=== PATIENT | female | born 1950 | race Caucasian/White ===

== ENCOUNTER 2016-10-29 15:37 | Emergency (ER) | payer BC ==
[~2016-10-29] VITALS: Ht 162.6 cm; Wt 94.0 kg
[~2016-10-29 15:37] MED LIST: ALBUAER2 INH; CHOL1000 PO; CINN500T PO; DICL50TA3 PO; DIPH25CA37 PO; ESOM20CA PO; FEXO1TAB46 PO; GLUCCAP PO; MELA1LIQ PO; MENA1CAP PO; METH1POW PO; MISCCAP80 PO; MULT-580 PO; TRAM-10 PO; VITA400C15 PO
[2016-10-29 15:38] VITALS: Ht 162.6 cm; Wt 94.0 kg
[2016-10-29 15:58] VITALS: O2SAT 94
--- NOTE | 2016-10-29 16:00 | EMERGENCY ROOM VISIT NOTE ---
History Report prepared by Dalton: Andrew Linn Under the Supervision of: Dr. Krystle Hamilton D.O. First contact with patient: 15:49 Chief Complaint: ALLERGIC REACTION Stated Complaint: PNX OR ANAPHYLACTIC SHOCK History of Present Illness The patient is a 66 year old female who presents to the Emergency Room with complaints of persistent shortness of breath. The patient started having trouble breathing suddenly when she was walking downtown prior to arrival. The patient has a history of anaphylaxis. She is not currently experiencing facial swelling, throat tightening or trouble swallowing like she did in the past. The patient has not noticed and rashes or sores. She does have right-sided chest tightness. The patient has had cough and congestion for the past three weeks. She had fever and chills the first week which have not returned since. The cough is productive but has she has not noticed the color of her sputum. She denies nausea, vomiting or changes in bowel or urinary movements. The patient denies recent travel. She has history of asthma and pneumonia as well as anaphylaxis. She denies history of heart disease. She was never a smoker. Source of History: patient Onset: today Position: other (respiratory) Quality: other (shortness of breath) Timing: other (persistent) Associated Symptoms: + cough, + chest pain, No fevers, No chills, No nausea , No vomiting, No melena, No hematochezia, No diarrhea, No urinary symptoms, No rash Review of Systems See HPI for pertinent positives & negatives. A total of 10 systems reviewed and were otherwise negative. Past Medical & Surgical Medical Problems: (1) (Slap) Superior Glenoid Labrum Lesions (2) Allergy To Latex (3) Asthma, Unspecified (4) Diab Marquita Wo Compl, Type Ii Or Unspec Type, Not Uncntrld (5) Esophageal Reflux (6) Hemorrhoids Nos (7) Lumbar Disc Displacement (8) Morbid (Severe) Obesity Due To Excess Calories (9) Sciatica (10) Uterine Endometriosis (11) Uterine Prolapse Surgical Problems: (1) Hip Joint Replacement Status Family History No pertinent family history Social History Smoking Status: Never Smoker Alcohol Use: occasionally Marital Status: Housing Status: lives with family Occupation Status: employed Current/Historical Medications Scheduled Ascorbic Acid (Vitamin C), 1 TAB PO DAILY Cholecalciferol (Vitamin D3), 1,000 UNITS PO QAM Diphenhydramine Hcl (Allergy), 50 MG PO PRN Epinephrine (Epipen), 0.3 MG IM UD Krill Oil (Krill Oil [place]-3), 1,200 MG PO DAILY Multiple Vitamins W/ Minerals (Multi For Her), 1 TAB PO DAILY Prednisone (Prednisone Tab), 20 MG PO UD Scheduled PRN Albuterol Hfa (Ventolin Hfa), 2 PUFFS INH Q4 PRN for COUGH, WHEEZE,SOB Cyclobenzaprine Hcl (Flexeril), 0.5-1 TAB PO TID PRN for BACK SPASMS Esomeprazole Magnesium (Nexium), 40 MG PO DAILY PRN for Fexofenadine Hcl (Ana Allergy), 1 TAB PO DAILY PRN for ALLERGIC REACTION Fluticasone Propionate (Nasal) (Flonase Allergy Relief), 2 SPRAYS JEREMI DAILY PRN for Nasal Congestion Zolpidem Tartrate (Ambien), 5 MG PO HS PRN for Sleep Allergies Coded Allergies: Phenylephrine (Verified Allergy, Severe, RED, WATERY EYES, 10/29/16) WITH EYE DROPS Dust Mite Extract (Verified Allergy, Intermediate, HIVES,SOB THROAT SWELLS , 12/02/15) Baclofen (Verified Allergy, Mild, Hives, 07/08/15) Cephalosporins (Verified Allergy, Mild, UNKNOWN, 12/02/15) Clindamycin (Verified Allergy, Mild, UNKNOWN, 12/02/15) Celecoxib (Verified Allergy, Unknown, SUICIDAL, 12/02/15) Codeine (Verified Allergy, Unknown, NAUSEA AND VOMITING, 12/02/15) Erythromycin (Verified Allergy, Unknown, HIVES, 12/02/15) Latex1 -Allergic Contact Dermititis (Verified Allergy, Unknown, RASH, REDNESS, HIVES, 12/02/15) Methocarbamol (Verified Allergy, Unknown, blurry vision, headache, memory loss , 12/02/15) Penicillins (Verified Allergy, Unknown, HIVES, 12/02/15) Sulfamethoxazole w/Trimethoprim (Verified Allergy, Unknown, depression, nausea, diarrhea, 12/02/15) Tropicamide (Verified Allergy, Unknown, RED, WATERY EYES, 10/29/16) Uncoded Allergies: UNCLAS THER/AG (Allergy, Severe, CAT GUT SUTURES = SEVERE RASH, 07/04/09) ENVIROMENTAL (Allergy, Unknown, ANAPHYLAXIS, 10/29/16) TO COAL, SMOKE, ROAD PAVING, PERFUMES TEMI (Allergy, Unknown, rash, 06/03/15) Physical Exam Vital Signs Date Time Temp Pulse Resp B/P (MAP) Pulse Ox O2 Delivery O2 Flow Rate FiO2 10/29/16 18:02 36.4 97 16 126/61 95 10/29/16 17:41 97 16 126/61 95 10/29/16 17:34 107 18 126/61 95 Room Air 10/29/16 16:35 103 20 149/69 95 Room Air 10/29/16 16:15 98 22 99 Nebulizer 10/29/16 15:58 94 Room Air 10/29/16 15:56 101 10/29/16 15:50 97 Room Air 10/29/16 15:38 36.4 108 26 178/94 97 Room Air Physical Exam GENERAL: alert, well appearing, well nourished, no distress, non-toxic EYE EXAM: normal conjunctiva. OROPHARYNX: Mildly hoarse voice, mild uvular edema, uvula is midline, no lip or tongue swelling, no lesions of the mucous membranes, no tonsillar hypertrophy. NECK: supple, no nuchal rigidity, no adenopathy, non-tender, no stridor. LUNGS: Clear to auscultation. Normal chest wall mechanics, no w/r/r HEART: Regular rhythm, mildly tachycardic, no murmurs, S1 normal and S2 normal ABDOMEN: abdomen soft, non-tender, normo-active bowel sounds, no masses, no rebound or guarding. BACK: Back is symmetrical on inspection and there is no deformity, no midline tenderness, no CVA tenderness. SKIN: no rashes and no bruising. No urticaria, hives, or vesicles. UPPER EXTREMITIES: upper extremities are grossly normal. Neurovascularly intact. LOWER EXTREMITIES: No pitting edema. Neurovascularly intact. NEURO EXAM: Normal sensorium, cranial nerves II-XII grossly intact, normal speech, no gross weakness of arms, no gross weakness of legs. Gross sensation intact. Medical Decision & Procedures ER Provider Diagnostic Interpretation: Radiology results have been interpreted by the radiologist and reviewed by me. SINGLE VIEW CHEST CLINICAL HISTORY: Dyspnea. FINDINGS: An AP, portable, upright chest radiograph is compared to study dated 08/30/2014 and correlated with chest CT dated 09/08/2007. The examination is degraded by portable technique and patient rotation. The heart is top normal for projection. The mediastinal contour is within normal limits. Chronic interstitial thickening is unchanged, as is a nodule in the right middle lobe. This was better characterized by chest CT in 2007. No airspace consolidation, large pleural effusion, or pneumothorax is seen. The skeletal structures are osteopenic. The bony thorax is grossly intact. IMPRESSION: 1. No acute cardiopulmonary abnormality. 2. A right middle lobe nodule is unchanged dating back to 2007. Electronically signed by: Jewel Denney M.D. 10/29/2016 4:15 PM Dictated Date/Time: 10/29/2016 4:13 PM Laboratory Results 10/29/16 15:55 Red Blood Count 4.99, Mean Corpuscular Volume 90.6, Mean Corpuscular Hemoglobin 29.1, Mean Corpuscular Hemoglobin Concent 32.1, Mean Platelet Volume 10.9, Neutrophils (%) (Auto) 62.6, Lymphocytes (%) (Auto) 27.2, Monocytes (%) (Auto) 7.0, Eosinophils (%) (Auto) 2.6, Basophils (%) (Auto) 0.4, Neutrophils # (Auto) 6.02, Lymphocytes # (Auto) 2.62, Monocytes # (Auto) 0.67, Eosinophils # (Auto) 0.25, Basophils # (Auto) 0.04 10/29/16 15:55 Test 10/29/16 15:55 White Blood Count 9.62 K/uL (4.8-10.8) Red Blood Count 4.99 M/uL (4.2-5.4) Hemoglobin 14.5 g/dL (12.0-16.0) Hematocrit 45.2 % (37-47) Mean Corpuscular Volume 90.6 fL (80-100) Mean Corpuscular Hemoglobin 29.1 pg (25-34) Mean Corpuscular Hemoglobin Concent 32.1 g/dl (32-36) Platelet Count 275 K/uL (130-400) Mean Platelet Volume 10.9 fL (7.4-10.4) Neutrophils (%) (Auto) 62.6 % Lymphocytes (%) (Auto) 27.2 % Monocytes (%) (Auto) 7.0 % Eosinophils (%) (Auto) 2.6 % Basophils (%) (Auto) 0.4 % Neutrophils # (Auto) 6.02 K/uL (1.4-6.5) Lymphocytes # (Auto) 2.62 K/uL (1.2-3.4) Monocytes # (Auto) 0.67 K/uL (0.11-0.59) Eosinophils # (Auto) 0.25 K/uL (0-0.5) Basophils # (Auto) 0.04 K/uL (0-0.2) RDW Standard Deviation 43.7 fL (36.4-46.3) RDW Coefficient of Variation 13.3 % (11.5-14.5) Immature Granulocyte % (Auto) 0.2 % Immature Granulocyte # (Auto) 0.02 K/uL (0.00-0.02) D-Dimer 460 ug/L FEU (0-500) Anion Gap 8.0 mmol/L (3-11) Est Creatinine Clear Calc Drug Dose 62.2 ml/min Estimated GFR () 68.8 Estimated GFR (Non- 59.4 BUN/Creatinine Ratio 14.0 (10-20) Calcium Level 8.9 mg/dl (8.5-10.1) Total Bilirubin 0.3 mg/dl (0.2-1) Aspartate Amino Transf (AST/SGOT) 17 U/L (15-37) Alanine Aminotransferase (ALT/SGPT) 24 U/L (12-78) Alkaline Phosphatase 94 U/L (45-117) Troponin I < 0.015 ng/ml (0-0.045) Pro-B-Type Natriuretic Peptide 24 pg/ml (0-900) Total Protein 8.2 gm/dl (6.4-8.2) Albumin 3.9 gm/dl (3.4-5.0) Globulin 4.3 gm/dl (2.5-4.0) Albumin/Globulin Ratio 0.9 (0.9-2) Laboratory results per my review. Medications Administered Medications (Trade) Dose Ordered Sig/Miguel Route Start Time Stop Time Status Last Admin Dose Admin Albuterol/ Ipratropium (Duoneb) 3 ml NOW STAT INH 10/29/16 16:04 10/29/16 16:05 DC 10/29/16 16:15 3 ML Diphenhydramine HCl (Benadryl Inj) 25 mg NOW STAT IV 10/29/16 16:15 10/29/16 16:17 DC 10/29/16 16:22 25 MG Dexamethasone Sodium Phosphate (Decadron Inj) 10 mg NOW ONCE IV 10/29/16 16:45 10/29/16 16:46 DC 10/29/16 16:52 10 MG Albuterol/ Ipratropium (Duoneb) 3 ml NOW STAT INH 10/29/16 17:04 10/29/16 17:05 DC 10/29/16 17:08 3 ML Albuterol (Ventolin Hfa Inhaler) 2 puffs NOW ONCE INH 10/29/16 17:45 10/29/16 17:46 DC 10/29/16 17:50 2 PUFFS ECG Indication: SOB/dyspnea Rate (beats per minute): 98 Rhythm: normal sinus Findings: no acute ischemic change, no ectopy, other (normal axis, normal QRS, low voltage, T waves appear flattened which possibly contributes to EKG calculation of a prolonged QTC. QTC does not appear prolonged to visual inspection.) ED Course 1549: The patient was evaluated in room A1. A complete history and physical exam was performed. 1604: DuoNeb 3 ml INH. 1615: Benadryl 25 mg IV. 1638: Checked on the patient. She looks much better and her voice is no longer hoarse. 1645: Decadron 10 mg IV. 1704: DuoNeb 3 ml INH. 1725: The patient is feeling great. She would like to go home. 1745: Albuterol 2 puffs INH. Medical Decision Differential diagnosis: Etiologies such as infections, reactive airway disease, pneumonia, pneumothorax , COPD, CHF, cardiac ischemia, pulmonary embolism, musculoskeletal, gastrointestinal, as well as others were entertained. Medication Reconciliation: I attest that I have personally reviewed the patient' s current medication list. Blood pressure screening: Patient was found to have an elevated blood pressure and was referred to their primary doctor for recheck and further treatment. I do not suspect anaphylaxis at this time. Hx more suggestive of bronchospasm/ URI. Possible seasonal allergy component. No evidence of pneumonia/effusion/ CHF. Doubt deep space infection, Improvement in sx with tx here and no recurrence. No hypoxia noted. Pt ambulatory without any recurrent sx. Discussed with pt sx to watch/return for, f/u with PCP, she verbalized understanding and was agreeable with plan. Doubt cardiac etiology, vascular etiology. Impression Primary Impression: Dyspnea Additional Impressions: Asthma exacerbation URI (upper respiratory infection) Scribe Attestation The scribe's documentation has been prepared under my direction and personally reviewed by me in its entirety. I confirm that the note above accurately reflects all work, treatment, procedures, and medical decision making performed by me. Departure Information Dispostion Home / Self-Care Referrals Sharee Leblanc D.O. (PCP) Patient Instructions My [facility] Additional Instructions Please use your inhaler with spacer as provided. You may use her inhaler up to every 4 hours as needed for shortness of breath, persistent cough, or wheezing. Please follow up with her family doctor next week given your recent upper respiratory infection and exacerbation of her asthma. Please agrees keep your allergic reaction medications with you as your previously directed by her doctor including her EpiPen. If you develop any worsening trouble breathing, persistent cough or coughing up blood, develop recurrent fevers, vomiting, chest pain or pressure, or any other new concerns, please return the emergency room. Problem Qualifiers Primary Impression: Dyspnea Dyspnea type: shortness of breath Qualified Codes: R06.02 - Shortness of breath Additional Impressions: URI (upper respiratory infection) URI type: unspecified URI Qualified Codes: J06.9 - Acute upper respiratory infection, unspecified
[2016-10-29] MEDS ORDERED: ALBUT/IPRATROP 3MG/0.5MG NEB 3 ML VIAL INH STA ×2 (16:04→17:04)
[2016-10-29] MEDS ORDERED: DiphenhydrAMINE HCL 50 MG/ML VIAL IV STA (16:15)
[2016-10-29 16:16] LABS: BASO % 0.4 %; BASO ABS # 0.04 K/uL (0-0.2); COMPLETE YES; EOS % 2.6 %; HEMATOCRIT 45.2 % (37-47); IG% 0.2 %; LYMPH % 27.2 %; LYMPH ABS # 2.62 K/uL (1.2-3.4); MEAN CELL VOLUME 90.6 fL (80-100); MEAN CORPUSCULAR HEMOGLOBIN 29.1 pg (25-34); MEAN CORPUSCULAR HGB CONC 32.1 g/dl (32-36); MEAN PLATELET VOLUME 10.9 fL (7.4-10.4); NEUT % 62.6 %; PLATELET COUNT 275 K/uL (130-400); RED BLOOD COUNT 4.99 M/uL (4.2-5.4); WHITE BLOOD COUNT 9.62 K/uL (4.8-10.8)
--- NOTE | 2016-10-29 16:16 | DIAGNOSTIC IMAGING REPORT ---
SINGLE VIEW CHEST CLINICAL HISTORY: Dyspnea. FINDINGS: An AP, portable, upright chest radiograph is compared to study dated 08/30/2014 and correlated with chest CT dated 09/08/2007. The examination is degraded by portable technique and patient rotation. The heart is top normal for projection. The mediastinal contour is within normal limits. Chronic interstitial thickening is unchanged, as is a nodule in the right middle lobe. This was better characterized by chest CT in 2007. No airspace consolidation, large pleural effusion, or pneumothorax is seen. The skeletal structures are osteopenic. The bony thorax is grossly intact. IMPRESSION: 1. No acute cardiopulmonary abnormality. 2. A right middle lobe nodule is unchanged dating back to 2007. Electronically signed by: Jewel Denney M.D. 10/29/2016 4:15 PM Dictated Date/Time: 10/29/2016 4:13 PM
[2016-10-29] MEDS ORDERED: ZOLP5TAB PO (16:22)
[2016-10-29] MEDS ORDERED: EPP3/2 IM (16:22)
[2016-10-29] MEDS ORDERED: PRED20TA2 PO (16:22)
[2016-10-29 16:26] LABS: ALT/SGPT 24 U/L (12-78); AST/SGOT 17 U/L (15-37); BLOOD UREA NITROGEN 14 mg/dl (7-18); CALCIUM 8.9 mg/dl (8.5-10.1); CARBON DIOXIDE 27 mmol/L (21-32); CHLORIDE 106 mmol/L (98-107); CREATININE 0.99 mg/dl (0.60-1.20); GLUCOSE 197 mg/dl (70-99); POTASSIUM 3.6 mmol/L (3.5-5.1); SODIUM 141 mmol/L (136-145)
[2016-10-29 16:31] LABS: ALB/GLOB RATIO 0.9 (0.9-2); ALKALINE PHOSPHATASE 94 U/L (45-117)
[2016-10-29] MEDS ORDERED: KRIL1CAP7 PO (16:44)
[2016-10-29] MEDS ORDERED: MULT-222 PO (16:44)
[2016-10-29] MEDS ORDERED: DEXAMETHASONE SOD INJ 10 MG/ML VIAL IV ONE (16:45)
[2016-10-29] MEDS ORDERED: CYCL10TA6 PO (17:03)
[2016-10-29] MEDS ORDERED: FEXO1TAB49 PO (17:15)
[2016-10-29] MEDS ORDERED: FLUT0.15 NAE (17:15)
[2016-10-29] MEDS ORDERED: VNTHFA/IN INH (17:15)
[2016-10-29] MEDS ORDERED: DIPH-384 PO (17:15)
[2016-10-29] MEDS ORDERED: NXM/40 PO (17:15)
[2016-10-29] MEDS ORDERED: ASCA500 PO (17:15)
[2016-10-29] MEDS ORDERED: ALBUTEROL HFA 8 GM INHALER INH ONE (17:45)
[2016-10-29 18:02] VITALS: BP 126/61; PULSE 97; TEMP 36.4; O2SAT 95
== END 2016-10-29 18:00 | disposition home or self-care (01) ==
LOC: C.EDB 15:38 → C.ED 18:00
DX: R06.00 Dyspnea, unspecified (principal); J45.901 Unspecified asthma with (acute) exacerbation; J06.9 Acute upper respiratory infection, unspecified; E11.9 Type 2 diabetes mellitus without complications; K21.9 Gastro-esophageal reflux disease without esophagitis; K64.9 Unspecified hemorrhoids; M51.26 Other intervertebral disc displacement, lumbar region; E66.01 Morbid (severe) obesity due to excess calories; N80.0 Endometriosis of uterus; N81.4 Uterovaginal prolapse, unspecified; Z96.649 Presence of unspecified artificial hip joint

== ENCOUNTER → 2017-01-11 | Outpatient (CLI) | payer BC ==
[~2017-01-11] MED LIST changes: -ALBUAER2 INH; +ASCA500 PO; -CINN500T PO; +CYCL10TA6 PO; -DICL50TA3 PO; +DIPH-384 PO; -DIPH25CA37 PO; +EPP3/2 IM; -ESOM20CA PO; -FEXO1TAB46 PO; +FEXO1TAB49 PO; +FLUT0.15 NAE; -GLUCCAP PO; +KRIL1CAP7 PO; -MELA1LIQ PO; -MENA1CAP PO; -METH1POW PO; -MISCCAP80 PO; +MULT-222 PO; -MULT-580 PO; +NXM/40 PO; +PRED20TA2 PO; -TRAM-10 PO; -VITA400C15 PO; +VNTHFA/IN INH; +ZOLP5TAB PO
== END | disposition home or self-care (01) ==
LOC: C.LABSPEC 13:08
PROVIDERS: ATTEND Obstetrics & Gynecology
DX: Z12.4 Encounter for screening for malignant neoplasm of cervix (principal); N76.2 Acute vulvitis

== ENCOUNTER → 2017-01-11 | Outpatient (CLI) | payer BC | END | disposition home or self-care (01) | LOC: C.PAPS 14:11 | PROVIDERS: ATTEND Obstetrics & Gynecology | DX: Z12.4 Encounter for screening for malignant neoplasm of cervix (principal) ==

== ENCOUNTER → 2017-06-15 | Day surgery (SDC) | payer BC ==
[2017-06-09 08:41] VITALS: BMI 34.0
[~2017-06-15] VITALS: Ht 162.6 cm; Wt 90.9 kg
[~2017-06-15] MED LIST changes: +CALC750T PO; +CINN1CAP2 PO; +CYAN10004 PO; +GLUCCAP31 PO; +IODINE PO; +JOINT FORMULA PO; +MAGN250T3 PO; +MULT60CA PO; +PROPOFOL IV EMULSION 10 MG/ML 20 ML VIAL IV ONE; +TURM500C2 PO; +[UNRECOGNIZED DRUG - OTHER] PO
[2017-06-15 10:39] VITALS: Ht 162.6 cm; Wt 90.9 kg
--- NOTE | 2017-06-15 11:21 | Endo History and Physical ---
History & Physical Date of Service: Jun 15, 2017. Chief Complaint: SCREENING Referring Physician: DR ATIYA MCDONNELL History of Present Illness screening Past Medical History Diabetes, Arthritis, Fractures, Asthma, Reflux, Depression Past Surgical History Hx Cardiac Surgery: No Hx Internal Defibrillator: No Hx Pacemaker: No Hx Abdominal Surgery: Yes (PARTIAL HYSTER WITH RECON OF LINING OF WALL, HEMORRHOIDECTOMY) Hx of Implantable Prosthesis: No Hx Post-Op Nausea and Vomiting: No Hx Cancer Surgery: No Hx Thoracic Surgery: No Hx Orthopedic: Yes (LT/RT JORDAN, LT/RT HIP REVISIONS, RT SHOULDER, RT FOOT X2) Hx Urinary Tract Surgery: No Family History None Social History Smoking Status: Never Smoker Hx Substance Use: No Hx Alcohol Use: No Allergies Coded Allergies: Phenylephrine (Verified Allergy, Severe, RED, WATERY EYES, 06/15/17) WITH EYE DROPS Dust Mite Extract (Verified Allergy, Intermediate, HIVES,SOB THROAT SWELLS , 06/15/17) Baclofen (Verified Allergy, Mild, Hives, 06/15/17) Cephalosporins (Verified Allergy, Mild, UNKNOWN, 06/15/17) Clindamycin (Verified Allergy, Mild, UNKNOWN, 06/15/17) Celecoxib (Verified Allergy, Unknown, SUICIDAL, 06/15/17) Codeine (Verified Allergy, Unknown, NAUSEA AND VOMITING, 06/15/17) Erythromycin (Verified Allergy, Unknown, HIVES, 06/15/17) Latex1 -Allergic Contact Dermititis (Verified Allergy, Unknown, RASH, REDNESS, HIVES, 06/15/17) Methocarbamol (Verified Allergy, Unknown, blurry vision, headache, memory loss , 06/15/17) Penicillins (Verified Allergy, Unknown, HIVES, 06/15/17) Sulfamethoxazole w/Trimethoprim (Verified Allergy, Unknown, depression, nausea, diarrhea, 06/15/17) Tropicamide (Verified Allergy, Unknown, RED, WATERY EYES, 06/15/17) Uncoded Allergies: UNCLAS THER/AG (Allergy, Severe, CAT GUT SUTURES = SEVERE RASH, 07/04/09) ENVIROMENTAL (Allergy, Unknown, ANAPHYLAXIS, 10/29/16) TO COAL, SMOKE, ROAD PAVING, PERFUMES TEMI (Allergy, Unknown, rash, 06/03/15) WHITE GOLD (Adverse Reaction, Unknown, OCCASIONAL HIVES/IRRITATION, 06/09/17 ) Current Medications Reported Home Medications Medications Dose Route/Sig Max Daily Dose Days Date Category Dose Instructions Msm/Glucosamine (Glucosamine Sulfate-Methylsulf) 1 Cap Cap 1 Cap PO DAILY 06/09/17 Reported Calcium + D + K (Calcium W/ Vitamins D & K) 1 Tab Tab 1 Tab PO DAILY 06/09/17 Reported Preservision Areds 2 (Multiple Vitamins W/ Minerals) 1 Cap Cap 1 Cap PO DAILY 06/09/17 Reported Vitamin B-12 1000 Mcg (Cyanocobalamin) 1,000 Mcg Tab 1,000 Mcg PO DAILY 06/09/17 Reported [Iodine] 1 Tab PO DAILY 06/09/17 Reported [Lignens W Licopene] 1 Tab PO DAILY 06/09/17 Reported [Joint Formula] 1 Tab PO DAILY 06/09/17 Reported Magnesium 250 mg (Magnesium) 1 Tab Tab 1 Tab PO DAILY 06/09/17 Reported Curcumin 95 (Turmeric (Curcuma Longa)) 500 Mg Cap 1 Cap PO DAILY 06/09/17 Reported Vitamin C (Ascorbic Acid) 500 Mg Tab 1 Tab PO DAILY 06/09/17 Reported Cinnamon 500 Mg Cap 2 Cap PO DAILY 06/09/17 Reported Vitamin C (Ascorbic Acid) 500 Mg Tab 1 Tab PO DAILY 10/29/16 Reported Ana Allergy (Fexofenadine Hcl) 180 Mg Tab 1 Tab PO DAILY PRN 10/29/16 Reported Nexium (Esomeprazole Magnesium) 40 Mg Capcr 40 Mg PO DAILY PRN 10/29/16 Reported Flonase Allergy Relief (Fluticasone Propionate (Nasal)) 50 Mcg/Act Spr 2 Sprays JEREMI DAILY PRN 10/29/16 Reported Allergy (Diphenhydramine Hcl) 25 Mg Cap 50 Mg PO PRN 10/29/16 Reported Ventolin Hfa (Albuterol) 200 Puffs/93784 Mcg Aers 2 Puffs INH Q4 PRN 10/29/16 Reported Flexeril (Cyclobenzaprine Hcl) 10 Mg Tab 0.5-1 Tab PO TID PRN 12/02/15 Reported Krill Oil [place]-3 (Krill Oil) 1 Cap Cap 1,200 Mg PO DAILY 12/02/15 Reported Multi For Her (Multiple Vitamins W/ Minerals) 1 Tab Tab 1 Tab PO DAILY 12/02/15 Reported Vitamin D3 (Cholecalciferol) 1,000 Unit Tab 1,000 Units PO DAILY 11/12/14 Reported Ambien (Zolpidem Tartrate) 5 Mg Tab 5 Mg PO HS PRN 05/07/13 Reported Prednisone Tab (Prednisone) 20 Mg Tab 20 Mg PO UD 05/07/13 Reported 2 TABLETS AT ONSET OF THROAT SWELLING Epipen (Epinephrine) 0.3 Mg/0.3 Ml Inj 0.3 Mg IM UD 05/07/13 Reported Vital Signs Weight (Kilograms): 90.91 Height (Feet): 5 Height (Inches): 4 Date Time Temp Pulse Resp B/P (MAP) Pulse Ox O2 Delivery O2 Flow Rate FiO2 06/15/17 10:45 36.7 76 20 150/78 (102) 95 Room Air Physical Exam General Appearance: no apparent distress Respiratory/Chest: Auscultation: breath sounds normal Cardiovascular: Heart Auscultation: RRR Abdomen: Inspection & Palpation: soft Assessment and Plan crc screening
--- NOTE | 2017-06-15 12:08 | GI REPORT ---
Procedure Date: 06/15/2017 11:21 AM Procedure: Colonoscopy Indications: Screening for colorectal malignant neoplasm Medicines: See the Anesthesia note for documentation of the administered medications Complications: No immediate complications. Estimated Blood Loss: Estimated blood loss: none. Procedure: Pre-Anesthesia Assessment: - ASA Grade Assessment: III - A patient with severe systemic disease. After I obtained informed consent, the scope was passed under direct vision. Throughout the procedure, the patient's blood pressure, pulse, and oxygen saturations were monitored continuously. The scope was introduced through the anus and advanced to the cecum, identified by appendiceal orifice and ileocecal valve. The colonoscopy was performed without difficulty. The patient tolerated the procedure well. The quality of the bowel preparation was good. Findings: The perianal and digital rectal examinations were normal. Multiple small-mouthed diverticula were found in the sigmoid colon. There was a healed scar in the rectum. There was scarring at the anal verge, likely related to prior hemorrhoidectomy. The exam was otherwise without abnormality. Impression: - Diverticulosis in the sigmoid colon. - The examination was otherwise unremarkable. - No specimens collected. Recommendation: - Repeat exam in 10 years. - Discharge patient to home. Marciano Valdovinos M.D. Marciano Valdovinos MD 06/15/2017 12:08:02 PM This report has been signed electronically. Note Initiated On: 06/15/2017 11:21 AM I attest to the content of the Intraoperative Record and orders documented therein, exceptions below
--- NOTE | 2017-06-15 12:10 | Discharge Instructions ---
Endoscopy Patient Instructions Date / Procedure(s) Performed Jun 15, 2017. Colonoscopy Allergy Information Coded Allergies: Phenylephrine (Verified Allergy, Severe, RED, WATERY EYES, 06/15/17) WITH EYE DROPS Dust Mite Extract (Verified Allergy, Intermediate, HIVES,SOB THROAT SWELLS , 06/15/17) Baclofen (Verified Allergy, Mild, Hives, 06/15/17) Cephalosporins (Verified Allergy, Mild, UNKNOWN, 06/15/17) Clindamycin (Verified Allergy, Mild, UNKNOWN, 06/15/17) Celecoxib (Verified Allergy, Unknown, SUICIDAL, 06/15/17) Codeine (Verified Allergy, Unknown, NAUSEA AND VOMITING, 06/15/17) Erythromycin (Verified Allergy, Unknown, HIVES, 06/15/17) Latex1 -Allergic Contact Dermititis (Verified Allergy, Unknown, RASH, REDNESS, HIVES, 06/15/17) Methocarbamol (Verified Allergy, Unknown, blurry vision, headache, memory loss , 06/15/17) Penicillins (Verified Allergy, Unknown, HIVES, 06/15/17) Sulfamethoxazole w/Trimethoprim (Verified Allergy, Unknown, depression, nausea, diarrhea, 06/15/17) Tropicamide (Verified Allergy, Unknown, RED, WATERY EYES, 06/15/17) Uncoded Allergies: UNCLAS THER/AG (Allergy, Severe, CAT GUT SUTURES = SEVERE RASH, 07/04/09) ENVIROMENTAL (Allergy, Unknown, ANAPHYLAXIS, 10/29/16) TO COAL, SMOKE, ROAD PAVING, PERFUMES TEMI (Allergy, Unknown, rash, 06/03/15) WHITE GOLD (Adverse Reaction, Unknown, OCCASIONAL HIVES/IRRITATION, 06/09/17 ) Discharge Date / Findings Jun 15, 2017. Diverticulosis Medication Instructions Stopped Medication(s): VITAMINS AND MINERALS Provider Instructions Activity Restrictions - No exercising or heavy lifting for 24 hours. - Do not drink alcohol the day of the procedure. - Do not drive a car or operate machinery until the day after the procedure. - Do not make any important decisions or sign important papers in 24 hours after the procedure. Following Day: - Return to full activity which may include returning to work/school. Diet Start your diet with liquids and light foods (jello, soup, juice, toast). Then eat your usual diet if not nauseated. Treatment For Common After Affects For mild abdominal pain, bloating, or excessive gas: - Rest - Eat lightly - Lie on right side Follow-Up Information Follow-up with DR ATIYA MCDONNELL as scheduled Anesthesia Information What You Should Know You have had a procedure that required some medicine to reduce anxiety and discomfort. This treatment is called moderate sedation. After receiving the treatment, you may be sleepy, but you will be able to breathe on your own. The effects of the treatment may last for several hours. Follow these instructions along with Activity/Diet recommendations noted above: * Do NOT do anything where dizziness or clumsiness would be dangerous. * Rest quietly at home today, then you can be up and about tomorrow. * Have a responsible person stay with you the rest of today. * You may have had an I.V. today. If so, you may take the dressing off later today. Recommendations Call your doctor if: * Trouble breathing * Continuous vomiting for more than 24 hours * Temperature above 101 degrees * Severe abdominal pain or bloating * Pain not relieved by pain medicine ordered * There is increased drainage or redness from any incision * A large amount of rectal bleeding greater than 2-3 tablespoons. (If you had a polyp/s removed or have hemorrhoids, a small amount of blood - from the rectum is to be expected.) * You have any unanswered questions or concerns. IN THE EVENT OF A SERIOUS EMERGENCY, GO TO THE NEAREST EMERGENCY ROOM Your discharge instructions were prepared by provider Marciano Kan. Patient Instructions Signature Page Yaneth Rios Patient (or Guardian) Signature/Date: I have read and understand the instructions given to me by my caregivers. Caregiver/RN/Doctor Signature/Date: The above-named patient and/or guardian has received patient instructions on this date. + Original Patient Signature Page (only) stays with chart. Please make copy for patient.
[2017-06-15 12:21] VITALS: BP 123/93; PULSE 59; O2SAT 99
--- NOTE | 2017-06-15 12:24 | Anesthesiology Progress Note ---
Anesthesia Post Op Note Date & Time Jun 15, 2017 at 12:24 Vital Signs Pain Intensity: 0 Vital Signs Past 12 Hours Date Time Temp Pulse Resp B/P (MAP) Pulse Ox O2 Delivery O2 Flow Rate FiO2 06/15/17 12:21 59 20 123/93 (103) 99 Room Air 06/15/17 12:06 62 18 146/73 (97) 97 Room Air 06/15/17 11:51 75 18 125/68 (87) 96 Room Air 06/15/17 10:45 36.7 76 20 150/78 (102) 95 Room Air Notes Mental Status: alert / awake / arousable, participated in evaluation Pt Amnestic to Procedure: Yes Nausea / Vomiting: adequately controlled Pain: adequately controlled Airway Patency, RR, SpO2: stable & adequate BP & HR: stable & adequate Hydration State: stable & adequate Anesthetic Complications: no major complications apparent
== END | disposition home or self-care (01) ==
LOC: C.GI 09:49
PROVIDERS: ATTEND Internal Medicine Gastroenterology
DX: Z12.11 Encounter for screening for malignant neoplasm of colon (principal); K57.30 Diverticulosis of large intestine without perforation or abscess without bleeding; J45.909 Unspecified asthma, uncomplicated; K21.9 Gastro-esophageal reflux disease without esophagitis; E11.9 Type 2 diabetes mellitus without complications; Z90.710 Acquired absence of both cervix and uterus; Z96.641 Presence of right artificial hip joint; Z96.642 Presence of left artificial hip joint

== ENCOUNTER 2020-09-19 20:22 | Observation (INO) ==
[2020-09-20 00:43] LABS: Basophils # (auto) 0.04 K/uL (0-0.2); Basophils % (auto) 0.6 %; Eosinophils # (auto) 0.19 K/uL (0-0.5); Eosinophils % (auto) 2.7 %; Hematocrit (blood only) 40.2 % (37-47); Hemoglobin 13.2 g/dL (12.0-16.0); Immature Granulocytes # (auto) 0.01 K/uL (0.00-0.02); Immature Granulocytes % (auto) 0.1 %; Lymphocytes # (auto) 2.84 K/uL (1.2-3.4); Lymphocytes % (auto) 40.6 %; Mean Corpuscular Hemoglobin 29.8 pg (25-34); Mean Corpuscular Hgb Conc 32.8 g/dL (32-36); Mean Corpuscular Volume 90.7 fL (80-100); Mean Platelet Volume 11.4 fL (7.4-10.4); Monocytes % (auto) 8.6 %; Neutrophils # (auto) 3.31 K/uL (1.4-6.5); Neutrophils % (auto) 47.4 %; Platelet Count 165 K/uL (130-400); RDW Coefficient of Variation 13.2 % (11.5-14.5); RDW Standard Deviation 43.8 fL (36.4-46.3); Red Blood Count 4.43 M/uL (4.2-5.4); White Blood Count 6.99 K/uL (4.8-10.8)
[2020-09-20 01:02] LABS: Albumin Level 3.7 gm/dl (3.4-5.0); BUN Creatinine Ratio 23.7 (10-20); Calcium 9.3 mg/dl (8.5-10.1); Creatinine Clr Calc Pharmacy 69.2 ml/min; Est GFR (African American) 81.6; Est GFR (Non-African American) 70.4; Potassium 4.2 mmol/L (3.5-5.1)
[2020-09-20 01:05] LABS: Bilirubin,Total 0.3 mg/dl (0.2-1); Globulin 3.7 gm/dl (2.5-4.0); Total Protein 7.4 gm/dl (6.4-8.2)
--- NOTE | 2020-09-20 01:33 | Emergency Department Note ---
History of Present Illness General Chief complaint: Fall Stated complaint: FELL, WHOLE RIGHT SIDE HURTS Time Seen by Provider: 09/19/20 22:01 Source: patient and family (Son who is at the bedside) Mode of arrival: ambulatory Limitations: no limitations History of Present Illness Maximum Pain Intensity: 6 This patient comes in after falling. She said that she was on some steps and the last step down she had just stood up and lost her balance and fell to the right side. She did not feel ill beforehand has had no recent illness or fever or chills. She said she had no symptoms that would make her fall such as w eakness or chest pain. And she is certain that she did not have syncope. She says she was just simply off balance. She has pain in her right hip. She is at both hips replaced. She also has pain in her right shoulder elbow and wrist. She did not hit her head and has no headache. She has no neck pain. No facial injuries. No change in vision difficulty speaking or swallowing. Denies any focal numbness or weakness. No chest pain or shortness of breath or abdominal pain. No trauma to the chest or abdomen. Denies back pain. She says she when she walks she is also feels like she is dragging her right foot which is new. She tells me during her hip replacement the past there was some damage and she does have sometimes hard time flexing her hip but this is different. Home Medications Medication Instructions Recorded Confirmed Type albuterol sulfate 2 puff INHALATION QID PRN 04/25/18 09/19/20 History ascorbic acid (vitamin C) 1,000 mg PO BID 04/25/18 09/19/20 History diphenhydramine HCl [Benadryl] 50 mg PO HS PRN 04/25/18 09/19/20 History epinephrine [EpiPen] 0.3 mg IM Q3H PRN 04/25/18 09/19/20 History fexofenadine [Ana Allergy] 180 mg PO DAILY PRN 04/25/18 09/19/20 History multivitamin with minerals 1 tab PO QAM 04/25/18 09/19/20 History prednisone 20 mg PO DIRECTED PRN 04/25/18 09/19/20 History astaxanthin 4 mg PO QDL 11/22/18 09/19/20 History fish oil-dha-epa 1 cap PO QAM 11/22/18 09/19/20 History magnesium U-bobnag-twomiwubotb 1 tab PO QAM 11/22/18 09/19/20 History lorazepam [Ativan] 0.5 mg PO Q8H PRN #10 tab 06/22/20 09/19/20 Rx meloxicam 7.5 mg PO QAM 06/22/20 09/19/20 History metformin 500 mg PO QAM 09/19/20 09/19/20 History nystatin-triamcinolone 1 appln TOP TID PRN 09/19/20 09/19/20 History omeprazole 40 mg PO DAILYBB 09/19/20 09/19/20 History Allergies Allergy/AdvReac Type Severity Reaction Status Date / Time celecoxib Allergy Severe SUICIDAL Verified 09/19/20 22:19 phenylephrine Allergy Severe RED, Verified 09/19/20 22:19 WATERY EYES baclofen Allergy Mild Hives Verified 09/19/20 22:19 Cephalosporins Allergy Mild UNKNOWN Verified 09/19/20 22:19 clindamycin Allergy Mild UNKNOWN Verified 09/19/20 22:19 codeine Allergy Mild NAUSEA AND Verified 09/19/20 22:19 VOMITING erythromycin base Allergy Mild HIVES Verified 09/19/20 22:19 latex Allergy Mild RASH,REDNESS, Verified 09/19/20 22:19 HIVES methocarbamol Allergy Mild blurry Verified 09/19/20 22:19 vision, headache, memory loss Penicillins Allergy Mild HIVES Verified 09/19/20 22:19 sulfamethoxazole Allergy Mild depression, Verified 09/19/20 22:19 nausea, diarrhea trimethoprim Allergy Mild depression, Verified 09/19/20 22:19 nausea, diarrhea tropicamide Allergy Mild RED, Verified 09/19/20 22:19 WATERY EYES ENVIROMENTAL Allergy Severe ANAPHYLAXIS Uncoded 09/19/20 22:19 UNCLAS THER/AG Allergy Severe CAT GUT Uncoded 09/19/20 22:19 SUTURES = SEVERE RASH Dust Mite Extract Allergy Intermediate HIVES,SOB Uncoded 09/19/20 22:19 THROAT SWELLS TEMI Allergy Intermediate rash Uncoded 09/19/20 22:19 Ethicon Sutures Allergy Unknown Unknown Uncoded 09/19/20 22:19 WHITE GOLD AdvReac Mild OCCASIONAL Uncoded 09/19/20 22:19 HIVES/IRRITATION Past Med/Surg History Medical History (Updated 09/20/20 @ 02:34 by Beto Phelps MD) Asthma LAST INHALER USED MANY MONTHS AGO Cancer PRE CANCEROUS SKIN REMOVED Chronic back pain Degenerative disc disease Diabetes mellitus, type 2 CONTROLLED BY DIET Environmental and seasonal allergies GERD (gastroesophageal reflux disease) Glaucoma Hearing deficit 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 Hypertension Idiopathic angioedema Macular degeneration Migraine Osteoarthritis Scoliosis Temporomandibular joint disorder Surgical History Family history of reaction to anesthesia SLOW TO WAKE UP>SISTER/2 BROTHERS H/O foot surgery RT FOOT BIG TOE JOINT REPAIRED H/O: hysterectomy History of anesthesia reaction SLOW TO WAKE UP FROM ANESTHESIA AND SENSITIVE History of arthroscopy RT SHOULDER History of bronchoscopy BIOPSY BENIGN TUMOR IN LUNG History of cataract surgery RT/LEFT History of colonoscopy History of esophagogastroduodenoscopy (EGD) History of total hip arthroplasty RT/LEFT WITH REVISIONS ON BOTH HIPS Hx of detached retina repair REPAIRED ? EYE Family History Brother Family history of diabetes mellitus Mother Family history of diabetes mellitus Social History Smoking Status: Never smoker Second Hand Exposure: Yes ( A CHILD); Hx Alcohol Use: Yes Alcohol type: beer and wine Hx Substance Use: No Preferred Language: Spanish Communication Ability: Effective Physician Relations Representative Required: No Beliefs That Will Affect Care: None Current Living Situation: Family Current Living Situation Comment: LIVES WITH FATHER "DISABLED" Feels Safe at Home: Yes Assistive Devices: Cane, Glasses and Walker Review of Systems A total of 10 systems reviewed and were otherwise negative Physical Exam Vital Signs Vital Signs - 24 hr 09/19/20 20:29 09/20/20 00:30 09/20/20 00:33 Temperature 37.0 C Temperature Source Temporal Artery Scan Pulse Rate 79 69 69 Pulse Rate [Right Finger] 69 Pulse Rate from SpO2 Sensor 69 69 Pulse Rhythm [Right Finger] Regular Pulse Strength [Right Finger] Normal Respiratory Rate 16 24 20 Respiratory Effort / Characteristics Non-Labored Spontaneous Non-Labored Respiratory Depth Normal Normal Respiratory Pattern Regular Regular Blood Pressure 162/80 H 145/91 H Blood Pressure [Right Arm] 145/91 H Blood Pressure Mean 107 109 Blood Pressure Mean [Right Arm] 109 Blood Pressure Position Sitting Blood Pressure Position [Right Arm] Lying Pulse Oximetry 96 96 96 Oxygen Delivery Method Room Air Room Air Sepsis Recent Fever Within 48 Hours No Sepsis New/Unexplained Change in Mental Status No Sepsis Action Taken by Nursing No Action Required 09/20/20 00:34 09/20/20 00:40 09/20/20 01:15 Temperature Temperature Source Pulse Rate 70 70 71 Pulse Rate [Right Finger] Pulse Rate from SpO2 Sensor 69 69 Pulse Rhythm [Right Finger] Pulse Strength [Right Finger] Respiratory Rate 20 22 20 Respiratory Effort / Characteristics Respiratory Depth Respiratory Pattern Blood Pressure Blood Pressure [Right Arm] Blood Pressure Mean Blood Pressure Mean [Right Arm] Blood Pressure Position Blood Pressure Position [Right Arm] Pulse Oximetry 95 96 Oxygen Delivery Method Sepsis Recent Fever Within 48 Hours Sepsis New/Unexplained Change in Mental Status Sepsis Action Taken by Nursing 09/20/20 01:20 09/20/20 01:30 09/20/20 01:31 Temperature Temperature Source Pulse Rate 65 66 64 Pulse Rate [Right Finger] Pulse Rate from SpO2 Sensor 64 66 65 Pulse Rhythm [Right Finger] Pulse Strength [Right Finger] Respiratory Rate 21 17 21 Respiratory Effort / Characteristics Respiratory Depth Respiratory Pattern Blood Pressure 154/71 H Blood Pressure [Right Arm] Blood Pressure Mean 98 Blood Pressure Mean [Right Arm] Blood Pressure Position Blood Pressure Position [Right Arm] Pulse Oximetry 96 95 96 Oxygen Delivery Method Sepsis Recent Fever Within 48 Hours Sepsis New/Unexplained Change in Mental Status Sepsis Action Taken by Nursing 09/20/20 01:40 09/20/20 01:50 09/20/20 02:00 Temperature Temperature Source Pulse Rate 66 66 66 Pulse Rate [Right Finger] Pulse Rate from SpO2 Sensor 66 66 70 Pulse Rhythm [Right Finger] Pulse Strength [Right Finger] Respiratory Rate 21 22 18 Respiratory Effort / Characteristics Respiratory Depth Respiratory Pattern Blood Pressure Blood Pressure [Right Arm] Blood Pressure Mean Blood Pressure Mean [Right Arm] Blood Pressure Position Blood Pressure Position [Right Arm] Pulse Oximetry 96 94 96 Oxygen Delivery Method Sepsis Recent Fever Within 48 Hours Sepsis New/Unexplained Change in Mental Status Sepsis Action Taken by Nursing 09/20/20 02:01 09/20/20 02:10 Temperature Temperature Source Pulse Rate 66 67 Pulse Rate [Right Finger] Pulse Rate from SpO2 Sensor 66 67 Pulse Rhythm [Right Finger] Pulse Strength [Right Finger] Respiratory Rate 20 20 Respiratory Effort / Characteristics Respiratory Depth Respiratory Pattern Blood Pressure 151/66 H Blood Pressure [Right Arm] Blood Pressure Mean 94 Blood Pressure Mean [Right Arm] Blood Pressure Position Blood Pressure Position [Right Arm] Pulse Oximetry 94 96 Oxygen Delivery Method Sepsis Recent Fever Within 48 Hours Sepsis New/Unexplained Change in Mental Status Sepsis Action Taken by Nursing General: Well developed well nourished older female who is alert and orient x3 and appears in no acute distress, breathing comfortably on room air. Normal speech nonslurred. No external signs of trauma. HEENT: Normal cephalic atraumatic. Pupils are equal round and reactive to light. Extraocular movements are intact. Oropharynx is pink with moist mucous membranes. No swelling of the mouth lips or tongue. Neck: Supple with a midline trachea. No meningeal signs or stiffness, no JVD or bruits. No Stridor. Chest: Clear to auscultation bilaterally. No wheezes or rhonchi. No increased work of breathing. Heart: Regular rate and rhythm without murmurs or gallops. Abdomen: Soft nontender, nondistended without rebound guarding or rigidity. Extremities: No cyanosis clubbing or edema. No calf tenderness or assymetry. She has some mild swelling to the right lateral hip no redness or warmth. The hip is freely mobile and does not appear to be dislocated. She does however have a hard time and seems weak with flexing the hip as well as extending the right knee and to lesser degree flexing the right knee. Distally in the foot and ankle she is intact neurologically. She has good pulse exam. The elbow shoulder and wrist are all neurologically neurovascular intact without excess significant trauma seen. Spine/Back. Non tender to palpation. No CVA tenderness Skin: Good turgor without rashes. Neurologic exam: Cranial nerves two through 12 are intact. Motor and sensation are intact and symmetrical throughout with the exception of the hip flexor and knee extensor/flexor on the right. When she walks she does tend to drag that foot which she says is different. Medical Decision Making Differential Diagnosis Orthopedic injuries, fall, head injury, neurologic disease, CVA, hip dislocation, hip fracture, pelvic fracture, upper extremity injuries., Electrolyte or metabolic abnormality Medical Records Attestation: I reviewed the patient's medical records. Home Medications Current Medication List: was personally reviewed by me Laboratory Data Attestation: I reviewed the patient's lab results. Result diagrams: 09/20/20 00:20 09/20/20 00:20 Lab Results 09/20/20 09/20/20 09/20/20 Range/Units 00:16 00:16 00:20 WBC 6.99 (4.8-10.8) K/uL RBC 4.43 (4.2-5.4) M/uL Hgb 13.2 (12.0-16.0) g/dL Hct 40.2 (37-47) % MCV 90.7 (80-100) fL MCH 29.8 (25-34) pg MCHC 32.8 (32-36) g/dL RDW Std Deviation 43.8 (36.4-46.3) fL RDW Coeff of Clare 13.2 (11.5-14.5) % Plt Count 165 (130-400) K/uL MPV 11.4 H (7.4-10.4) fL Immature Gran % (Auto) 0.1 % Neut % (Auto) 47.4 % Lymph % (Auto) 40.6 % Rhea % (Auto) 8.6 % Eos % (Auto) 2.7 % Baso % (Auto) 0.6 % Neut # (Auto) 3.31 (1.4-6.5) K/uL Lymph # (Auto) 2.84 (1.2-3.4) K/uL Rhea # (Auto) 0.60 H (0.11-0.59) K/uL Eos # (Auto) 0.19 (0-0.5) K/uL Baso # (Auto) 0.04 (0-0.2) K/uL Immature Gran # (Auto) 0.01 (0.00-0.02) K/uL Sodium (136-145) mmol/L Potassium (3.5-5.1) mmol/L Chloride (98-107) mmol/L Carbon Dioxide (21-32) mmol/L Anion Gap (3-11) BUN (7-18) mg/dl Creatinine (0.6-1.2) mg/dl Est Cr Clr Drug Dosing ml/min Est GFR ( Amer) Est GFR (Non-Af Amer) BUN/Creatinine Ratio (10-20) Glucose (70-99) mg/dl Calcium (8.5-10.1) mg/dl Total Bilirubin (0.2-1) mg/dl AST (15-37) U/L ALT (12-78) U/L Alkaline Phosphatase (45-117) U/L Total Protein (6.4-8.2) gm/dl Albumin (3.4-5.0) gm/dl Globulin (2.5-4.0) gm/dl Albumin/Globulin Ratio (0.9-2) Lipase (73-393) U/L COVID-19 Eval Order CovFluRsv at [facility] SARS-CoV-2 (PCR) NEGATIVE (Negative) Influenza Type A (PCR) Negative (Neg) Influenza Type B (PCR) Negative (Neg) RSV (RT-PCR) Negative (Neg) 09/20/20 Range/Units 00:20 WBC (4.8-10.8) K/uL RBC (4.2-5.4) M/uL Hgb (12.0-16.0) g/dL Hct (37-47) % MCV (80-100) fL MCH (25-34) pg MCHC (32-36) g/dL RDW Std Deviation (36.4-46.3) fL RDW Coeff of Clare (11.5-14.5) % Plt Count (130-400) K/uL MPV (7.4-10.4) fL Immature Gran % (Auto) % Neut % (Auto) % Lymph % (Auto) % Rhea % (Auto) % Eos % (Auto) % Baso % (Auto) % Neut # (Auto) (1.4-6.5) K/uL Lymph # (Auto) (1.2-3.4) K/uL Rhea # (Auto) (0.11-0.59) K/uL Eos # (Auto) (0-0.5) K/uL Baso # (Auto) (0-0.2) K/uL Immature Gran # (Auto) (0.00-0.02) K/uL Sodium 138 (136-145) mmol/L Potassium 4.2 (3.5-5.1) mmol/L Chloride 107 (98-107) mmol/L Carbon Dioxide 27 (21-32) mmol/L Anion Gap 4.0 (3-11) BUN 20 H (7-18) mg/dl Creatinine 0.84 (0.6-1.2) mg/dl Est Cr Clr Drug Dosing 69.2 ml/min Est GFR ( Amer) 81.6 Est GFR (Non-Af Amer) 70.4 BUN/Creatinine Ratio 23.7 H (10-20) Glucose 184 H (70-99) mg/dl Calcium 9.3 (8.5-10.1) mg/dl Total Bilirubin 0.3 (0.2-1) mg/dl AST 15 (15-37) U/L ALT 27 (12-78) U/L Alkaline Phosphatase 84 (45-117) U/L Total Protein 7.4 (6.4-8.2) gm/dl Albumin 3.7 (3.4-5.0) gm/dl Globulin 3.7 (2.5-4.0) gm/dl Albumin/Globulin Ratio 1.0 (0.9-2) Lipase 83 (73-393) U/L COVID-19 Eval Order SARS-CoV-2 (PCR) (Negative) Influenza Type A (PCR) (Neg) Influenza Type B (PCR) (Neg) RSV (RT-PCR) (Neg) Imaging Data Attestation: I personally reviewed and interpreted this imaging study as follows: My Impression: Right hip x-ray with bilateral pelvis. Intact hardware no fracture or dislocation Right wrist x-rayno fracture or dislocation Right elbowno fracture or dislocation Right shoulder, no fracture or dislocation. Radiologist's Impression: Stat rad-head CT, no acute findingsplease refer to report Lumbar spine, no acute findings., Pelvic CT no fracture dislocation or acute findings. ECG Data Attestation: I personally reviewed and interpreted this ECG as follows: Indication: + weakness and + other (Poor baseline with a lot of motion artifact) Rate (beats per minute): 68 Rhythm: + normal sinus ECG Intervals/blocks: + Normal QRS, + Normal QT and + Normal HI ECG [place]: + Normal ECG ST segments: + Normal ST segments ECG Findings: no PACs and no PVCs Comparison ECG Date: from (06/22/20) Change: no significant change MDM Narrative This patient comes in as described above. She was placed in room a 9. She suffered what sounds like a mechanical fall her complaints were pain in the right hip and in the right arm she had no trauma to the torso or head. Initially it seemed like her complaints are more pain and I did get x-rays of the shoulder elbow hip and wrist which were unremarkable. I had the patient then walking she does seem like she is dragging the right leg and is weak in the hip and the knee which is new she says. She has good distal pulses. In light of this I did do a CAT scan of the pelvis, lumbar spine and also the head. I do not think this is likely a neurologic process is it seem like it was all pain r elated initially and her only complaint is related to the leg. EKG and blood work was obtained IV access was established she was Covid tested and it was negative. CAT scans of the pelvis lumbar spine and head were unremarkable. EKG does not show any definite ischemic changes. Blood work is unremarkable. I am concerned that she seems weak in the leg and may be that she has some muscular skeletal injury or muscle tear but I am concerned about her being able to walk at home I do think she needs to be admitted for further treatment and evaluation. I have consulted Dr. Horner to see her in the ER for these measures.. Impression & Plan Right leg weakness, Fall, Pain in right hip, Contusion of elbow, right, Contusion of shoulder, right, Lab test negative for COVID-19 virus Discharge Plan Visit Data Chief Complaint: Fall Stated Complaint: FELL, WHOLE RIGHT SIDE HURTS ED Provider: Beto Phelps Discharge Problem: Right leg weakness, Fall, Pain in right hip, Contusion of elbow, right, Contusion of shoulder, right, Lab test negative for COVID-19 virus Forms Stand Alone Forms: My [facility] Prescriptions Prescriptions: No Action prednisone 20 mg Tablet 20 mg PO DIRECTED PRN (Reason: RESCUE KIT) RF: 0 fexofenadine [Ana Allergy] 180 mg Tablet 180 mg PO DAILY PRN (Reason: Allergic Reaction) RF: 0 diphenhydramine HCl [Benadryl] 25 mg Capsule 50 mg PO HS PRN (Reason: Allergic Reaction) RF: 0 epinephrine [EpiPen] 0.3 mg/0.3 mL Auto-Injector 0.3 mg IM Q3H PRN (Reason: Allergic Reaction) RF: 0 multivitamin with minerals Tablet 1 tab PO QAM RF: 0 albuterol sulfate 90 mcg/actuation Hfa Aerosol Inhaler 2 puff INHALATION QID PRN (Reason: Allergic Reaction) RF: 0 ascorbic acid (vitamin C) 500 mg Capsule 1,000 mg PO BID RF: 0 fish oil-dha-epa 1,200-144-216 mg Capsule 1 cap PO QAM RF: 0 astaxanthin 4 mg Capsule 4 mg PO QDL RF: 0 magnesium [id number]-[id number] 42 mg (500 mg)- 250 mg Tablet Extended Release 1 tab PO QAM RF: 0 meloxicam 7.5 mg tablet 7.5 mg PO QAM RF: 0 lorazepam [Ativan] 0.5 mg tablet 0.5 mg PO Q8H PRN (Reason: muscle spasm) Qty: 10 RF: 0 metformin 500 mg tablet 500 mg PO QAM RF: 0 omeprazole 40 mg capsule,delayed release(DR/EC) 40 mg PO DAILYBB RF: 0 nystatin-triamcinolone 100,000-0.1 unit/gram-% ointment 1 appln TOP TID PRN (Reason: Skin Irritation) RF: 0 Discharge Problem: Fall Qualifiers: Encounter type: initial encounter Qualified Code(s): W19.XXXA - Unspecified fall, initial encounter Contusion of elbow, right Qualifiers: Encounter type: initial encounter Qualified Code(s): S50.01XA - Contusion of right elbow, initial encounter Contusion of shoulder, right Qualifiers: Encounter type: initial encounter Qualified Code(s): S40.011A - Contusion of right shoulder, initial encounter
[2020-09-20 01:35] LABS: Influenza A virus by PCR Negative (Neg); Influenza B virus by PCR Negative (Neg); RSV by PCR Negative (Neg); SARS CoV2 RNA(COVID-19) InHosp NEGATIVE (Negative)
[2020-09-20] MEDS ORDERED: ASPIRIN 81 MG ECTAB PO STA (04:12)
--- NOTE | 2020-09-20 04:12 | History & Physical Report ---
Date of Service September 20, 2020 Assessment & Plan (1) Right leg weakness: hx fall TIA versus posttraumatic No obvious fractures on initial imaging results. DM2 on oral medications, suboptimal control as of recent outpatient hemoglobin A1c of 8.01 June 2020 situational hypertension as per records GERD on PPI OBS Medical telemetry Neurochecks Aspirin for stroke prevention until stroke ruled out MRI/MRA brain RE RLE weakness Check lipid profile Additional stroke work-up, Neurology consultation pending MRI results Analgesia Permissive hypertension until stroke ruled out Follow official orthopedic x-ray results. Orthopedics consult Re: Right upper leg pain post trauma ([facility] as per patient request.) Basal insulin, ISS BG goal 1 10-1 40, carb count coverage, update hemoglobin A1c DVT prophylaxis per Lovenox subcu Full code Text document was generated using [employer] voice recognition software. It may contain grammatical or spelling errors. Kindly contact undersigned for clarification of any documentation item in question. History of Present Illness Chief Complaint: Fall, right leg pain Primary Care Provider: Sharee Leblanc, History obtained from patient and records. Medical history significant for DM2 on oral medications, situational hypertension as per records, gastroparesis, GERD. Patient was going down the steps at her daughter's home around 6 PM last night when she lost her balance resulting in patient's fall to the right side. Patient not sure if she missed a step or her right leg felt weak. No headache, no LOC, no head trauma, no chest pain, no shortness of breath. Achy right hip pain, right shoulder and forearm pain after falling. Patient unable to get up. At the ER, right leg felt weak. Patient felt like she was dragging her right leg without unusual pain. No prior episodes. Right leg weakness a little better as compared to arrival as per patient. 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 Allergies Allergy/AdvReac Type Severity Reaction Status Date / Time celecoxib Allergy Severe SUICIDAL Verified 09/19/20 22:19 phenylephrine Allergy Severe RED, Verified 09/19/20 22:19 WATERY EYES baclofen Allergy Mild Hives Verified 09/19/20 22:19 Cephalosporins Allergy Mild UNKNOWN Verified 09/19/20 22:19 clindamycin Allergy Mild UNKNOWN Verified 09/19/20 22:19 codeine Allergy Mild NAUSEA AND Verified 09/19/20 22:19 VOMITING erythromycin base Allergy Mild HIVES Verified 09/19/20 22:19 latex Allergy Mild RASH,REDNESS, Verified 09/19/20 22:19 HIVES methocarbamol Allergy Mild blurry Verified 09/19/20 22:19 vision, headache, memory loss Penicillins Allergy Mild HIVES Verified 09/19/20 22:19 sulfamethoxazole Allergy Mild depression, Verified 09/19/20 22:19 nausea, diarrhea trimethoprim Allergy Mild depression, Verified 09/19/20 22:19 nausea, diarrhea tropicamide Allergy Mild RED, Verified 09/19/20 22:19 WATERY EYES ENVIROMENTAL Allergy Severe ANAPHYLAXIS Uncoded 09/19/20 22:19 UNCLAS THER/AG Allergy Severe CAT GUT Uncoded 09/19/20 22:19 SUTURES = SEVERE RASH Dust Mite Extract Allergy Intermediate HIVES,SOB Uncoded 09/19/20 22:19 THROAT SWELLS TEMI Allergy Intermediate rash Uncoded 09/19/20 22:19 Ethicon Sutures Allergy Unknown Unknown Uncoded 09/19/20 22:19 WHITE GOLD AdvReac Mild OCCASIONAL Uncoded 09/19/20 22:19 HIVES/IRRITATION Home Medications Medication Instructions Recorded Confirmed Type albuterol sulfate 2 puff INHALATION QID PRN 04/25/18 09/19/20 History ascorbic acid (vitamin C) 1,000 mg PO BID 04/25/18 09/19/20 History diphenhydramine HCl [Benadryl] 50 mg PO HS PRN 04/25/18 09/19/20 History epinephrine [EpiPen] 0.3 mg IM Q3H PRN 04/25/18 09/19/20 History fexofenadine [Ana Allergy] 180 mg PO DAILY PRN 04/25/18 09/19/20 History multivitamin with minerals 1 tab PO QAM 04/25/18 09/19/20 History prednisone 20 mg PO DIRECTED PRN 04/25/18 09/19/20 History astaxanthin 4 mg PO QDL 11/22/18 09/19/20 History fish oil-dha-epa 1 cap PO QAM 11/22/18 09/19/20 History magnesium [id number]-[id number]-[id number] 1 tab PO QAM 11/22/18 09/19/20 History lorazepam [Ativan] 0.5 mg PO Q8H PRN #10 tab 06/22/20 09/19/20 Rx meloxicam 7.5 mg PO QAM 06/22/20 09/19/20 History metformin 500 mg PO QAM 09/19/20 09/19/20 History nystatin-triamcinolone 1 appln TOP TID PRN 09/19/20 09/19/20 History omeprazole 40 mg PO DAILYBB 09/19/20 09/19/20 History Past Med/Surg History Medical History Asthma LAST INHALER USED MANY MONTHS AGO Cancer PRE CANCEROUS SKIN REMOVED Chronic back pain Degenerative disc disease Diabetes mellitus, type 2 CONTROLLED BY DIET Environmental and seasonal allergies GERD (gastroesophageal reflux disease) Glaucoma Hearing deficit 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 Hypertension Idiopathic angioedema Macular degeneration Migraine Osteoarthritis Scoliosis Temporomandibular joint disorder Surgical History Family history of reaction to anesthesia SLOW TO WAKE UP>SISTER/2 BROTHERS H/O foot surgery RT FOOT BIG TOE JOINT REPAIRED H/O: hysterectomy History of anesthesia reaction SLOW TO WAKE UP FROM ANESTHESIA AND SENSITIVE History of arthroscopy RT SHOULDER History of bronchoscopy BIOPSY BENIGN TUMOR IN LUNG History of cataract surgery RT/LEFT History of colonoscopy History of esophagogastroduodenoscopy (EGD) History of total hip arthroplasty RT/LEFT WITH REVISIONS ON BOTH HIPS Hx of detached retina repair REPAIRED ? EYE Family History Brother Family history of diabetes mellitus Mother Family history of diabetes mellitus Social History Smoking Status: Never smoker Second Hand Exposure: Yes ( A CHILD); Hx Alcohol Use: No Hx Substance Use: No Preferred Language: Bolivian Communication Ability: Effective Grade Setter Required: No Beliefs That Will Affect Care: None Current Living Situation: Alone Current Living Situation Comment: LIVES WITH FATHER "DISABLED" Other Information That Helps Us Care for You: No Feels Safe at Home: Yes Safety Concerns: Feels Safe At This Time Assistive Devices: None Review of Systems Review of Systems: As per HPI, all 10 systems reviewed, all other ROS negative Physical Exam Physical Exam: GENERAL: Slightly uncomfortable, obese, no respiratory distress SKIN: Normal color, warm HEENT: [place] palpebral conjunctivae, no ptosis, moist buccal mucosa NECK : Supple, short neck, no tenderness CHEST : CTA, no tenderness HEART : RRR, no obvious murmurs ABDOMEN: Some distention, nontender EXTREMITIES : Right shoulder tenderness, minimal right forearm swelling and tenderness, minimal LE swelling, right lateral thigh tenderness, no other conspicuous deformities noted NEUROLOGIC : Coherent, no facial asymmetry, MMTS BUE 4/5, RLE 3/5, LLE 4/5 Results & Data Results & Data ([facility]) Vital Signs (Past 12 Hours) Vital Signs Temp Pulse Pulse Resp BP BP Pulse Ox 09/20/20 03:20 66 19 93 09/20/20 03:10 67 20 94 09/20/20 03:01 66 21 171/82 H 94 09/20/20 03:00 65 17 93 09/20/20 02:50 74 15 97 09/20/20 02:40 67 23 96 09/20/20 02:30 65 15 139/120 H 96 09/20/20 02:20 68 23 94 09/20/20 02:10 67 20 96 09/20/20 02:01 66 20 151/66 H 94 09/20/20 02:00 66 18 96 09/20/20 01:50 66 22 94 09/20/20 01:40 66 21 96 09/20/20 01:31 64 21 154/71 H 96 09/20/20 01:30 66 17 95 09/20/20 01:20 65 21 96 09/20/20 01:15 71 20 09/20/20 00:40 70 22 96 09/20/20 00:34 70 20 95 09/20/20 00:33 69 69 20 145/91 H 145/91 H 96 09/20/20 00:30 69 24 96 09/19/20 20:29 37.0 C 79 16 162/80 H 96 Laboratory Results Laboratory Results WBC 6.99 K/uL (4.8-10.8) 09/20/20 00:20 RBC 4.43 M/uL (4.2-5.4) 09/20/20 00:20 Hgb 13.2 g/dL (12.0-16.0) 09/20/20 00:20 Hct 40.2 % (37-47) 09/20/20 00:20 MCV 90.7 fL (80-100) 09/20/20 00:20 MCH 29.8 pg (25-34) 09/20/20 00:20 MCHC 32.8 g/dL (32-36) 09/20/20 00:20 RDW Std Deviation 43.8 fL (36.4-46.3) 09/20/20 00:20 RDW Coeff of [place] 13.2 % (11.5-14.5) 09/20/20 00:20 Plt Count 165 K/uL (130-400) 09/20/20 00:20 MPV 11.4 fL (7.4-10.4) H 09/20/20 00:20 Immature Gran % (Auto) 0.1 % 09/20/20 00:20 Neut % (Auto) 47.4 % 09/20/20 00:20 Lymph % (Auto) 40.6 % 09/20/20 00:20 Andrew % (Auto) 8.6 % 09/20/20 00:20 Eos % (Auto) 2.7 % 09/20/20 00:20 Baso % (Auto) 0.6 % 09/20/20 00:20 Neut # (Auto) 3.31 K/uL (1.4-6.5) 09/20/20 00:20 Lymph # (Auto) 2.84 K/uL (1.2-3.4) 09/20/20 00:20 Andrew # (Auto) 0.60 K/uL (0.11-0.59) H 09/20/20 00:20 Eos # (Auto) 0.19 K/uL (0-0.5) 09/20/20 00:20 Baso # (Auto) 0.04 K/uL (0-0.2) 09/20/20 00:20 Immature Gran # (Auto) 0.01 K/uL (0.00-0.02) 09/20/20 00:20 Sodium 138 mmol/L (136-145) 09/20/20 00:20 Potassium 4.2 mmol/L (3.5-5.1) 09/20/20 00:20 Chloride 107 mmol/L (98-107) 09/20/20 00:20 Carbon Dioxide 27 mmol/L (21-32) 09/20/20 00:20 Anion Gap 4.0 (3-11) 09/20/20 00:20 BUN 20 mg/dl (7-18) H 09/20/20 00:20 Creatinine 0.84 mg/dl (0.6-1.2) 09/20/20 00:20 Est Cr Clr Drug Dosing 69.2 ml/min 09/20/20 00:20 Est GFR ( Amer) 81.6 09/20/20 00:20 Est GFR (Non-Af Amer) 70.4 09/20/20 00:20 BUN/Creatinine Ratio 23.7 (10-20) H 09/20/20 00:20 Glucose 184 mg/dl (70-99) H 09/20/20 00:20 Calcium 9.3 mg/dl (8.5-10.1) 09/20/20 00:20 Total Bilirubin 0.3 mg/dl (0.2-1) 09/20/20 00:20 AST 15 U/L (15-37) 09/20/20 00:20 ALT 27 U/L (12-78) 09/20/20 00:20 Alkaline Phosphatase 84 U/L (45-117) 09/20/20 00:20 Total Creatine Kinase 53 U/L (26-192) 09/20/20 00:20 Total Protein 7.4 gm/dl (6.4-8.2) 09/20/20 00:20 Albumin 3.7 gm/dl (3.4-5.0) 09/20/20 00:20 Globulin 3.7 gm/dl (2.5-4.0) 09/20/20 00:20 Albumin/Globulin Ratio 1.0 (0.9-2) 09/20/20 00:20 Lipase 83 U/L (73-393) 09/20/20 00:20 COVID-19 Eval Order [facility]FluRsv at [facility] 09/20/20 00:16 SARS-CoV-2 (PCR) NEGATIVE (Negative) 09/20/20 00:16 Influenza Type A (PCR) Negative (Neg) 09/20/20 00:16 Influenza Type B (PCR) Negative (Neg) 09/20/20 00:16 RSV (RT-PCR) Negative (Neg) 09/20/20 00:[address] head initial read: Involutional changes. No ICH, mass-effect, or edema. No skull fracture. CT L-spine initial read: No acute fracture or subluxation. Degenerative changes. CT pelvis initial read: Sacroiliac joints, hip joints and pubic symphysis are normally aligned. No acute fracture or dislocation. Bilateral total hip arthroplasties. Right shoulder, right elbow, right wrist x-ray official reports pending EKG as per my interpretation: Rate 70, NSR, normal axis, no ischemia
[2020-09-20] MEDS ORDERED: ASPIRIN 81 MG ECTAB PO ONE (04:18)
[2020-09-20] MEDS ORDERED: INSULIN GLARGINE SOLOSTAR 100 UNITS/ML 3 ML PEN SC STA (04:52)
[2020-09-20] MEDS ORDERED: ALBUTEROL HFA 8 GM INHALER INH PRN (05:18)
[2020-09-20] MEDS ORDERED: FEXOFENADINE HCL 180 MG TAB PO PRN (05:18)
[2020-09-20] MEDS ORDERED: traMADol HCL 50 MG TABLET PO PRN (05:18)
[2020-09-20] MEDS ORDERED: CARBOHYDRATES FOR HYPOGLYCEMIA PO PRN (05:18)
[2020-09-20] MEDS ORDERED: PROMETHAZINE HCL 12.5 MG in SODIUM CHLORIDE 0.9% 50 ML IV PRN (05:18)
[2020-09-20] MEDS ORDERED: GLUCOSE 40% GEL 15 GM TUBE PO PRN (05:18)
[2020-09-20] MEDS ORDERED: SODIUM CHLORIDE 0.9% 1000ML 1,000 ML IV SCH (05:18)
[2020-09-20] MEDS ORDERED: LORazepam 0.25 MG/0.5 ML VIAL IV PRN (05:18)
[2020-09-20] MEDS ORDERED: DEXTROSE 50% 50 ML SYRINGE IV PRN (05:18)
[2020-09-20] MEDS ORDERED: GLUCAGON FOR INJ 1 MG VIAL SQ PRN (05:18)
[2020-09-20] MEDS ORDERED: LORazepam 0.5 MG TAB PO PRN (05:18)
[2020-09-20] MEDS ORDERED: SODIUM CHLORIDE 0.9% 1000ML 1,000 ML IV ONE (05:18)
[2020-09-20] MEDS ORDERED: GLUCOSE 10 TABS/TUBE PO PRN (05:18)
[2020-09-20] MEDS ORDERED: ACETAMINOPHEN 325 MG TAB PO PRN (05:18)
[2020-09-20] MEDS ORDERED: MoRPHine SULFATE 4 MG/ML 1 ML CARP\\VIAL IV PRN (05:18)
[2020-09-20] MEDS ORDERED: PNEUMOCOCCAL ADMINISTRATION CHARGE ONE (05:39)
[2020-09-20] MEDS: INSULIN ASPART 100 UNITS/ML 3 ML PEN SC SCH ×4 (06:01→20:50)
--- NOTE | 2020-09-20 07:45 | XRay Report ---
RIGHT ELBOW 3 VIEWS CLINICAL HISTORY: Fall. FINDINGS: 3 views of the right elbow are compared to study dated 07/02/2008. The skeletal structures ar e osteopenic. No fracture is identified. The joint spaces are maintained. No joint effusion is identi fied. There is a tiny enthesophyte at the triceps insertion. Enthesophytes are also seen along the hu meral epicondyles. Dorsal soft tissue edema is noted. IMPRESSION: Dorsal soft tissue swelling with no fracture identified. Electronically signed by: Jewel Denney M.D. 09/20/2020 7:44 AM
--- NOTE | 2020-09-20 08:36 | CT Scan Report ---
CT OF THE HEAD WITHOUT CONTRAST CLINICAL HISTORY: right leg weakness COMPARISON STUDY: No previous studies for comparison. CT DOSE: 537.48 mGy.cm TECHNIQUE: Helical axial images of the head were obtained without IV contrast. Automated exposure con trol was utilized for the study. A dose lowering technique was utilized adhering to the principles o f ALARA. FINDINGS: No acute intracranial hemorrhage, midline shift or mass effect is present. The ventricular system is unremarkable. The basal cisterns are patent. No extra-axial collections are present. There are no findings to suggest acute dural sinus thrombosis or acute territorial infarct. No significant calvarial abnormalities are present. Visualized portions of the sinuses and mastoid air cells are sariah ar. IMPRESSION: No acute intracranial findings. ACT 112: Negative or not required by law. Electronically signed by: Timoteo Mcclure M.D. 09/20/2020 8:34 AM
--- NOTE | 2020-09-20 08:38 | CT Scan Report ---
CT OF THE LUMBAR SPINE CLINICAL HISTORY: fall COMPARISON STUDY: Lumbar spine MRI March 20, 2018. TECHNIQUE: Helical axial images of the lumbar spine were obtained. Sagittal and coronal reconstruct ions were viewed. Automated exposure control was utilized for the study. A dose lowering technique was utilized adhering to the principles of ALARA. FINDINGS: There is mild S-shaped scoliosis of the lumbar spine. No acute fracture is noted. There is no suspicious osseous lesion. Facet joints are intact. Central canal and neural foramen are suboptima lly assessed by CT. There is moderate to severe multilevel disc space narrowing with osteophytosis an d vacuum disc phenomenon. There is moderate multilevel facet arthrosis. Paravertebral soft tissues ar e unremarkable by CT. IMPRESSION: 1. No acute lumbar spine fracture or subluxation. 2. Moderate multilevel degenerative changes within the lumbar spine. ACT 112: Negative or not required by law. Electronically signed by: Timoteo Mcclure M.D. 09/20/2020 8:37 AM
--- NOTE | 2020-09-20 08:43 | CT Scan Report ---
CT pelvis wo con CLINICAL HISTORY: right hip pain, s/p fall COMPARISON STUDY: Pelvis and right hip radiographs September 19, 2020. TECHNIQUE: Axial images of the pelvis and hips were obtained without IV contrast. Sagittal and keene l reconstructions were viewed. Automated exposure control was utilized for the study. A dose lowerin g technique was utilized adhering to the principles of ALARA. FINDINGS: No acute fracture is identified within the pelvis or hips. Alignment of the total bilateral hip arthroplasties is anatomic anatomic. The distal aspect of the femoral components were not imaged on this exam. Exam is mildly compromised by streak artifact from the surgical hardware. No pelvic he matoma is noted. There is no pelvic lymphadenopathy. Sigmoid diverticulosis is noted without evidence for acute diverticulitis. Sacroiliac joints are intact. IMPRESSION: 1. No acute fracture within the pelvis or hips. 2. Anatomic alignment of the total bilateral hip arthroplasties. ACT 112: Negative or not required by law. Electronically signed by: Timoteo Mcclure M.D. 09/20/2020 8:41 AM
[2020-09-20] MEDS: CEROVITE ADV FORMULA TAB PO SCH (08:46)
[2020-09-20] MEDS: ENOXAPARIN INJ 40 MG/0.4 ML SYR SQ SCH (08:46)
[2020-09-20] MEDS: PANTOprazole 40 MG TAB PO SCH (08:47)
--- NOTE | 2020-09-20 09:09 | XRay Report ---
RIGHT WRIST 4 VIEWS CLINICAL HISTORY: Fall with right wrist injury. FINDINGS: 4 views of the right wrist are obtained. No prior studies are available for comparison at t he time of dictation. The skeletal structures are osteopenic. No fracture is seen. Minimal degenerati ve changes noted in the wrist. Mild overlying soft tissue edema is noted. IMPRESSION: Soft tissue swelling with no radiographic evidence of acute fracture. Electronically signed by: Jewel Denney M.D. 09/20/2020 9:08 AM
--- NOTE | 2020-09-20 09:12 | XRay Report ---
RIGHT SHOULDER 3 VIEWS CLINICAL HISTORY: Fall with right shoulder pain. FINDINGS: 3 views of the right shoulder are compared to study dated 11/12/2008 a chest x-ray dated 05/31. The skeletal structures are osteopenic. There is no radiographic evidence of fracture or disl ocation. The glenohumeral articulation is maintained. There is chronic widening at the right AC joint with mild productive degenerative change. The overlying soft tissues are normal as imaged. The right lung parenchyma is clear as visualized. IMPRESSION: No acute bony abnormality is identified. Electronically signed by: Jewel Denney M.D. 09/20/2020 9:10 AM
--- NOTE | 2020-09-20 09:13 | XRay Report ---
SINGLE VIEW PELVIS; 2 VIEWS RIGHT HIP CLINICAL HISTORY: Fall. FINDINGS: An AP view of the pelvis with AP and frog-leg views of the right hip are compared to study dated 03/11/2014. The skeletal structures are osteopenic. There is no radiographic evidence of acute fracture involving the hips or bony pelvis. Bilateral hip arthroplasties are in near-anatomic alignme nt. Sclerotic change is noted in the sacroiliac joints and pubic symphysis. Lumbosacral spondylosis i s partially imaged. The overlying soft tissues are normal as visualized. Moderate fecal retention is seen in the visualized colon. IMPRESSION: No acute bony abnormality is identified. Electronically signed by: Jewel Denney M.D. 09/20/2020 9:12 AM
[2020-09-20] MEDS ORDERED: PNEUMOCOCCAL POLYSACCHARIDES 25 MCG/0.5 ML VIAL/SYR IM ONE (10:00)
--- NOTE | 2020-09-20 15:25 | Hospitalist Progress Note ---
Date of Service September 20, 2020 Assessment & Plan (1) Status post fall: (2) Right leg weakness: Likely related to contusion from traumatic fall onto this hip. Notably s/p revised JORDAN in the past. Dr. Kapil Emery from [facility] saw her in the hospital. Recommends continued RICE therapy with outpatient follow-up. Also of consideration was concern for possible TIA. Neuro consulted and appreciate recommendations regarding MRI/MRA to rule out stroke as patient currently feels this is unnecessary. Cont Mobic and PRN morphine for pain control. (3) Wrist pain, right: Cockup splint per Orthopedics with continued RICE therapy and outpatient followup. (4) Contusion of shoulder, right: Continue RICE therapy with outpatient followup. (5) Contusion of elbow, right: Continue RICE therapy with outpatient followup. (6) Diabetes mellitus type II, uncontrolled: Aic 8.3. Followup with PCP to redesign strategy to bring A1C to goal <7. Cont basal/bolus insulin while inpatient. (7) Gastro-esophageal reflux disease with esophagitis: cont PPI per home regimen. (8) Morbid (severe) obesity due to excess calories: (9) DVT prophylaxis: Lovenox/ambulation Full Code Dispo-to home when neuro workup completed. [facility] Admission and Anticipated Discharge Date Admission Date: September 20, 2020 Subjective 70 yo F admitted for acute R leg weakness after a traumatic fall at her home. Feels her ability to walk improving Denies any numbness in her leg Reports her glute pain is present but manageable. Denies other stroke like symptoms. Review of Systems Review of Systems: All systems reviewed & are unremarkable except as noted in Subjective Physical Exam Physical Exam: CONSTITUTIONAL: WNWD, vitals as above, generally well- appearing EYES: EOMI bilaterally, PERRL, normal conjunctivae, no scleral icterus ENT: external ear and nose normal NECK: trachea midline RESPIRATORY: clear to auscultation bilaterally, no crackles, rales or wheezes, normal respiratory effort CARDIOVASCULAR: regular rate and rhythm, S1 and 2 heard without murmurs, gallops or rubs, no JVD, no peripheral edema GASTROINTESTINAL: soft, nontender, nondistended MUSCULOSKELETAL: strength 5/5 throughout, head is normocephalic and atraumatic, ambulates slowly but without assistive device. No issues with balance or coordination. SKIN: warm and dry NEUROLOGIC: patellar DTRs 2+ bilat. PERRL, EOMI, no facial palsy, no dysarthria. Touch, pain and proprioception normal. CN 2-12 intact, no sensory deficit, normal cognition, normal speech, no tremor. Coordination and balance intact. PSYCHIATRIC: alert cooperative and oriented to person, place and time. Euthymic mood, makes good eye contact, language grossly intact, recent and remote memory grossly intact. Results & Data Results & Data ([facility]) Vital Signs (Past 12 Hours) Vital Signs Temp Pulse Pulse Resp BP BP Pulse Ox 09/20/20 14:53 36.5 C 66 20 152/83 H 96 09/20/20 14:20 70 09/20/20 14:05 69 09/20/20 13:36 69 18 149/89 H 98 09/20/20 09:33 74 19 155/82 H 95 09/20/20 07:00 60 16 136/61 96 09/20/20 06:00 66 19 139/80 94 09/20/20 05:28 36.6 C 71 16 155/67 H 96 09/20/20 05:21 71 21 155/67 H 96 09/20/20 05:20 72 13 95 09/20/20 05:19 96 09/20/20 04:50 70 18 95 09/20/20 04:40 71 19 94 09/20/20 04:31 66 22 159/87 H 97 09/20/20 04:30 72 27 H 93 09/20/20 04:20 68 18 95 09/20/20 04:10 82 17 97 09/20/20 04:00 64 24 180/79 H 98 09/20/20 03:50 68 20 94 09/20/20 03:40 65 18 91 09/20/20 03:31 64 20 151/71 H 93 09/20/20 03:30 64 20 92 Laboratory Results Short CBC 09/20/20 Range/Units 00:20 WBC 6.99 (4.8-10.8) K/uL Hgb 13.2 (12.0-16.0) g/dL Hct 40.2 (37-47) % Plt Count 165 (130-400) K/uL BMP 09/20/20 00:20 Sodium 138 Potassium 4.2 Chloride 107 Carbon Dioxide 27 BUN 20 H Creatinine 0.84 Glucose 184 H Calcium 9.3 Cardiac Enzymes 09/20/20 Range/Units 00:20 Total Creatine Kinase 53 (26-192) U/L Liver Function 09/20/20 Range/Units 00:20 Total Bilirubin 0.3 (0.2-1) mg/dl AST 15 (15-37) U/L ALT 27 (12-78) U/L Alkaline Phosphatase 84 (45-117) U/L Albumin 3.7 (3.4-5.0) gm/dl Medications Administered Current Inpatient Medications Acetaminophen (Acetaminophen 325 Mg Tab) 650 mg PO Q4H PRN PRN Reason: Pain or Fever Stop: 10/20/20 05:17 Albuterol (Albuterol Hfa 8 Gm Inhaler) 2 puffs INH QID PRN PRN Reason: Allergic Reaction Stop: 10/20/20 05:17 Aspirin (Aspirin 81 Mg Ectab) 81 mg PO QAM [facility] Stop: 10/21/20 08:59 Dextrose (Dextrose 50% 50 Ml Syringe) 25 - 50 ml IV UD PRN; Protocol PRN Reason: Hypoglycemia Protocol Stop: 10/20/20 05:17 Enoxaparin Sodium (Enoxaparin Inj 40 Mg/0.4 Ml Syr) 40 mg SQ QAM [facility] Stop: 10/20/20 08:59 Last Admin: 09/20/20 08:46 Dose: Not Given Documented by: Fexofenadine HCl (Fexofenadine Hcl 180 Mg Tab) 180 mg PO DAILY PRN PRN Reason: Allergic Reaction Stop: 10/20/20 05:17 Glucagon (Glucagon For Inj 1 Mg Vial) 1 mg SQ UD PRN; Protocol PRN Reason: Hypoglycemia Protocol Stop: 10/20/20 05:17 Glucose (Glucose 10 Tabs/Tube) 4 - 8 tabs PO UD PRN; Protocol PRN Reason: Hypoglycemia Protocol Stop: 10/20/20 05:17 Glucose (Glucose 40% Gel 15 Gm Tube) 15 - 30 gm PO UD PRN; Protocol PRN Reason: Hypoglycemia Protocol Stop: 10/20/20 05:17 Promethazine HCl 12.5 mg/ (Sodium Chloride) 50.5 mls @ 202 mls/hr IV Q6H PRN PRN Reason: Nausea And Vomiting Stop: 10/20/20 05:17 Lorazepam (Ativan) 0.25 mg in 0.5 mls @ 0.5 mls/min IV Q4H PRN PRN Reason: Anxiety Stop: 10/20/20 05:17 Sodium Chloride (Nss 1000ml) 1,000 mls @ 50 mls/hr IV .Q20H ONE Stop: 09/21/20 01:17 Last Admin: 09/20/20 06:33 Dose: Not Given Documented by: Insulin Aspart (Insulin Aspart 100 Units/Ml 3 Ml Pen) 0 units SC ACHS [facility] Stop: 10/20/20 04:51 Last Admin: 09/20/20 12:11 Dose: 5 units Documented by: Insulin Glargine (Insulin Glargine Solostar 100 Units/Ml 3 Ml Pen) 5 units SC BID [facility] Stop: 10/20/20 20:59 Lorazepam (Lorazepam 0.5 Mg Tab) 0.5 mg PO Q8H PRN PRN Reason: muscle spasm Stop: 10/20/20 05:17 Miscellaneous (Carbohydrates For Hypoglycemia ) 15 - 30 gm PO UD PRN PRN Reason: Hypoglycemia Protocol Stop: 10/20/20 05:17 Morphine Sulfate (Morphine Sulfate 4 Mg/Ml 1 Ml Carp\Vial) 4 mg IV Q4H PRN PRN Reason: Pain Stop: 10/04/20 05:17 Multivitamins/Minerals (Cerovite Adv Formula Tab) 1 tab PO QAM [facility] Stop: 10/20/20 08:59 Last Admin: 09/20/20 08:46 Dose: 1 tab Documented by: Pantoprazole Sodium (Pantoprazole 40 Mg Tab) 40 mg PO DAILYBB [facility] Stop: 10/20/20 06:29 Last Admin: 09/20/20 08:47 Dose: Not Given Documented by: Tramadol HCl (Tramadol Hcl 50 Mg Tablet) 25 - 50 mg PO Q4H PRN PRN Reason: Pain Stop: 10/20/20 05:17 (1) Contusion of shoulder, right Encounter type: initial encounter Qualified Code(s): S40.011A - Contusion of right shoulder, initial encounter (2) Contusion of elbow, right Encounter type: initial encounter Qualified Code(s): S50.01XA - Contusion of right elbow, initial encounter
--- NOTE | 2020-09-20 17:43 | Orthopedic Consultation ---
Date of Consultation September 20, 2020 Assessment & Plan (1) Pain in right hip: Likely secondarily to contusion. Symptomatic treatment with RICE, Mobic. WBAT. Resolved by the time she was seen in the ED. Present on Admission?: Yes (2) Right leg weakness: Unknown etiology. Resolved by the time she was seen in the ED. Present on Admission?: Yes (3) Contusion of elbow, right: Symptomatic treatment with RICE, Mobic. Resolved by the time she was seen in the ED. Present on Admission?: Yes (4) Contusion of shoulder, right: Symptomatic treatment with RICE, Mobic. Resolved by the time she was seen in the ED. Present on Admission?: Yes (5) Hip joint replacement status: Stable. WBAT Follow-up with Dr. Kaiser or Dr. Spencer in 2 weeks. Present on Admission?: Yes (6) Wrist pain, right: Symptomatic treatment with RICE, Mobic. Use Cock-up wrist splint. Follow-up in 2 weeks. Present on Admission?: Yes History of Present Illness Reason for Consultation: Right sided pain s/p fall Requesting Physician: Essie Emery MD Attending Physician: Valerie Pierce DO History of Present Illness 70 year female who had a miss step after attempting to pick an object off the landing above, lost her balance landing on her right side. She was brought to the ED where initially she was unable to use her RLE, had right hip, wrist, elbow, and shoulder pain which has since improved. She has been able to get up and walk to the bathroom. She only continues to have right wrist pain. She has a history of bilateral JORDAN, and the right has been revised by Dr. Kaiser in [place]. She denies and CP, SOB, dizziness. Allergies Allergy/AdvReac Type Severity Reaction Status Date / Time celecoxib Allergy Severe SUICIDAL Verified 09/19/20 22:19 phenylephrine Allergy Severe RED, Verified 09/19/20 22:19 WATERY EYES baclofen Allergy Mild Hives Verified 09/19/20 22:19 Cephalosporins Allergy Mild UNKNOWN Verified 09/19/20 22:19 clindamycin Allergy Mild UNKNOWN Verified 09/19/20 22:19 codeine Allergy Mild NAUSEA AND Verified 09/19/20 22:19 VOMITING erythromycin base Allergy Mild HIVES Verified 09/19/20 22:19 latex Allergy Mild RASH,REDNESS, Verified 09/19/20 22:19 HIVES methocarbamol Allergy Mild blurry Verified 09/19/20 22:19 vision, headache, memory loss Penicillins Allergy Mild HIVES Verified 09/19/20 22:19 sulfamethoxazole Allergy Mild depression, Verified 09/19/20 22:19 nausea, diarrhea trimethoprim Allergy Mild depression, Verified 09/19/20 22:19 nausea, diarrhea tropicamide Allergy Mild RED, Verified 09/19/20 22:19 WATERY EYES ENVIROMENTAL Allergy Severe ANAPHYLAXIS Uncoded 09/19/20 22:19 UNCLAS THER/AG Allergy Severe CAT GUT Uncoded 09/19/20 22:19 SUTURES = SEVERE RASH Dust Mite Extract Allergy Intermediate HIVES,SOB Uncoded 09/19/20 22:19 THROAT SWELLS TEMI Allergy Intermediate rash Uncoded 09/19/20 22:19 Ethicon Sutures Allergy Unknown Unknown Uncoded 09/19/20 22:19 WHITE GOLD AdvReac Mild OCCASIONAL Uncoded 09/19/20 22:19 HIVES/IRRITATION Home Medications Medication Instructions Recorded Confirmed Type albuterol sulfate 2 puff INHALATION QID PRN 04/25/18 09/19/20 History ascorbic acid (vitamin C) 1,000 mg PO BID 04/25/18 09/19/20 History diphenhydramine HCl [Benadryl] 50 mg PO HS PRN 04/25/18 09/19/20 History epinephrine [EpiPen] 0.3 mg IM Q3H PRN 04/25/18 09/19/20 History fexofenadine [Ana Allergy] 180 mg PO DAILY PRN 04/25/18 09/19/20 History multivitamin with minerals 1 tab PO QAM 04/25/18 09/19/20 History prednisone 20 mg PO DIRECTED PRN 04/25/18 09/19/20 History astaxanthin 4 mg PO QDL 11/22/18 09/19/20 History fish oil-dha-epa 1 cap PO QAM 11/22/18 09/19/20 History magnesium S-gvsqnr-dfrbdmsygff 1 tab PO QAM 11/22/18 09/19/20 History lorazepam [Ativan] 0.5 mg PO Q8H PRN #10 tab 06/22/20 09/19/20 Rx meloxicam 7.5 mg PO QAM 06/22/20 09/19/20 History metformin 500 mg PO QAM 09/19/20 09/19/20 History nystatin-triamcinolone 1 appln TOP TID PRN 09/19/20 09/19/20 History omeprazole 40 mg PO DAILYBB 09/19/20 09/19/20 History Patient History Medical History (Updated 09/20/20 @ 17:36 by Kapil Emery MD) Asthma LAST INHALER USED MANY MONTHS AGO Cancer PRE CANCEROUS SKIN REMOVED Chronic back pain Degenerative disc disease Diabetes mellitus, type 2 CONTROLLED BY DIET Environmental and seasonal allergies GERD (gastroesophageal reflux disease) Glaucoma Hearing deficit 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 Hypertension Idiopathic angioedema Macular degeneration Migraine Osteoarthritis Scoliosis Temporomandibular joint disorder Surgical History Family history of reaction to anesthesia SLOW TO WAKE UP>SISTER/2 BROTHERS H/O foot surgery RT FOOT BIG TOE JOINT REPAIRED H/O: hysterectomy History of anesthesia reaction SLOW TO WAKE UP FROM ANESTHESIA AND SENSITIVE History of arthroscopy RT SHOULDER History of bronchoscopy BIOPSY BENIGN TUMOR IN LUNG History of cataract surgery RT/LEFT History of colonoscopy History of esophagogastroduodenoscopy (EGD) History of total hip arthroplasty RT/LEFT WITH REVISIONS ON BOTH HIPS Hx of detached retina repair REPAIRED ? EYE Family History Brother Family history of diabetes mellitus Mother Family history of diabetes mellitus Social History Smoking Status: Never smoker Second Hand Exposure: Yes ( A CHILD); Hx Alcohol Use: No Hx Substance Use: No Preferred Language: Kyrgyz Communication Ability: Effective Recruitment Coordinator Required: No Beliefs That Will Affect Care: None Current Living Situation: Alone Current Living Situation Comment: LIVES WITH FATHER "DISABLED" Other Information That Helps Us Care for You: No Feels Safe at Home: Yes Safety Concerns: Feels Safe At This Time Assistive Devices: None Review of Systems Review of Systems: All systems reviewed & are unremarkable except as noted in HPI & below Physical Exam Physical Exam: RUE: FROM shoulder, elbow, forearm. Wrist has FROM, pain at the extreme. 2+ radial pulse. Sensation to Light touch intact. Motor: median, radial, ulnar, AIN, PIN are intact. Good strength Supraspinatus and External Rotators. Only tender to palpation over dorsum of wrist and ulnarly. - TTP anatomic snuff box and volarly about the scaphoid. RLE: Sensation to light touch is intact distally. 2+ DP Pulse. Motor unchanged per patient as she has not been able to preform a straight leg raise since her first JORDAN. Hip flexion is intact. No pain with gentle ROM hip. Wiggling toes and ankle. Calf soft and non-tender. Results & Data ([facility]) Vital Signs (Past 12 Hours) Vital Signs Temp Pulse Pulse Resp BP BP Pulse Ox 09/20/20 14:53 36.5 C 66 20 152/83 H 96 09/20/20 14:20 70 09/20/20 14:05 69 09/20/20 13:36 69 18 149/89 H 98 09/20/20 09:33 74 19 155/82 H 95 09/20/20 07:00 60 16 136/61 96 09/20/20 06:00 66 19 139/80 94 09/20/20 05:28 36.6 C 71 16 155/67 H 96 Diagnostic Findings I Reviewed the Radiographs of the right Shoulder which showed no acute fracture or dislocation. I Reviewed the Radiographs of the right Elbow which showed no acute fracture or dislocation. I Reviewed the Radiographs of the right Wrist which showed no acute fracture or dislocation. I Reviewed the Radiographs of the right hip and pelvis which showed no acute fracture or dislocation. Her JORDAN components are in good position, again no evidence of dislocation. The right hip JORDAN appears to have a constrained liner. (1) Contusion of elbow, right Encounter type: initial encounter Qualified Code(s): S50.01XA - Contusion of right elbow, initial encounter (2) Contusion of shoulder, right Encounter type: initial encounter Qualified Code(s): S40.011A - Contusion of right shoulder, initial encounter
[2020-09-20] MEDS: INSULIN GLARGINE SOLOSTAR 100 UNITS/ML 3 ML PEN SC SCH (20:50)
[2020-09-20] MEDS: MELOXICAM 7.5 MG TAB PO SCH (21:05)
[2020-09-21] MEDS: PANTOprazole 40 MG TAB PO SCH (05:53)
--- NOTE | 2020-09-21 07:25 | Electrocardiogram Report ---
Test Reason : Blood Pressure : / mmHG Vent. Rate : 068 BPM Atrial Rate : 068 BPM P-R Int : 184 ms QRS Dur : 072 ms QT Int : 426 ms P-R-T Axes : 000 029 040 degrees QTc Int : 452 ms Normal sinus rhythm Low voltage QRS Cannot rule out Anterior infarct (cited on or before 20-SEP-2020) Abnormal ECG When compared with ECG of 22-JUN-2020 10:38, No significant change Confirmed by Ren Alonso ([id number]) on 09/21/2020 7:24:42 AM Referred By: REFERRED SELF Confirmed By:Ren Alonso
[2020-09-21 07:36] LABS: Basophils # (auto) 0.02 K/uL (0-0.2); Basophils % (auto) 0.4 %; Eosinophils # (auto) 0.17 K/uL (0-0.5); Eosinophils % (auto) 3.8 %; Hematocrit (blood only) 40.1 % (37-47); Hemoglobin 13.6 g/dL (12.0-16.0); Immature Granulocytes # (auto) 0.01 K/uL (0.00-0.02); Immature Granulocytes % (auto) 0.2 %; Lymphocytes # (auto) 2.13 K/uL (1.2-3.4); Lymphocytes % (auto) 47.2 %; Mean Corpuscular Hemoglobin 30.7 pg (25-34); Mean Corpuscular Hgb Conc 33.9 g/dL (32-36); Mean Corpuscular Volume 90.5 fL (80-100); Mean Platelet Volume 11.8 fL (7.4-10.4); Monocytes # (auto) 0.38 K/uL (0.11-0.59); Monocytes % (auto) 8.4 %; Platelet Count 168 K/uL (130-400); RDW Coefficient of Variation 13.4 % (11.5-14.5); RDW Standard Deviation 44.4 fL (36.4-46.3); Red Blood Count 4.43 M/uL (4.2-5.4); White Blood Count 4.51 K/uL (4.8-10.8)
[2020-09-21 08:05] LABS: BUN Creatinine Ratio 19.1 (10-20); Calcium 9.4 mg/dl (8.5-10.1); Est GFR (African American) 86.6; Est GFR (Non-African American) 74.7; Potassium 4.2 mmol/L (3.5-5.1)
[2020-09-21] MEDS: MELOXICAM 7.5 MG TAB PO SCH (08:33)
[2020-09-21] MEDS: CEROVITE ADV FORMULA TAB PO SCH (08:35)
[2020-09-21] MEDS: INSULIN ASPART 100 UNITS/ML 3 ML PEN SC SCH ×2 (08:38→12:40)
[2020-09-21] MEDS: INSULIN GLARGINE SOLOSTAR 100 UNITS/ML 3 ML PEN SC SCH (08:40)
[2020-09-21] MEDS ORDERED: ASPIRIN 81 MG ECTAB PO SCH (09:00)
[2020-09-21] MEDS: ENOXAPARIN INJ 40 MG/0.4 ML SYR SQ SCH (09:29)
--- NOTE | 2020-09-21 10:27 | Orthopedic Progress Note ---
Date of Service September 21, 2020 Assessment & Plan (1) Pain in right hip: H/O revision JORDAN R hip pain Likely secondarily to contusion. Symptomatic treatment with RICE, Mobic. WBAT. Symptoms essentially Resolved. Follow-up with Dr. José Miguel Kaiser in [place] in 2 weeks. (2) Right leg weakness: Unknown etiology, likely secondarily to contusion vs nerve irritation secondarily to fall. Resolved by the time she was seen in the ED. (3) Contusion of elbow, right: Symptomatic treatment with RICE, Mobic. Essential resolved. (4) Contusion of shoulder, right: Symptomatic treatment with RICE, Mobic. Consider PT Essential resolved. (5) Hip joint replacement status: Stable. WBAT Follow-up with Dr. Kaiser at [facility] in 2 weeks. (6) Wrist pain, right: Symptomatic treatment with RICE, Mobic. Use Cock-up wrist splint with lifting. Follow-up in 2 weeks Please recall if any orthopedic issues. Ok for discharge from ortho standpoint. Admission and Anticipated Discharge Date Admission Date: September 20, 2020 Subjective Feeling better, not 100%. Able to walk even better today. Review of Systems Review of Systems: All systems reviewed & are unremarkable except as noted in HPI & below Physical Exam Physical Exam: RUE: FROM elbow, forearm. Wrist has FROM, pain at the extreme. Shoulder active ROM slightly decreased today with FF & Abd 140 degrees, AAROM is full. 2+ radial pulse. Sensation to Light touch intact. Motor: median, radial, u lnar, AIN, PIN are intact. Good strength Supraspinatus and External Rotators. Only tender to palpation over dorsum of wrist and ulnarly. + Swelling ulnar wrist. - TTP anatomic snuff box and volarly about the scaphoid. RLE: Sensation to light touch is intact distally. 2+ DP Pulse. Motor unchanged per patient as she has not been able to preform a straight leg raise since her first JORDAN. Hip flexion is intact. No pain with gentle ROM hip. Wiggling toes and ankle. Calf soft and non-tender. Mild TTP lateral hip/thigh. Results & Data ([facility]) Vital Signs (Past 12 Hours) Vital Signs Temp Pulse Pulse Resp BP Pulse Ox 09/21/20 08:01 36.5 C 85 20 135/83 93 09/21/20 07:41 61 09/21/20 04:00 36.5 C 68 18 120/79 93 09/20/20 23:38 36.7 C 62 18 124/77 96 (1) Contusion of elbow, right Encounter type: initial encounter Qualified Code(s): S50.01XA - Contusion of right elbow, initial encounter (2) Contusion of shoulder, right Encounter type: initial encounter Qualified Code(s): S40.011A - Contusion of right shoulder, initial encounter
--- NOTE | 2020-09-21 11:54 | Communication Note ---
Date of Service: September 21, 2020 Yaneth 70 years old is right-handed, and was admitted yesterday to the hospital after a fall occurred after she crawled up some stairs to the landing then slowly crawled back down, stood up, thought she was on the floor but was actually on the first step above the floor then slipped, fell backwards struck her shoulder hip and perhaps her head although the head injury would have been minor and had a lot of pain in the entirety of her right side of the body complicated by the presence of the dragging of the right leg when she arrived in the emergency room. There is no numbness there was a fair amount of pain she thought the leg was weak and thinks it was some accentuated pain in the hip but because of the dragging sensation which persisted for 5 to 6 hours and now is completely cleared I question was raised about a stroke and she was scheduled to have an MRI MRA etc. in the emergency room but refused after a CT scan showed nothing acute She has been admitted to the hospital and is now awaiting neurology opinion regarding whether she should have the studies and whether she should be on some long-term antiplatelet agents. She has a history of diabetes gastroesophageal reflux and hemorrhoids has a hip joint replacement lichen sclerosis lumbar disc disease without myelopathy or significant radiculopathy, moderate over nourishment, solitary pulmonary nodule, uterine endometriosis, uterine prolapse, vaginitis abdominal pain and has had a closed fracture of the left distal fibula Home medications include albuterol ascorbic acid Astaxanthin, diphenhydramine epinephrine as needed fexofenadine, fish oil, lorazepam, meloxicam Metformin multivitamins nystatin omeprazole and prednisone as needed She has extensive drug allergies to Lucero 2 inhibitors, phenylephrine, baclofen cephalosporins clindamycin codeine erythromycin latex methocarbamol penicillins sulfamethoxazole, trimethoprim tropicamide and various environmental agents and most of her allergies are manifested by depression varying degrees of confusion nausea diarrhea etc. Social history reveals to be a non-smoker nonconsumer of ethanol Family history is noncontributory Review of systems reveals her to be in reasonable health allowing for chronic medical problems and they have had no recent hospitalizations fever sweats chills new issues referable to HEENT, cardiovascular pulmonary gastrointestinal genitourinary musculoskeletal dermatologic or hematologic systems Exam at present reveals blood pressure 160/97 pulse 81 respirations 20 she is afebrile O2 saturation 96% She is awake alert oriented in 3 spheres with no immediate or remote memory deficits and with quite intact cranial nerves including eye movements facial motility and strength facial sensation speech neck flexor strength and with normal gait station coordination reveals specifically no hemiparesis ataxia spasticity tremor or tics choreiform movements drift or pronation sign facility rapid repetitive motions is excellent. Reflexes little depressed in the lower extremities but all present toes are downgoing no Yessi signs are seen strength testing is normal and there may be a little vibratory sense reduction distally I tend to agree that the odds of this being a CVA are minimal but she does describe a period of time up to 5 or 6 hours during which she was dragging the right leg and had difficulty moving it in a coordinated fashion that transcended the level of pain she was suffering. I would recommend that she consider the MRI and MRA and if negative as is expected will be done I see no reason for her to take a daily aspirin other than to manage some of her other vascular risk factors but this will be decision her primary care physician will have to make She can be discharged if the studies are negative we will try to check back by computer later today Obviously if negative she does not need neurologic follow-up and I will have her seen by orthopedic surgery if they feel she needs to be seen as well Armani Hart MD
--- NOTE | 2020-09-21 15:37 | Magnetic Resonance Report ---
MRI OF THE BRAIN WITHOUT CONTRAST CLINICAL HISTORY: RLE weakness, rule out stroke COMPARISON STUDY: Head CT September 20, 2020. TECHNIQUE: Utilizing a 1.5 Rosa magnet and dedicated coil, multiplanar, multiecho imaging of the bra in was performed without IV contrast. FINDINGS: There are no foci of restricted diffusion to suggest acute infarct. No acute intracranial h emorrhage, midline shift or mass effect is present. Ventricular system is normal. Basal cisterns are patent. There are no extra axial collections. This also small white matter T2 hyperintense foci sugge st mild small vessel disease. Calvarial signal is normal. Orbits are unremarkable on this unenhanced examination. There is no mastoid fluid. There is no evidence for sinusitis. IMPRESSION: No acute intracranial findings. ACT 112: Negative or not required by law. Electronically signed by: Timoteo Mcculre M.D. 09/21/2020 3:36 PM
--- NOTE | 2020-09-21 15:50 | Magnetic Resonance Report ---
MR angio neck wo/w con CLINICAL HISTORY: Recent fall. Right-sided weakness. Evaluate for cerebrovascular accident. COMPARISON STUDY: No previous studies for comparison. TECHNIQUE: Utilizing a 1.5 Rosa magnet and dedicated coil, unenhanced and contrast-enhanced MRA of t he neck was performed. Intravenous injection of 9 cc of Gadavist was uneventful. FINDINGS: The bilateral common carotid and cervical internal carotid arteries are patent. No stenosis or dissection within these vessels is noted. The left vertebral artery is dominant and patent. The r ight vertebral artery is hypoplastic. The right vertebral artery ends in PICA. Please note that the M RA of the head will be reported separately. IMPRESSION: 1. Unremarkable MRA of the neck. No stenosis or dissection. 2. Dominant, patent left vertebral artery. Hypoplastic right vertebral artery. ACT 112: Negative or not required by law. Electronically signed by: Timoteo Mcclure M.D. 09/21/2020 3:49 PM
--- NOTE | 2020-09-21 15:51 | Magnetic Resonance Report ---
MRA OF THE INTRACRANIAL CIRCULATION WITHOUT CONTRAST CLINICAL HISTORY: RLE weakness after a fall COMPARISON STUDY: None. TECHNIQUE: Utilizing a 1.5 Rosa magnet and 3-D [id number] technique, unenhanced MRA of the intra cranial circulation was obtained. FINDINGS: The bilateral M1, M2, A1 and A2 segments are patent. There is no intracranial aneurysm. No central vessel occlusion is identified. The left vertebral artery is dominant. The right vertebral ar harley likely ends in PICA. Bilateral posterior cerebral arteries are patent. Exam is mildly compromise d by artifact. IMPRESSION: No central vessel occlusion. No intracranial aneurysm. ACT 112: Negative or not required by law. Electronically signed by: Timoteo Mcclure M.D. 09/21/2020 3:49 PM
--- NOTE | 2020-09-21 16:59 | Discharge Summary ---
Date of Service September 21, 2020 Admission HPI Per Admitting Provider History obtained from patient and records. Medical history significant for DM2 on oral medications, situational hypertension as per records, gastroparesis, GERD. Patient was going down the steps at her daughter's home around 6 PM last night when she lost her balance resulting in patient's fall to the right side. Patient not sure if she missed a step or her right leg felt weak. No headache, no LOC, no head trauma, no chest pain, no shortness of breath. Achy right hip pain, right shoulder and forearm pain after falling. Patient unable to get up. At the ER, right leg felt weak. Patient felt like she was dragging her right leg without unusual pain. No prior episodes. Right leg weakness a little better as compared to arrival as per patient. 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 Admission Exam Per Admitting Provider GENERAL: Slightly uncomfortable, obese, no respiratory distress SKIN: Normal color, warm HEENT: Kress palpebral conjunctivae, no ptosis, moist buccal mucosa NECK : Supple, short neck, no tenderness CHEST : CTA, no tenderness HEART : RRR, no obvious murmurs ABDOMEN: Some distention, nontender EXTREMITIES : Right shoulder tenderness, minimal right forearm swelling and tenderness, minimal LE swelling, right lateral thigh tenderness, no other conspicuous deformities noted NEUROLOGIC : Coherent, no facial asymmetry, MMTS BUE 4/5, RLE 3/5, LLE 4/5 Principal Diagnosis RLE weakness R wrist pain s/p fall R hip pain s/p fall Discharge Exam CONSTITUTIONAL: WNWD, vitals as above, generally well-appearing EYES: EOMI bilaterally, PERRL, normal conjunctivae, no scleral icterus ENT: external ear and nose normal NECK: trachea midline RESPIRATORY: clear to auscultation bilaterally, no crackles, rales or wheezes, normal respiratory effort CARDIOVASCULAR: regular rate and rhythm, S1 and 2 heard without murmurs, gallops or rubs, no JVD, no peripheral edema GASTROINTESTINAL: soft, nontender, nondistended MUSCULOSKELETAL: strength 5/5 throughout-improvement in R leg mobility from day prior, head is normocephalic and atraumatic. Moves around the bed without issue and easily without needing assistance. No issues with balance or coordination. SKIN: warm and dry NEUROLOGIC: CN 2-12 grossly intact, no sensory deficit, normal cognition, normal speech, no tremor. No gross focal deficits. PSYCHIATRIC: alert cooperative and oriented to person, place and time. Discharge Data Allergies Allergy/AdvReac Type Severity Reaction Status Date / Time celecoxib Allergy Severe SUICIDAL Verified 09/19/20 22:19 phenylephrine Allergy Severe RED, Verified 09/19/20 22:19 WATERY EYES baclofen Allergy Mild Hives Verified 09/19/20 22:19 Cephalosporins Allergy Mild UNKNOWN Verified 09/19/20 22:19 clindamycin Allergy Mild UNKNOWN Verified 09/19/20 22:19 codeine Allergy Mild NAUSEA AND Verified 09/19/20 22:19 VOMITING erythromycin base Allergy Mild HIVES Verified 09/19/20 22:19 latex Allergy Mild RASH,REDNESS, Verified 09/19/20 22:19 HIVES methocarbamol Allergy Mild blurry Verified 09/19/20 22:19 vision, headache, memory loss Penicillins Allergy Mild HIVES Verified 09/19/20 22:19 sulfamethoxazole Allergy Mild depression, Verified 09/19/20 22:19 nausea, diarrhea trimethoprim Allergy Mild depression, Verified 09/19/20 22:19 nausea, diarrhea tropicamide Allergy Mild RED, Verified 09/19/20 22:19 WATERY EYES ENVIROMENTAL Allergy Severe ANAPHYLAXIS Uncoded 09/19/20 22:19 UNCLAS THER/AG Allergy Severe CAT GUT Uncoded 09/19/20 22:19 SUTURES = SEVERE RASH Dust Mite Extract Allergy Intermediate HIVES,SOB Uncoded 09/19/20 22:19 THROAT SWELLS TEMI Allergy Intermediate rash Uncoded 09/19/20 22:19 Ethicon Sutures Allergy Unknown Unknown Uncoded 09/19/20 22:19 WHITE GOLD AdvReac Mild OCCASIONAL Uncoded 09/19/20 22:19 HIVES/IRRITATION Consultations 09/20/20 02:30 ED Decision to Admit Stat 09/20/20 05:18 Consult Orthopedic Surgery Routine 09/20/20 09:23 Consult Neurology Routine Ordered Studies Laboratory Results WBC 4.51 K/uL (4.8-10.8) L 09/21/20 06:57 RBC 4.43 M/uL (4.2-5.4) 09/21/20 06:57 Hgb 13.6 g/dL (12.0-16.0) 09/21/20 06:57 Hct 40.1 % (37-47) 09/21/20 06:57 MCV 90.5 fL (80-100) 09/21/20 06:57 MCH 30.7 pg (25-34) 09/21/20 06:57 MCHC 33.9 g/dL (32-36) 09/21/20 06:57 RDW Std Deviation 44.4 fL (36.4-46.3) 09/21/20 06:57 RDW Coeff of Clare 13.4 % (11.5-14.5) 09/21/20 06:57 Plt Count 168 K/uL (130-400) 09/21/20 06:57 MPV 11.8 fL (7.4-10.4) H 09/21/20 06:57 Immature Gran % (Auto) 0.2 % 09/21/20 06:57 Neut % (Auto) 40.0 % 09/21/20 06:57 Lymph % (Auto) 47.2 % 09/21/20 06:57 Hood % (Auto) 8.4 % 09/21/20 06:57 Eos % (Auto) 3.8 % 09/21/20 06:57 Baso % (Auto) 0.4 % 09/21/20 06:57 Neut # (Auto) 1.80 K/uL (1.4-6.5) 09/21/20 06:57 Lymph # (Auto) 2.13 K/uL (1.2-3.4) 09/21/20 06:57 Hood # (Auto) 0.38 K/uL (0.11-0.59) 09/21/20 06:57 Eos # (Auto) 0.17 K/uL (0-0.5) 09/21/20 06:57 Baso # (Auto) 0.02 K/uL (0-0.2) 09/21/20 06:57 Immature Gran # (Auto) 0.01 K/uL (0.00-0.02) 09/21/20 06:57 Sodium 140 mmol/L (136-145) 09/21/20 06:57 Potassium 4.2 mmol/L (3.5-5.1) 09/21/20 06:57 Chloride 108 mmol/L (98-107) H 09/21/20 06:57 Carbon Dioxide 27 mmol/L (21-32) 09/21/20 06:57 Anion Gap 5.0 (3-11) 09/21/20 06:57 BUN 15 mg/dl (7-18) 09/21/20 06:57 Creatinine 0.80 mg/dl (0.6-1.2) 09/21/20 06:57 Est Cr Clr Drug Dosing 72.0 ml/min 09/21/20 06:57 Est GFR ( Amer) 86.6 09/21/20 06:57 Est GFR (Non-Af Amer) 74.7 09/21/20 06:57 BUN/Creatinine Ratio 19.1 (10-20) 09/21/20 06:57 Glucose 178 mg/dl (70-99) H 09/21/20 06:57 POC Glucose 135 mg/dl (70-99) H 09/21/20 16:22 Estimat Average Glucose 212 mg/dl 09/21/20 06:57 Hemoglobin A1c 9.0 % (4.5-5.6) H 09/21/20 06:57 Calcium 9.4 mg/dl (8.5-10.1) 09/21/20 06:57 Total Bilirubin 0.3 mg/dl (0.2-1) 09/20/20 00:20 AST 15 U/L (15-37) 09/20/20 00:20 ALT 27 U/L (12-78) 09/20/20 00:20 Alkaline Phosphatase 84 U/L (45-117) 09/20/20 00:20 Total Creatine Kinase 53 U/L (26-192) 09/20/20 00:20 Total Protein 7.4 gm/dl (6.4-8.2) 09/20/20 00:20 Albumin 3.7 gm/dl (3.4-5.0) 09/20/20 00:20 Globulin 3.7 gm/dl (2.5-4.0) 09/20/20 00:20 Albumin/Globulin Ratio 1.0 (0.9-2) 09/20/20 00:20 Triglycerides 248 mg/dl (0-150) H 09/21/20 06:57 Cholesterol 207 mg/dl (0-200) H 09/21/20 06:57 LDL Cholesterol, Calc 103 mg/dl 09/21/20 06:57 VLDL Cholesterol, Calc 50 mg/dl 09/21/20 06:57 HDL Cholesterol 54 mg/dl 09/21/20 06:57 Cholesterol/HDL Ratio 4 09/21/20 06:57 Lipase 83 U/L (73-393) 09/20/20 00:20 COVID-19 Eval Order [facility]Rsv at [facility] 09/20/20 00:16 SARS-CoV-2 (PCR) NEGATIVE (Negative) 09/20/20 00:16 Influenza Type A (PCR) Negative (Neg) 09/20/20 00:16 Influenza Type B (PCR) Negative (Neg) 09/20/20 00:16 RSV (RT-PCR) Negative (Neg) 09/20/20 00:16 Impressions Elbow X-Ray 09/19/20 22:34 RIGHT ELBOW 3 VIEWS CLINICAL HISTORY: Fall. FINDINGS: 3 views of the right elbow are compared to study dated 07/02/2008. The skeletal structures are osteopenic. No fracture is identified. The joint spaces are maintained. No joint effusion is identified. There is a tiny enthesophyte at the triceps insertion. Enthesophytes are also seen along the humeral epicondyles. Dorsal soft tissue edema is noted. IMPRESSION: Dorsal soft tissue swelling with no fracture identified. Electronically signed by: Jewel Denney M.D. 09/20/2020 7:44 AM Hip/Pelvis X-Ray 09/19/20 22:34 SINGLE VIEW PELVIS; 2 VIEWS RIGHT HIP CLINICAL HISTORY: Fall. FINDINGS: An AP view of the pelvis with AP and frog-leg views of the right hip are compared to study dated 03/11/2014. The skeletal structures are osteopenic. There is no radiographic evidence of acute fracture involving the hips or bony pelvis. Bilateral hip arthroplasties are in near-anatomic alignment. Sclerotic change is noted in the sacroiliac joints and pubic symphysis. Lumbosacral spondylosis is partially imaged. The overlying soft tissues are normal as visualized. Moderate fecal retention is seen in the visualized colon. IMPRESSION: No acute bony abnormality is identified. Electronically signed by: Jewel Denney M.D. 09/20/2020 9:12 AM Shoulder X-Ray 09/19/20 22:34 RIGHT SHOULDER 3 VIEWS CLINICAL HISTORY: Fall with right shoulder pain. FINDINGS: 3 views of the right shoulder are compared to study dated 11/12/2008 a chest x-ray dated 06/22/2020. The skeletal structures are osteopenic. There is no radiographic evidence of fracture or dislocation. The glenohumeral articulation is maintained. There is chronic widening at the right AC joint with mild productive degenerative change. The overlying soft tissues are normal as imaged. The right lung parenchyma is clear as visualized. IMPRESSION: No acute bony abnormality is identified. Electronically signed by: Jewel Denney M.D. 09/20/2020 9:10 AM Wrist X-Ray 09/19/20 22:34 RIGHT WRIST 4 VIEWS CLINICAL HISTORY: Fall with right wrist injury. FINDINGS: 4 views of the right wrist are obtained. No prior studies are available for comparison at the time of dictation. The skeletal structures are osteopenic. No fracture is seen. Minimal degenerative changes noted in the wrist. Mild overlying soft tissue edema is noted. IMPRESSION: Soft tissue swelling with no radiographic evidence of acute fracture. Electronically signed by: Jewel Denney M.D. 09/20/2020 9:[address] 09/20/20 00:06 CT OF THE LUMBAR SPINE CLINICAL HISTORY: fall COMPARISON STUDY: Lumbar spine MRI March 20, 2018. TECHNIQUE: Helical axial images of the lumbar spine were obtained. Sagittal and coronal reconstructions were viewed. Automated exposure control was utilized for the study. A dose lowering technique was utilized adhering to the principles of ALARA. FINDINGS: There is mild S-shaped scoliosis of the lumbar spine. No acute fracture is noted. There is no suspicious osseous lesion. Facet joints are intact. Central canal and neural foramen are suboptimally assessed by CT. There is moderate to severe multilevel disc space narrowing with osteophytosis and vacuum disc phenomenon. There is moderate multilevel facet arthrosis. Paravertebral soft tissues are unremarkable by CT. IMPRESSION: 1. No acute lumbar spine fracture or subluxation. 2. Moderate multilevel degenerative changes within the lumbar spine. ACT 112: Negative or not required by law. Electronically signed by: Timoteo Mcclure M.D. 09/20/2020 8:[address] 09/20/20 00:06 CT pelvis wo con CLINICAL HISTORY: right hip pain, s/p fall COMPARISON STUDY: Pelvis and right hip radiographs September 19, 2020. TECHNIQUE: Axial images of the pelvis and hips were obtained without IV contrast. Sagittal and coronal reconstructions were viewed. Automated exposure control was utilized for the study. A dose lowering technique was utilized adhering to the principles of ALARA. FINDINGS: No acute fracture is identified within the pelvis or hips. Alignment of the total bilateral hip arthroplasties is anatomic anatomic. The distal aspect of the femoral components were not imaged on this exam. Exam is mildly compromised by streak artifact from the surgical hardware. No pelvic hematoma is noted. There is no pelvic lymphadenopathy. Sigmoid diverticulosis is noted without evidence for acute diverticulitis. Sacroiliac joints are intact. IMPRESSION: 1. No acute fracture within the pelvis or hips. 2. Anatomic alignment of the total bilateral hip arthroplasties. ACT 112: Negative or not required by law. Electronically signed by: Timoteo Mcclure M.D. 09/20/2020 8:[address] 09/20/20 00:09 CT OF THE HEAD WITHOUT CONTRAST CLINICAL HISTORY: right leg weakness COMPARISON STUDY: No previous studies for comparison. CT DOSE: 537.48 mGy.cm TECHNIQUE: Helical axial images of the head were obtained without IV contrast. Automated exposure control was utilized for the study. A dose lowering technique was utilized adhering to the principles of ALARA. FINDINGS: No acute intracranial hemorrhage, midline shift or mass effect is present. The ventricular system is unremarkable. The basal cisterns are patent. No extra-axial collections are present. There are no findings to suggest acute dural sinus thrombosis or acute territorial infarct. No significant calvarial abnormalities are present. Visualized portions of the sinuses and mastoid air cells are clear. IMPRESSION: No acute intracranial findings. ACT 112: Negative or not required by law. Electronically signed by: Timoteo Mcclure M.D. 09/20/2020 8:34 AM Brain MRI 09/21/20 11:57 MRI OF THE BRAIN WITHOUT CONTRAST CLINICAL HISTORY: RLE weakness, rule out stroke COMPARISON STUDY: Head CT September 20, 2020. TECHNIQUE: Utilizing a 1.5 Rosa magnet and dedicated coil, multiplanar, multiecho imaging of the brain was performed without IV contrast. FINDINGS: There are no foci of restricted diffusion to suggest acute infarct. No acute intracranial hemorrhage, midline shift or mass effect is present. Ventricular system is normal. Basal cisterns are patent. There are no extra axial collections. This also small white matter T2 hyperintense foci suggest mild small vessel disease. Calvarial signal is normal. Orbits are unremarkable on this unenhanced examination. There is no mastoid fluid. There is no evidence for sinusitis. IMPRESSION: No acute intracranial findings. ACT 112: Negative or not required by law. Electronically signed by: Timoteo Mcclure M.D. 09/21/2020 3:36 PM Head MRA 09/21/20 11:57 MRA OF THE INTRACRANIAL CIRCULATION WITHOUT CONTRAST CLINICAL HISTORY: RLE weakness after a fall COMPARISON STUDY: None. TECHNIQUE: Utilizing a 1.5 Rosa magnet and 3-D [id number]-hnulpo technique, unenhanced MRA of the intracranial circulation was obtained. FINDINGS: The bilateral M1, M2, A1 and A2 segments are patent. There is no intracranial aneurysm. No central vessel occlusion is identified. The left vertebral artery is dominant. The right vertebral artery likely ends in PICA. Bilateral posterior cerebral arteries are patent. Exam is mildly compromised by artifact. IMPRESSION: No central vessel occlusion. No intracranial aneurysm. ACT 112: Negative or not required by law. Electronically signed by: Timoteo Mcclure M.D. 09/21/2020 3:49 PM Neck MRA 09/21/20 11:57 MR angio neck wo/w con CLINICAL HISTORY: Recent fall. Right-sided weakness. Evaluate for cerebrovascular accident. COMPARISON STUDY: No previous studies for comparison. TECHNIQUE: Utilizing a 1.5 Rosa magnet and dedicated coil, unenhanced and contrast-enhanced MRA of the neck was performed. Intravenous injection of 9 cc of Gadavist was uneventful. FINDINGS: The bilateral common carotid and cervical internal carotid arteries are patent. No stenosis or dissection within these vessels is noted. The left vertebral artery is dominant and patent. The right vertebral artery is hypoplastic. The right vertebral artery ends in PICA. Please note that the MRA of the head will be reported separately. IMPRESSION: 1. Unremarkable MRA of the neck. No stenosis or dissection. 2. Dominant, patent left vertebral artery. Hypoplastic right vertebral artery. ACT 112: Negative or not required by law. Electronically signed by: Timoteo Mcclure M.D. 09/21/2020 3:49 PM Hospital Course (1) Status post fall: (2) Right leg weakness: Likely related to contusion from traumatic fall onto this hip-contusion vs nerve irritation. Notably s/p revised JORDAN in the past. Dr. Kapil Emery from [facility] saw her in the hospital. Recommends continued RICE therapy with outpatient follow-up. Also of consideration was concern for possible TIA. Neuro consulted and recommended imaging to rule out stroke which was negative (MRI brain, MRA head/neck). Patient declined echocardiogram. She had no arrhythmias on telemetry throughout her entire hospital stay and remained hemodynamcally stable and afebrile and oxygenating well on room air. She was eating and swallowing without issue. (3) Wrist pain, right: Cockup splint per Orthopedics with continued RICE therapy and outpatient followup. Cont Mobic for discomfort. (4) Contusion of shoulder, right: Continue RICE therapy with outpatient followup. Cont Mobic for discomfort. (5) Contusion of elbow, right: Continue RICE therapy with outpatient followup. Cont Mobic for discomfort. (6) Diabetes mellitus type II, uncontrolled: Aic 8.3. Followup with PCP to redesign strategy to bring A1C to goal <7. Cont basal/bolus insulin while inpatient. Total Time Total Time Spent Total Time Spent (In Minutes): 60 Total Time Includes: Examination of the Patient, Discharge Planning, Medication Reconciliation and Communication With Other Providers Discharge Plan Discharge Items Patient Disposition: Home - Self-Care Reason For Visit: RLE WEAKNESS Discharge Diagnosis: RLE weakness R wrist pain s/p fall R hip pain s/p fall Condition on Discharge: Good Activity: Resume your previous activity Non-emergency contact: Primary Care Provider Call non-emergency contact if: you have any medication questions, your symptoms worsen, your pain is not controlled and your pain is worsening Follow-up/Referrals: Sharee Leblanc DO [Primary Care Provider] - Diet: Regular Addtl Attending Provider Instructions: Please continue wtih RICE therapy as instructed (rest, ice, compression, elevation). Continue using your Mobic for pain daily until followup with your Orthopedic surgeon. It is recommended that you follow-up with your primary care provider within one week of this hospital discharge to ensure you are still doing well after going home and all symptoms have completely resolved. You underwent a brain MRI and imaging of your cerebral vessels which revealed no intracranial abnormalities to suggest a stroke or other concerning finding. It was a pleasure taking care of you! Please call if you have any questions or problems. You can reach a [facility] hospitalist on duty at [facility] 24 hours a day by calling [phone]. Take care of yourself. Valerie Pierce DO [facility] Hospitalist Pending Studies at Discharge: No Stand-Alone Forms: [facility] Medications and DC Order Prescriptions: Continued prednisone 20 mg Tablet 20 mg PO DIRECTED PRN (Reason: RESCUE KIT) RF: 0 fexofenadine [Ana Allergy] 180 mg Tablet 180 mg PO DAILY PRN (Reason: Allergic Reaction) RF: 0 diphenhydramine HCl [Benadryl] 25 mg Capsule 50 mg PO HS PRN (Reason: Allergic Reaction) RF: 0 epinephrine [EpiPen] 0.3 mg/0.3 mL Auto-Injector 0.3 mg IM Q3H PRN (Reason: Allergic Reaction) RF: 0 multivitamin with minerals Tablet 1 tab PO QAM RF: 0 albuterol sulfate 90 mcg/actuation Hfa Aerosol Inhaler 2 puff INHALATION QID PRN (Reason: Allergic Reaction) RF: 0 ascorbic acid (vitamin C) 500 mg Capsule 1,000 mg PO BID RF: 0 fish oil-dha-epa 1,200-144-216 mg Capsule 1 cap PO QAM RF: 0 astaxanthin 4 mg Capsule 4 mg PO QDL RF: 0 magnesium D-lkrkth-keqhfsdhdit 42 mg (500 mg)- 250 mg Tablet Extended Release 1 tab PO QAM RF: 0 meloxicam 7.5 mg tablet 7.5 mg PO QAM RF: 0 lorazepam [Ativan] 0.5 mg tablet 0.5 mg PO Q8H PRN (Reason: muscle spasm) Qty: 10 RF: 0 metformin 500 mg tablet 500 mg PO QAM RF: 0 omeprazole 40 mg capsule,delayed release(DR/EC) 40 mg PO DAILYBB RF: 0 nystatin-triamcinolone 100,000-0.1 unit/gram-% ointment 1 appln TOP TID PRN (Reason: Skin Irritation) RF: 0 Discharge Orders: Discharge Order (Routine); Ordered 09/21/20 Ordered By: Valerie Pierce Admission Data Admit Date/Time: 09/20/20 04:15 Attending Provider: Valerie Pierce Admit Provider: Julian Alvarado Primary Care Provider: Sharee Leblanc Other Providers: Kapil Emery ; Armani Hart Other Interventions: Discharge Summary Assessment (RN) Last Done: 09/21/20 17:23
[2020-09-22 06:19] LABS: Estimated Average Glucose 212 mg/dl
== END 2020-09-21 17:56 | disposition home or self-care (01) ==
LOC: ED 20:22 → EDINP 20:22 → 2W 09-20 13:36

== ENCOUNTER 2023-07-08 16:28 | Inpatient (IN) ==
--- NOTE | 2023-07-08 16:48 | ED Triage Note ---
Date of Service July 08, 2023 Provider in Triage Author: Niko Soliz. History of Present Illness This patient was briefly evaluated while in triage. An abbreviated physical exam was performed. This patient is a 73-year-old Female who presents to the ED for evaluation of difficulty getting her air out. History of idiopathic angioedema. Has been treated with steroids and other medications over the past few days. This comes and goes. Physical Exam CONSTITUTIONAL: in no acute pain or distress, resting comfortably. Whispering SKIN: pink, warm, dry RESPIRATORY: in no respiratory distress Initial orders for labs and / or imaging were placed and patient was placed in the waiting area until a bed is available. Please see further documentation for the full ED course.
--- NOTE | 2023-07-08 17:38 | XRay Report ---
SINGLE VIEW CHEST CLINICAL HISTORY: Idiopathic angioedema. Dyspnea FINDINGS: A PA chest radiograph is compared to chest x-ray and chest CT dated 06/22/2020. The cardiome diastinal silhouette is top normal for projection. Chronic interstitial thickening is similar to prev ious. There is mild bibasilar scarring/atelectasis. A right middle lobe pulmonary nodule is again not ed. This was better characterized on the prior CT scan. No airspace consolidation or pleural effusion is identified. No pneumothorax is seen. The skeletal structures are osteopenic. The bony thorax is g rossly intact. Calcified gallstones are seen in the right upper quadrant. IMPRESSION: No active disease in the chest. ACT 112: Negative or not required by law. Electronically signed by: Jewel Denney M.D. 07/08/2023 5:36 PM
[2023-07-08 18:34] LABS: Basophils # (auto) 0.01 K/uL (0.00-0.20); Basophils % (auto) 0.1 %; Hematocrit (blood only) 43.4 % (37.0-47.0); Hemoglobin 14.6 g/dl (12.0-16.0); Immature Granulocytes # (auto) 0.03 K/uL (0.01-0.20); Immature Granulocytes % (auto) 0.4 %; Lymphocytes # (auto) 1.49 K/uL (1.20-3.40); Lymphocytes % (auto) 17.7 %; Mean Corpuscular Hemoglobin 29.6 pg (25.0-34.0); Mean Corpuscular Hgb Conc 33.6 g/dL (32.0-36.0); Mean Corpuscular Volume 87.9 fL (80.0-100.0); Mean Platelet Volume 10.8 fL (9.4-12.4); Monocytes # (auto) 0.51 K/uL (0.11-0.59); Neutrophils % (auto) 75.8 %; Platelet Count 217 K/uL (130-400); RDW Coefficient of Variation 13.2 % (11.5-14.5); RDW Standard Deviation 42.5 fL (36.4-46.3); Red Blood Count 4.94 M/uL (4.20-5.40); White Blood Count 8.44 K/ul (4.8-10.8)
[2023-07-08 18:55] LABS: Alanine Aminotransferase 16 U/L (7-52); Albumin Globulin Ratio 1.3 (0.9-2); Albumin Level 4.4 gm/dl (3.4-5.0); Alkaline Phosphatase 86 U/L (34-104); Anion Gap 10 (3-11); Aspartate Aminotransferase 16 U/L (13-39); BUN Creatinine Ratio 23.8 (10-20); Bilirubin,Total 0.3 mg/dl (0.2-1.0); Blood Urea Nitrogen 20 mg/dl (6-23); Calcium 9.8 mg/dl (8.6-10.3); Carbon Dioxide 23 mmol/L (21-32); Chloride 97 mmol/L (98-107); Est GFR (African American) 79.9 ml/min; Globulin 3.3 gm/dl (2.5-4.0); Glucose 407 mg/dl (70-99(Fasting)); Potassium 4.5 mmol/L (3.5-5.1); Sodium 130 mmol/L (136-145); Total Protein 7.7 gm/dl (6.0-8.3)
--- NOTE | 2023-07-08 20:56 | Emergency Department Note ---
Impression & Plan Chest tightness ED Provider Note throat swelling senesation NAME: YOLETTE LYNN AGE: 73 SEX: F : 1950 ARRIVES VIA: Ambulance INFORMANT: Patient, ED PROVIDER(S): Ivana Jay MD CHIEF COMPLAINT: Throat swelling HPI: This is a 70-year-old female with history of idiopathic angioedema presenting for throat swelling/change in voice. Patient states that she is a 20+ years of history of this idiopathic angioedema. She has different symptoms usually with occasional rashes and swelling of her throat. She was recently seen at an outside hospital where she had similar symptoms with throat swelling sensation, difficulty breathing. She is treated with breathing treatment and steroids. She notes of improvement since then but otherwise has had recurrence of her symptoms with now change in her voice as well as a sensation of throat swelling. She states this is generally usual for her rash she never has rebound reactions or waxing waning symptoms. She has had no fever, chills, nausea or vomiting. No surgeries recently. ROS: See above HPI for pertinent positives & negatives. A total of 10 systems reviewed and were otherwise negative. PAST MEDICAL HISTORY: See Below PAST SURGICAL HISTORY: See Below FAMILY HISTORY: See Below SOCIAL HISTORY: See Below HOME MEDICATIONS: See Below ALLERGIES: See Below VITALS: See Below PHYSICAL EXAMINATION: General: resting comfortably in no acute distress Head: Normocephalic and atraumatic Eyes: Normal inspection, extraocular muscles intact Ear, nose, throat: Normal external exam Neck: Normal range of motion, hoarse voice Respiratory: lungs clear to auscultation bilaterally Cardiovascular: Regular rate/rhythm, no murmur GI: soft, nontender, no guarding or rebound Extremities: nontender, moves all extremities Neuro: The patient awake and alert, appropriately conversive, no focal deficits, symmetric faces Skin: Warm, dry, and intact MEDICAL DECISION MAKING: This is a 73-year-old female presenting for throat swelling/change in voice. Patient does have a somewhat hoarse voice at this time. She has had mild difficulty talking. Will do CT scan of the neck to rule out any underlying abscess as it would be strange for her to have recurrence of her angioedema so close to her previous episode. Will treat as episode as this is most likely cause however. No current shortness of breath, chest pain, urticaria or wheezing. -Due to patient's change in voice, will order epinephrine in case this is throat swelling -Patient CT scan does not reveal any acute process to explain patient's current symptoms -Patient observed improvement in her symptoms after albuterol treatment however she noted recurrence of her symptoms shortly afterwards she is still having difficulty with speaking and some slight chest pressure -Will admit the patient at this time for likely etiology of her throat swelling sensation as well as change in voice, she appears clinically well without signs of hypoxia, respiratory distress or any angioedema of her lips, tongue or mouth -Lab work is reviewed without any significant abnormalities -Troponin nonelevated Differential diagnosis: Angioedema, laryngitis, retropharyngeal abscess, epiglottitis, swallowed foreign body ER treatment provided: See below Diagnostics interpreted by me: ECG: ECG independently interpreted by me with normal sinus rhythm, rate of 85, normal axis, normal NC, normal QRS, normal QTc, no ST segment elevations consistent with STEMI criteria Cardiac Monitoring: An order was placed for continuous cardiac monitoring. The monitor shows a rate of 82 with sinus rhythm. Laboratory studies: As stated above and show below. Imaging studies: See below. Past Med/Surg History Medical History Asthma Cancer Chronic back pain Contusion of elbow, right Contusion of shoulder, right Degenerative disc disease Diabetes mellitus, type 2 Environmental and seasonal allergies Fall GERD (gastroesophageal reflux disease) Glaucoma Hearing deficit Hypertension Idiopathic angioedema Lab test negative for COVID-19 virus Macular degeneration Migraine Osteoarthritis Pain in right hip Right leg weakness Scoliosis Temporomandibular joint disorder Surgical History Family history of reaction to anesthesia H/O foot surgery H/O: hysterectomy Hip joint replacement status History of anesthesia reaction History of arthroscopy History of bronchoscopy History of cataract surgery History of colonoscopy History of esophagogastroduodenoscopy (EGD) History of total hip arthroplasty Hx of detached retina repair Family History Brother Family history of diabetes mellitus Mother Family history of diabetes mellitus Sister Breast cancer Denies family history of Ovarian cancer Prostate cancer Myocardial infarction Colorectal cancer Social History Smoking Status: Never smoker Second Hand Exposure: Yes ( A CHILD); Do You Dip or Chew Tobacco: No; Hx Alcohol Use: No Hx Substance Use: No Preferred Language: Portuguese Communication Ability: Effective 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 Beliefs That Will Affect Care: None Current Living Situation: Alone Current Living Situation Comment: LIVES WITH FATHER "DISABLED" Feels Safe at Home: Yes Assistive Devices: None Allergies Allergies Allergy/AdvReac Type Severity Reaction Status Date / Time phenylephrine Allergy Severe RED, Verified 07/09/23 00:11 WATERY EYES empagliflozin Allergy Intermediate Rash Verified 07/09/23 02:08 [From Jardiance] house dust mite Allergy Intermediate HIVES,SOB Verified 07/09/23 00:11 THROAT SWELLS baclofen Allergy Mild Hives Verified 07/09/23 00:11 Cephalosporins Allergy Mild UNKNOWN Verified 07/09/23 00:11 clindamycin Allergy Mild UNKNOWN Verified 07/09/23 00:11 contact metal agent Allergy Mild (white Verified 07/09/23 00:11 gold) OCCASIONAL HIVES/IRRITATION erythromycin base Allergy Mild HIVES Verified 07/09/23 00:11 latex Allergy Mild RASH,REDNESS, Verified 07/09/23 00:11 HIVES methocarbamol Allergy Mild blurry Verified 07/09/23 00:11 vision, headache, memory loss Penicillins Allergy Mild HIVES Verified 07/09/23 00:11 sulfamethoxazole Allergy Mild depression, Verified 07/09/23 00:11 nausea, diarrhea trimethoprim Allergy Mild depression, Verified 07/09/23 00:11 nausea, diarrhea tropicamide Allergy Mild RED, Verified 07/09/23 00:11 WATERY EYES suture Allergy (cat gut) Verified 07/09/23 00:11 severe rash Sutures Allergy (ethicon) Verified 07/09/23 00:11 celecoxib AdvReac Severe SUICIDAL Verified 07/09/23 00:11 codeine AdvReac Mild NAUSEA AND Verified 07/09/23 00:11 VOMITING Home Meds Home Medications Medication Instructions Recorded Confirmed albuterol sulfate 90 mcg/actuation 2 puff inhalation QID PRN Allergic 04/25/18 07/08/23 aerosol inhaler Reaction ascorbic acid (vitamin C) 500 mg 1,000 mg PO DAILY 04/25/18 07/08/23 capsule diphenhydramine HCl 25 mg capsule 50 mg PO HS PRN Allergic Reaction 04/25/18 07/08/23 (Benadryl) epinephrine 0.3 mg/0.3 mL 0.3 mg IM Q3H PRN Allergic Reaction 04/25/18 07/08/23 injection, auto-injector (EpiPen) fexofenadine 180 mg tablet 180 mg PO DAILY PRN Allergic 04/25/18 07/08/23 (Ana Allergy) Reaction multivitamin with minerals 1 tab PO QAM 04/25/18 07/08/23 prednisone 20 mg tablet 20 mg PO DIRECTED PRN RESCUE KIT 04/25/18 07/08/23 astaxanthin 4 mg capsule 4 mg PO QDL 11/22/18 07/08/23 fish oil-dha-epa 1,200 mg-144 1 cap PO QAM 11/22/18 07/08/23 mg-216 mg capsule metformin 500 mg tablet 500 mg PO BID 09/19/20 07/08/23 omeprazole 40 mg capsule,delayed 40 mg PO DAILYBB PRN Acid Reflux 09/19/20 07/08/23 release Curcumin Tab 500 mg PO DAILY 07/08/23 07/08/23 H2(Molecular Hydrogen) 1 tab PO DAILY 07/08/23 07/09/23 Krill Oil Cap 1,200 mg PO DAILY 07/08/23 07/09/23 empagliflozin 25 mg tablet 25 mg PO QAM 07/08/23 07/08/23 (Jardiance) lactobacillus combination no.4 3 0 mmu cells PO DAILY 07/08/23 07/08/23 billion cell capsule (Probiotic) magnesium 250 mg tablet 0 mg PO DAILY 07/08/23 07/09/23 melatonin 1.5 mg tablet 1.5 mg PO DIRECTED PRN Sleep 07/08/23 07/09/23 mometasone 50 mcg/actuation nasal 2 spray intranasal BID 07/08/23 07/09/23 spray prednisone 10 mg tablet 10 mg PO .TAPER DIRECTED 07/08/23 07/09/23 quercetin 500 mg capsule 250 mg PO DAILY 07/08/23 07/09/23 vit C 250 mg-vit E 90 mg-zinc 40 1 tab PO BID 07/08/23 07/09/23 mg-copper 1 [id number] capsule (PreserVision AREDS-2) vitamin B complex 1 tab PO DAILY 07/08/23 07/09/23 vitamin D3 1,250 mcg (50,000 1 cap PO DAILY 07/08/23 07/08/23 unit)-vitamin K2 200 mcg capsule famotidine 40 mg tablet 40 mg PO .DAILY FOR 7 DAYS 07/09/23 07/09/23 glipizide 5 mg tablet, extended 5 mg PO QAM 07/09/23 07/09/23 release 24 hr Previous Rx's Medication Instructions Recorded clobetasol 0.05 % topical ointment 1 applic topical DAILY 2 weeks #60 05/27/22 grams Results & Data (ED) Vital Signs Vital Signs - 24 hr 07/08/23 16:40 07/08/23 19:16 07/08/23 19:47 Temperature 37 C Temperature Source Temporal Artery Scan Pulse Rate 95 H 77 Pulse Rate from SpO2 Sensor Respiratory Rate 18 Respiratory Effort / Characteristics Non-Labored Respiratory Depth Normal Blood Pressure 187/110 H Blood Pressure Mean 135 Pulse Oximetry 97 98 Oxygen Delivery Method Room Air Room Air Sepsis Recent Fever Within 48 Hours No Sepsis New/Unexplained Change in Mental Status No Sepsis Action Taken by Nursing No Action Required 07/08/23 19:47 07/08/23 19:50 07/08/23 20:00 Temperature Temperature Source Pulse Rate 77 74 72 Pulse Rate from SpO2 Sensor 77 75 72 Respiratory Rate 18 17 19 Respiratory Effort / Characteristics Respiratory Depth Blood Pressure Blood Pressure Mean Pulse Oximetry 95 95 94 Oxygen Delivery Method Sepsis Recent Fever Within 48 Hours Sepsis New/Unexplained Change in Mental Status Sepsis Action Taken by Nursing 07/08/23 20:01 07/08/23 20:01 07/08/23 20:10 Temperature Temperature Source Pulse Rate 71 75 Pulse Rate from SpO2 Sensor 71 75 Respiratory Rate 18 22 Respiratory Effort / Characteristics Respiratory Depth Blood Pressure 166/74 H Blood Pressure Mean 112 Pulse Oximetry 94 94 Oxygen Delivery Method Sepsis Recent Fever Within 48 Hours Sepsis New/Unexplained Change in Mental Status Sepsis Action Taken by Nursing 07/08/23 20:20 07/08/23 20:30 07/08/23 20:30 Temperature Temperature Source Pulse Rate 70 69 Pulse Rate from SpO2 Sensor 70 69 Respiratory Rate 14 14 Respiratory Effort / Characteristics Respiratory Depth Blood Pressure 165/81 H Blood Pressure Mean 118 Pulse Oximetry 94 96 Oxygen Delivery Method Sepsis Recent Fever Within 48 Hours Sepsis New/Unexplained Change in Mental Status Sepsis Action Taken by Nursing 07/08/23 20:40 07/08/23 20:50 07/08/23 21:17 Temperature Temperature Source Pulse Rate 67 80 80 Pulse Rate from SpO2 Sensor 68 79 Respiratory Rate 22 13 15 Respiratory Effort / Characteristics Respiratory Depth Blood Pressure Blood Pressure Mean Pulse Oximetry 95 98 Oxygen Delivery Method Sepsis Recent Fever Within 48 Hours Sepsis New/Unexplained Change in Mental Status Sepsis Action Taken by Nursing 07/08/23 21:20 07/08/23 21:30 07/08/23 21:30 Temperature Temperature Source Pulse Rate 65 66 Pulse Rate from SpO2 Sensor Respiratory Rate 21 18 Respiratory Effort / Characteristics Respiratory Depth Blood Pressure 187/76 H Blood Pressure Mean 131 Pulse Oximetry Oxygen Delivery Method Sepsis Recent Fever Within 48 Hours Sepsis New/Unexplained Change in Mental Status Sepsis Action Taken by Nursing 07/08/23 21:40 07/08/23 21:50 07/08/23 22:00 Temperature Temperature Source Pulse Rate 71 68 69 Pulse Rate from SpO2 Sensor 71 69 Respiratory Rate 17 21 9 L Respiratory Effort / Characteristics Respiratory Depth Blood Pressure Blood Pressure Mean Pulse Oximetry 97 98 Oxygen Delivery Method Sepsis Recent Fever Within 48 Hours Sepsis New/Unexplained Change in Mental Status Sepsis Action Taken by Nursing 07/08/23 22:01 07/08/23 22:01 07/08/23 22:10 Temperature Temperature Source Pulse Rate 80 87 Pulse Rate from SpO2 Sensor 79 92 H Respiratory Rate 13 19 Respiratory Effort / Characteristics Respiratory Depth Blood Pressure 192/102 H Blood Pressure Mean 118 Pulse Oximetry 100 97 Oxygen Delivery Method Sepsis Recent Fever Within 48 Hours Sepsis New/Unexplained Change in Mental Status Sepsis Action Taken by Nursing 07/08/23 22:20 07/08/23 22:30 07/08/23 22:31 Temperature Temperature Source Pulse Rate 95 H 91 H 93 H Pulse Rate from SpO2 Sensor 94 H 88 92 H Respiratory Rate 18 17 17 Respiratory Effort / Characteristics Respiratory Depth Blood Pressure Blood Pressure Mean Pulse Oximetry 94 94 97 Oxygen Delivery Method Sepsis Recent Fever Within 48 Hours Sepsis New/Unexplained Change in Mental Status Sepsis Action Taken by Nursing 07/08/23 22:31 07/08/23 22:40 07/08/23 22:50 Temperature Temperature Source Pulse Rate 93 H 91 H Pulse Rate from SpO2 Sensor 92 H 93 H Respiratory Rate 15 19 Respiratory Effort / Characteristics Respiratory Depth Blood Pressure 206/99 H Blood Pressure Mean 123 Pulse Oximetry 97 98 Oxygen Delivery Method Sepsis Recent Fever Within 48 Hours Sepsis New/Unexplained Change in Mental Status Sepsis Action Taken by Nursing 07/08/23 23:00 07/08/23 23:01 07/08/23 23:01 Temperature Temperature Source Pulse Rate 101 H 80 Pulse Rate from SpO2 Sensor 80 79 Respiratory Rate 16 19 Respiratory Effort / Characteristics Respiratory Depth Blood Pressure 185/121 H Blood Pressure Mean 123 Pulse Oximetry 90 98 Oxygen Delivery Method Sepsis Recent Fever Within 48 Hours Sepsis New/Unexplained Change in Mental Status Sepsis Action Taken by Nursing 07/08/23 23:10 07/08/23 23:20 07/08/23 23:30 Temperature Temperature Source Pulse Rate 89 90 79 Pulse Rate from SpO2 Sensor 89 90 80 Respiratory Rate 17 20 20 Respiratory Effort / Characteristics Respiratory Depth Blood Pressure Blood Pressure Mean Pulse Oximetry 95 97 99 Oxygen Delivery Method Sepsis Recent Fever Within 48 Hours Sepsis New/Unexplained Change in Mental Status Sepsis Action Taken by Nursing 07/08/23 23:30 07/08/23 23:40 07/08/23 23:50 Temperature Temperature Source Pulse Rate 94 H 83 Pulse Rate from SpO2 Sensor 95 H 84 Respiratory Rate 17 16 Respiratory Effort / Characteristics Respiratory Depth Blood Pressure 182/87 H Blood Pressure Mean 133 Pulse Oximetry 98 97 Oxygen Delivery Method Sepsis Recent Fever Within 48 Hours Sepsis New/Unexplained Change in Mental Status Sepsis Action Taken by Nursing 07/09/23 00:00 07/09/23 00:00 07/09/23 00:16 Temperature Temperature Source Pulse Rate 90 Pulse Rate from SpO2 Sensor 89 Respiratory Rate 21 Respiratory Effort / Characteristics Non-Labored Respiratory Depth Normal Blood Pressure 159/79 H Blood Pressure Mean 113 Pulse Oximetry 97 Oxygen Delivery Method Sepsis Recent Fever Within 48 Hours Sepsis New/Unexplained Change in Mental Status Sepsis Action Taken by Nursing 07/09/23 00:29 07/09/23 00:30 07/09/23 00:30 Temperature Temperature Source Pulse Rate 81 70 Pulse Rate from SpO2 Sensor 80 70 Respiratory Rate 16 14 Respiratory Effort / Characteristics Respiratory Depth Blood Pressure 188/86 H Blood Pressure Mean 137 Pulse Oximetry 98 97 Oxygen Delivery Method Sepsis Recent Fever Within 48 Hours Sepsis New/Unexplained Change in Mental Status Sepsis Action Taken by Nursing 07/09/23 00:40 07/09/23 00:50 07/09/23 01:00 Temperature Temperature Source Pulse Rate 81 75 Pulse Rate from SpO2 Sensor 81 75 Respiratory Rate 14 16 Respiratory Effort / Characteristics Respiratory Depth Blood Pressure 192/89 H Blood Pressure Mean 114 Pulse Oximetry 97 94 Oxygen Delivery Method Sepsis Recent Fever Within 48 Hours Sepsis New/Unexplained Change in Mental Status Sepsis Action Taken by Nursing 07/09/23 01:00 07/09/23 01:10 07/09/23 01:20 Temperature Temperature Source Pulse Rate 69 75 70 Pulse Rate from SpO2 Sensor 70 75 70 Respiratory Rate 12 22 17 Respiratory Effort / Characteristics Respiratory Depth Blood Pressure Blood Pressure Mean Pulse Oximetry 97 95 93 Oxygen Delivery Method Sepsis Recent Fever Within 48 Hours Sepsis New/Unexplained Change in Mental Status Sepsis Action Taken by Nursing 07/09/23 01:30 07/09/23 01:31 07/09/23 01:33 Temperature Temperature Source Pulse Rate 68 87 Pulse Rate from SpO2 Sensor 69 84 Respiratory Rate 20 16 Respiratory Effort / Characteristics Respiratory Depth Blood Pressure 143/73 H Blood Pressure Mean 106 Pulse Oximetry 91 95 Oxygen Delivery Method Sepsis Recent Fever Within 48 Hours Sepsis New/Unexplained Change in Mental Status Sepsis Action Taken by Nursing 07/09/23 01:33 07/09/23 01:40 07/09/23 01:44 Temperature Temperature Source Pulse Rate 68 70 76 Pulse Rate from SpO2 Sensor 68 70 Respiratory Rate 17 21 Respiratory Effort / Characteristics Respiratory Depth Blood Pressure Blood Pressure Mean Pulse Oximetry 96 98 Oxygen Delivery Method Sepsis Recent Fever Within 48 Hours Sepsis New/Unexplained Change in Mental Status Sepsis Action Taken by Nursing 07/09/23 02:00 Temperature Temperature Source Pulse Rate Pulse Rate from SpO2 Sensor Respiratory Rate Respiratory Effort / Characteristics Non-Labored Respiratory Depth Normal Blood Pressure Blood Pressure Mean Pulse Oximetry Oxygen Delivery Method Sepsis Recent Fever Within 48 Hours Sepsis New/Unexplained Change in Mental Status Sepsis Action Taken by Nursing Laboratory Data 07/09/23 03:51 07/09/23 03:51 Lab Results 07/08/23 07/09/23 07/09/23 Range/Units 18:12 00:28 00:40 WBC 8.44 (4.8-10.8) K/ul RBC 4.94 (4.20-5.40) M/uL Hgb 14.6 (12.0-16.0) g/dl Hct 43.4 (37.0-47.0) % MCV 87.9 (80.0-100.0) fL MCH 29.6 (25.0-34.0) pg MCHC 33.6 (32.0-36.0) g/dL RDW Std Deviation 42.5 (36.4-46.3) fL RDW Coeff of [place] 13.2 (11.5-14.5) % Plt Count 217 (130-400) K/uL MPV 10.8 (9.4-12.4) fL Immature Gran % (Auto) 0.4 % Neut % (Auto) 75.8 % Lymph % (Auto) 17.7 % [place] % (Auto) 6.0 % Eos % (Auto) 0.0 % Baso % (Auto) 0.1 % Neut # (Auto) 6.40 (1.40-6.50) K/uL Lymph # (Auto) 1.49 (1.20-3.40) K/uL [place] # (Auto) 0.51 (0.11-0.59) K/uL Eos # (Auto) 0.00 (0.00-0.50) K/uL Baso # (Auto) 0.01 (0.00-0.20) K/uL Immature Gran # (Auto) 0.03 (0.01-0.20) K/uL APTT 26 (21-31) Seconds PTT Ratio 0.9 Sodium 130 L (136-145) mmol/L Potassium 4.5 (3.5-5.1) mmol/L Chloride 97 L (98-107) mmol/L Carbon Dioxide 23 (21-32) mmol/L Anion Gap 10 (3-11) BUN 20 (6-23) mg/dl Creatinine 0.84 (0.6-1.2) mg/dl Est Cr Clr Drug Dosing Not Reportable Est GFR ( Amer) 79.9 ml/min Est GFR (Non-Af Amer) 69.0 ml/min BUN/Creatinine Ratio 23.8 H (10-20) Glucose 407 H* (70-99(Fasting)) mg/dl POC Glucose 258 H (70-99) mg/dl Estimat Average Glucose 214 mg/dl Hemoglobin A1c 9.1 H (4.5-5.6) % Calcium 9.8 (8.6-10.3) mg/dl Total Bilirubin 0.3 (0.2-1.0) mg/dl AST 16 (13-39) U/L ALT 16 (7-52) U/L Alkaline Phosphatase 86 (34-104) U/L Troponin I High Sens 4.8 (0-14) pg/ml Total Protein 7.7 (6.0-8.3) gm/dl Albumin 4.4 (3.4-5.0) gm/dl Globulin 3.3 (2.5-4.0) gm/dl Albumin/Globulin Ratio 1.3 (0.9-2) Lipase 11 (11-82) U/L Administered Medications Enoxaparin Sodium (Enoxaparin Inj 40 Mg/0.4 Ml Syr) 40 mg SQ QAM MAIDA Stop: 08/08/23 08:59 Last Admin: 07/09/23 08:07 Dose: 40 mg Documented By: VY Fluticasone Propionate (Fluticasone Propionate Na Spr 16 Gm Btl) 2 sprays NA BID MAIDA Stop: 08/08/23 08:59 Last Admin: 07/09/23 08:09 Dose: 2 sprays Documented By: VY Sodium Chloride (Nss) 1,000 mls @ 50 mls/hr IV .Q20H STA Stop: 07/09/23 19:25 Last Admin: 07/09/23 01:05 Dose: 50 mls/hr Documented By: LATOYA Insulin Aspart (Insulin Aspart Per Unit Charge) 0 units SC ACHS MAIDA Stop: 08/08/23 07:29 Last Admin: 07/09/23 12:11 Dose: 8 units Documented By: EMMA Co-signed By: NENA Admin: 07/09/23 09:34 Dose: 5 units Documented By: VY Co-signed By: DAMIAN Lactobacillus Acidophilus (Advanced Probiotic 1250 Mg Capsule) 2 cap PO DAILY MAIDA Stop: 08/08/23 08:59 Last Admin: 07/09/23 08:05 Dose: 2 cap Documented By: VY Multivitamins/Minerals (Cerovite Adv Formula Tab) 1 tab PO QAM MAIDA Stop: 08/08/23 08:59 Last Admin: 07/09/23 08:04 Dose: 1 tab Documented By: VY Prednisone (Prednisone 10 Mg Tablet) 30 mg PO DAILY MAIDA; Taper Stop: 07/12/23 08:59 Last Admin: 07/09/23 08:05 Dose: 30 mg Documented By: VY Vitamin B Complex (Vitamin B Complex Tab) 1 tab PO DAILY MAIDA Stop: 08/08/23 08:59 Last Admin: 07/09/23 08:04 Dose: 1 tab Documented By: VY Discontinued Medications Acetaminophen (Acetaminophen 325 Mg Tab) 650 mg PO NOW STA Stop: 07/09/23 00:32 Last Admin: 07/09/23 01:04 Dose: 650 mg Documented By: LATOYA Albuterol (Albut/Ipratrop 3mg/0.5mg Neb 3 Ml Vial) 3 ml NEB NOW STA; Protocol Stop: 07/08/23 21:41 Last Admin: 07/08/23 21:50 Dose: 3 ml Documented By: LATOYA Albuterol (Albuterol 0.5% Neb Soln 2.5 Mg/0.5 Ml Vial) 2.5 mg NEB NOW STA; Protocol Stop: 07/08/23 21:42 Last Admin: 07/08/23 21:50 Dose: 2.5 mg Documented By: LATOYA Epinephrine HCl (Epinephrine Inj 1 Mg/Ml Amp) 0.3 mg IM NOW STA Stop: 07/08/23 21:34 Last Admin: 07/08/23 21:45 Dose: 0.3 mg Documented By: LATOYA Magnesium Sulfate/Dextrose (Magnesium Sulfate / D5w) 1 gm in 100 mls @ 50 mls/hr IV ONE ONE Stop: 07/09/23 07:29 Last Infusion: 07/09/23 08:01 Dose: Infused Documented By: Admin: 07/09/23 05:43 Dose: 50 mls/hr Documented By: DINAH Insulin Aspart (Insulin Aspart Per Unit Charge) 0 units SC ONE STA Stop: 07/09/23 00:34 Last Admin: 07/09/23 02:07 Dose: 5 units Documented By: LATOYA Co-signed By: TERRI Insulin Glargine (Lantus Per Unit Charge) 25 units SQ NOW STA Stop: 07/09/23 00:34 Last Admin: 07/09/23 00:44 Dose: Not Given Documented By: LATOYA Insulin Glargine (Lantus Per Unit Charge) 20 units SQ NOW STA Stop: 07/09/23 00:44 Last Admin: 07/09/23 01:02 Dose: 20 units Documented By: LATOYA Co-signed By: TERRI Ioversol (Optiray 320 500ml) 88 ml IV ONCE ONE Stop: 07/08/23 21:11 Last Admin: 07/08/23 21:10 Dose: 88 ml Documented By: EAB Losartan Potassium (Losartan Potassium 25 Mg Tab) 25 mg PO NOW STA Stop: 07/09/23 00:35 Last Admin: 07/09/23 02:06 Dose: Not Given Documented By: LATOYA Miscellaneous (Patient's Height &/Or Weight Needed) 1 each N/A ONE STA Stop: 07/09/23 00:33 Last Admin: 07/09/23 01:05 Dose: 1 each Documented By: LATOYA Potassium Chloride (Potassium Chloride Crtab 20 Meq Tabcr) 40 meq PO NOW STA Stop: 07/09/23 05:30 Last Admin: 07/09/23 05:44 Dose: 40 meq Documented By: DINAH Potassium Chloride (Potassium Chloride Crtab 20 Meq Tabcr) 40 meq PO ONE ONE Stop: 07/09/23 07:31 Last Admin: 07/09/23 08:06 Dose: 40 meq Documented By: VY Imaging Data Radiologist's Impression: Abdomen/Pelvis CT 07/08/23 23:38 Exam(s): CT ABDOMEN + PELVIS Without Contrast EXAM: CT Abdomen and Pelvis Without Intravenous Contrast CLINICAL HISTORY: Reason for exam: abd pain. TECHNIQUE: Axial computed tomography images of the abdomen and pelvis without intravenous contrast. Automated exposure control was utilized for the study. A dose lowering technique was utilized adhering to the principles of ALARA. COMPARISON: CT pelvis on 09/20/2020 FINDINGS: Lung bases: Unremarkable. No mass. No consolidation. ABDOMEN: Liver: Unremarkable. Gallbladder and bile ducts: Cholelithiasis. No ductal dilation. Pancreas: Atrophy of the pancreas. No ductal dilation. Spleen: Small calcified granulomas in the spleen. Small splenule. Adrenals: Unremarkable. No mass. Kidneys and ureters: Excreting contrast in the renal collecting systems. No hydronephrosis. Stomach and bowel: Evaluation of the stomach is limited by underdistention. Diverticulosis without definite evidence of diverticulitis. No small bowel obstruction. Duodenal diverticulum. PELVIS: Appendix: Normal appendix. Bladder: Excreted contrast within the underdistended bladder. Evaluation is limited by underdistention and hip arthroplasty artifact. Reproductive: Unremarkable as visualized. ABDOMEN and PELVIS: Intraperitoneal space: Unremarkable. No free air. No significant fluid collection. Bones/joints: Bilateral hip arthroplasties cause streak artifact that limits evaluation of portions of the pelvis. Mild right convex curvature of the spine. Degenerative changes of the spine. No acute fracture. No dislocation. Soft tissues: Small fat-containing bilateral inguinal hernias. Small fat-containing umbilical hernia. Vasculature: Phleboliths in the pelvis. No abdominal aortic aneurysm. Lymph nodes: Unremarkable. No enlarged lymph nodes. IMPRESSION: Cholelithiasis. Excreted contrast within the underdistended bladder. Evaluation is limited by underdistention and hip arthroplasty artifact. No acute abnormality in the abdomen or pelvis. Electronically signed by: Shin Matute M.D. 07/09/23 01:[address] 07/08/23 23:38 Exam(s): CT HEAD Without Contrast EXAM: CT Head Without Intravenous Contrast CLINICAL HISTORY: Reason for exam: johnson. TECHNIQUE: Axial computed tomography images of the head/brain without intravenous contrast. Automated exposure control was utilized for the study. A dose lowering technique was utilized adhering to the principles of ALARA. COMPARISON: Comparison made to prior head CT from September 20, 2020. FINDINGS: Brain: Unremarkable. No hemorrhage. No significant white matter disease. No edema. Ventricles: Unremarkable. No ventriculomegaly. Bones/joints: Hyperostosis frontalis interna. No acute fracture. Soft tissues: Bilateral lens replacements. Sinuses: Unremarkable as visualized. No acute sinusitis. Mastoid air cells: Unremarkable as visualized. No mastoid effusion. IMPRESSION: No evidence for acute intracranial pathology. Electronically signed by: Ainsley Davis MD 07/09/23 01:37 AM Discharge Plan Visit Data Chief Complaint: Shortness of Breath/Dyspnea ED Provider: Ivana Jay Discharge Problem: Chest tightness Patient Disposition: Admitted As Inpatient Discharge Instructions Interventions: ED Discharge Assessment Last Done: 07/09/23 04:11
[2023-07-08] MEDS: OPTIRAY 320 500ml IV ONE (21:10)
[2023-07-08] MEDS: EPINEPHrine INJ 1 MG/ML AMP IM STA (21:45)
[2023-07-08] MEDS: ALBUT/IPRATROP 3MG/0.5MG NEB 3 ML VIAL NEB STA (21:50)
[2023-07-08] MEDS: ALBUTEROL 0.5% NEB SOLN 2.5 MG/0.5 ML VIAL NEB STA (21:50)
--- NOTE | 2023-07-08 21:57 | CT Scan Report ---
CT SCAN OF THE NECK WITH IV CONTRAST CLINICAL HISTORY: Change in voice. Dyspnea. COMPARISON STUDY: Cervical spine radiographs dated 09/06/2022. TECHNIQUE: Following the IV administration of 88 cc of Optiray 320, CT scan of the soft tissues of e neck was performed from the skull base to the upper chest. Images are reviewed in the axial, sagitt al, and coronal planes. IV contrast was administered without complication. A dose lowering techniqu e was utilized adhering to the principles of ALARA. FINDINGS: Pharynx: The pharyngeal soft tissues are normal as imaged. No fluid collection is seen. The pharyngea l airway is widely patent. There is no evidence of mass lesion. The vocal cords are symmetric. The pa rapharyngeal fat is well maintained. The prevertebral/retropharyngeal soft tissues are within normal limits. The epiglottis is normal. Lymphadenopathy: No cervical lymphadenopathy is seen Thyroid: Normal in size and attenuation. Salivary glands: The parotid and submandibular glands are within normal limits. Brain parenchyma: The visualized brain parenchyma at the skull base is normal in appearance. Vascular structures: The carotid arteries and jugular veins are patent bilaterally. Skeletal structures: The skeletal structures are osteopenic. Imaged portions of the calvarium at the skull base are within normal limits. The cervical spine appears maintained noting multilevel spondylo sis. Orbits: The bony orbits are intact. Orbital contents are normal in appearance noting bilateral ocular lens implants. Sinuses and mastoids: The paranasal sinuses are clear. The mastoid air cells are well pneumatized. Lung apices: Visualized apical lung parenchyma is clear. IMPRESSION: No acute abnormality is identified. ACT 112: Negative or not required by law. Electronically signed by: Jewel Denney M.D. 07/08/2023 9:54 PM
--- OUTSIDE RECORDS SUMMARY | 2023-07-08 23:34 | External Medical Summary | Summary of Care ---
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 Name Role Phone Sharee Leblanc DO Primary Care Provider Encounter Details Date Type Department Care Team (Late st Contact Info) Description 06/23/2023 1:00 PM EST Imaging Radiology [address] [facility] [place] [address] Breast pain, right Allergies Active Allergy Reactions Criticality Noted Date Comments Baclofen Other (Please comment) Medium 08/19/2014 Memory loss, dizziness,hearing loss, and headache Bactrim Psych complications 10/16/2011 Pt reports that it makes her severely depressed Celecoxib Medium 07/29/2011 Severe depression per pt Cephalosporins 07/23/2003 hives Clindamycin Unknown 07/23/2003 Codeine 07/23/2003 Erythromycin Hives Medium 02/15/2013 Food (See Comments) 11/24/2018 arthroben Latex 11/04/2016 rash Methocarbamol Hives High 08/19/2014 [facility] Fever 11/28/2018 Arthroben Tropicamide Conjunctivitis 03/09/2016 Redness and watery eyes several hours later Other - Environmental 05/12/2005 anaphylactic reaction to coal/coal smoke, road paving, perfumes. See pt note of 05-12-05. Other Allergy (See Comments) 11/04/2016 Cat gut suture-severe rash Penicillins 03/05/1998 hives Phenylephrine Hcl (Pressors) 03/09/2016 Reaction to eye drops, red watery eyes several hours later documented as of this encounter (statuses as of 06/30/2023) Medications Medication Sig Dispensed Refills Start Date End Date Status MULTIPLE VITAMIN PO CAPS None Entered 0 Active diphenhydrAMINE (BENADRYL) 25 MG Capsule Take 2 Capsules by mouth. 0 05/07/2013 Active Blood Glucose Monitoring Suppl (ONETOUCH ULTRA SYSTEM) w/Device KITIndications:Type 2 diabetes mellitus with hemoglobin A1c goal of less than 7.0% (HCC) Use as directed 4 times a day as needed for Hyperglycemia (high sugar). Use up to four times a day as directed Dx E11.9 1 Kit 0 10/18/2017 Active Cactus-3 Fatty Acids (FISH OIL) 1000 MG Capsule Take 1 Capsule by mouth in the morning. 0 Active Bioflavonoid Products (VITAMIN C PLUS) 1000 MG TABS Take by mouth. 0 Ac tive Multiple Vitamins-Minerals (PRESERVISION AREDS 2) CHEW Take by mouth. 0 Active NATURAL SUPPLEMENTIndicatio ns:metabolic synergy, F-txpxyh-V-Cysteine , lignans, evail, joint formula, GI detox, L-Glutamine, Digestzymes, HTN comples, HTP 5 Take by mouth daily. Indications: metabolic synergy, I-olfwin-A-Cysteine , lignans, evail, joint formula, GI detox, L-Glutamine, Digestzymes, HTN comples, HTP 5 0 Active LORAzepam (ATIVAN) 0.5 MG TabletIndications:S tress due to illness of family member Take 1 Tab by mouth 2 times a day as needed for Anxiety. 10 Tab 0 01/02/2019 Active Astaxanthin 4 MG Oral Capsule Take by mouth 4 mg daily . 0 Active OneTouch Ultra In Vitro Strip (Glucose Blood)Indications:T ype 2 diabetes mellitus with hemoglobin A1c goal of less than 7.0% (HCC) USE DIRECTED 4 TIMES A DAY NEEDED FOR HYPERGLYCEMIA (HIGH SUGAR). DX E11.9 400 Strip 3 07/31/2021 Active EpiPen 2-[facility] 0.3 MG/0.3ML Injection Solution Auto-injector For a severe reaction: Inject in outer thigh following instructions on package and go to the Emergency room. 1 Each 3 07/31/2021 Active Albuterol Sulfate HFA 108 (90 Base) MCG/ACT Inhalation Aerosol SolutionIndications :ROCHE (dyspnea on exertion) Inhale by mouth 2 Puffs in the morning AND 2 Puffs at noon AND 2 Puffs in the evening AND 2 Puffs before bedtime. 18 g 2 09/25/2021 Active Famotidine 20 MG Oral Tablet (Pepcid)Indications :Gastroesophageal reflux disease, unspecified whether esophagitis present Take by mouth 1 Tablet before bedtime. 30 Tablet 11 09/25/2021 Active Cyclobenzaprine HCl 5 MG Oral Tablet (Flexeril)Indicatio ns:Acute midline low back pain without sciatica Take 1 Tablet by mouth 3 times a day as needed for Muscle spasms. 30 Tablet 0 07/08/2022 Active Omeprazole 40 MG Oral Capsule Delayed Release (PriLOSEC)Indicatio ns:Gastroesophageal reflux disease without esophagitis take 1 capsule by mouth every morning 1 HOUR BEFORE THE FIRST MEAL OF THE DAY FOR 1 MONTH 90 Capsule 1 12/09/2022 Active OneTouch Delica Lancets 33GIndications:Type 2 diabetes mellitus with hemoglobin A1c goal of less than 7.0% (HCC) USE UP TO 4 TIMES A DAY DIRECTED 400 Each 3 03/15/2023 Active Gabapentin 300 MG Oral Capsule (Neurontin)Indicati ons:Lumbar radiculopathy Take 1 Capsule by mouth in the morning and 1 Capsule at noon and 1 Capsule before bedtime. 90 Capsule 5 04/19/2023 Active Meloxicam 7.5 MG Oral Tablet (Mobic)Indications: Neck pain TAKE 1-2 TABS BY MOUTH DAILY NEEDED FOR PAIN 60 Tablet 5 04/25/2023 Active Jardiance 25 MG Oral Tablet (Empagliflozin)Tg cations:Type 2 diabetes mellitus with hemoglobin A1c goal of less than 7.0% (HCC) take 1 tablet by mouth every morning 30 Tablet 3 04/26/2023 Active metFORMIN HCl 500 MG Oral Tablet (Glucophage)Indicat ions:Type 2 diabetes mellitus with hemoglobin A1c goal of less than 7.0% (HCC) Take 1 Tablet by mouth 2 times a day with morning and evening meals. 180 Tablet 3 04/27/2023 Active Hospital, Clinic, or Other Facility Administered Medication Ordered Dose Route Frequency Start Date End Date Status albuterol sulfate (PROVENTIL) (2.5 MG/3ML) 0.083% inhalation solution 2.5 mgIndications:ROCHE (dyspnea on exertion) 2.5 mg NEBULIZER Q4H PRN 01/02/2019 Act pranay documented as of this encounter (statuses as of 06/30/2023) Active Problems Problem Noted Date Diagnosed Date Hx of nonmelanoma skin cancer 07/28/2022 Overview: BCC nose 11/2021 Hx of actinic keratosis 12/10/2021 Mass of wrist, left 02/25/2021 Diabetic gastroparesis assoc iated with type 2 diabetes mellitus 04/13/2019 Idiopathic angioedema 09/05/2015 Intermittent asthma with reliever use up to twic e per week 03/19/2015 Sensory hearing loss, unilateral 05/14/2010 Type 2 diabetes mellitus wit h hemoglobin A1c goal of less than 7.0% 06/06/2009 Overview: ICD-10 update of inactive term LOC PRIM OSTEOART-HIP 06/04/2009 Elevated blood pressure, situational 05/28/2009 Subjective tinnitus 05/28/2009 FAMILY HX-BREAST CANCER- sister 12/02/2008 Esophageal reflux 09/21/2007 Overview: repeat EGD in 2-3 yrs Esophageal stricture 09/21/2007 ADVANCE DIRECTIVE INFORMATION 02/22/2006 Overview: No, Advance Directive brochure offered , patient declined. ALLERGIC RHINITIS - MIXED TYPE 02/14/2003 SENSORNEUR LOSS.R>L 02/14/2003 Overview: right documented as of this encounter (statuses as of 06/30/2023) Resolved Problems Problem Noted Date Diagnosed Date Resolved Date Severe obesity with body mas s index (BMI) of 35.0 to 39.9 with serious comorbidity 11/10/2009 Overview: Per Obesity Protocol, #19 ICD-10 update of inactive diagnosis THROAT SWELLING-PROBABLE ANAPHALAXIS 06/11/2009 04/13/2019 Postnasal drip 06/11/2009 10/06/2018 Dyspnea and respiratory abnormality 05/28/2009 09/15/2017 Overview: ICD-10 update of inactive term Intermittent asthma with rel iever use up to twice per week 04/20/2002 03/19/2015 Idiopathic urticaria 04/20/2002 016 documented as of this encounter (statuses as of 06/30/2023) Immunizations Name Administration Dates Next Due Pneumococcal Polysaccharide PPV23 (Pneumovax) 06/04/2009,12/02/2008(Deferred: Patient Refused) TD, Preservative Free 04/13/2019 TDAP (age 11 and older)(Adacel) 11/13/19 09,09/26/2008(Deferred: Patient Refused) documented as of this encounter Social History Tobacco Use Types Packs/Day Years Used Date Smoking Tobacco: Never Smokeless Tobacco: Never Comments:no passive smoke ex posure Alcohol Use Standard Drinks/Week Comments Yes 0 (1 standard drink = 0.6 oz pur e alcohol) rare PHQ-2 Answer Date Recorded PHQ Adult Total Score 0 04/27/2023 Hunger Vital Sign Answer Date Recorded Within the past 12 months, y ou worried that your food would run out before you got the money to buy more. Never true 07/22/19 21 Within the past 12 months, t he food you bought just didn't last and you didn't have money to get more. Never true 07/22/2020 Sex and Gender Information Value Date Recorded Sex Assigned at Female 04/23/2020 9:33 AM EST Gender Identity Female 04/23/2020 9:33 AM EST Sexual Orientation Choose not to disclose 2019 9:33 AM EST Job Start Date Occupation Industry Not on file Not on file Not on file documented as of this encounter Miscellaneous Notes * Result Encounter Note - Adelita Peace CRNP - 06/30/2023 10:46 AM EST Letter sent documented in this encounter Plan of Treatment Upcoming Encounters Date Type Department Care Team (Late st Contact Info) Description 08/03/2023 12:40 PM EST Office Visit Dermatology [place] [facility] [address] [place] [address] Kym Stone PA-C [address] [place] [phone] 11/08/2023 8:40 AM EDT Office Visit Family Practice [facility] [address] [place] [address] Sharee Leblanc, [address] [place] [address] 01/09/2024 12:30 PM EDT Imaging Radiology [facility] [address] [facility] [address] [place] [address] Scheduled Procedures Name Priority Associated Diagnoses Date/Ti me COLONOSCOPY FLEXIBLE PROXIMA L DIAGNOSTIC Recall Encounter for screening colonoscopy Health Maintenance Due Date Last Done Comments COVID-19 Vaccine (#1) 1950 Hepatitis C Screening 01/28/1968 Cologuard 1995 Fecal Occult Blood Test 1995 Sigmoidoscopy 1995 Zoster Vaccines (1 of 2) 01/28/2000 Hepatitis B (1 of 3 - Risk 3-dose series) 2010 Pneumococcal Vaccine: 65+ Years (2 - PCV) 06/04/2010 06/04/2009 DXA Scan 06/30/2018 06/30/2016 Influenza Vaccine (FLU shot) (#1) 2023 HbA1c 10/26/2023 04/27/2023, 08/0 11/2022, 06/01/2022, Additional history exists Albumin/Creatinine Ratio 01/04/20242 023, 09/25/2021, 06/24/2020, Additional history exists Diabetic Eye Exam 04/06/2024 04/06/2023, , 03/30/2021, Additional history exists Depression Screening 04/27/2024 04/27/2023 Diabetic Foot Exam 04/27/2024 04/27/2023, 0 09/25/2021, 06/24/2020, Additional history exists GFR 04/27/2024 04/27/2023, 010 07/2022, 09/25/2021, Additional history exists Mammogram 06/23/2024 06/23/2023, 11/2022, 04/30/2022, Additional history exists Colonoscopy 06/15/2027 06/15/2017, 03/01, 03/17/2007 Colorectal Cancer Screening 06/15/2027 Lipid Panel 04/27/2028 04/27/2023, 12/2021, 01/16/2021, Additional history exists DTaP,Tdap,and Td Vaccines (3 - Td or Tdap) 04/13/2029 04/13/2019, 11/12/2008 GARDASIL-HPV IMMUNIZATION SERIES Aged Out No longer eligible based on patient's age to complete this topic MENINGOCOCCAL (MENACTRA/MENVEO) Aged Out No longer eligible based on patient's age to complete this topic documented as of this encounter Medical Devices Not on filedocumented as of this encounter Procedures Procedure Name Priority Date/Time Associated Diagnosis Comments MAMMOGRAM DIAGNOSTIC JERRICA RIGHT Routine 06/23/2023 1:17 PM EST Breast pain, right documented in this encounter Results * US BREAST LIMITED RIGHT (06/23/2023 1:52 PM EST) Anatomical Region Laterality Modality Breast Right Ultrasound Narrative 06/23/2023 2:57 PM EST Result MAMMOGRAM DIAGNOSTIC JERRICA RIGHT US BREAST LIMITED RIGHT History Breast pain, right Family medical history includes BRCA1 Negative in sister and breast cancer in sister (age of onset: 53 - diagnosed X 2 (non-invasive CA)). Films Compared 01/03/2023 MAMMOGRAM SCREENING JERRICA BILATERAL, 04/30/2022 MAMMOGRAM DIAGNOSTIC JERRICA RIGHT, 01/01/2022 MAMMOGRAM SCREENING JERRICA BILATERAL, 01/01/2021 MAMMOGRAM SCREENING JERRICA BILATERAL, and 04/20/2019 MAMMOGRAM SCREENING JERRICA BILATERAL Findings Patient presents with a sensation of irritation at the lateral margin of the areola, marked on the skin with a square skin marker. She also occasionally feels a BB sized lump same area. No skin change, nipple retraction, nipple discharge. Right MAMMOGRAM DIAGNOSTIC JERRICA RIGHT The right breast has scattered areas of fibroglandular density. There is no evidence of suspicious masses, calcifications, or other abnormal findings in the right breast. There is a 3 mm round rim calcification at 8/9 o'clock which likely corresponds to the BB sized palpable finding. There a few scattered stable round calcification in the upper outer quadrant. US BREAST LIMITED RIGHT The breast tissue has a heterogeneous background echotexture. On focused ultrasound, no suspicious finding is seen in the patient directed area of interest. Incidentally seen is a shadowing echogenic 3 mm nodule 9 o'clock retroareolar region which corresponds to the rim calcified focus of fat necrosis seen mammographically. There is no evidence of suspicious masses or other abnormal findings in the visualized right breast. Impression MAMMOGRAM DIAGNOSTIC JERRICA RIGHT No mammographic evidence of malignancy. US BREAST LIMITED RIGHT No sonographic evidence of malignancy. BI-RADS Category: 2 - Benign. Recommendation Resume annual screening mammography is recommended for both breasts. Digital breast tomosynthesis was performed. This digital mammogram has been analyzed with the computer aided detection system. This notice contains the results of your recent mammogram, including information about breast density. If your mammogram shows that your breast tissue is dense, you should know that dense breast tissue is a common finding and is not abnormal. Statistics show many women could have dense or highly dense breasts. Dense breast tissue can make it harder to find cancer on a mammogram and may be associated with an increased risk of cancer. This information about the result of your mammogram is given to you to raise your awareness and to inform your conversations with your physician. Together, you can decide which screening options are right for you, based on your mammogram results, individual risk factors or physical examination. A report of your results was sent to your physician. Your mammographic breast density on today's study is described above. There are four categories of breast density on mammography. Fatty breasts and those with scattered fibroglandular tissue are not considered dense. Heterogeneously dense or extremely dense tissue is considered "dense". Please understand that assessment of breast density may vary from year to year. This examination was performed at [facility], [address] [place] [id number]. Adelita GARCIA RAD ULTRASOUND * MAMMOGRAM DIAGNOSTIC JERRICA RIGHT (06/23/2023 1:17 PM EST) Anatomical Region Laterality Modality Breast Right Mammography Narrative 06/23/2023 2:57 PM EST Result MAMMOGRAM DIAGNOSTIC JERRICA RIGHT US BREAST LIMITED RIGHT History Breast pain, right Family medical history includes BRCA1 Negative in sister and breast cancer in sister (age of onset: 53 - diagnosed X 2 (non-invasive CA)). Films Compared 01/03/2023 MAMMOGRAM SCREENING JERRICA BILATERAL, 04/30/2022 MAMMOGRAM DIAGNOSTIC JERRICA RIGHT, 01/01/2022 MAMMOGRAM SCREENING JERRICA BILATERAL, 01/01/2021 MAMMOGRAM SCREENING JERRICA BILATERAL, and 04/20/2019 MAMMOGRAM SCREENING JERRICA BILATERAL Findings Patient presents with a sensation of irritation at the lateral margin of the areola, marked on the skin with a square skin marker. She also occasionally feels a BB sized lump same area. No skin change, nipple retraction, nipple discharge. Right MAMMOGRAM DIAGNOSTIC JERRICA RIGHT The right breast has scattered areas of fibroglandular density. There is no evidence of suspicious masses, calcifications, or other abnormal findings in the right breast. There is a 3 mm round rim calcification at 8/9 o'clock which likely corresponds to the BB sized palpable finding. There a few scattered stable round calcification in the upper outer quadrant. US BREAST LIMITED RIGHT The breast tissue has a heterogeneous background echotexture. On focused ultrasound, no suspicious finding is seen in the patient directed area of interest. Incidentally seen is a shadowing echogenic 3 mm nodule 9 o'clock retroareolar region which corresponds to the rim calcified focus of fat necrosis seen mammographically. There is no evidence of suspicious masses or other abnormal findings in the visualized right breast. Impression MAMMOGRAM DIAGNOSTIC JERRICA RIGHT No mammographic evidence of malignancy. US BREAST LIMITED RIGHT No sonographic evidence of malignancy. BI-RADS Category: 2 - Benign. Recommendation Resume annual screening mammography is recommended for both breasts. Digital breast tomosynthesis was performed. This digital mammogram has been analyzed with the computer aided detection system. This notice contains the results of your recent mammogram, including information about breast density. If your mammogram shows that your breast tissue is dense, you should know that dense breast tissue is a common finding and is not abnormal. Statistics show many women could have dense or highly dense breasts. Dense breast tissue can make it harder to find cancer on a mammogram and may be associated with an increased risk of cancer. This information about the result of your mammogram is given to you to raise your awareness and to inform your conversations with your physician. Together, you can decide which screening options are right for you, based on your mammogram results, individual risk factors or physical examination. A report of your results was sent to your physician. Your mammographic breast density on today's study is described above. There are four categories of breast density on mammography. Fatty breasts and those with scattered fibroglandular tissue are not considered dense. Heterogeneously dense or extremely dense tissue is considered "dense". Please understand that assessment of breast density may vary from year to year. This examination was performed at [facility], [address] [place] [address]. 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 Question Answer Comments Discussion of Advance Directives occurred with: Patient Does the patient have a Living Will? No Does the patient have Health Care Power of Filters Assembler? 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
--- OUTSIDE RECORDS SUMMARY | 2023-07-08 23:34 | External Medical Summary ---
Author Name Unknown Address Unknown Organization [id number]:[facility] [place] - [address] [facility] [address] Laboratory Report Ordering Provider Test Date Status KECIA RAJPUT 04/27/2023 15:01:26 Final Observation Date Value Abnormality Reference (Units ) Status HbA1C 04/27/2023 15:01:26 9.8 Above high normal 4. 0-5.6 (%) Final The use of HbA1c to monitor glycemic status is based on normal hemoglobin and HbA composition. This test should not be used in patients with abnormal hemoglobin that affects the half life of the red blood cell or the in vivo glycation rates. Glucose, estimated average 04/27/2023 15:01:26 235 Above high normal <126 (mg/dL) Naun parker Performing Location [facility] [place] - [address] [facility] [place] [address]
--- OUTSIDE RECORDS SUMMARY | 2023-07-08 23:34 | External Medical Summary ---
Author Name Unknown Address Unknown Organization K0G:[facility] [address] [place] [id number] Laboratory Report Ordering Provider Test Date Status KECIA RAJPUT 04/27/2023 15:01:26 Final Observation Date Value Abnormality Reference (Units ) Status BUN 04/27/2023 15:01:26 18 6-20 (mg/dL) Final Creatinine 04/27/2023 15:01:26 0.7 0.5-1.0 (mg/dL) Final Glomerular filtration rate/1.73 sq M.predicted [Volume Rate/Area] in Serum, Plasma or Blood by Creatinine-based formula (CKD-EPI) 04/27/2023 15:01:26 >90 >=60 (mL/min) Final eGFR is calculated based on the CKD-EPI 2020 equation SODIUM 04/27/2023 15:01:26 139 135-146 (m mol/L) Final Potassium 04/27/2023 15:01:26 4.4 3.5-5.1 (m mol/L) Final Cl 04/27/2023 15:01:26 101 98-107 (mm ol/L) Final CO2 04/27/2023 15:01:26 25 22-32 (mmo l/L) Final Anion gap 04/27/2023 15:01:26 13 7-15 (mmol /L) Final Glucose 04/27/2023 15:01:26 122 Above high normal 70 -120 (mg/dL) Final Calcium 04/27/2023 15:01:26 10.4 Above high normal 8. 4-10.2 (mg/dL) Final Performing Location [facility] [place] [address]
--- OUTSIDE RECORDS SUMMARY | 2023-07-08 23:34 | External Medical Summary | Summary of Care ---
Author Name Unknown Organization [facility] Address [address] [place] [address] Phone [phone] Care Team Providers Care Manager Clinic Name Role Phone Sharee Leblanc DO Primary Care Provider [phone] Reason for Visit * Reason Comments Acute Breast pain Encounter Details Date Type Department Care Team (Late st Contact Info) Description 05/27/2023 11:40 AM EST Office Visit Family Practice [facility] [address] [place] [address] Adelita Peace CRNP [address] [place] [address] Breast pain, right* Allergies Active Allergy Reactions Criticality Noted Date Comments Baclofen Other (Please comment) Medium 08/19/2014 Memory loss, dizziness,hearing loss, and headache Bactrim Psych complications 10/16/2011 Pt reports that it makes her severely depressed Celecoxib Medium 07/29/2011 Severe depression per pt Cephalosporins 07/23/2003 hives Clindamycin Unknown 07/23/2003 Codeine 07/23/2003 Erythromycin Hives Medium 02/15/2013 Food (See Comments) 11/24/2018 arthroben Latex 11/04/2016 rash Methocarbamol Hives High 08/19/2014 Misc Natural Products Fever 11/28/2018 Arthroben Tropicamide Conjunctivitis [...] as of this encounter (statuses as of 05/27/2023) Medications Medication Sig Dispensed Refills Start Date End Date Status MULTIPLE VITAMIN PO CAPS None Entered 0 Active diphenhydrAMINE (BENADRYL) 25 MG Capsule Take 2 Capsules by mouth. 0 05/07/2013 Active Blood Glucose Monitoring Suppl (Solexant ULTRA SYSTEM) w/Device KITIndications:Type 2 diabetes mellitus with hemoglobin A1c goal of less than 7.0% (HCC) Use as directed 4 times a day as needed for Hyperglycemia (high sugar). Use up to four times a day as directed Dx E11.9 1 Kit 0 10/18/2017 Active Artesia-3 Fatty Acids (FISH OIL) 1000 MG Capsule Take 1 Capsule by mouth in the morning. 0 Active Bioflavonoid Products (VITAMIN C PLUS) 1000 MG TABS Take by mouth. 0 Ac tive Multiple Vitamins-Minerals (PRESERVISION AREDS 2) CHEW Take by mouth. 0 Active NATURAL SUPPLEMENTIndicatio ns:metabolic synergy, X-gpofxc-Y-Cysteine , lignans, evail, joint formula, GI detox, L-Glutamine, Digestzymes, HTN comples, HTP 5 Take by mouth daily. Indications: metabolic synergy, D-dkxjec-K-Cysteine , lignans, evail, joint formula, GI detox, [...] as of this encounter (statuses as of 05/27/2023) Active Problems Problem Noted Date Diagnosed Date [...] as of this encounter (statuses as of 05/27/2023) Resolved Problems Problem Noted Date Diagnosed Date [...] as of this encounter (statuses as of 05/27/2023) Immunizations Name Administration Dates Next Due Pneumococcal [...] on file documented as of this encounter Last Filed Vital Signs Vital Sign Reading Time Taken Comments Blood Pressure 138/80 05/27/2023 11:47 AM EST Pulse 76 05/27/2023 11:47 AM EST Temperature 36.1 C (96.9 F) 05/27/2023 11:[address] Respiratory Rate - - Oxygen Saturation 97% 05/27/2023 11:47 AM EST Inhaled Oxygen Concentration - - Weight - - Height - - Body Mass Index - - documented in this encounter Progress Notes * Adelita Peace CRNP - 05/27/2023 12:07 PM EST Images from the original note were not included. History of Present Illness Yaneth Rios is a 73 year old female that presents for Acute (Breast pain) HPI Here for breast pain at right side of R breast nipple base. States she's had a tingling sensation at that area for about 6 months but a few days ago experienced very sharp pain in that area that wokeher up and persisted through the night. She's had no pain since but back to the usual tingling sensation. Notes she had a lipoma removed from the medial side of her R nipple base last year with Dr Ball. The surgery aggravated her back pain and she'd prefer to avoid another procedure if possible. Her younger sister had breast cancer twice in her 50's and 60's. No other family members with breastcancer. She denies any unusual sweats, unintentional weight loss. There are no skin changes of her b reast, no nipple inversion or nipple discharge. She perceives a very small lump at the area of the pain. Outpatient Medications Marked as Taking for the 05/27/23 encounter (Office Visit) with Adelita Peace CRNP Medication Sig metFORMIN HCl 500 MG Oral Tablet (Glucophage) Take 1 Tablet by mouth 2 times a day with morning andevening meals. Jardiance 25 MG Oral Tablet (Empagliflozin) take 1 tablet by mouth every morning Meloxicam 7.5 MG Oral Tablet (Mobic) TAKE 1-2 TABS BY MOUTH DAILY NEEDED FOR PAIN Gabapentin 300 MG Oral Capsule (Neurontin) Take 1 Capsule by mouth in the morning and 1 Capsule at noon and 1 Capsule before bedtime. OneTouch Delica Lancets 33G USE UP TO 4 TIMES A DAY DIRECTED Omeprazole 40 MG Oral Capsule Delayed Release (PriLOSEC) take 1 capsule by mouth every morning 1 HOUR BEFORE THE FIRST MEAL OF THE DAY FOR 1 MONTH Cyclobenzaprine HCl 5 MG Oral Tablet (Flexeril) Take 1 Tablet by mouth 3 times a day as needed for Muscle spasms. Albuterol Sulfate HFA 108 (90 Base) MCG/ACT Inhalation Aerosol Solution Inhale by mouth 2 Puffs in the morning AND 2 Puffs at noon AND 2 Puffs in the evening AND 2 Puffs before bedtime. Famotidine 20 MG Oral Tablet (Pepcid) Take by mouth 1 Tablet before bedtime. EpiPen 2-Emory 0.3 MG/0.3ML Injection Solution Auto-injector For a severe reaction: Inject in outer thigh following instructions on package and go to the Emergency room. OneTouch Ultra In Vitro Strip (Glucose Blood) USE DIRECTED 4 TIMES A DAY NEEDED FOR HYPERGLYCEMIA (HIGH SUGAR). DX E11.9 Astaxanthin 4 MG Oral Capsule Take by mouth 4 mg daily . LORAzepam (ATIVAN) 0.5 MG Tablet Take 1 Tab by mouth 2 times a day as needed for Anxiety. Bioflavonoid Products (VITAMIN C PLUS) 1000 MG TABS Take by mouth. Multiple Vitamins-Minerals (PRESERVISION AREDS 2) CHEW Take by mouth. NATURAL SUPPLEMENT Take by mouth daily. Indications: metabolic synergy, I-whocba-M-Cysteine, lignans, evail, joint formula, GI detox, L-Glutamine, Digestzymes, HTN comples, HTP 5 Artesia-3 Fatty Acids (FISH OIL) 1000 MG Capsule Take 1 Capsule by mouth in the morning. Blood Glucose Monitoring Suppl (ONETOUCH ULTRA SYSTEM) w/Device KIT Use as directed 4 times a day as needed for Hyperglycemia (high sugar). Use up to four times a day as directed Dx E11.9 diphenhydrAMINE (BENADRYL) 25 MG Capsule Take 2 Capsules by mouth. MULTIPLE VITAMIN PO CAPS None Entered Current Facility-Administered Medications for the 05/27/23 encounter (Office Visit) with Adelita Peace CRNP Medication albuterol sulfate (PROVENTIL) (2.5 MG/3ML) 0.083% inhalation solution 2.5 mg Physical Exam Vitals: 05/27/23 1147 Temp: 36.1 C (96.9 F) Pulse: 76 SpO2: 97% BP: 138/80 Physical Exam Vitals reviewed. Exam conducted with a fibreglass gun hand present. Constitutional: General: She is not in acute distress. Chest: Breasts: Right: Tenderness (lateral side of nipple base) present. No swelling, inverted nipple, mass, nippledischarge or skin change. Lymphadenopathy: Upper Body: Right upper body: No supraclavicular, axillary or pectoral adenopathy. Neurological: Mental Status: She is alert. Assessment and Plan Breast pain, right Consider consultation with Dr Ball pending results - US BREAST LIMITED RIGHT; Future - MAMMOGRAM DIAGNOSTIC RIGHT; Future Wrap-Up Follow-up: Return if symptoms worsen or fail to improve. | Check-out note: Schedule mammo/US Time: I spent a total of 20-29 minutes (exact time 20 mins) on the date of service in preparation, delivery, and documentation of the care provided to Yaneth Rios excluding any time spent in the performance of separately billed services. documented in this encounter Nursing Notes * Ivory Cruz LPN - 05/27/2023 11:44 AM EST The patient has been properly identified by confirmation of name and date of . Chief Complaint Patient presents with Acute Breast pain R breast, discomfort around nipple. The pain woke her up at night the other night, usually just occmild discomfort but a constant sensation. Had previous surgery on breast 2 years ago had fibroid removed. Denies nipple discharge. Unsure if she has new lump, there may be a pea sized on in the location ofthe pain. No discoloration. Next mammo 01/09/24. documented in this encounter Plan of Treatment Upcoming Encounters Date Type Department Care Team (Late st Contact Info) Description 06/07/2023 1:00 PM EST Imaging Radiology [facility] 1st Floor, [place] [address] [facility] [place] [id number] 06/07/2023 1:30 PM EST Imaging Radiology [facility] [address] [facility] [place] [address] 08/03/2023 12:40 PM EST Office Visit Dermatology [facility] [address] [place] [address] Kym Stone PA-C [address] [place] [phone] 11/08/2023 8:40 AM EDT Office Visit Family Practice [facility] [address] [facility] [place] [address] Sharee Leblanc, [address] [place] [address] 01/09/2024 12:30 PM EDT Imaging Radiology [facility] [facility] [address] [facility] [place] [address] Scheduled Orders Name Type Priority Associated Diagnoses Orde r Schedule US BREAST LIMITED RIGHT Medical Imaging Routine Breast pain, right Expected: 05/28/2023, Expires: 06/27/2024 MAMMOGRAM DIAGNOSTIC RIGHT Medical Imaging Routine Breast pain, right Expected: 05/27/2023, Expires: 06/27/2024 Scheduled Procedures Name Priority Associated Diagnoses Date/Ti [...] (FLU shot) (#1) 2023 HbA1c 10/26/2023 04/27/2023, 11/2022, 06/01/2022, Additional history exists Albumin/Creatinine Ratio 01/04/2024 023, 09/25/2021, 06/24/2020, Additional history exists Mammogram 01/04/2024 01/03/2023, 06/2021, 01/01/2022, Additional history exists Diabetic Eye Exam 04/06/2024 04/06/2023, , 03/30/2021, Additional history exists Depression Screening 04/27/2024 04/27/2023 Diabetic Foot Exam 04/27/2024 04/27/2023, 0 09/25/2021, 06/24/2020, Additional history exists GFR 04/27/2024 04/27/2023, 07/2022, 09/25/2021, Additional history exists Colonoscopy 06/15/2027 06/15/2017, 03/01, [...] Not on filedocumented as of this encounter Visit Diagnoses Diagnosis Breast pain, right- Primary Mastodynia documented in this encounter Advance Directives Documents on File 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 Question Answer Comments Discussion of Advance Directives occurred with: Patient Does the patient have a Living Will? No Does the patient have Health Care Power of Resident Care Assistant? No Care Teams Manager Clinic Relationship Specialty Start Date End Date Sharee Leblanc DO [address] [place] [id number] PCP - General Family Medicine 06/18/16 documented as of this encounter"
--- OUTSIDE RECORDS SUMMARY | 2023-07-08 23:34 | External Medical Summary | Summary of Care ---
Author Name Unknown Organization [facility] Address [address] [place] [address] Phone [phone] Care Team Providers Care Pecan Sheller Name Role Phone Sharee Leblanc DO Primary Care Provider [phone] Reason for Referral * Evaluate & Treat - Unlimited Visits (Within 30 days (routine)) - Pending Review Specialty Diagnoses / Procedures Referred By Cristiane gatica Referred To Contact Allergy & Immunology Diagnoses Intermittent asthma with reliever use up to twice per week without complication Idiopathic angioedema, subsequent encounter Kaylen Ball MD [address] [place] [address] Referral ID Status Reason Start Date Expiration Date Visits Requested Visits Authorized [id number] Pending Review Specialty Services Required 07/06/[phone] Question Answer Referral Priority Within 30 days (routine) Where should this appointment be scheduled? [facility] For what condition is the patient being referred? 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 Has protocol she follows to help with it. Took prednisone and it helped but then it came back. Was in [facility] ER on Tuesday morning, was treated and felt better. Sx came back last night and she took more prednisone and it went away but it came back again this morning. Has had a whole body rash for the past 3 weeks. Encounter Details Date Type Department Care Team (Latest Contact Info) Description 07/06/2023 9:00 AM EST Office Visit General Internal Medicine [place] [facility] [facility] [address] [place] [address] Kaylen Ball MD [facility] [address] [place] [address] Mild intermittent asthma with exacerbation*; Idiopathic angioedema, subsequent encounter; Diabetic gastroparesis associated with type 2 diabetes mellitus ([facility]); Drug allergy; Elevated blood pressure, situational; Esophageal stricture; Intermittent asthma with reliever use up to twice per week without complication; Type 2 diabetes mellitus with hemoglobin A1c goal of less than 7.0% ([facility]); ROCHE (dyspnea on exertion); Gastroesophageal reflux disease, unspecified whether esophagitis present Allergies Active Allergy Reactions Criticality Noted Date Comments Baclofen Other (Please comment) Medium 08/19/2014 Memory loss, dizziness,hearing loss, and headache Bactrim Psych complications 10/16/2011 Pt reports that it makes her severely depressed Celecoxib Medium 07/29/2011 Severe depression per pt Cephalosporins 07/23/2003 hives Clindamycin Unknown 07/23/2003 Codeine 07/23/2003 Erythromycin Hives Medium 02/15/2013 Food (See Comments) 11/24/2018 arthroben Latex 11/04/2016 rash Methocarbamol Hives High 08/19/2014 [facility] Natural Products Fever 11/28/2018 Arthroben Tropicamide Conjunctivitis [...] as of this encounter (statuses as of 07/06/2023) Medications Medication Sig Dispensed Refills Start Date End Date Status MULTIPLE VITAMIN PO CAPS None Entered 0 Active diphenhydrAMINE (BENADRYL) 25 MG Capsule Take 2 Capsules by mouth. 0 05/07/20 13 Active Blood Glucose Monitoring Suppl (Tattva SYSTEM) w/Device KITIndications:Ty pe 2 diabetes mellitus with hemoglobin A1c goal of less than 7.0% (HCC) Use as directed 4 times a day as needed for Hyperglycemia (high sugar). Use up to four times a day as directed Dx E11.9 1 Kit 0 10/19/19 18 Active [place]-3 Fatty Acids (FISH OIL) 1000 MG Capsule Take 1 Capsule by mouth in the morning. 0 Active Bioflavonoid Products (VITAMIN C PLUS) 1000 MG TABS Take by mouth. 0 Active Multiple Vitamins-Minerals (PRESERVISION AREDS 2) CHEW Take by mouth. 0 Active NATURAL SUPPLEMENTIndicat ions:metabolic synergy, S-ktxlci-D-Cystei ne, lignans, evail, joint formula, GI detox, L-Glutamine, Digestzymes, HTN comples, HTP 5 Take by mouth daily. Indications: metabolic synergy, G-oqdjli-R-Cystei ne, lignans, evail, joint formula, GI detox, L-Glutamine, Digestzymes, HTN comples, HTP 5 0 Active LORAzepam (ATIVAN) 0.5 MG TabletIndications :Stress due to illness of family member Take 1 Tab by mouth 2 times a day as needed for Anxiety. 10 Tab 0 01/03/20 19 Active Astaxanthin 4 MG Oral Capsule Take by mouth 4 mg daily . 0 Active OneTouch Ultra In Vitro Strip (Glucose Blood)Indications :Type 2 diabetes mellitus with hemoglobin A1c goal of less than 7.0% (HCC) USE DIRECTED 4 TIMES A DAY NEEDED FOR HYPERGLYCEMIA (HIGH SUGAR). DX E11.9 400 Strip 3 08/01/19 22 Active Cyclobenzaprine HCl 5 MG Oral Tablet (Flexeril)Indicat ions:Acute midline low back pain without sciatica Take 1 Tablet by mouth 3 times a day as needed for Muscle spasms. 30 Tablet 0 07/08/19 23 Active Omeprazole 40 MG Oral Capsule Delayed Release (PriLOSEC)Indicat ions:Gastroesopha geal reflux disease without esophagitis take 1 capsule by mouth every morning 1 HOUR BEFORE THE FIRST MEAL OF THE DAY FOR 1 MONTH 90 Capsule 1 12/10/19 23 Active OneTouch Delica Lancets 33GIndications:Ty pe 2 diabetes mellitus with hemoglobin A1c goal of less than 7.0% (HCC) USE UP TO 4 TIMES A DAY DIRECTED 400 Each 3 03/15/20 23 Active Meloxicam 7.5 MG Oral Tablet (Mobic)Indication s:Neck pain TAKE 1-2 TABS BY MOUTH DAILY NEEDED FOR PAIN 60 Tablet 5 04/25/20 23 Active Jardiance 25 MG Oral Tablet (Empagliflozin)In dications:Type 2 diabetes mellitus with hemoglobin A1c goal of less than 7.0% (HCC) take 1 tablet by mouth every morning 30 Tablet 3 04/26/20 23 Active metFORMIN HCl 500 MG Oral Tablet (Glucophage)Indic ations:Type 2 diabetes mellitus with hemoglobin A1c goal of less than 7.0% (HCC) Take 1 Tablet by mouth 2 times a day with morning and evening meals. 0 07/06/19 24 Active predniSONE 10 MG Oral Tablet (Deltasone)Indica tions:Idiopathic angioedema, subsequent encounter,Mild intermittent asthma with exacerbation Take 4 tabs for 3 days, 3 tabs for 3 days, 2 tabs for 3 days 1 tab for 2 days 30 Tablet 0 07/06/19 24 Active glipiZIDE ER 5 MG Oral Tablet Extended Release 24 Hour (glipiZIDE XL) Take 1 Tablet by mouth in the morning. 30 minutes before a meal.. 30 Tablet 2 07/06/19 24 Active Albuterol Sulfate HFA 108 (90 Base) MCG/ACT Inhalation Aerosol SolutionIndicatio ns:ROCHE (dyspnea on exertion),Mild intermittent asthma with exacerbation Inhale 2 Puffs by mouth every 4 hours as needed for Wheezing or Other (chest tightness). 18 g 2 07/06/19 24 Active Famotidine 40 MG Oral Tablet (Pepcid)Indicatio ns:Idiopathic angioedema, subsequent encounter Take 1 Tablet by mouth in the morning. 30 Tablet 3 07/06/19 24 Active EpiPen 2-[place] 0.3 MG/0.3ML Injection Solution Auto-injector For a severe reaction: Inject in outer thigh following instructions on package and go to the Emergency room. 1 Each 3 07/06/19 24 Active EpiPen 2-Emory 0.3 MG/0.3ML Injection Solution Auto-injector For a severe reaction: Inject in outer thigh following instructions on package and go to the Emergency room. 1 Each 3 08/01/19 22 024 Discontinued(Re fill) Albuterol Sulfate HFA 108 (90 Base) MCG/ACT Inhalation Aerosol SolutionIndicatio ns:ROCHE (dyspnea on exertion) Inhale by mouth 2 Puffs in the morning AND 2 Puffs at noon AND 2 Puffs in the evening AND 2 Puffs before bedtime. 18 g 2 09/26/19 22 024 Discontinued(Re fill) Famotidine 20 MG Oral Tablet (Pepcid)Indicatio ns:Gastroesophage al reflux disease, unspecified whether esophagitis present Take by mouth 1 Tablet before bedtime. 30 Tablet 11 09/26/19 22 024 Discontinued Gabapentin 300 MG Oral Capsule (Neurontin)Indica tions:Lumbar radiculopathy Take 1 Capsule by mouth in the morning and 1 Capsule at noon and 1 Capsule before bedtime. 90 Capsule 5 04/19/20 23 024 Discontinued metFORMIN HCl 500 MG Oral Tablet (Glucophage)Indic ations:Type 2 diabetes mellitus with hemoglobin A1c goal of less than 7.0% (HCC) Take 1 Tablet by mouth 2 times a day with morning and evening meals. 180 Tablet 3 04/27/20 23 024 Discontinued(Re fill) Hospital, Clinic, or Other Facility Administered Medication Ordered Dose Route Frequency Start Date End Date Status albuterol sulfate (PROVENTIL) (2.5 MG/3ML) 0.083% inhalation solution 2.5 mgIndications:ROCHE (dyspnea on exertion) 2.5 mg NEBULIZER Q4H PRN 01/02/2019 Act pranay documented as of this encounter (statuses as of 07/06/2023) Active Problems Problem Noted Date Diagnosed Date [...] as of this encounter (statuses as of 07/06/2023) Resolved Problems Problem Noted Date Diagnosed Date [...] as of this encounter (statuses as of 07/06/2023) Immunizations Name Administration Dates Next Due Pneumococcal [...] Sign Reading Time Taken Comments Blood Pressure 146/74 07/06/2023 8:55 AM EST Pulse 74 07/06/2023 8:55 AM EST Temperature 36.1 C (96.9 F) 07/06/2023 8:55 AM ES T Respiratory Rate - - Oxygen Saturation 97% 07/06/2023 8:55 AM EST Inhaled Oxygen Concentration - - Weight 83.6 kg (184 lb 6.4 oz) 07/06/2023 8:55 A M EST Height - - Body Mass Index 31.65 04/15/2023 9:02 AM EST documented in this encounter Progress Notes * Kaylen Ball MD - 07/06/2023 8:59 AM EST Images from the original note were not included. History of Present Illness Yaneth Rios is a 73 year old female that presents for Acute (Had acute flare up of idiopathic angioedema, has had it for years. Has protocol she follows to help with it. Took prednisone and it helped but then it came back. Was in [facility] ER on Tuesday morning, was treated and felt better.Sx came back last night and she took more prednisone and it went away but it came back again this morning. Has had a whole body rash for the past 3 weeks.) 73 year old YOfemale with PMH as listed below presents here for evaluation of angioedema . Duration of illness: 3 weeks Symptoms present : Had acute flare up of idiopathic angioedema, has had it for years. Has protocol she follows to help with it. Took prednisone and it helped but then it came back. Was in [facility] ER on Tuesday morning after eating a fruit , [place] which she never had it before, and developed symptoms with shortness of breath throat closing right away so she went to emergency where she wastreated with prednisone, famotidine and EpiPen and felt better. Sx came back last night and she took more prednisone and it went away but it came back again this morning. Has had a whole body rash for the past 3 weeks. Was started on Jardiance for diabetes probably 2-3 weeks prior starting with a rash. Feels like she feels tightness in her throat and trouble breathing whenever attack happens not so much swelling or redness in her face or anywhere outside the skin except itchy rash or hives in the legs and some of the forearm which has been happening intermittent for last few weeks. Patient has history of probably allergic asthma but otherwise asthma is under control. Symptoms not present: Fever chills, runny nose or congestion, chest pain, swelling of lips, eyes orface Have same similar thing in past : Yes intermittent symptoms of throat closing and passing out whichtypically goes away with Benadryl and sometimes 1 dose of prednisone and inhaler Since symptoms started things getting : Fluctuating Used anything for this illness: As above Other concerns or issues present : Patient has a uncontrolled diabetes for which she was taking only metformin 2 tablets a day. Jardiance was added maybe 6 weeks ago which has helped some but she hasnot taken anything for last 1 week due to fear of getting rash ER note reviewed including previous epic notes, allergy notes Physical Exam Vitals: 07/06/23 0855 Temp: 36.1 C (96.9 F) Pulse: 74 SpO2: 97% BP: 146/74 Physical Exam Constitutional: General: She is not in acute distress. Appearance: Normal appearance. HENT: Head: Normocephalic. Right Ear: Ear canal and external ear normal. Left Ear: Ear canal and external ear normal. Nose: Congestion and rhinorrhea present. Mouth/Throat: Mouth: Mucous membranes are moist. Pharynx: Posterior oropharyngeal erythema present. No oropharyngeal exudate. Cardiovascular: Rate and Rhythm: Normal rate and regular rhythm. Heart sounds: No murmur heard. No gallop. Pulmonary: Effort: Pulmonary effort is normal. Breath sounds: No stridor. Wheezing present. No rhonchi. Chest: Chest wall: No tenderness. Abdominal: General: There is no distension. Palpations: Abdomen is soft. There is no mass. Tenderness: There is no abdominal tenderness. Musculoskeletal: General: No swelling or tenderness. Cervical back: No rigidity or tenderness. Lymphadenopathy: Cervical: No cervical adenopathy. Skin: Findings: Lesion (No swelling or redness in the face except some baseline redness of her nose and cheek. Dry skin with rough areas which could be healing hives or rash) present. Neurological: Mental Status: She is alert. I have reviewed the following results: CMP and Hemoglobin A1C Assessment and Plan Mild intermittent asthma with exacerbation Seems like she is having asthma flare up which could be from a URI or as a drug allergy from Jardiance - predniSONE 10 MG Oral Tablet (Deltasone); Take 4 tabs for 3 days, 3 tabs for 3 days, 2 tabs for 3days 1 tab for 2 days - Albuterol Sulfate HFA 108 (90 Base) MCG/ACT Inhalation Aerosol Solution; Inhale 2 Puffs by mouth every 4 hours as needed for Wheezing or Other (chest tightness). Start Zyrtec daily and Benadryl only as needed for shortness of breath or throat closing or bad hives Idiopathic angioedema, subsequent encounter As above - predniSONE 10 MG Oral Tablet (Deltasone); Take 4 tabs for 3 days, 3 tabs for 3 days, 2 tabs for 3days 1 tab for 2 days - Famotidine 40 MG Oral Tablet (Pepcid); Take 1 Tablet by mouth in the morning. - ALLERGY REFERRAL OP EpiPen if symptom does not improve to prednisone, inhaler Benadryl Diabetic gastroparesis associated with type 2 diabetes mellitus (HCC) Drug allergy Elevated blood pressure, situational Esophageal stricture Intermittent asthma with reliever use up to twice per week without complication - ALLERGY REFERRAL OP Type 2 diabetes mellitus with hemoglobin A1c goal of less than 7.0% (HCC) Hold or stop Jardiance Continue metformin-could not be increased due to adverse reaction in past with stomach upset Add glipizide 5 mg daily, start in few days whenever patient comfortable which may need to be increased in future-defer to PCP ROCHE (dyspnea on exertion) - Albuterol Sulfate HFA 108 (90 Base) MCG/ACT Inhalation Aerosol Solution; Inhale 2 Puffs by mouth every 4 hours as needed for Wheezing or Other (chest tightness). Gastroesophageal reflux disease, unspecified whether esophagitis present Wrap-Up Time: I spent a total of 40-54 minutes (exact time 46 mins) on the date of service in preparation, delivery, and documentation of the care provided to Yaneth Rios excluding any time spent in the performance of separately billed services. documented in this encounter Nursing Notes * Natasha Adams LPN - 07/06/2023 8:55 AM EST Chief Complaint Patient presents with Acute Had acute flare up of idiopathic angioedema, has had it for years. Has protocol she follows to helpwith it. Took prednisone and it helped but then it came back. Was in [facility] on Tuesday morning, was treated and felt better. Sx came back last night and she took more prednisone and it went away but it came back again this morning. Has had a whole body rash for the past 3 weeks. documented in this encounter Plan of Treatment Upcoming Encounters Date Type Department Care Team (Late st Contact Info) Description 08/03/2023 12:40 PM EST Office Visit Dermatology [facility] [address] [facility] [place] [address] Kym Stone PA-C [address] [place] [address] [place] [phone] 09/08/2023 10:00 AM EDT Office Visit Family Practice [facility] [address] [place] [address] Adelita Peace CRNP [address] [place] [address] 10/27/2023 1:00 PM EDT Office Visit Allergy/Immunology [facility] [place] 200 [facility] [place] [address] Kwame Iverson MD 200 [facility] [place] [address] 11/08/2023 8:40 AM EDT Office Visit Family Practice [facility] [address] [place] [address] Sharee Leblanc DO [address] [place] [address] 01/09/2024 12:30 PM EDT Imaging Radiology [facility] 1st [facility] [address] [place] [address] Scheduled Procedures Name Priority Associated Diagnoses Date/Ti me COLONOSCOPY FLEXIBLE PROXIMA L DIAGNOSTIC Recall Encounter for screening colonoscopy Scheduled Referrals Name Type Priority Associated Diagnoses Orde r Schedule ALLERGY REFERRAL OP Referral Within 30 da ys (routine) Intermittent asthma with reliever use up to twice per week without complication Idiopathic angioedema, subsequent encounter Ordered: 07/06/2023 Health Maintenance Due Date Last Done Comments [...] 01/04/2024 023, 09/25/2021, 06/24/2020, Additional history exists Diabetic Eye Exam 04/06/2024 04/06/2023, , 03/30/2021, Additional history exists Depression Screening 04/27/2024 04/27/2023 Diabetic Foot Exam 04/27/2024 04/27/2023, 0 09/25/2021, 06/24/2020, Additional history exists GFR 04/27/2024 04/27/2023, 01/0 07/2022, 09/25/2021, Additional history exists Mammogram 06/23/2024 06/23/2023, 0811/2022, 04/30/2022, Additional history exists Colonoscopy 06/15/2027 06/15/2017, [...] as of this encounter Visit Diagnoses Diagnosis Mild intermittent asthma with exacerbation- Primary Unspecified asthma, with exacerbation Idiopathic angioedema, subsequent encounter Diabetic gastroparesis associated with type 2 diabetes mellitus (HCC) Type II or unspecified type diabetes mellitus with neurological manifestations, not stated as uncontrolled Drug allergy Other drug allergy Elevated blood pressure, situational Elevated blood pressure reading without diagnosis of hypertension Esophageal stricture Stricture and stenosis of esophagus Intermittent asthma with reliever use up to twice per week without complication Type 2 diabetes mellitus with hemoglobin A1c goal of less than 7.0% ([facility]) ROCHE (dyspnea on exertion) Other dyspnea and respiratory abnormality Gastroesophageal reflux disease, unspecified whether esophagitis present documented in this encounter Advance Directives Documents on File Type Date 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 Question Answer Comments Discussion of Advance Directives occurred with: Patient Does the patient have a Living Will? No Does the patient have Health Care Power of Career Discovery Teacher? No Care Teams Pecan Sheller Relationship Specialty Start Date End Date Sharee Leblanc DO [address] [place] [id number] PCP - General Family Medicine 06/18/16 documented as of this encounter
--- OUTSIDE RECORDS SUMMARY | 2023-07-08 23:34 | External Medical Summary | Summary of Care ---
Author Name Unknown Organization [facility] Address [address] [place] [facility] [address] Phone [phone] Care Team Providers Care Rf Engineer Name Role Phone Sharee Leblanc DO Primary Care Provider Encounter Details Date Type Department Care Team (Late st Contact Info) Description 06/23/2023 1:00 PM EST Imaging Radiology [address] [facility] [place] [address] Breast pain, right Allergies Active [...] Latex 11/04/2016 rash Methocarbamol Hives High 08/19/2014 [facility] Natural Products Fever 11/28/2018 Arthroben Tropicamide Conjunctivitis [...] Dx E11.9 1 Kit 0 10/18/2017 Active [place]-3 Fatty Acids (FISH OIL) 1000 MG Capsule Take 1 Capsule by mouth in the morning. 0 Active Bioflavonoid Products (VITAMIN C PLUS) 1000 MG TABS Take by mouth. 0 Ac tive Multiple Vitamins-Minerals (PRESERVISION AREDS 2) CHEW Take by mouth. 0 Active NATURAL SUPPLEMENTIndicatio ns:metabolic synergy, Q-irwedt-L-Cysteine , lignans, evail, joint formula, GI detox, L-Glutamine, Digestzymes, HTN comples, HTP 5 Take by mouth daily. Indications: metabolic synergy, W-isnriu-D-Cysteine , lignans, evail, joint formula, GI detox, [...] 108 (90 Base) MCG/ACT Inhalation Aerosol SolutionIndications :RCOHE (dyspnea on exertion) Inhale by mouth 2 [...] PM EST Office Visit Dermatology [place] [facility] [address] [place] [address] Kym Stone PA-C [address] [place] [phone] 11/08/2023 8:40 AM EDT Office Visit Family Practice [facility] [address] [place] [address] Sharee Leblanc, [address] [place] [address] 01/09/2024 12:30 PM EDT Imaging Radiology [facility] 1st [facility] [address] [place] [address] Scheduled Procedures Name Priority Associated Diagnoses Date/Ti [...] to year. This examination was performed at [facility], [address] [place] [id number]. Adelita GARCIA RAD ULTRASOUND * MAMMOGRAM DIAGNOSTIC [...] to year. This examination was performed at [facility], [address] [place] [address]. 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 Question Answer Comments Discussion of Advance Directives occurred with: Patient Does the patient have a Living Will? No Does the patient have Health Care Power of Movie Critic? No Care Teams Rf Engineer Relationship Specialty Start Date End Date Sharee Leblanc DO [facility] [address] [place] [address] PCP - General Family Medicine 06/18/16 documented as of this encounter
--- OUTSIDE RECORDS SUMMARY | 2023-07-08 23:34 | External Medical Summary | Summary of Care ---
Author Name Unknown Organization [facility] Address [address] [place] [address] Phone [phone] Care Team Providers Care Seam Stayer Name Role Phone Sharee Leblanc DO Primary Care Provider [phone] Reason for Visit * Reason Comments Re-Check 6 mo check, diabetes review, discuss meds, pinched nerve in lower back Encounter Details Date Type Department Care Team (Late st Contact Info) Description 04/27/2023 2:20 PM EST Office Visit Family Practice [facility] [address] [place] [id number] Sharee Leblanc, [address] [place] [id number] Type 2 diabetes mellitus with hemoglobin A1c goal of less than 7.0% ([facility])*; Risk and functional assessment Allergies Active Allergy Reactions Criticality Noted Date [...] as of this encounter (statuses as of 05/21/2023) Medications Medication Sig Dispensed Refills Start Date End Date Status MULTIPLE VITAMIN PO CAPS None Entered 0 Active diphenhydrAMINE (BENADRYL) 25 MG Capsule Take 2 Capsules by mouth. 0 05/07/20 13 Active Blood Glucose Monitoring Suppl ([employer] ULTRA SYSTEM) w/Device KITIndications:Ty pe 2 diabetes mellitus with hemoglobin A1c goal of less than 7.0% (HCC) Use as directed 4 times a day as needed for Hyperglycemia (high sugar). Use up to four times a day as directed Dx E11.9 1 Kit 0 10/19/19 18 Active [place]-3 Fatty Acids (FISH OIL) 1000 MG Capsule Take 1 Capsule by mouth in the morning. 0 Active Bioflavonoid Products (VITAMIN C PLUS) 1000 MG TABS Take by mouth. 0 Active Multiple Vitamins-Minerals (PRESERVISION AREDS 2) CHEW Take by mouth. 0 Active NATURAL SUPPLEMENTIndicat ions:metabolic synergy, Q-jelxyb-D-Cystei ne, lignans, evail, joint formula, GI detox, L-Glutamine, Digestzymes, HTN comples, HTP 5 Take by mouth daily. Indications: metabolic synergy, P-yaumkm-F-Cystei ne, lignans, evail, joint formula, GI detox, [...] E11.9 400 Strip 3 08/01/19 22 Active EpiPen 2-Emory 0.3 MG/0.3ML Injection Solution Auto-injector For a severe reaction: Inject in outer thigh following instructions on package and go to the Emergency room. 1 Each 3 08/01/19 22 Active Albuterol Sulfate HFA 108 (90 Base) MCG/ACT Inhalation Aerosol SolutionIndicatio ns:ROCHE (dyspnea on exertion) Inhale by mouth 2 Puffs in the morning AND 2 Puffs at noon AND 2 Puffs in the evening AND 2 Puffs before bedtime. 18 g 2 09/26/19 22 Active Famotidine 20 MG Oral Tablet (Pepcid)Indicatio ns:Gastroesophage al reflux disease, unspecified whether esophagitis present Take by mouth 1 Tablet before bedtime. 30 Tablet 11 09/26/19 22 Active Cyclobenzaprine HCl 5 MG Oral [...] DIRECTED 400 Each 3 03/15/20 23 Active Gabapentin 300 MG Oral Capsule (Neurontin)Indica tions:Lumbar radiculopathy Take 1 Capsule by mouth in the morning and 1 Capsule at noon and 1 Capsule before bedtime. 90 Capsule 5 04/19/20 23 Active Meloxicam 7.5 MG Oral Tablet [...] evening meals. 180 Tablet 3 04/27/20 23 Active Calcium-Magnesium 500-250 MG Oral Tablet Take by mouth. 0 023 Discontinued(Nv dication List Clean Up) metFORMIN HCl ER 500 MG Oral Tablet Extended Release 24 Hour (Glucophage XR)Indications:Ty pe 2 diabetes mellitus with hemoglobin A1c goal of less than 7.0% (HCC) take 4 tablet by mouth every morning 360 Tablet 1 04/26/20 23 023 Discontinued Hospital, Clinic, or Other Facility Administered Medication Ordered Dose Route Frequency Start Date End Date Status albuterol sulfate (PROVENTIL) (2.5 MG/3ML) 0.083% inhalation solution 2.5 mgIndications:ROCHE (dyspnea on exertion) 2.5 mg NEBULIZER Q4H PRN 01/02/2019 Act pranay documented as of this encounter (statuses as of 05/21/2023) Active Problems Problem Noted Date Diagnosed Date [...] as of this encounter (statuses as of 05/21/2023) Resolved Problems Problem Noted Date Diagnosed Date [...] as of this encounter (statuses as of 05/21/2023) Immunizations Name Administration Dates Next Due Pneumococcal [...] Sign Reading Time Taken Comments Blood Pressure 158/72 04/27/2023 2:02 PM EST Pulse 68 04/27/2023 2:02 PM EST Temperature 36.2 C (97.2 F) 04/27/2023 2:02 PM ES T Respiratory Rate 16 04/27/2023 2:02 PM EST Oxygen Saturation - - Inhaled Oxygen Concentration - - Weight 84.8 kg (187 lb) 04/27/2023 2:02 PM EST Height - - Body Mass Index 32.1 04/15/2023 9:02 AM EST documented in this encounter Patient Instructions * Patient Instructions* Chanelle Rollins RN - 04/27/2023 2:02 PM EST Patient Instructions - Fall Prevention (This education is for all patients over 65 regardless of symptoms) Remember to take your current medications as prescribed. In order to prevent falls, you are encouraged to: Exercise Utilize assistive/adaptive devices Avoid multifocal lenses when walking Avoid hazards in home Maintain a regular toileting schedule Any questions please contact our office. Preventing Falls in the Home (This education is for all patients over 65 regardless of symptoms) As you get older, falls are more likely. Thats because your reaction time slows. Your muscles and joints may also get stiffer, making them less flexible. Illness, medications, and vision changes can also affect your balance. A fall could leave you unable to live on your own. To make your home safer, follow these tips: Floors Put nonskid pads under area rugs Remove throw rugs Replace worn floor coverings Tack carpets firmly to each step on carpeted stairs. Put nonskid strips on the edges of uncarpeted stairs Keep floors and stairs free of clutter and cords Arrange furniture so there are clear pathways Clean up any spills right away Bathrooms Install grab bars in the tub or shower Apply nonskid strips or put a nonskid rubber mat in the tub or shower Sit on a bath chair to bathe Use bathmats with nonskid backing Lighting Keep a flashlight in each room Put a nightlight along the pathway between the bedroom and the bathroom [facility] Patient Education Copyright 2008 - 2010 [employer] except where otherwise noted Preventing Falls: Exercises to Improve Balance, Flexibility, Strength, and Staying Power (This education is for all patients over 65 regardless of symptoms) Certain types of exercises may help make you less likely to fall. Try the ones below. Or do other exercises that your healthcare provider suggests. Depending on your health, you may need to start slowly. Dont let that stop you. Even small amounts of exercise can help you. Be sure to talk to yourhealthcare provider before starting any exercise program. Improve Balance Many types of exercise can help improve balance. Silvino chi and yoga are good examples. Heres another one to try. You can do it anytime and almost anywhere. Stand next to a counter or solid support. Push yourself up onto your tiptoes. Hold for 5 seconds. If you start to lose your balance, hold on to the counter. Rest and repeat 5 times. Work up to holding for 20 to 30 seconds, if you can. Increase Flexibility Being more flexible makes it easier for you to move around safely. Try exercises like the seated hamstring stretch. Sit in a chair and put one foot on a stool. Straighten your leg and reach with both hands down either side of your leg. Reach as far down your leg as you can. Hold for about 20 seconds. Go back to the starting position. Then repeat 5 times. Switch legs. Build Strength Resistance exercises help build strength. You can do them without equipment. Or you can use weights, elastic bands, or special machines. One such exercise is called the biceps curl. You can hold a 1 pound weight or even a can of soup. Do this exercise at least 3 times a week. Strive for everyday. Sit up straight in a chair. Keep your elbow close to your body and your wrist straight. Bend your arm, moving your hand up to your shoulder. Then slowly lower your arm. Repeat 5 times. Switch to the other arm. Build Your Staying Power Aerobic exercises make your heart and lungs stronger so you can keep moving longer. Walking and swimming are two of the best types of exercises you can do. Using a stationary bike is great, too. Find an aerobic exercise that you enjoy. Start slowly and build up. Even 5 minutes is helpful. Aimfor a goal of 30 minutes, at least 3 times a week. You dont have to do 30 minutes in one session. Break it up and walk a little throughout the day. More Helpful Tips Start easy. Slowly work up to doing more. Talk with your healthcare provider about the best exercises for you. Call senior centers or health clubs about exercise programs. If needed, have a family member watch you walk every so often to check your stability. Exercise with a friend. Choose an activity you both enjoy. Try exercises that you can do anytime, anywhere. Here are two examples. Have someone with you when you first try these: Practice walking by placing one foot right in front of the other. Stand up and sit down 10 times. Repeat this throughout the day. [employer] Patient Education Copyright 2008 [employer] except where otherwise noted. Preventing Falls: Moving Safely Using a Cane or Walker (This education is for all patients over 65 regardless of symptoms) Keep the cane away from your feet so you dont trip. A walking aid, such as a cane or walker, can help you stay more independent and avoid falls. Remember to keep your walking aid within easy reach when youre in a chair or in bed. And learn how to use it safely so you dont injure yourself. Using a Cane If you have a stronger side, hold the cane on that side. Get your balance. Move the cane and your weaker leg forward. Support your weight on both the cane and your weaker side. Step with your stronger leg. Start again from step 1. If youre using a folding walker, be sure you know how to lock it open. Check that its locked open before each use. Using a Walker Roll the walker (or lift it, if youre using one without wheels) forward about 12 inches. Step forward with your weaker leg first. Use the walker to help keep your balance. Bring your other foot forward to the center of the walker. Start again from step 1. Helpful Tips Check with your healthcare provider about the right walking aid to use. Ask about a walker with a seat attached. Check the tips of your cane or walker to make sure they have nonskid covers. Move slowly from room to room. Dont mahmood. Sit down to get dressed. Use a curtis pack or backpack to keep your hands free. Get help for jobs that mean climbing, even on a stepstool. [employer] Patient Education Copyright 2008 - 2010 [employer] except where otherwise noted. Urinary Incontinence Plan of Care Documentation: (This education is for all patients over 65 regardless of symptoms) Current medications reconciled. Patient encouraged to: Practice kegal exercises Provide education materials Use the restroom every 2 hours throughout the day Limit caffeine, alcohol, spicy foods and acidic foods Keep a bladder diary Limit fluid intake 3-4 hours before bed Lose weight Prevent constipation Take fluid pills at a time when you can get to the bathroom quickly Control sugar better if diabetic Limit fluid intake to 60 oz. per day Wear support stockings (TEDs)if you have edema Chanelle Rollins RN 04/27/2023 Kegel Exercises Kegel exercises dont require special clothing or equipment. Theyre easy to learn and simple to do. And if you do them right, no one can tell youre doing them, so they can be done almost anywhere. Your doctor, nurse, or physical therapist can answer any questions you have and help you get started. A Weak Pelvic Floor The pelvic floor muscles may weaken due to aging, and vaginal childbirth, injury, surgery, chronic cough, or lack of exercise. If the pelvic floor is weak, your bladder and other pelvic organs may sag out of place. The urethra may also open too easily and allow urine to leak out. Kegel exercises can help you strengthen your pelvic floor muscles so they can better support the pelvic organs and control urine flow. How Kegel Exercises Are Done Try each of the Kegel exercises described below. When youre doing them, try not to move your leg, buttock, or stomach muscles. While youre urinating, try to stop the flow of urine. Start and stop it as often as you can. Contract as if you were stopping your urine stream, but do it when youre not urinating. Tighten your rectum as if trying not to pass gas. Contract your anus, but dont move your buttocks. Helpful Hints Do your Kegels as often as you can. The more you do them, the faster youll feel the results. Pick an activity you do often as a reminder. For instance, do your Kegels every time you sit down. Tighten your pelvic floor before you sneeze, get up from a chair, cough, laugh, or lift. This protects your pelvic floor from injury and can help prevent urine leakage. Try to hold each Kegel for a slow count to five. You probably wont be able to hold them for thatlong at first, but keep practicing. It will get easier as your pelvic floor gets stronger. Eventually, special weights that you place in your vagina may be recommended to help make your Kegels even more effective. [employer] Patient Education Copyright 2008 - 2010 [employer] except where otherwise noted. Here are some helpful tips for your urinary incontinence: (This education is for all patients over 65 regardless of symptoms) Practice Kegel exercises Use the restroom every 2 hours throughout the day Limit caffeine, alcohol, spicy foods, and acidic foods Keep a bladder diary Limit fluid intake 3-4 hours before bed Lose weight Prevent constipation Take fluid pills at a time when can get to the bathroom quickly Control sugar better if diabetic Limit fluid intake to 60 oz. per day Any questions, please feel free to contact our office. Diabetes: Keeping Feet Healthy Inspect your feet every day for signs of a problem. Diabetes can damage nerves in your feet and cause neuropathy. This condition makes it hard for you to feel injuries or sore spots. Diabetes can also change blood flow, making it harder for small problems, like a blister, to heal properly. In fact, minor injuries can quickly become serious infections that send you to the hospital. Practice self-care to protect your feet and keep them healthy. Take Special Care Inspect your feet daily for problems such as redness, blisters, cracks, dry skin, or numbness. Use a mirror to see the bottoms of your feet. Or, ask for help. Manage your diabetes. Monitor and control your blood sugar. Take all your medications as prescribed. Avoid walking barefoot, even indoors. Wash your feet with warm water and mild soap. Dry well, especially between toes. Dont treat corns or calluses yourself. Talk to your doctor or waste treatment operator (a doctor who specializes in foot care) if you need assistance trimming your toenails. Use moisturizing cream or lotion if you have dry skin, but dont use it between toes. Dont use heating pads on your feet. If you have neuropathy, you could get a burn and not feel it. Stop smoking. Smoking restricts blood flow and can make it harder for wounds to heal. Have Regular Checkups Foot problems can develop quickly. So be sure to follow your healthcare teams schedule for regular checkups. During office visits, take off your shoes and socks as soon as you get in the exam room. Ask your healthcare provider to examine your feet for problems. This will make it easier to find and treat small skin irritations before they get worse. Regular checkups can also help keep track of the blood flow and feeling in your feet. If you have neuropathy, you may need to have checkups more often. Wear Proper Footwear Wearing proper footwear is very important. If areas of your feet have been damaged by too much pressure, your healthcare provider may recommend changing your footwear. In some cases, avoiding high heels or tight work boots may be all thats needed. Or, your healthcare provider may recommend special shoes or custom inserts. These help protect your feet and keep existing irritations from getting worse. If you need special footwear, ask your healthcare provider if you qualify for [employer] diabetic shoe program. Make Sure Shoes and Socks Fit Any pair of shoes--new or old--should feel comfortable as soon as you put them on. There shouldnt be any rubbing when you walk. Wear the right shoe for any activity. For instance, a running shoe is designed to keep your feet injury-free while jogging. Buy shoes at the end of the day, when your feet are larger. Make sure they provide support without feeling too loose. Make sure your socks fit, t oo. Wear soft, seamless, well-padded socks for activity. Cotton or microfiber socks are best to help to absorb sweat. To protect your feet, avoid shoes that are open-toed or open-heeled. If you have questions about what kinds of shoes and socks are best, talk to your healthcare team. Get Regular Exercise Regular exercise improves blood flow in your feet. It also increases foot strength and flexibility.Gentle exercises, like walking or riding a stationary bicycle, are best. You can also do special foot exercises. Just be sure to talk with your healthcare provider before starting any exercise program. Also mention if any exercise causes pain, redness, or other signs of foot problems. Note: If you have any kind of break in the skin of your foot or ankle, keep the area clean. Then call your doctor--especially if the area doesnt appear to be healing. [id number] [employer], [address] [place] [address], [place] [address]. All rights reserved. This information is not intended as a substitute for professional medical care. Always follow your healthcare professional's instructions. documented in this encounter Progress Notes * JaigisselandrezSharee Harriet, DO - 04/27/2023 2:26 PM EST Subjective: Yaneth Rios is a 73 year old female. Chief Complaint Patient presents with Re-Check 6 mo check, diabetes review, discuss meds, pinched nerve in lower back HPI: Pt presents for follow up today. Taking metformin + jardiance for DM. Seeing a significant improvement with jariiance, no side effects. BG down to 160 average. Concerned about article linking it to dementia - has family hx of AD. Seen previously for "pinched nerve" in her lower back - this radiates down her L leg, ankle and to her foot. Sometime she has R leg weakness. Referred for PT, has first appt tomorrow. Gabapentin helps minimally - she is taking 300mg TID. Pain is better when sitting or lying back. PHM: Patient Active Problem List Diagnosis Code ALLERGIC RHINITIS - MIXED TYPE J30.9 SENSORNEUR LOSS.R>L H90.3 ADVANCE DIRECTIVE INFORMATION Esophageal reflux K21.9 Esophageal stricture K22.2 FAMILY HX-BREAST CANCER- sister Z80.3 Elevated blood pressure, situational R03.0 Subjective tinnitus H93.19 LOC PRIM OSTEOART-HIP M16.10 Type 2 diabetes mellitus with hemoglobin A1c goal of less than 7.0% ([facility]) E11.9 Sensory hearing loss, unilateral H90.5 Intermittent asthma with reliever use up to twice per week J45.20 Idiopathic angioedema T78.3XXA Diabetic gastroparesis associated with type 2 diabetes mellitus E11.43, K31.84 Mass of wrist, left R22.32 Hx of actinic keratosis Z87.2 Hx of nonmelanoma skin cancer Z85.828 Current Outpatient Medications Medication Sig Dispense Refill MULTIPLE VITAMIN PO CAPS None Entered diphenhydrAMINE (BENADRYL) 25 MG Capsule Take 2 Capsules by mouth. Blood Glucose Monitoring Suppl ([employer] SYSTEM) w/Device KIT Use as directed 4 times a day as needed for Hyperglycemia (high sugar). Use up to four times a day as directed Dx E11.9 1 Kit 0 [place]-3 Fatty Acids (FISH OIL) 1000 MG Capsule Take 1 Capsule by mouth in the morning. Bioflavonoid Products (VITAMIN C PLUS) 1000 MG TABS Take by mouth. Multiple Vitamins-Minerals (PRESERVISION AREDS 2) CHEW Take by mouth. NATURAL SUPPLEMENT Take by mouth daily. Indications: metabolic synergy, T-vouleo-N-Cysteine, lignans, evail, joint formula, GI detox, L-Glutamine, Digestzymes, HTN comples, HTP 5 LORAzepam (ATIVAN) 0.5 MG Tablet Take 1 Tab by mouth 2 times a day as needed for Anxiety. 10 Tab 0 Astaxanthin 4 MG Oral Capsule Take by mouth 4 mg daily . OneTouch Ultra In Vitro Strip (Glucose Blood) USE DIRECTED 4 TIMES A DAY NEEDED FOR HYPERGLYCEMIA (HIGH SUGAR). DX E11.9 400 Strip 3 EpiPen 2-Emory 0.3 MG/0.3ML Injection Solution Auto-injector For a severe reaction: Inject in outer thigh following instructions on package and go to the Emergency room. 1 Each 3 Albuterol Sulfate HFA 108 (90 Base) MCG/ACT Inhalation Aerosol Solution Inhale by mouth 2 Puffs in the morning AND 2 Puffs at noon AND 2 Puffs in the evening AND 2 Puffs before bedtime. 18 g 2 Famotidine 20 MG Oral Tablet (Pepcid) Take by mouth 1 Tablet before bedtime. 30 Tablet 11 Cyclobenzaprine HCl 5 MG Oral Tablet (Flexeril) Take 1 Tablet by mouth 3 times a day as needed for Muscle spasms. 30 Tablet 0 Omeprazole 40 MG Oral Capsule Delayed Release (PriLOSEC) take 1 capsule by mouth every morning 1 HOUR BEFORE THE FIRST MEAL OF THE DAY FOR 1 MONTH 90 Capsule 1 OneTouch Delica Lancets 33G USE UP TO 4 TIMES A DAY DIRECTED 400 Each 3 Gabapentin 300 MG Oral Capsule (Neurontin) Take 1 Capsule by mouth in the morning and 1 Capsule at noon and 1 Capsule before bedtime. 90 Capsule 5 Meloxicam 7.5 MG Oral Tablet (Mobic) TAKE 1-2 TABS BY MOUTH DAILY NEEDED FOR PAIN 60 Tablet 5 Jardiance 25 MG Oral Tablet (Empagliflozin) take 1 tablet by mouth every morning 30 Tablet 3 metFORMIN HCl ER 500 MG Oral Tablet Extended Release 24 Hour (Glucophage XR) take 4 tablet by mouthevery morning 360 Tablet 1 Current Facility-Administered Medications Medication Dose Route Frequency Provider Last Rate Last Admin albuterol sulfate (PROVENTIL) (2.5 MG/3ML) 0.083% inhalation solution 2.5 mg 2.5 mg Nebulizer Q4H PRN Lillian Hung PA-C 2.5 mg at 01/02/19 1043 Past Medical History: Diagnosis Date Esophageal reflux 09/21/07 repeat EGD in 2-3 yrs Esophageal stricture 09/21/07 Gastroparesis 10/02/07 T 1/3=[id number] THROAT SWELLING-PROBABLE ANAPHALAXIS 06/11/2009 Type 2 diabetes, HbA1c goal < 7% (HCC) Past Surgical History: Procedure Laterality Date BREAST LESION,OTHER,EXCISION Right 06/30/2022 EXCISION OF CYST OR TUMOR BREAST performed by Nanette Ball MD at OR [facility] COLONOSCOPY, DIAGNOSTIC (RECTUM) 03/29/07 diverticulosis;repeat in 10 years COLONOSCOPY, DIAGNOSTIC (RECTUM) 06/15/2017 diverticulosis, repeat 10 yrs/[facility] EGD, FLEXIBLE, W/BIOPSY 09/21/07 schattzi ring ; GERD; repeat in 2-3 yrs FOOT/TOE SURGERY NEC Right 10/2010 right 1st toe MP joint replacement HEMORRHOIDECTOMY,EXTERNAL, 2 + COLUMNS 04/04/07 EUA/hemorroidectomy w/LigaSure[place] [place] HYSTERECTOMY ovaries removed, ? cervix REMOVE CATARACT, INSERT LENS PROSTH Left 04/2015 left- Dr. Ireland REVISION OF GREAT TOE Right 11/2014 removal hardware right great toe/foot REVISION OF TOTAL HIP JOINT SURGERY Left 01/13/2011 revision prior left total hip replacement REVISION OF TOTAL HIP JOINT SURGERY Right 07/2013 right toal hip revision- [facility] SHOULDER ARTHROSCOPY SURGERY Right 02/05 right - Dr. Gee TOTAL HIP REPLACEMENT & PROSTHESIS Left 03/05/05 Left hip- Dr. To- [facility] [place] HIP REPLACEMENT & PROSTHESIS Right 2005 right Review of patient's allergies indicates: Allergen Reactions Methocarbamol Hives Baclofen Other (Please comment) Memory loss, dizziness,hearing loss, and headache Celebrex [Celecoxib] Severe depression per pt Erythromycin Hives Bactrim Psych complications Pt reports that it makes her severely depressed Cephalosporins hives Clindamycin Unknown Codeine Food (See Comments) arthroben Latex rash Misc Natural Products Fever Arthroben Mydriacyl [Tropicamide] Conjunctivitis Redness and watery eyes several hours later Other - Environmental anaphylactic reaction to coal/coal smoke, road paving, perfumes. See pt note of 05-12-05. Other Allergy (See Comments) Cat gut suture-severe rash Penicillins hives Phenylephrine Hcl (Pressors) Reaction to eye drops, red watery eyes several hours later Objective: BP 158/72 (BP Site: Right Arm, BP Position: Sitting, BP Cuff Size: Regular) | Pulse 68 | Temp 36.2 C (97.2 F) (Tympanic) | Resp 16 | Wt 84.8 kg (187 lb) | BMI 32.10 kg/m | BSA 1.96 m Review of Systems: As per HPI, all other ROS neg. Physical Exam: General: alert, healthy and no distress Heart: regular rate & rhythm, no murmurs and no gallops Lungs: chest symmetric with normal AP diameter, no chest deformities noted, lungs clear to auscultation Extremities: no joint deformities, effusion, or inflammation, no edema Type 2 diabetes mellitus with hemoglobin A1c goal of less than 7.0% ([facility]) (Primary) - DIABETES FOOT EXAM - HEMOGLOBIN A1C; Future; Expected date: 04/27/2023 - metFORMIN HCl 500 MG Oral Tablet (Glucophage); Take 1 Tablet by mouth 2 times a day with morning and evening meals. - VITAMIN B12; Future; Expected date: 04/27/2023 - LIPID PANEL WITH DIRECT LDL IF TG IS HIGH; Future; Expected date: 04/27/2023 - BASIC METABOLIC PANEL; Future; Expected date: 04/27/2023 Risk and functional assessment Follow up: as needed. Sharee Leblanc DO * Chanelle Rollins RN - 04/27/2023 2:10 PM EST DM Foot Exam completed today. Provider aware. Chanelle Rollins RN Socks and Shoes Removed for Annual Diabetic Foot Screening RIGHT FOOT: No Reddened, Cracking, Or Open Areas Noted. RIGHT Dorsalis Pedis Pulse: Palpable RIGHT Posterior Tibial Pulse: Palpable RIGHT Monofilament:Patient reports feeling monofilament pressure on plantar surface of foot LEFT FOOT: No Reddened, Cracking or Open Areas Noted. LEFT Dorsalis Pedis Pulse: Palpable LEFT Posterior Tibial Pulse: Palpable LEFT Monofilament:Patient reports feeling monofilament pressure on plantar surface of foot Do you need diabetic shoes: No documented in this encounter Plan of Treatment Upcoming Encounters Date Type Department Care Team (Late st Contact Info) Description 08/03/2023 12:40 PM EST Office Visit Dermatology [facility] [address] [facility] [place] [address] Kym Stone PA-C [address] [facility] [place] [phone] 11/08/2023 8:40 AM EDT Office Visit Family Practice [facility] [address] [place] [address] Sharee Leblanc DO [address] [place] [address] 01/09/2024 12:30 PM EDT Imaging Radiology [address] [place] [address] Scheduled Procedures Name Priority Associated Diagnoses Date/Ti [...] 06/24/2020, Additional history exists Mammogram 01/04/2024 01/03/2023, 120 06/2021, 01/01/2022, Additional history exists Diabetic Eye Exam 04/06/2024 04/06/2023, , 03/30/2021, Additional history exists Depression Screening 04/27/2024 04/27/2023 Diabetic Foot Exam 04/27/2024 04/27/2023, 0 09/25/2021, 06/24/2020, Additional history exists GFR 04/27/2024 04/27/2023, 0 07/2022, 09/25/2021, Additional history exists Colonoscopy 06/15/2027 06/15/2017, 03/01, 03/17/2007 Colorectal Cancer Screening 06/15/2027 Lipid Panel 04/27/2028 04/27/2023, 110 12/2021, 01/16/2021, Additional history exists DTaP,Tdap,and Td Vaccines (3 - Td or Tdap) 04/13/2029 04/13/2019, 11/12/2008 GARDASIL-HPV IMMUNIZATION SERIES Aged Out No longer eligible based on patient's age to complete this topic MENINGOCOCCAL (MENACTRA/MENVEO) Aged Out No longer eligible based on patient's age to complete this topic documented as of this encounter Medical Devices Not on filedocumented as of this encounter Results * (ABNORMAL) BASIC METABOLIC PANEL (04/27/2023 3:01 PM EST) BUN 18 6 - 20 mg/dL 04/27/2023 4:06 PM EST [facility] 57-10 Creatinine 0.7 0.5 - 1.0 mg/dL 04/27/2023 4:06 PM EST [facility] [place]10 Estimated Glomerular Filtration Rate >90 >=60 mL/min 04/27/2023 4:06 PM EST [facility] 57-10 Comment:eGFR is calculated b ased on the CKD-EPI 2020 equation Sodium 139 135 - 146 mmol/L 04/27/2023 4:06 PM EST [facility] 57-10 Potassium 4.4 3.5 - 5.1 mmol/L 04/27/2023 4:06 PM EST [facility] 57-10 Chloride 101 98 - 107 mmol/L 04/27/2023 4:06 PM EST [facility] 57-10 CO2 25 22 - 32 mmol/L 04/27/2023 4:06 PM EST [facility] 57-10 Anion Gap 13 7 - 15 mmol/L 04/27/2023 4:06 PM EST [facility] [place] 57-10 Glucose 122(H) 70 - 120 mg/dL 04/27/2023 4:06 PM EST [facility] 57-10 Calcium 10.4(H) 8.4 - 10.2 mg/dL 04/27/2023 4:06 PM EST [facility] 57-10 Blood Venous blood specimen / Unknown Venipuncture / Unknown 04/27/2023 3:01 PM EST 04/27/2023 3:01 PM EST Sharee Leblanc DO LAB BLOOD ORDERABLE S [facility] [place] [facility] 57-10 [address] [place] [address] * (ABNORMAL) LIPID PANEL WITH DIRECT LDL IF TG IS HIGH (04/27/2023 3:01 PM EST) Triglycerides 214(H) <=174 mg/dL 04/28/2023 12:28 AM EST [facility] Comment: Triglyceride Reference Ranges (mg/dL): <150 Acceptable 150-174 Borderline high 175-499 High >=500 Very high Cholesterol 234(H) <200 mg/dL 04/28/2023 12:28 AM EST [facility] Comment: Total Cholesterol Reference Ranges (mg/dL): <200 Desirable 200-239 Borderline high >=240 High HDL Cholesterol 73 >49 mg/dL 12:28 AM EST [facility] Comment: HDL Cholesterol Reference Ranges (mg/dL): >=60 High (Desirable) <50 Low (Undesirable) For Females <40 Low (Undesirable) For Males Non-HDL Cholesterol 161(H) <=159 mg/dL 04/28/2023 12:28 AM EST LAB[facility] Comment: Non-HDL Cholesterol Reference Range (mg/dL): <100 Target level for high risk ASCVD patient <130 Optimal for general population 130-159 Near optimal for general population 160-189 Borderline High 190-219 High >=220 Very High LDL Cholesterol 118 <=129 mg/dL 04/28/2023 12:28 AM EST LAB[facility]ORY [facility] Comment: LDL Cholesterol Reference Ranges (mg/dL): <70 Target level for high risk ASCVD patient <100 Optimal for general population 100-129 Near optimal for general population 130-159 Borderline high 160-189 High >=190 Very high Blood Venous blood specimen / Unknown Venipuncture / Unknown 04/27/2023 3:01 PM EST 04/27/2023 3:01 PM EST Sharee Leblanc DO LAB BLOOD ORDERABLE S LABORATORY [facility] [address] [place] [address] * VITAMIN B12 (04/27/2023 3:01 PM EST) Pathologist [facility] Vitamin B12 1,113 232 - 1,245 pg/mL 04/28/2023 1:08 AM EST LAB[facility]ORY [facility] Blood Venous blood specimen / Unknown Venipuncture / Unknown 04/27/2023 3:01 PM EST 04/27/2023 3:01 PM EST Sharee Larios Julioandrez DO LAB BLOOD ORDERABLE S Performing Organization Address [facility] Co de Phone Number LABORATORY [facility] [address] [place] [address] * (ABNORMAL) HEMOGLOBIN A1C (04/27/2023 3:01 PM EST) Hemoglobin A1C 9.8(H) 4.0 - 5.6 % 04/28/2023 12:29 AM EST [facility] Comment:The use of HbA1c to monitor glycemic status is based on normal hemoglobin and HbA composition. This test should not be used in patients with abnormal hemoglobin that affects the half life of the red blood cell or the in vivo glycation rates. Estimated Average Glucose 235(H) <126 mg/dL 04/28/2023 12:29 AM EST LAB[facility] Blood Venous blood specimen / Unknown Venipuncture / Unknown 04/27/2023 3:01 PM EST 04/27/2023 3:01 PM EST Sharee M Benji DO LAB BLOOD ORDERABLE S Performing Organization Address [facility] Co de Phone Number LAB[facility]ATORY [facility] [address] [place] [address] documented in this encounter Visit Diagnoses Diagnosis Type 2 diabetes mellitus with hemoglobin A1c goal of less than 7.0% (HCC)- Primary Risk and functional assessment Screening for unspecified condition documented in this encounter Advance Directives Documents on File Type Date Recorded Patient Licensed Physical Therapist Expl anation Advance Directives and Prabhjot le Will 03/20/2012 ADVANCE DIRECTIVE Power of Consumer Marketing Analyst 03/20/2012 POWER OF A TTORNEY Latest Code Status on File Code Status Date Activated Date Inactivated Comments Full Code 06/30/2022 11:40 AM 06/30/2022 6:29 PM This o rder reflects the patients wishes and were consensually agreed upon. Question Answer Comments Discussion of Advance Directives occurred with: Patient Does the patient have a Living Will? No Does the patient have Health Care Power of Consumer Marketing Analyst? No Care Teams Seam Stayer Relationship Specialty Start Date End Date Sharee Leblanc DO [facility] [place] [address] PCP - General Family Medicine 06/18/16 documented as of this encounter
--- OUTSIDE RECORDS SUMMARY | 2023-07-08 23:34 | External Medical Summary | Summary of Care ---
Author Name Unknown Organization [facility] Address [address] [place] [address] Phone [phone] Care Team Providers Care Internal Medicine Veterinary Technician Name Role Phone Sharee Leblanc DO Primary Care Provider [phone] Reason for Visit * Reason Onset Date Comments Chest Pain 07/06/2023 Encounter Details Date Type Department Care Team (Late st Contact Info) Description 07/06/2023 Telephone RN NURSE TRIAGE [address] [place] [address] Amanda Klein, [place] [address] Chest Pain Allergies Active Allergy Reactions Criticality Noted Date Comments Baclofen Other (Please comment) Medium 08/19/2014 Memory loss, dizziness,hearing loss, and headache Bactrim Psych complications 10/16/2011 Pt reports that it makes her severely depressed Celecoxib Medium 07/29/2011 Severe depression per pt Cephalosporins 07/23/2003 hives Clindamycin Unknown 07/23/2003 Codeine 07/23/2003 Erythromycin Hives Medium 02/15/2013 Food (See Comments) 11/24/2018 arthroben Latex 11/04/2016 rash Methocarbamol Hives High 08/19/2014 [facility] Natural Products Fever 11/28/2018 Arthroben Tropicamide Conjunctivitis [...] 0 05/07/2013 Active Blood Glucose Monitoring Suppl ([employer] LabsTOUCH ULTRA SYSTEM) w/Device KITIndications:Type 2 diabetes mellitus with hemoglobin A1c goal of less than 7.0% (HCC) Use as directed 4 times a day as needed for Hyperglycemia (high sugar). Use up to four times a day as directed Dx E11.9 1 Kit 0 10/18/2017 Active [place]-3 Fatty Acids (FISH OIL) 1000 MG Capsule Take 1 Capsule by mouth in the morning. 0 Active Bioflavonoid Products (VITAMIN C PLUS) 1000 MG TABS Take by mouth. 0 Ac tive Multiple Vitamins-Minerals (PRESERVISION AREDS 2) CHEW Take by mouth. 0 Active NATURAL SUPPLEMENTIndicatio ns:metabolic synergy, V-qcwlfo-C-Cysteine , lignans, evail, joint formula, GI detox, L-Glutamine, Digestzymes, HTN comples, HTP 5 Take by mouth daily. Indications: metabolic synergy, S-lfhagp-P-Cysteine , lignans, evail, joint formula, GI detox, [...] as of this encounter Miscellaneous Notes * Telephone Encounter - Amanda Klein RN - 07/06/2023 7:25 AM EST This is a nurse triage encounter. If additional action is needed, do not route to nurse triage. Please route encounter to the applicable clinic pool. Situation Yaneth Rios, is a 73 year old female c/o chest pain, which started Tuesday. Background (relevant to the situation: PMH, meds, labs, tx tried) Patient Active Problem List Diagnosis Code ALLERGIC RHINITIS - MIXED TYPE J30.9 SENSORNEUR LOSS.R>L H90.3 ADVANCE DIRECTIVE INFORMATION Esophageal reflux K21.9 Esophageal stricture K22.2 FAMILY HX-BREAST CANCER- sister Z80.3 Elevated blood pressure, situational R03.0 Subjective tinnitus H93.19 LOC PRIM OSTEOART-HIP M16.10 Type 2 diabetes mellitus with hemoglobin A1c goal of less than 7.0% (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) E11.43, K31.84 Mass of wrist, left R22.32 Hx of actinic keratosis Z87.2 Hx of nonmelanoma skin cancer Z85.828 Wt Readings from Last 1 Encounters: 04/27/23 84.8 kg (187 lb) Assessment (professional conclusion, VS) throat swollen, chest pain, flushing, went to ER put on Prednisone goes away but then comes back. Has a protocol she follows, but has been happening more frequently, does have her epi pen in case. Says this has been a life long issue. Recommendation/Request See pcp in 24 hours Return Phone # if needed:[phone] documented in this encounter Plan of Treatment Upcoming Encounters Date Type Department Care Team (Late st Contact Info) Description 07/06/2023 9:00 AM EST Office Visit General Internal Medicine [facility] [address] [place] [address] Kaylen Ball MD [address] [place] [address] [address] 08/03/2023 12:40 PM EST Office Visit Dermatology [facility] [address] [place] [place] [address] Kym Stone PA-C [address] [facility] [place] [phone] 11/08/2023 8:40 AM EDT Office Visit Family Practice [facility] [address] [facility] [place] [address] Sharee Leblanc, DO [address] [place] [address] 01/09/2024 12:30 PM EDT Imaging Radiology [address] [place] [address] Scheduled Procedures Name Priority Associated Diagnoses Date/Ti [...] 09/25/2021, Additional history exists Mammogram 06/23/2024 06/23/2023, 08/0 11/2022, 04/30/2022, Additional history exists Colonoscopy 06/15/2027 06/15/2017, 03/01, 03/17/2007 Colorectal Cancer Screening 06/15/2027 Lipid Panel 04/27/2028 04/27/2023, 11/0 12/2021, 01/16/2021, Additional history exists DTaP,Tdap,and Td Vaccines (3 - Td or Tdap) 04/13/2029 04/13/2019, 11/12/2008 GARDASIL-HPV IMMUNIZATION SERIES Aged Out No longer eligible based on patient's age to complete this topic MENINGOCOCCAL (MENACTRA/MENVEO) Aged Out No longer eligible based on patient's age to complete this topic documented as of this encounter Medical Devices Not on filedocumented as of this encounter Advance Directives Documents on File Type Date Recorded 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 Question Answer Comments Discussion of Advance Directives occurred with: Patient Does the patient have a Living Will? No Does the patient have Health Care Power of Equip Maint Eng? No Care Teams Internal Medicine Veterinary Technician Relationship Specialty Start Date End Date Sharee Leblanc DO [address] [place] [address] PCP - General Family Medicine 06/18/16 documented as of this encounter
--- OUTSIDE RECORDS SUMMARY | 2023-07-08 23:34 | External Medical Summary ---
Author Name Unknown Address Unknown Organization K01:[facility] [place] [address] [facility] [address] Laboratory Report Ordering Provider Test Date Status JAMIE RAJPUTR 04/27/2023 15:01:26 Final Observation Date Value Abnormality Reference (Units ) Status Triglyceride 04/27/2023 15:01:26 214 Above high normal <=174 (mg/dL) Final Triglyceride Reference Range s (mg/dL):
<150 Acceptable
150-174 Borderline high
175-499 High
>=500 Very high Cholesterol 04/27/2023 15:01:26 234 Above high normal <200 (mg/dL) Final Total Cholesterol Reference Ranges (mg/dL):
<200 Desirable
200-239 Borderline high
>=240 High HDL 04/27/2023 15:01:26 73 >49 (mg/dL ) Final HDL Cholesterol Reference Ra nges (mg/dL):
>=60 High (Desirable)
<50 Low (Undesirable) For Females
<40 Low (Undesirable) For Males NON-HDL CHOLESTEROL 04/27/2023 15:01:26 161 Above high normal <=159 (mg/dL) Final Non-HDL Cholesterol Referenc e Range (mg/dL):
<100 Target level for high risk ASCVD patient
<130 Optimal for general population
130-159 Near optimal for general population
160-189 Borderline High
190-219 High
>=220 Very High LDL, (calculated) 04/27/2023 15:01:26 118 <= 129 (mg/dL) Final LDL Cholesterol Reference Ra nges (mg/dL):
<70 Target level for high risk ASCVD patient
<100 Optimal for general population
100-129 Near optimal for general population
130-159 Borderline high
160-189 High
>=190 Very high Performing Location [facility] [place] [address] [facility] [address]
--- OUTSIDE RECORDS SUMMARY | 2023-07-08 23:34 | External Medical Summary | Summary of Care ---
Author Name Unknown Organization [facility] Address [address] [place] [address] Phone [phone] Care Team Providers Care Hand Candy Cutter Name Role Phone Sharee Leblanc DO Primary Care Provider [phone] Reason for Visit * Reason Comments Outpatient Testing Encounter Details Date Type Department Care Team (Late st Contact Info) Description 04/27/2023 3:00 PM EST Laboratory Laboratory, [facility] [address] [facility] [place] [phone] [facility] [address] [place] [address] Type 2 diabetes mellitus with hemoglobin A1c goal of less than 7.0% ([facility]) Allergies Active Allergy Reactions Criticality Noted Date [...] as of this encounter (statuses as of 04/27/2023) Medications Medication Sig Dispensed Refills Start Date End Date Status MULTIPLE VITAMIN PO CAPS None Entered 0 Active diphenhydrAMINE (BENADRYL) 25 MG Capsule Take 2 Capsules by mouth. 0 05/07/2013 Active Blood Glucose Monitoring Suppl (Tip or Skip ULTRA SYSTEM) w/Device KITIndications:Type 2 diabetes mellitus with hemoglobin A1c goal of less than 7.0% (HCC) Use as directed 4 times a day as needed for Hyperglycemia (high sugar). Use up to four times a day as directed Dx E11.9 1 Kit 0 10/18/2017 Active [place]-3 Fatty Acids (FISH OIL) 1000 MG Capsule Take 1 Capsule by mouth in the morning. 0 Active Bioflavonoid Products (VITAMIN C PLUS) 1000 MG TABS Take by mouth. 0 Ac tive Multiple Vitamins-Minerals (PRESERVISION AREDS 2) CHEW Take by mouth. 0 Active NATURAL SUPPLEMENTIndicatio ns:metabolic synergy, C-plwcgu-L-Cysteine , lignans, evail, joint formula, GI detox, L-Glutamine, Digestzymes, HTN comples, HTP 5 Take by mouth daily. Indications: metabolic synergy, E-lmxxod-M-Cysteine , lignans, evail, joint formula, GI detox, [...] as of this encounter (statuses as of 04/27/2023) Active Problems Problem Noted Date Diagnosed Date [...] as of this encounter (statuses as of 04/27/2023) Resolved Problems Problem Noted Date Diagnosed Date [...] as of this encounter (statuses as of 04/27/2023) Immunizations Name Administration Dates Next Due Pneumococcal [...] Date Recorded PHQ Adult Total Score 0 04/06/2022 Hunger Vital Sign Answer Date Recorded Within [...] on file documented as of this encounter Plan of Treatment Upcoming Encounters Date Type Department Care Team (Late st Contact Info) Description 08/03/2023 12:40 PM EST Office Visit Dermatology [facility] [address] [place] [address] Kym Stone PA-C [address] [place] [phone] 11/08/2023 8:40 AM EDT Office Visit Family Practice [facility] [address] [place] [address] Sharee Leblanc, [address] [place] [address] 01/09/2024 12:30 PM EDT Imaging Radiology [facility] [address] [facility] [address] [place] [address] Pending Results Name Type Priority Associated Diagnoses Date /Time HEMOGLOBIN A1C Lab Routine Type 2 diabetes mellitus with hemoglobin A1c goal of less than 7.0% ([facility]) 04/27/2023 3:01 PM EST VITAMIN B12 Lab Routine Type 2 diabetes mellitus with hemoglobin A1c goal of less than 7.0% ([facility]) 04/27/2023 3:01 PM EST LIPID PANEL WITH DIRECT LDL IF TG IS HIGH Lab Routine Type 2 diabetes mellitus with hemoglobin A1c goal of less than 7.0% ([facility]) 04/27/2023 3:01 PM EST BASIC METABOLIC PANEL Lab Routine Type 2 diabetes mellitus with hemoglobin A1c goal of less than 7.0% ([facility]) 04/27/2023 3:01 PM EST Scheduled Procedures Name Priority Associated Diagnoses Date/Ti [...] 06/30/2016 Influenza Vaccine (FLU shot) (#1) 2023 Depression Screening 04/06/2023 04/06/2022 GFR 06/01/2023 06/01/2022, 04/2 01/2022, 03/11/2021, Additional history exists HbA1c 07/06/2023 01/03/2023, 07/2022, 04/06/2022, Additional history exists Albumin/Creatinine Ratio 01/04/2024 023, 09/25/2021, 06/24/2020, Additional history exists Mammogram 01/04/2024 01/03/2023, 1206/2021, 01/01/2022, Additional history exists Diabetic Eye Exam 04/06/2024 04/06/2023, , 03/30/2021, Additional history exists Diabetic Foot Exam 04/27/2024 04/27/2023, 0 09/25/2021, 06/24/2020, Additional history exists Lipid Panel 04/06/2027 04/06/2022, 12/29, 04/13/2019, Additional history exists Colonoscopy 06/15/2027 06/15/2017, 03/01, 03/17/2007 Colorectal Cancer Screening 06/15/2027 DTaP,Tdap,and Td Vaccines (3 - Td or Tdap) 04/13/2029 04/13/2019, 11/12/2008 GARDASIL-HPV IMMUNIZATION SERIES Aged Out No longer eligible based on patient's age to complete this topic MENINGOCOCCAL (MENACTRA/MENVEO) Aged Out No longer eligible based on patient's age to complete this topic documented as of this encounter Medical Devices Not on filedocumented as of this encounter Visit Diagnoses Diagnosis Type 2 diabetes mellitus with hemoglobin A1c goal of less than 7.0% (HCC) documented in this encounter Advance Directives Documents on File Type Date Recorded Patient Coutierier Expl anation Advance Directives and Livin g Will 03/20/2012 ADVANCE DIRECTIVE Power of Fur Dresser 03/20/2012 POWER OF A TTORNEY Latest Code Status on File Code Status Date Activated Date Inactivated Comments Full Code 06/30/2022 11:40 AM 06/30/2022 6:29 PM This o rder reflects the patients wishes and were consensually agreed upon. Question Answer Comments Discussion of Advance Directives occurred with: Patient Does the patient have a Living Will? No Does the patient have Health Care Power of Fur Dresser? No Care Teams Hand Candy Cutter Relationship Specialty Start Date End Date Sharee Leblanc DO [address] [place] [address] PCP - General Family Medicine 06/18/16 documented as of this encounter
--- OUTSIDE RECORDS SUMMARY | 2023-07-08 23:34 | External Medical Summary ---
Author Name Unknown Address Unknown Organization K01:LABORATORY [facility] - [address] [place] [address] Laboratory Report Ordering Provider Test Date Status KECIA RAJPUT 04/27/2023 15:01:26 Final Observation Date Value Abnormality Reference (Units ) Status Vitamin B12 04/27/2023 15:01:26 [phone] (pg/mL) Final Performing Location LABORATORY [facility] - [address] [place] [address]
--- OUTSIDE RECORDS SUMMARY | 2023-07-08 23:34 | External Medical Summary | Continuity of Care Document ---
Author Name Unknown Organization [facility] [address] [place] [id number] Address [address] [id number] Care Team Providers Care Auto Radio Mechanic Name Role Phone Sharee Leblanc Primary Care Physician [phone] Encounter [facility] [id number] Date(s): 03/14/23 - 05/29/23 [facility] [address] [place] [id number] [address] [id number] Discharge Disposition: Home or Self Care Attending Physician: CHACHA Henry, Carlos Hilario Referring Physician: ANGELA Barrera Karyn Allergies, Adverse Reactions, Alerts Substance Reaction Severity Status codeine Vomiting Active clindamycin unknown Active erythromycin Diarrhea Severe Stomach Cramps Hives Active Allergy Not found in Search 1 Rash Rash Active baclofen Active cephalosporins unknown Active penicillins Hives Active Robaxin Active Bactrim Diarrhea Nausea Active Celebrex Suicidal Active petrolatum topical 100% ointment anaphalaxsis Active Dust mite Hives Active Latex Rash Active 1[employer] [place] and Cat Gut Sutures Medications 5 HTP Start: 04/10/19 15:03:00 EST, 5 HTP, 100 = mg, PO, Daily Start Date: 04/10/19 Status: Ordered Alpha-Linolenic Start: 04/10/19 15:06:00 EST, Alpha-Linolenic, 300 = mg, PO, Daily Start Date: 04/10/19 Status: Ordered Astaxanthin Start: 04/10/19 15:06:00 EST, Astaxanthin, 4 = mg, PO, Daily Start Date: 04/10/19 Status: Ordered Ativan 0.5 mg oral tablet Start: 01/07/23 16:47:00 EDT, See Instructions, Disp# 2 tab, 1 tab PO 1/2 hour prior to MRI. May redose 5 minutes prior to MRI if needed to relieve anxiety., PRN: as needed for anxiety, Pharmacy: [facility] #[id number] Start Date: 01/07/23 Status: Ordered Benadryl Start: 01/05/11 10:52:00, 50 mg =, PRN: allergic reactions Start Date: 01/05/11 Status: Ordered Calcium and Magnesium Start: 04/10/19 15:02:00 EST, Calcium and Magnesium, 400mg/ 200mg, PO, Daily Start Date: 04/10/19 Status: Ordered Cinnamon Start: 01/14/11 5:41:00, 1,000 mg =, PO, bid, cap Start Date: 01/14/11 Status: Ordered Digestzymes Start: 04/10/19 15:01:00 EST, Digestzymes, 1 tab, PO, Daily Start Date: 04/10/19 Status: Ordered EpiPen Auto-Injector 0.3 mg injectable kit IM, ONCE, Refills: 0, Start: 06/10/09 11:53:20 Start Date: 06/10/09 Status: Ordered Fish Oil oral capsule See Instructions, Refills: 0, Start: 06/10/09 11:51:23 Start Date: 06/10/09 Status: Ordered Joint formula Start: 07/26/13 14:20:00, Joint formula, Daily Start Date: 07/26/13 Status: Ordered L-Glutamine Start: 04/10/19 15:01:00 EST, L-Glutamine, 1 tab, PO, Daily Start Date: 04/10/19 Status: Ordered L-Threonine Start: 04/10/19 15:04:00 EST, L-Threonine, 500 = mg, PO, Daily Start Date: 04/10/19 Status: Ordered Lignans with Lycopene Start: 04/10/19 14:59:00 EST, Lignans with Lycopene, 1 tab, PO, Daily Start Date: 04/10/19 Status: Ordered meloxicam 7.5 mg oral tablet Start: 11/06/20 9:09:00 EDT, See Instructions, Disp# 30 tab, Refills: 2, TAKE 1 TABLET BY MOUTH EVERY DAY, Pharmacy: [facility]/pharmacy #[id number] Start Date: 11/06/20 Status: Ordered metFORMIN 500 mg oral tablet 1 tab, PO, bid Start Date: 09/25/20 Status: Ordered methylsufonylmethane Start: 04/10/19 15:04:00 EST, methylsufonylmethane, 1 tab, PO, Daily Start Date: 04/10/19 Status: Ordered Multiple Vitamins oral tablet 1 tab, PO, Daily, Refills: 0, Start: 06/10/09 11:50:58 Start Date: 06/10/09 Status: Ordered O-Ybznez-E-Cyteine Start: 04/10/19 14:59:00 EST, B-Gvvamp-F-Cyteine, 1 tab, PO, Daily Start Date: 04/10/19 Status: Ordered PreserVision AREDS 2 oral capsule Start: 04/10/19 14:58:00 EST, 1 cap, PO, Daily Start Date: 04/10/19 Status: Ordered Q Evail Start: 04/10/19 15:00:00 EST, Q Evail, 100 = mg, PO, Daily Start Date: 04/10/19 Status: Ordered unknown medication Start: 10/12/18 11:30:00 EDT, CBD Oil, Note to Pharmacy: CBD oil Start Date: 10/12/18 Status: Ordered Vitamin B Complex Start: 04/10/19 15:06:00 EST, 1 tab, PO, Daily Start Date: 04/10/19 Status: Ordered Vitamin C 500 mg oral tablet Start: 01/05/11 10:52:00, 1 tab, PO, Daily Start Date: 01/05/11 Status: Ordered Vitamin D3 1000 intl units oral capsule Start: 06/10/09 11:52:03, 1 cap, PO, Daily, Refills: 0, current medication from another provider Start Date: 06/10/09 Status: Ordered vitamin K2 Start: 04/10/19 15:03:00 EST, vitamin K2, 180 = mcg, PO, Daily Start Date: 04/10/19 Status: Ordered Voltaren 1% topical gel Start: 01/13/18 9:58:00 EDT, 4 g =, topical, qid, Disp# 100 g, Refills: 3, PRN: Pain, Pharmacy: [facility]/pharmacy #[id number] Start Date: 01/13/18 Stop Date: 05/13/18 Status: Ordered Zinc with Selenium Start: 04/10/19 15:05:00 EST, Zinc with Selenium, 1 tab, PO, Daily Start Date: 04/10/19 Status: Ordered Problem List Condition Confirmation Course Effective Dates Status Health St atus Informant Arthritis Confirmed Active Back pain Confirmed Active Back pain Confirmed Active Bilateral hip pain Confirmed Active Chronic low back pain Confirmed Active Depression Confirmed Active Foot pain Confirmed Active Fracture Of Spinous Process Of Lumbar Vertebra Confirmed Active GERD Confirmed Active Tendinopathy of left gluteal region Confirmed Active right hip replacement 1 Confirmed Active History of total left hip replacement Confirmed Active Hysterectomy Confirmed Active Shoulder impingement Confirmed Active Rotator cuff injury Confirmed Active Lumbar facet joint pain Confirmed Active Cervical pain (neck) Confirmed Active Sacroiliitis Confirmed Active Lumbar scoliosis Confirmed Active Shingles 2 Confirmed Active Shoulder pain 3 Confirmed Active Thoracic back pain Confirmed Active Tumor 4 Confirmed Active Vertigo 5 Confirmed Active 63669. 19482. 3right. 4right lower lung 2006. 50688. Procedures Procedure Date Related Diagnosis Body Site Status Nose 12/18/21 Completed Cataract 1 07/08/15 Completed Cataract 2 06/03/15 Completed Toe 3 11/2014 Completed Revision of hip replacement, Left 01/13/11 Completed Surgical procedure, Right Gr eat Toe Joint Replacement 11/11/10 Completed Surgical procedure, Right Sh oulder Repair 01/24/09 Completed Hemorrhoidectomy 02/2007 Complete d Hip arthroplasty, Right Total 03/29/06 Completed Hip arthroplasty, Left Total 03/05/05 Completed Partial hysterectomy 11/1997 Comp leted Breast 4 Completed 1right eye 2left eye 3right 4lymph node Social History Social History Type Response Smoking Status Never smoked cigaret jacquelyn Sex Female Patient Care team information Care Team Personnel Name: ANGELA Barrera Tammy M 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 Media Manager - Orthopaedic Surg Member Role: Lifetime Relationship Address: Address: [address] [place] [address] [place] [id number] Name: DO Leblanc Laura M Position: Referring DIRECT Member Role: Primary Care Provider Address: Address: [facility] [address] [address] [place] Care Team Related Persons Name: JOSE MARIA SOUSA Address: home [address], [place] [id number] Name: SHARONDA LYNN Address: home [address] [facility] [place] [id number]
--- OUTSIDE RECORDS SUMMARY | 2023-07-08 23:35 | External Medical Summary | Summary of Care ---
Author Name Unknown Organization [facility] Address [address] [place] [address] Phone [phone] Care Team Providers Care Soft Sugar Supervisor Name Role Phone Sharee Leblanc DO Primary Care Provider [phone] Encounter Details Date Type Department Care Team (Late st Contact Info) Description 04/08/2023 Orders Only Family Practice [facility] [address] [place] [address] Sharee Leblanc DO [address] [place] [address] Allergies Active Allergy Reactions Criticality Noted Date Comments Baclofen Other (Please comment) Medium 08/19/2014 Memory loss, dizziness,hearing loss, and headache Bactrim Psych complications 10/16/2011 Pt reports that it makes her severely depressed Celecoxib Medium 07/29/2011 Severe depression per pt Cephalosporins 07/23/2003 hives Clindamycin Unknown 07/23/2003 Codeine 07/23/2003 Erythromycin Hives Medium 02/15/2013 Food (See Comments) 11/24/2018 arthroben Latex 11/04/2016 rash Methocarbamol Hives High 08[facility]2014 [facility] Fever 11/28/2018 Arthroben Tropicamide Conjunctivitis [...] as of this encounter (statuses as of 04/08/2023) Medications Medication Sig Dispensed Refills Start Date End Date Status MULTIPLE VITAMIN PO CAPS None Entered 0 Active diphenhydrAMINE (BENADRYL) 25 MG Capsule Take 2 Capsules by mouth. 0 05/07/2013 Active Blood Glucose Monitoring Suppl (JobHorecaTOUCH ULTRA SYSTEM) w/Device KITIndications:Typ e 2 diabetes mellitus with hemoglobin A1c goal of less than 7.0% (HCC) Use as directed 4 times a day as needed for Hyperglycemia (high sugar). Use up to four times a day as directed Dx E11.9 1 Kit 0 10/18/2017 Active [place]-3 Fatty Acids (FISH OIL) 1000 MG Capsule Take 1 Capsule by mouth in the morning. 0 Active Bioflavonoid Products (VITAMIN C PLUS) 1000 MG TABS Take by mouth. 0 Active Multiple Vitamins-Minerals (PRESERVISION AREDS 2) CHEW Take by mouth. 0 Active NATURAL SUPPLEMENTIndicati ons:metabolic synergy, Z-uvnmmf-B-Cystein e, lignans, evail, joint formula, GI detox, L-Glutamine, Digestzymes, HTN comples, HTP 5 Take by mouth daily. Indications: metabolic synergy, A-aswiue-F-Cysteine , lignans, evail, joint formula, GI detox, L-Glutamine, Digestzymes, HTN comples, HTP 5 0 Active Calcium-Magnesium 500-250 MG Oral Tablet Take by mouth. 0 Active LORAzepam (ATIVAN) 0.5 MG TabletIndications: Stress due to illness of family member Take 1 Tab by mouth 2 times a day as needed for Anxiety. 10 Tab 0 01/02/2019 Active Astaxanthin 4 MG Oral Capsule Take by mouth 4 mg daily . 0 Active OneTouch Ultra In Vitro Strip (Glucose Blood)Indications: Type 2 diabetes mellitus with hemoglobin A1c [...] HFA 108 (90 Base) MCG/ACT Inhalation Aerosol SolutionIndication s:ROCHE (dyspnea on exertion) Inhale by mouth 2 Puffs in the morning AND 2 Puffs at noon AND 2 Puffs in the evening AND 2 Puffs before bedtime. 18 g 2 09/25/2021 Active Famotidine 20 MG Oral Tablet (Pepcid)Indication s:Gastroesophageal reflux disease, unspecified whether esophagitis present Take by mouth 1 Tablet before bedtime. 30 Tablet 11 09/25/2021 Active Cyclobenzaprine HCl 5 MG Oral Tablet (Flexeril)Indicati ons:Acute midline low back pain without sciatica Take 1 Tablet by mouth 3 times a day as needed for Muscle spasms. 30 Tablet 0 07/08/2022 Active Meloxicam 7.5 MG Oral Tablet (Mobic)Indications :Neck pain TAKE 1-2 TABS BY MOUTH DAILY NEEDED FOR PAIN 60 Tablet 5 09/27/2022 Active metFORMIN HCl ER 500 MG Oral Tablet Extended Release 24 Hour (Glucophage XR)Indications:Typ e 2 diabetes mellitus with hemoglobin A1c goal of less than 7.0% (HCC) take 4 tablet by mouth every morning 360 Tablet 1 10/30/2022 Active Omeprazole 40 MG Oral Capsule Delayed Release (PriLOSEC)Indicati ons:Gastroesophage al reflux disease without esophagitis take 1 capsule by mouth every morning 1 HOUR BEFORE THE FIRST MEAL OF THE DAY FOR 1 MONTH 90 Capsule 1 12/09/2022 Active Empagliflozin 25 MG Oral Tablet (Jardiance)Indicat ions:Type 2 diabetes mellitus with hemoglobin A1c goal of less than 7.0% (HCC) Take 1 Tablet by mouth in the morning. 30 Tablet 3 12/30/2022 Active OneTouch Delica Lancets 33GIndications:Typ e 2 diabetes mellitus with hemoglobin A1c goal of less than 7.0% (HCC) USE UP TO 4 TIMES A DAY DIRECTED 400 Each 3 03/15/2023 Active Hospital, Clinic, or Other Facility Administered Medication Ordered Dose Route Frequency Start Date End Date Status albuterol sulfate (PROVENTIL) (2.5 MG/3ML) 0.083% inhalation solution 2.5 mgIndications:ROCHE (dyspnea on exertion) 2.5 mg NEBULIZER Q4H PRN 01/02/2019 Act pranay documented as of this encounter (statuses as of 04/08/2023) Active Problems Problem Noted Date Diagnosed Date [...] as of this encounter (statuses as of 04/08/2023) Resolved Problems Problem Noted Date Diagnosed Date [...] as of this encounter (statuses as of 04/08/2023) Immunizations Name Administration Dates Next Due Pneumococcal [...] 2:20 PM EST Office Visit Family Practice [facility] [address] [place] [address] Sharee Leblanc, [address] [place] [address] 08/03/2023 12:40 PM EST Office Visit Dermatology [facility] [address] [place] [address] Kym Stone PA-C [address] [facility] [place] [phone] 01/09/2024 12:30 PM EDT Imaging Radiology [facility] [place] [address] [place] [address] Scheduled Procedures Name Priority Associated Diagnoses Date/Ti [...] PCV) 06/04/2010 06/04/2009 DXA Scan 06/30/2018 06/30/2016 Diabetic Foot Exam 09/25/2022 09/25/2021, 0 06/24/2020, 10/06/2018, Additional history exists Influenza Vaccine (FLU shot) (#1) 2023 Depression Screening 04/06/2023 04/06/2022 GFR 06/01/2023 06/01/2022, 08/29, 03/11/2021, Additional history exists HbA1c 07/06/2023 01/03/2023, 07/2022, 04/06/2022, Additional history exists Albumin/Creatinine Ratio 01/04/2024 023, 09/25/2021, 06/24/2020, Additional history exists Mammogram 01/04/2024 01/03/2023, 1206/2021, 01/01/2022, Additional history exists Diabetic Eye Exam 04/08/2024 04/06/2023, , 03/30/2021, Additional history exists Lipid Panel 04/06/2027 04/06/2022, [...] Procedure Name Priority Date/Time Associated Diagnosis Comments DIABETIC EYE EXAM Routine 04/06/2023 documented in this encounter Results * DIABETIC EYE EXAM (04/06/2023) 04/06/2023 Niko Ireland MD OTHER OUTSIDE LAB (SEE SCANNED REPORT) documented in this encounter Advance Directives Documents on File Type Date Recorded 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 Question Answer Comments Discussion of Advance Directives occurred with: Patient Does the patient have a Living Will? No Does the patient have Health Care Power of Mobile Phlebotomist? No Care Teams Soft Sugar Supervisor Relationship Specialty Start Date End Date Sharee Leblanc DO [address] [place] [phone] PCP - General Family Medicine 06/18/16 documented as of this encounter
--- OUTSIDE RECORDS SUMMARY | 2023-07-08 23:35 | External Medical Summary | Summary of Care ---
Author Name Unknown Organization [facility] Address [address] [place] [address] Phone [phone] Care Team Providers Care Associate Financial Representative Name Role Phone Sharee Leblanc DO Primary Care Provider [phone] Reason for Visit * Reason Onset Date Comments Fax 04/18/2023 Encounter Details Date Type Department Care Team (Late st Contact Info) Description 04/18/2023 Telephone Family Practice [facility] [address] [place] [address] Sharee Leblanc DO [address] [place] [address] Fax Allergies Active Allergy Reactions Criticality Noted Date Comments Baclofen Other (Please comment) Medium 08/19/2014 Memory loss, dizziness,hearing loss, and headache Bactrim Psych complications 10/16/2011 Pt reports that it makes her severely depressed Celecoxib Medium 07/29/2011 Severe depression per pt Cephalosporins 07/23/2003 hives Clindamycin Unknown 07/23/2003 Codeine 07/23/2003 Erythromycin Hives Medium 02/15/2013 Food (See Comments) 11/24/2018 arthroben Latex 11/04/2016 rash Methocarbamol Hives High [facility] Fever 11/28/2018 Arthroben Tropicamide [...] as of this encounter (statuses as of 04/18/2023) Medications Medication Sig Dispensed Refills Start Date End Date Status MULTIPLE VITAMIN PO CAPS None Entered 0 Active diphenhydrAMINE (BENADRYL) 25 MG Capsule Take 2 Capsules by mouth. 0 05/07/2013 Active Blood Glucose Monitoring Suppl ([employer] ULTRA SYSTEM) w/Device KITIndications:Typ e 2 diabetes mellitus with hemoglobin A1c goal of less than 7.0% (HCC) Use as directed 4 times a day as needed for Hyperglycemia (high sugar). Use up to four times a day as directed Dx E11.9 1 Kit 0 10/18/2017 Active [place]-3 Fatty Acids (FISH OIL) 1000 MG Capsule Take 1 Capsule by mouth in the morning. 0 Active Bioflavonoid Products (VITAMIN C PLUS) 1000 MG TABS Take by mouth. 0 Active Multiple Vitamins-Minerals (PRESERVISION AREDS 2) CHEW Take by mouth. 0 Active NATURAL SUPPLEMENTIndicati ons:metabolic synergy, M-ocndmb-B-Cystein e, lignans, evail, joint formula, GI detox, L-Glutamine, Digestzymes, HTN comples, HTP 5 Take by mouth daily. Indications: metabolic synergy, U-mxnbxe-P-Cysteine , lignans, evail, joint formula, GI detox, [...] the morning. 30 Tablet 3 12/30/2022 Active Wilda Lomax 33GIndications:Typ e 2 diabetes mellitus with hemoglobin [...] as of this encounter (statuses as of 04/18/2023) Active Problems Problem Noted Date Diagnosed Date [...] as of this encounter (statuses as of 04/18/2023) Resolved Problems Problem Noted Date Diagnosed Date [...] as of this encounter (statuses as of 04/18/2023) Immunizations Name Administration Dates Next Due Pneumococcal [...] encounter Miscellaneous Notes * Telephone Encounter - Frannie Richardson - 04/18/2023 9:05 AM EST Faxed * Telephone Encounter - Chary Pedroza OSA - 04/18/2023 8:31 AM EST Caller requesting the following information to be faxed: Name/Company of caller: Pt Information requested to be faxed: Physical Therapy Referral Fax number: [phone] Attention to Name/Company: [facility] Any additional information?: documented in this encounter Plan of Treatment Upcoming Encounters Date Type Department Care Team (Late st Contact Info) Description 04/27/2023 2:20 PM EST Office Visit [facility] [place] [address] Sharee Leblanc DO [address] [place] [address] 08/03/2023 12:40 PM EST Office Visit Dermatology [facility] [address] [place] [address] Kym Stone PA-C [address] [place] [id number] 01/09/2024 12:30 PM EDT Imaging Radiology [address] [facility] [place] [address] Scheduled Procedures Name Priority Associated Diagnoses Date/Ti [...] Depression Screening 04/06/2023 04/06/2022 GFR 06/01/2023 06/01/2022, 04/01/2022, 03/11/2021, Additional history exists HbA1c 07/06/2023 01/03/2023, 07/2022, 04/06/2022, Additional history exists Albumin/Creatinine Ratio 01/04/2024 023, 09/25/2021, 06/24/2020, Additional history exists Mammogram 01/04/2024 01/03/2023, 1206/2021, 01/01/2022, Additional history exists Diabetic Eye Exam 04/06/2024 04/06/2023, , 03/30/2021, Additional history exists Lipid [...] Documents on File Type Date Recorded 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 Question Answer Comments Discussion of Advance Directives occurred with: Patient Does the patient have a Living Will? No Does the patient have Health Care Power of Hatchery Attendant? No Care Teams Associate Financial Representative Relationship Specialty Start Date End Date Sharee Leblanc DO [address] [place] [address] PCP - General Family Medicine 06/18/16 documented as of this encounter
--- OUTSIDE RECORDS SUMMARY | 2023-07-08 23:35 | External Medical Summary | Summary of Care ---
Author Name Unknown Organization [facility] Address [address] [place] [address] Phone [phone] Care Team Providers Care Box Brander Name Role Phone Atiya Mcdonnell DO Primary Care Provider [phone] Reason for Visit * Reason Comments eRx-Medication Refill Encounter Details Date Type Department Care Team (Late st Contact Info) Description 04/24/2023 Refill Family Practice [facility] [address] [place] [address] Atiya Mcdonnell DO [address] [place] [address] Neck pain Allergies Active Allergy Reactions Criticality Noted Date Comments Baclofen Other (Please comment) Medium 08/19/2014 Memory loss, dizziness,hearing loss, and headache Bactrim Psych complications 10/16/2011 Pt reports that it makes her severely depressed Celecoxib Medium 07/29/2011 Severe depression per pt Cephalosporins 07/23/2003 hives Clindamycin Unknown 07/23/2003 Codeine 07/23/2003 Erythromycin Hives Medium 02/15/2013 Food (See Comments) 11/24/2018 arthroben Latex 11/04/2016 rash Methocarbamol Hives High 08/19/2014 [facility] [place] Natural Products Fever 11/28/2018 Arthroben Tropicamide Conjunctivitis [...] as of this encounter (statuses as of 04/25/2023) Medications Medication Sig Dispensed Refills Start Date End Date Status MULTIPLE VITAMIN PO CAPS None Entered 0 Active diphenhydrAMINE (BENADRYL) 25 MG Capsule Take 2 Capsules by mouth. 0 3 Active Blood Glucose Monitoring Suppl (NetMovies ULTRA SYSTEM) w/Device KITIndications:Ty pe 2 diabetes mellitus with hemoglobin A1c goal of less than 7.0% (HCC) Use as directed 4 times a day as needed for Hyperglycemia (high sugar). Use up to four times a day as directed Dx E11.9 1 Kit 0 8 Active [place]-3 Fatty Acids (FISH OIL) 1000 MG Capsule Take 1 Capsule by mouth in the morning. 0 Active Bioflavonoid Products (VITAMIN C PLUS) 1000 MG TABS Take by mouth. 0 Active Multiple Vitamins-Minerals (PRESERVISION AREDS 2) CHEW Take by mouth. 0 Active NATURAL SUPPLEMENTIndicat ions:metabolic synergy, M-gpgbbb-R-Cystei ne, lignans, evail, joint formula, GI detox, L-Glutamine, Digestzymes, HTN comples, HTP 5 Take by mouth daily. Indications: metabolic synergy, A-pjdgak-J-Cystei ne, lignans, evail, joint formula, GI detox, L-Glutamine, Digestzymes, HTN comples, HTP 5 0 Active Calcium-Magnesium 500-250 MG Oral Tablet Take by mouth. 0 Active LORAzepam (ATIVAN) 0.5 MG TabletIndications :Stress due to illness of family member Take 1 Tab by mouth 2 times a day as needed for Anxiety. 10 Tab 0 9 Active Astaxanthin 4 MG Oral Capsule Take by mouth 4 mg daily . 0 Active OneTouch Ultra In Vitro Strip (Glucose Blood)Indications :Type 2 diabetes mellitus with hemoglobin A1c goal of less than 7.0% (HCC) USE DIRECTED 4 TIMES A DAY NEEDED FOR HYPERGLYCEMIA (HIGH SUGAR). DX E11.9 400 Strip 3 2 Active EpiPen 2-[place] 0.3 MG/0.3ML Injection Solution Auto-injector For a severe reaction: Inject in outer thigh following instructions on package and go to the Emergency room. 1 Each 3 2 Active Albuterol Sulfate HFA 108 (90 Base) MCG/ACT Inhalation Aerosol SolutionIndicatio ns:ROCHE (dyspnea on exertion) Inhale by mouth 2 Puffs in the morning AND 2 Puffs at noon AND 2 Puffs in the evening AND 2 Puffs before bedtime. 18 g 2 2 Active Famotidine 20 MG Oral Tablet (Pepcid)Indicatio ns:Gastroesophage al reflux disease, unspecified whether esophagitis present Take by mouth 1 Tablet before bedtime. 30 Tablet 11 2 Active Cyclobenzaprine HCl 5 MG Oral Tablet (Flexeril)Indicat ions:Acute midline low back pain without sciatica Take 1 Tablet by mouth 3 times a day as needed for Muscle spasms. 30 Tablet 0 3 Active metFORMIN HCl ER 500 MG Oral Tablet Extended Release 24 Hour (Glucophage XR)Indications:Ty pe 2 diabetes mellitus with hemoglobin A1c goal of less than 7.0% (HCC) take 4 tablet by mouth every morning 360 Tablet 1 3 Active Omeprazole 40 MG Oral Capsule Delayed Release (PriLOSEC)Indicat ions:Gastroesopha geal reflux disease without esophagitis take 1 capsule by mouth every morning 1 HOUR BEFORE THE FIRST MEAL OF THE DAY FOR 1 MONTH 90 Capsule 1 3 Active Empagliflozin 25 MG Oral Tablet (Jardiance)Indica tions:Type 2 diabetes mellitus with hemoglobin A1c goal of less than 7.0% (HCC) Take 1 Tablet by mouth in the morning. 30 Tablet 3 3 Active OneTouch Delica Lancets 33GIndications:Ty pe 2 diabetes mellitus with hemoglobin A1c goal of less than 7.0% (HCC) USE UP TO 4 TIMES A DAY DIRECTED 400 Each 3 3 Active Gabapentin 300 MG Oral Capsule (Neurontin)Indica tions:Lumbar radiculopathy Take 1 Capsule by mouth in the morning and 1 Capsule at noon and 1 Capsule before bedtime. 90 Capsule 5 3 Active Meloxicam 7.5 MG Oral Tablet (Mobic)Indication s:Neck pain TAKE 1-2 TABS BY MOUTH DAILY NEEDED FOR PAIN 60 Tablet 5 3 Active Meloxicam 7.5 MG Oral Tablet (Mobic)Indication s:Neck pain TAKE 1-2 TABS BY MOUTH DAILY NEEDED FOR PAIN 60 Tablet 5 3 04/25/20 23 Discontinued Hospital, Clinic, or Other Facility Administered Medication Ordered Dose Route Frequency Start Date End Date Status albuterol sulfate (PROVENTIL) (2.5 MG/3ML) 0.083% inhalation solution 2.5 mgIndications:ROCHE (dyspnea on exertion) 2.5 mg NEBULIZER Q4H PRN 01/02/2019 Act pranay documented as of this encounter (statuses as of 04/25/2023) Active Problems Problem Noted Date Diagnosed Date [...] as of this encounter (statuses as of 04/25/2023) Resolved Problems Problem Noted Date Diagnosed Date [...] as of this encounter (statuses as of 04/25/2023) Immunizations Name Administration Dates Next Due Pneumococcal [...] encounter Miscellaneous Notes * Telephone Encounter - Jul[facility] - 04/25/2023 11:30 AM ESTSigned Prescriptions: Disp Refills Meloxicam 7.5 MG Oral Tablet (Mobic) 60 Tab*5 Sig: TAKE 1-2 TABSBY MOUTH DAILY NEEDED FOR PAINAuthorizing Provider: ATIYA MCDONNELL User: NANCY JUÁREZ documented in this encounter Plan of Treatment Upcoming Encounters Date Type Department Care Team (Late st Contact Info) Description 04/27/2023 2:20 PM EST Office Visit [facility] Practice [facility] [address] [place] [address] Atiya Mcdonnell DO [address] [facility] [place] [address] 08/03/2023 12:40 PM EST Office Visit [place]ology [facility] [address] [facility] [place] [address] Kym Stone PA-C [address] [facility] [place] [phone] 01/09/2024 12:30 PM EDT Imaging Radiology [address] [facility] [place] [address] Scheduled Procedures Name Priority Associated Diagnoses Date/Ti [...] 03/11/2021, Additional history exists HbA1c 07/06/2023 01/03/2023, 010 07/2022, 04/06/2022, Additional history exists Albumin/Creatinine Ratio 01/04/2024 023, 09/25/2021, 06/24/2020, Additional history exists Mammogram 01/04/2024 01/03/2023, 12/0 06/2021, 01/01/2022, Additional history exists Diabetic Eye [...] as of this encounter Visit Diagnoses Diagnosis Neck pain Cervicalgia documented in this encounter Advance Directives Documents on File Type Date Recorded 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 Question Answer Comments Discussion of Advance Directives occurred with: Patient Does the patient have a Living Will? No Does the patient have Health Care Power of Lead Inspector? No Care Teams Box Brander Relationship Specialty Start Date End Date Atiya Mcdonnell DO [address] [place] [address] PCP - General Family Medicine 06/18/16 documented as of this encounter
--- OUTSIDE RECORDS SUMMARY | 2023-07-08 23:35 | External Medical Summary | Summary of Care ---
Author Name Unknown Organization [facility] Address [address] [place] [address] Phone [phone] Care Team Providers Care Resource Specialist Name Role Phone Sharee Leblanc DO Primary Care Provider [phone] Encounter Details Date Type Department Care Team Description 01/21/2023 Telephone Family Practice [facility] [address] [facility] [place] [address] Sharee Leblanc DO [address] [facility] [place] [address] Allergies Active Allergy Reactions Severity Noted Date Comments Baclofen Other (Please comment) Medium 08/19/2014 Memory loss, dizziness,hearing loss, and headache Bactrim Psych complications 10/16/2011 Pt reports that it makes her severely depressed Celecoxib Medium 07/29/2011 Severe depression per pt Cephalosporins 07/23/2003 hives Clindamycin Unknown 07/23/2003 Codeine 07/23/2003 Erythromycin Hives Medium 02/15/2013 Food (See Comments) 11/24/2018 arthroben Latex 11/04/2016 rash Methocarbamol Hives High 08/19/2014 [facility] Fever 11/28/2018 Arthroben Tropicamide Conjunctivitis [...] as of this encounter (statuses as of 01/21/2023) Medications Medication Sig Dispensed Refills Start Date End Date Status MULTIPLE VITAMIN PO CAPS None Entered 0 Active diphenhydrAMINE (BENADRYL) 25 MG Capsule Take 2 Capsules by mouth. 0 05/07/2013 Active Blood Glucose Monitoring Suppl (Eventcheq ULTRA SYSTEM) w/Device KITIndications:Typ e 2 diabetes mellitus with hemoglobin A1c goal of less than 7.0% (HCC) Use as directed 4 times a day as needed for Hyperglycemia (high sugar). Use up to four times a day as directed Dx E11.9 1 Kit 0 10/18/2017 Active [place]-3 Fatty Acids (FISH OIL) 1000 MG Capsule Take 1 Capsule by mouth in the morning. 0 Active Bioflavonoid Products (VITAMIN C PLUS) 1000 MG TABS Take by mouth. 0 Active Multiple Vitamins-Minerals (PRESERVISION AREDS 2) CHEW Take by mouth. 0 Active NATURAL SUPPLEMENTIndicati ons:metabolic synergy, P-wjmcbi-Y-Cystein e, lignans, evail, joint formula, GI detox, L-Glutamine, Digestzymes, HTN comples, HTP 5 Take by mouth daily. Indications: metabolic synergy, C-cvcuii-A-Cysteine , lignans, evail, joint formula, GI detox, [...] 4 mg daily . 0 Active OneTouch Delica Lancets 33GIndications:Typ e 2 diabetes mellitus with hemoglobin A1c goal of less than 7.0% (HCC) Up to 4 times per day as directed Dx E11.9 100 Each 5 07/31/2021 Active OneTouch Ultra In Vitro Strip (Glucose [...] the morning. 30 Tablet 3 12/30/2022 Active Hospital, Clinic, or Other Facility Administered Medication Ordered Dose Route Frequency Start Date End Date Status albuterol sulfate (PROVENTIL) (2.5 MG/3ML) 0.083% inhalation solution 2.5 mgIndications:ROCHE (dyspnea on exertion) 2.5 mg NEBULIZER Q4H PRN 01/02/2019 Act pranay documented as of this encounter (statuses as of 01/21/2023) Active Problems Problem Noted Date Hx of nonmelanoma skin cancer 07/28/2022 Overview: BCC nose 11/2021 Hx of actinic keratosis 12/10/2021 Mass of wrist, left 02/25/2021 Diabetic gastroparesis associated with t ype 2 diabetes mellitus 04/13/2019 Idiopathic angioedema 09/05/2015 Intermittent asthma with reliever use up to twice per week 03/19/2015 Sensory hearing loss, unilateral 010 Type 2 diabetes mellitus with hemoglobin A1c goal of less than 7.0% 06/06/2009 Overview: ICD-10 update of inactive term LOC PRIM OSTEOART-HIP 06/04/2009 Elevated blood pressure, situational Subjective tinnitus 05/28/2009 FAMILY HX-BREAST CANCER- sister 12/03/19 09 Esophageal reflux 09/21/2007 Overview: repeat EGD in 2-3 yrs Esophageal stricture 09/21/2007 ADVANCE DIRECTIVE INFORMATION 02/22/2006 Overview: No, Advance Directive brochure offered , patient declined. 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 02/14/2003 Overview: right documented as of this encounter (statuses as of 01/21/2023) Resolved Problems Problem Noted Date Resolved Date Severe obesity with body mas s index (BMI) of 35.0 to 39.9 with serious comorbidity 11/10/2009 10/06/2018 Overview: Per Obesity Protocol, #19 ICD-10 update of inactive diagnosis THROAT SWELLING-PROBABLE ANAPHALAXIS 06/11/2009 04/13/2019 Postnasal drip 06/11/2009 10/06/2018 Dyspnea and respiratory abnormality 05/28/2009 09/15/2017 Overview: ICD-10 update of inactive term Intermittent asthma with reliever use up to twic e per week 04/20/2002 03/19/2015 Idiopathic urticaria 04/20/2002 09/05/2015 documented as of this encounter (statuses as of 01/21/2023) Immunizations Name Administration Dates Next Due Pneumococcal [...] = 0.6 oz pur e alcohol) rare Food Insecurity Answer Date Recorded Within the past 12 months, y ou worried that your food would run out before you got money to buy more. Never true 07/22/2020 Within the past 12 months, t he food you bought just didn't last and you didn't have money to get more. Never true 07/22/2020 Sex Assigned at Date Recorded Female 04/23/2020 9:[address] Job Start Date Occupation Industry Not on file Not on file Not on file documented as of this encounter Miscellaneous Notes * Telephone Encounter - CECILIO Marsh - 01/21/2023 3:12 PM EDT Addressed in Picfair message. * Telephone Encounter - Pilar Trivedi LPN - 01/21/2023 10:12 AM EDT Patient saw Eileen Cuellar yesterday due to a fall and she had an xray of her foot completed. The body shop technician called to let us know that it was abnormal. The patient said that if there was anything wrong with her foot she wanted to see Dr. Leblanc instead of Eileen Cuellar. documented in this encounter Plan of Treatment Upcoming Encounters Date Type Specialty Care Team Description 04/27/2023 Office Visit Family Medicine Sharee Leblanc, DO [address] [place] [address] 08/03/2023 Office Visit Dermatology Kym Stone PA-C [address] [place] [phone] 01/09/2024 Imaging Radiology Scheduled Procedures Name Priority Associated Diagnoses Date/Ti me COLONOSCOPY FLEXIBLE PROXIMA L DIAGNOSTIC Recall Encounter for screening colonoscopy Health Maintenance Due Date Last Done Comments COVID-19 Vaccine (#1) 1950 Hepatitis C Screening 01/28/1968 Cologuard 1995 Fecal Occult Blood Test 1995 Sigmoidoscopy 1995 Zoster Vaccines (1 of 2) 01/28/2000 Pneumococcal Vaccine: 65+ Years (2 - PCV) 06/04/2010 06/04/2009 DXA Scan 06/30/2018 06/30/2016 DIABETES-FOOT EXAM 09/25/2022 09/25/2021, 0 06/24/2020, 10/06/2018, Additional history exists Influenza Vaccine (FLU shot) (#1) 2023 DIABETES-EYE EXAM 04/05/2023 04/05/2022, , 03/28/2020, Additional history exists Depression Screening, Annual for Pts 12 and Over 04/06/2023 04/06/2022 GFR 06/01/2023 06/01/2022, 08/29, 03/11/2021, Additional history exists HbA1c 07/06/2023 01/03/2023, 07/2022, 04/06/2022, Additional history exists Albumin/Creatinine Ratio 01/04/2024 023, 09/25/2021, 06/24/2020, Additional history exists Mammogram 01/04/2024 01/03/2023, 1206/2021, 01/01/2022, Additional history exists Lipid Panel 04/06/2027 04/06/2022, 12/29, 04/13/2019, Additional history exists Colonoscopy 06/15/2027 06/15/2017, 03/01, 03/17/2007 Colorectal Cancer Screening 06/15/2027 DTaP,Tdap,and Td Vaccines (3 - Td or Tdap) 04/13/2029 04/13/2019, 11/12/2008 GARDASIL-HPV IMMUNIZATION SERIES Aged Out No longer eligible based on patient's age to complete this topic Hepatitis B Aged Out No longer eligi ble based on patient's age to complete this topic MENINGOCOCCAL (MENACTRA/MENVEO) Aged Out No longer eligible based on patient's age to complete this topic documented as of this encounter Medical Devices Not on filedocumented as of this encounter Advance Directives Documents on File Type Date Recorded 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 Question Answer Comments Discussion of Advance Directives occurred with: Patient Does the patient have a Living Will? No Does the patient have Health Care Power of Machine Leather Trimmer? No Care Teams Resource Specialist Relationship Specialty Start Date End Date Sharee Leblanc, [address] [place] [address] PCP - General Family Medicine 06/18/16 documented as of this encounter
--- OUTSIDE RECORDS SUMMARY | 2023-07-08 23:35 | External Medical Summary | Summary of Care ---
Author Name Unknown Organization [facility] Address [address] [place] [address] Phone [phone] Care Team Providers Care Utility Operator Name Role Phone Sharee Leblanc DO Primary Care Provider [phone] Encounter Details Date Type Department Care Team Description 01/21/2023 Imaging Radiology [facility] [address] [facility] [place] [address] Injury of right foot, initial encounter Allergies Active Allergy Reactions Severity Noted Date Comments Baclofen Other (Please comment) Medium 08/19/2014 Memory loss, dizziness,hearing loss, and headache Bactrim Psych complications 10/16/2011 Pt reports that it makes her severely depressed Celecoxib Medium 07/29/2011 Severe depression per pt Cephalosporins 07/23/2003 hives Clindamycin Unknown 07/23/2003 Codeine 07/23/2003 Erythromycin Hives Medium 02/15/2013 Food (See Comments) 11/24/2018 arthroben Latex 11/04/2016 rash [facility]ocar[facility]ol [facility] Fever 11/28/2018 Arthroben Tropicamide [...] as of this encounter (statuses as of 01/24/2023) Medications Medication Sig Dispensed Refills Start Date End Date Status MULTIPLE VITAMIN PO CAPS None Entered 0 Active diphenhydrAMINE (BENADRYL) 25 MG Capsule Take 2 Capsules by mouth. 0 05/07/2013 Active Blood Glucose Monitoring Suppl (ONETOUCH ULTRA SYSTEM) w/Device KITIndications:Typ e 2 diabetes mellitus with hemoglobin A1c goal of less than 7.0% (HCC) Use as directed 4 times a day as needed for Hyperglycemia (high sugar). Use up to four times a day as directed Dx E11.9 1 Kit 0 10/18/2017 Active [place]-3 Fatty Acids (FISH OIL) 1000 MG Capsule Take 1 Capsule by mouth in the morning. 0 Active Bioflavonoid Products (VITAMIN C PLUS) 1000 MG TABS Take by mouth. 0 Active Multiple Vitamins-Minerals (PRESERVISION AREDS 2) CHEW Take by mouth. 0 Active NATURAL SUPPLEMENTIndicati ons:metabolic synergy, T-wtmugh-X-Cystein e, lignans, evail, joint formula, GI detox, L-Glutamine, Digestzymes, HTN comples, HTP 5 Take by mouth daily. Indications: metabolic synergy, T-rnmmsr-X-Cysteine , lignans, evail, joint formula, GI detox, [...] as of this encounter (statuses as of 01/24/2023) Active Problems Problem Noted Date Hx of [...] as of this encounter (statuses as of 01/24/2023) Resolved Problems Problem Noted Date Resolved Date [...] as of this encounter (statuses as of 01/24/2023) Immunizations Name Administration Dates Next Due Pneumococcal [...] Miscellaneous Notes * Result Encounter Note - Eileen Cuellar PA-C - 01/21/2023 12:25 PM EDT Please send a lab letter stating xray results normal. documented in this encounter Plan of Treatment Upcoming Encounters Date Type Specialty Care Team Description 04/27/2023 Office Visit Family Medicine Sharee Leblanc, [address] [place] [address] 08/03/2023 Office Visit Dermatology Kym Stone PA-C [address] [place] [phone] 01/09/2024 Imaging Radiology Scheduled Procedures Name Priority [...] 01/03/2023, 120 06/2021, 01/01/2022, Additional history exists Lipid Panel 04/06/2027 [...] Procedure Name Priority Date/Time Associated Diagnosis Comments XR FOOT 3 OR MORE VIEWS Routine 01/21/2023 10:10 AM EDT Injury of right foot, initial encounter documented in this encounter Results * XR FOOT 3 OR MORE VIEWS (01/21/2023 10:10 AM EDT) Anatomical Region Laterality Modality Foot, Lower Extremity Computed R adiography 01/21/2023 10:3 0 AM EDT Impressions 01/21/2023 10:27 AM EDT IMPRESSION No fracture. Narrative 01/21/2023 10:27 AM EDT EXAM XR FOOT 3 OR MORE VIEWS-01/21/2023 10:10 am HISTORY pain along medial side of foot after fall. COMPARISON Radiograph 03/30/2017 TECHNIQUE Three radiographs right foot. FINDINGS No fracture or dislocation. Mature arthrodesis 1st MTP joint with plate and screws. Healed 2nd metatarsal osteotomy. Mild osteoarthrosis of the midfoot. Small Achilles and plantar calcaneal enthesophytes. Procedure Note Tanner Mcallister MD - 01/21/2023 EXAM XR FOOT 3 OR MORE VIEWS-01/21/2023 10:10 am HISTORY pain along medial side of foot after fall. COMPARISON Radiograph 03/30/2017 TECHNIQUE Three radiographs right foot. FINDINGS No fracture or dislocation. Mature arthrodesis 1st MTP joint with plateand screws. Healed 2nd metatarsal osteotomy. Mild osteoarthrosis of themidfoot. Small Achilles and plantar calcaneal enthesophytes. IMPRESSION IMPRESSION No fracture. 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 Question Answer Comments Discussion of Advance Directives occurred with: Patient Does the patient have a Living Will? No Does the patient have Health Care Power of Project Management Professor? No Care Teams Utility Operator Relationship Specialty Start Date End Date Sharee Leblanc, [address] [place] [address] PCP - General Family Medicine 06/18/16 documented as of this encounter
--- OUTSIDE RECORDS SUMMARY | 2023-07-08 23:35 | External Medical Summary | Summary of Care ---
Author Name Unknown Organization [facility] Address [address] [place] [address] Phone [phone] Care Team Providers Care Wardrobe Attendant Name Role Phone Atiya Mcdonnell DO Primary Care Provider [phone] Reason for Visit * Reason Comments eRx-Medication Refill Encounter Details Date Type Department Care Team (Late st Contact Info) Description 04/24/2023 Refill Family Practice [facility] [address] [place] [address] Atiya Mcdonnell DO [address] [place] [address] Type 2 diabetes mellitus with hemoglobin A1c goal of less than 7.0% ([facility]) Allergies Active Allergy Reactions Criticality Noted Date [...] as of this encounter (statuses as of 04/26/2023) Medications Medication Sig Dispensed Refills Start Date End Date Status MULTIPLE VITAMIN PO CAPS None Entered 0 Active diphenhydrAMINE (BENADRYL) 25 MG Capsule Take 2 Capsules by mouth. 0 3 Active Blood Glucose Monitoring Suppl ([employer] ULTRA SYSTEM) w/Device KITIndications:Ty pe 2 diabetes mellitus with hemoglobin A1c goal of less than 7.0% (HCC) Use as directed 4 times a day as needed for Hyperglycemia (high sugar). Use up to four times a day as directed Dx E11.9 1 Kit 0 8 Active [place]-3 Fatty Acids (FISH OIL) 1000 MG Capsule Take 1 Capsule by mouth in the morning. 0 Active Bioflavonoid Products (VITAMIN C PLUS) 1000 MG TABS Take by mouth. 0 Active Multiple Vitamins-Minerals (PRESERVISION AREDS 2) CHEW Take by mouth. 0 Active NATURAL SUPPLEMENTIndicat ions:metabolic synergy, R-rpfikh-Z-Cystei ne, lignans, evail, joint formula, GI detox, L-Glutamine, Digestzymes, HTN comples, HTP 5 Take by mouth daily. Indications: metabolic synergy, V-xiclnr-U-Cystei ne, lignans, evail, joint formula, GI detox, [...] Muscle spasms. 30 Tablet 0 3 Active Omeprazole 40 MG Oral Capsule Delayed Release (PriLOSEC)Indicat ions:Gastroesopha geal reflux disease without esophagitis take 1 capsule by mouth every morning 1 HOUR BEFORE THE FIRST MEAL OF THE DAY FOR 1 MONTH 90 Capsule 1 3 Active OneTouch Delica Lancets 33GIndications:Ty pe [...] FOR PAIN 60 Tablet 5 3 Active Jardiance 25 MG Oral Tablet (Empagliflozin)In dications:Type 2 diabetes mellitus with hemoglobin A1c goal of less than 7.0% (HCC) take 1 tablet by mouth every morning 30 Tablet 3 3 Active metFORMIN HCl ER 500 MG Oral Tablet Extended Release 24 Hour (Glucophage XR)Indications:Ty pe 2 diabetes mellitus with hemoglobin A1c goal of less than 7.0% (HCC) take 4 tablet by mouth every morning 360 Tablet 1 3 Active metFORMIN HCl ER 500 MG Oral Tablet Extended Release 24 Hour (Glucophage XR)Indications:Ty pe 2 diabetes mellitus with hemoglobin A1c goal of less than 7.0% (HCC) take 4 tablet by mouth every morning 360 Tablet 1 3 04/26/20 23 Discontinued Empagliflozin 25 MG Oral Tablet (Jardiance)Indica tions:Type 2 diabetes mellitus with hemoglobin A1c goal of less than 7.0% (HCC) Take 1 Tablet by mouth in the morning. 30 Tablet 3 3 04/26/20 23 Discontinued Hospital, Clinic, or Other Facility Administered Medication Ordered Dose Route Frequency Start Date End Date Status albuterol sulfate (PROVENTIL) (2.5 MG/3ML) 0.083% inhalation solution 2.5 mgIndications:ROCHE (dyspnea on exertion) 2.5 mg NEBULIZER Q4H PRN 01/02/2019 Act pranay documented as of this encounter (statuses as of 04/26/2023) Active Problems Problem Noted Date Diagnosed Date [...] as of this encounter (statuses as of 04/26/2023) Resolved Problems Problem Noted Date Diagnosed Date [...] as of this encounter (statuses as of 04/26/2023) Immunizations Name Administration Dates Next Due Pneumococcal [...] encounter Miscellaneous Notes * Telephone Encounter - Atiya Mcdonnell DO - 04/26/2023 2:14 PM ESTSigned Prescriptions: Disp Refills Jardiance 25 MG Oral Tablet (Empagliflozin)30 Tab*3 Sig: take 1 tablet by mouth every morning Authorizing Provider: ATIYA MCDONNELL metFORMIN HCl ER 500 MG Oral Tablet Extend*360 Ta*1 Sig: take 4 tablet by mouth every morning Authorizing Provider: ATIYA MCDONNELL * Telephone Encounter - Peewee Thorne [facility] - 04/25/2023 12:06 PM EST Pending Prescriptions: Disp Refills Jardiance 25 MG Oral Tablet [Pharmacy Med *30 Tab*3 Sig: take 1 tablet by mouth every morning metFORMIN HCl ER 500 MG Oral Tablet Extend*360 Ta*1 Sig: take 4 tablet by mouth every morning * Telephone Encounter - Peewee Thorne [facility] - 04/25/2023 12:05 PM EST Unable to authorize medication refills for pended medication(s) at this time. Part of the protocol criteria used for refill authorization was not satisfied. Patient has upcoming follow up appointment. Please approve if appropriate. Pending Prescriptions: Disp Refills Jardiance 25 MG Oral Tablet (Empagliflozi*30 Tab*3 Sig: take 1 tablet by mouth every morning metFORMIN HCl ER 500 MG Oral Tablet Exten*360 Ta*1 Sig: take 4 tablet by mouth every morning . Thank you, Kirill Thorne, PharmD Clinical Pharmacist [facility]) 04/25/23 12:05 PM [phone] documented in this encounter Plan of Treatment Upcoming Encounters Date Type Department Care Team (Late st Contact Info) Description 04/27/2023 2:20 PM EST Office Visit Family Practice [facility] [address] [facility] [place] [address] Atiya Mcdonnell DO [address] [facility] [place] [address] 08/03/2023 12:40 PM EST Office Visit Dermatology [facility] [address] [place] [address] Kym Stone PA-C [address] [place] [phone] 01/09/2024 12:30 PM EDT Imaging Radiology [facility] [address] [facility] [place] [address] Scheduled Procedures Name Priority Associated Diagnoses Date/Ti [...] Documents on File Type Date Recorded Patient Installation And Service Technician Expl anation Advance Directives and Prabhjot Canseco 03/20/2012 ADVANCE DIRECTIVE Power of Childbirth And Infant Care Teacher 03/20/2012 POWER OF A TTORNEY Latest [...] the patient have Health Care Power of Childbirth And Infant Care Teacher? No Care Teams Wardrobe Attendant Relationship Specialty Start Date End Date Atiya Mcdonnell DO [address] [place] [address] PCP - General Family Medicine 06/18/16 documented as of this encounter
--- OUTSIDE RECORDS SUMMARY | 2023-07-08 23:35 | External Medical Summary | Summary of Care ---
Author Name Unknown Organization [facility] Address [address] [place] [address] Phone [phone] Care Team Providers Care Merchandising Professor Name Role Phone Sharee Leblanc DO Primary Care Provider [phone] Reason for Referral * Evaluate & Treat - Unlimited Visits (Within 10 days (routine)) - Pending Review Specialty Diagnoses / Procedures Referred By Cristiane gatica Referred To Contact Physical Therapy / Physical Medicine And Rehab Diagnoses Lumbar radiculopathy Akil Nation PA-C [address] [place] [address] Referral ID Status Reason Start Date Expiration Date Visits Requested Visits Authorized [id number] Pending Review Specialty Services Required [phone] Question Answer Referral Priority Within 10 days (routine) Where should this appointment be scheduled? [facility] Reason for Visit * Reason Comments Leg Pain R leg pain, radiates downward x's 5 days. Patient states no known injury. Encounter Details Date Type Department Care Team (Latest Contact Info) Description 04/15/2023 9:00 AM EST Office Visit General Internal Medicine [facility] [address] [place] [address] Akil Nation PA-C [address] [place] [address] Lumbar radiculopathy*; Diabetic gastroparesis associated with type 2 diabetes mellitus ; Type 2 diabetes mellitus with hemoglobin A1c goal of less than 7.0% (HCC) Allergies Active Allergy Reactions Criticality Noted Date Comments Baclofen Other (Please comment) Medium 08/19/2014 Memory loss, dizziness,hearing loss, and headache Bactrim Psych complications 10/16/2011 Pt reports that it makes her severely depressed Celecoxib Medium 07/29/2011 Severe depression per pt Cephalosporins 07/23/2003 hives Clindamycin Unknown 07/23/2003 Codeine 07/23/2003 Erythromycin Hives Medium 02/15/2013 Food (See Comments) 11/24/2018 arthroben Latex 11/04/2016 rash Methocarbamol Hives High 08/19/2014 [facility] Natural Products Fever 11/28/2018 [...] as of this encounter (statuses as of 04/15/2023) Medications Medication Sig Dispensed Refills Start Date End Date Status MULTIPLE VITAMIN PO CAPS None Entered 0 Active diphenhydrAMINE (BENADRYL) 25 MG Capsule Take 2 Capsules by mouth. 0 05/07/2013 Active Blood Glucose Monitoring Suppl ([employer] ULTRA SYSTEM) w/Device KITIndications:Typ e 2 diabetes mellitus with hemoglobin A1c goal of less than 7.0% ([facility]) Use as directed 4 times a day as needed for Hyperglycemia (high sugar). Use up to four times a day as directed Dx E11.9 1 Kit 0 10/18/2017 Active [place]-3 Fatty Acids (FISH OIL) 1000 MG Capsule Take 1 Capsule by mouth in the morning. 0 Active Bioflavonoid Products (VITAMIN C PLUS) 1000 MG TABS Take by mouth. 0 Active Multiple Vitamins-Minerals (PRESERVISION AREDS 2) CHEW Take by mouth. 0 Active NATURAL SUPPLEMENTIndicati ons:metabolic synergy, U-kxmvck-G-Cystein e, lignans, evail, joint formula, GI detox, L-Glutamine, Digestzymes, HTN comples, HTP 5 Take by mouth daily. Indications: metabolic synergy, Y-gzxkmr-R-Cysteine , lignans, evail, joint formula, GI detox, [...] A1c goal of less than 7.0% ([facility]) USE DIRECTED 4 TIMES A DAY NEEDED [...] A1c goal of less than 7.0% ([facility]) take 4 tablet by mouth every morning [...] as of this encounter (statuses as of 04/15/2023) Active Problems Problem Noted Date Diagnosed Date [...] as of this encounter (statuses as of 04/15/2023) Resolved Problems Problem Noted Date Diagnosed Date [...] as of this encounter (statuses as of 04/15/2023) Immunizations Name Administration Dates Next Due Pneumococcal Polysaccharide PPV23 (Pneumovax) 06/04/2009,12/02/2008(Deferred: Patient Refused) TD, Preservative Free 04/13/2019 TDAP (age 11 and older)(Adacel) 11/13/19 09,09/26/2008(Deferred: Patient Refused) documented as of this encounter Social History Tobacco Use Types Packs/Day Years Used Date Smoking Tobacco: Never Smokeless Tobacco: Never Tobacco Cessation:Counseling Given: Not Answered Comments:no passive smoke exposure Alcohol Use Standard Drinks/Week Comments Yes 0 [...] Sign Reading Time Taken Comments Blood Pressure 128/80 04/15/2023 9:02 AM EST Pulse 80 04/15/2023 9:02 AM EST Temperature 36.6 C (97.9 F) 04/15/2023 9:02 AM ES T Respiratory Rate - - Oxygen Saturation 97% 04/15/2023 9:02 AM EST Inhaled Oxygen Concentration - - Weight 84.5 kg (186 lb 3.2 oz) 04/15/2023 9:02 A M EST Height 162.6 cm (5' 4") 04/15/2023 9:02 AM EST Body Mass Index 31.96 04/15/2023 9:02 AM EST documented in this encounter Progress Notes * Akil Nation PA-C - 04/15/2023 9:03 AM EST Images from the original note were not included. Subjective: Yaneth Rios is a 73 year old female. Chief Complaint Patient presents with Leg Pain R leg pain, radiates downward x's 5 days. Patient states no known injury. HPI: 73 y/o female with hx below seen today with complaint of 5 days of right leg pain that is shooting from lower back down into the foot. Worse as the day progresses. She has been trying to stay off of it and putting heat on her back along with Advil and muscle relaxants. Denies bowel or bladder dysfunction, saddle anesthesia. 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 Blood Glucose Monitoring Suppl ([employer] ULTRA SYSTEM) w/Device KIT Use as directed 4 times a day as needed for Hyperglycemia (high sugar). Use up to four times a day as directed Dx E11.9 1 Kit 0 [place]-3 Fatty Acids (FISH OIL) 1000 MG Capsule Take 1 Capsule by mouth in the morning. Bioflavonoid Products (VITAMIN C PLUS) 1000 MG TABS Take by mouth. Multiple Vitamins-Minerals (PRESERVISION AREDS 2) CHEW Take by mouth. NATURAL SUPPLEMENT Take by mouth daily. Indications: metabolic synergy, L-wbgwxv-J-Cysteine, lignans, evail, joint formula, GI detox, L-Glutamine, Digestzymes, HTN comples, HTP 5 Calcium-Magnesium 500-250 MG Oral Tablet Take by mouth. LORAzepam (ATIVAN) 0.5 MG Tablet Take 1 Tab by mouth 2 times a day as needed for Anxiety. 10 Tab 0 Astaxanthin 4 MG Oral Capsule Take by mouth 4 mg daily . BoundlessTouch Ultra In Vitro Strip (Glucose Blood) USE [...] needed for Muscle spasms. 30 Tablet 0 Meloxicam 7.5 MG Oral Tablet (Mobic) TAKE 1-2 TABS BY MOUTH DAILY NEEDED FOR PAIN 60 Tablet 5 metFORMIN HCl ER 500 MG Oral Tablet Extended Release 24 Hour (Glucophage XR) take 4 tablet by mouthevery morning 360 Tablet 1 Omeprazole 40 MG Oral Capsule Delayed Release (PriLOSEC) take 1 capsule by mouth every morning 1 HOUR BEFORE THE FIRST MEAL OF THE DAY FOR 1 MONTH 90 Capsule 1 Empagliflozin 25 MG Oral Tablet (Jardiance) Take 1 Tablet by mouth in the morning. 30 Tablet 3 OneTouch Delica Lancets 33G USE UP TO 4 TIMES A DAY DIRECTED 400 Each 3 Current Facility-Administered Medications Medication Dose Route Frequency Provider Last Rate Last Admin albuterol sulfate (PROVENTIL) (2.5 MG/3ML) 0.083% inhalation solution 2.5 mg 2.5 mg Nebulizer Q4H PRN Lillian Hung PA-C 2.5 mg at 01/02/19 1043 Review of patient's allergies indicates: Allergen Reactions [...] drops, red watery eyes several hours later All other review of systems reviewed and negative other than mentioned in HPI. Objective: BP 128/80 | Pulse 80 | Temp 36.6 C (97.9 F) | Ht 1.626 m (5' 4") | Wt 84.5 kg (186 lb 3.2 oz) |SpO2 97% | BMI 31.96 kg/m | BSA 1.95 m Results for orders placed or performed in visit on 01/03/23 HEMOGLOBIN A1C Result Value Ref Range Hemoglobin A1C 10.3 (H) 4.0 - 5.6 % Estimated Average Glucose 249 (H) <126 mg/dL MAGNESIUM Result Value Ref Range Magnesium 2.3 1.5 - 2.6 mg/dL ALBUMIN / CREATININE RATIO, URINE Result Value Ref Range Albumin, Random Urine <1.20 mg/dL Creatinine, Random Urine 69 mg/dL Albumin / Creatinine Ratio, Urine <17 <30 mg/g Creat XR L SPINE AP AND LATERAL Order: [id number] Status: Final result Visible to patient: Yes (seen) Next appt: 04/27/2023 at 02:20 PM in *Primary Care* (Sharee Leblanc, DO) Dx: Acute midline low back pain without s... 0 Result Notes Details Reading Physician Reading Date Result Priority Tanner Mcallister MD [phone] 07/08/2022 Narrative & Impression EXAM XR L SPINE AP AND LATERAL-07/08/2022 2:43 pm HISTORY low back pain at R SI joint COMPARISON Radiograph 01/07/2008 TECHNIQUE AP, lateral, coned-down lateral views lumbar spine. FINDINGS Five lumbar-type vertebral bodies. Mild curvature of the spine. No fracture. Mild to moderate disc disease L1-2, L2-3, L3-4, L4-5, L5-S1. No gross arthropathy of the sacroiliac joints. IMPRESSION IMPRESSION Multilevel disc disease. Physical Exam Constitutional: General: She is not in acute distress. Appearance: Normal appearance. She is normal weight. She is not ill-appearing or toxic-appearing. HENT: Head: Normocephalic and atraumatic. Eyes: Extraocular Movements: Extraocular movements intact. Conjunctiva/sclera: Conjunctivae normal. Pupils: Pupils are equal, round, and reactive to light. Cardiovascular: Rate and Rhythm: Normal rate and regular rhythm. Heart sounds: Normal heart sounds. No murmur heard. No friction rub. No gallop. Pulmonary: Effort: Pulmonary effort is normal. Breath sounds: Normal breath sounds. No wheezing, rhonchi or rales. Abdominal: General: Bowel sounds are normal. There is no distension. Palpations: Abdomen is soft. There is no mass. Tenderness: There is no abdominal tenderness. There is no guarding or rebound. Musculoskeletal: General: No tenderness. Normal range of motion. Comments: 5/5 strength to bilateral lower extremity. Sensation intact. Pulses intact. Neurological: Mental Status: She is alert. ASSESSMENT: Lumbar radiculopathy (Primary) - PHYSICAL THERAPY REFERRAL OP Recommend PT. Has known DDD. Can use 3000 mg per tylenol a day safely to help. Can increase mobic to 15 mg daily. Either once daily or 7.5 mg BID. Avoid other NSAIDs. Will hold off on steroids given diabetes. Discussed red flag symptoms and need for ER evaluation. Discussed gabapentin as option, but she would like to hold off and proceed with above. Diabetic gastroparesis associated with type 2 diabetes mellitus Type 2 diabetes mellitus with hemoglobin A1c goal of less than 7.0% ([facility]) Follow Up: Return if symptoms worsen or fail to improve. Akil Nation PA-C documented in this encounter Nursing Notes * Maricruz Carter LPN - 04/15/2023 9:02 AM EST Chief Complaint Patient presents with Leg Pain R leg pain, radiates downward x's 5 days. Patient states no known injury. documented in this encounter Plan of Treatment Upcoming Encounters Date Type Department Care Team (Late st Contact Info) Description 04/27/2023 2:20 PM EST Office Visit Family Practice [facility] [address] [facility] [place] [address] Sharee Leblanc, [address] [facility] [place] [address] 08/03/2023 12:40 PM EST Office Visit Dermatology [facility] [address] [place] [address] Kym Stone PA-C [address] [facility] [place] [phone] 01/09/2024 12:30 PM EDT Imaging Radiology [facility] [address] [facility] [place] [address] Scheduled Procedures Name Priority Associated Diagnoses Date/Ti me COLONOSCOPY FLEXIBLE PROXIMA L DIAGNOSTIC Recall Encounter for screening colonoscopy Scheduled Referrals Name Type Priority Associated Diagnoses Orde r Schedule PHYSICAL THERAPY REFERRAL OP Referral Within 10 days (routine) Lumbar radiculopathy Ordered: 04/15/2023 Health Maintenance Due Date Last Done Comments [...] as of this encounter Visit Diagnoses Diagnosis Lumbar radiculopathy- Primary Thoracic or lumbosacral neuritis or radiculitis, unspecified Diabetic gastroparesis associated with type 2 diabetes mellitus Type II or unspecified type diabetes mellitus with neurological manifestations, not stated as uncontrolled Type 2 diabetes mellitus with hemoglobin A1c goal of less than 7.0% ([facility]) documented in this encounter Advance Directives Documents on File Type Date Recorded Patient Manager Delivery Expl anation Advance Directives and Livin g Will 03/20/2012 ADVANCE DIRECTIVE Power of Dexigraph Operator 03/20/2012 POWER OF A TTORNEY Latest Code Status on File Code Status Date Activated Date Inactivated Comments Full Code 06/30/2022 11:40 AM 06/30/2022 6:29 PM This o rder reflects the patients wishes and were consensually agreed upon. Question Answer Comments Discussion of Advance Directives occurred with: Patient Does the patient have a Living Will? No Does the patient have Health Care Power of Dexigraph Operator? No Care Teams Merchandising Professor Relationship Specialty Start Date End Date Shraee Leblanc DO [address] [place] [address] PCP - General Family Medicine 06/18/16 documented as of this encounter
--- OUTSIDE RECORDS SUMMARY | 2023-07-08 23:36 | External Medical Summary | Summary of Care ---
Author Name Unknown Organization [facility] Address [address] [place] [address] Phone [phone] Care Team Providers Care Cut Off Machine Operator Name Role Phone Sharee Leblanc DO Primary Care Provider [phone] Reason for Visit * Reason Comments Acute Foot injury Encounter Details Date Type Department Care Team Description 01/20/2023 Office Visit Family [facility] [address] [facility] [place] [address] Eileen Cuellar PA-C [address] [facility] [place] [address] Injury of right foot, initial encounter*; Type 2 diabetes mellitus with hemoglobin A1c goal of less than 7.0% ([facility]) Allergies Active Allergy Reactions Severity Noted Date [...] as of this encounter (statuses as of 01/20/2023) Medications Medication Sig Dispensed Refills Start Date End Date Status MULTIPLE VITAMIN PO CAPS None Entered 0 Active diphenhydrAMINE (BENADRYL) 25 MG Capsule Take 2 Capsules by mouth. 0 05/07/2013 Active Blood Glucose Monitoring Suppl ([place] ULTRA SYSTEM) w/Device KITIndications:Typ e 2 diabetes mellitus with hemoglobin A1c goal of less than 7.0% (HCC) Use as directed 4 times a day as needed for Hyperglycemia (high sugar). Use up to four times a day as directed Dx E11.9 1 Kit 0 10/18/2017 Active [place]-3 Fatty Acids (FISH OIL) 1000 MG Capsule Take 1 Capsule by mouth in the morning. 0 Active Bioflavonoid Products (VITAMIN C PLUS) 1000 MG TABS Take by mouth. 0 Active Multiple Vitamins-Minerals (PRESERVISION AREDS 2) CHEW Take by mouth. 0 Active NATURAL SUPPLEMENTIndicati ons:metabolic synergy, T-xrwcje-K-Cystein e, lignans, evail, joint formula, GI detox, L-Glutamine, Digestzymes, HTN comples, HTP 5 Take by mouth daily. Indications: metabolic synergy, O-xslvhv-H-Cysteine , lignans, evail, joint formula, GI detox, [...] as of this encounter (statuses as of 01/20/2023) Active Problems Problem Noted Date Hx of [...] as of this encounter (statuses as of 01/20/2023) Resolved Problems Problem Noted Date Resolved Date [...] as of this encounter (statuses as of 01/20/2023) Immunizations Name Administration Dates Next Due Pneumococcal [...] Sign Reading Time Taken Comments Blood Pressure 130/70 01/20/2023 6:09 PM EDT Pulse 78 01/20/2023 6:09 PM EDT Temperature 36.8 C (98.2 F) 01/20/2023 6:09 PM ED T Respiratory Rate 16 01/20/2023 6:09 PM EDT Oxygen Saturation 97% 01/20/2023 6:09 PM EDT Inhaled Oxygen Concentration - - Weight 86.2 kg (190 lb 1.9 oz) 01/20/2023 6:09 P M EDT Height 162.6 cm (5' 4") 01/20/2023 6:09 PM EDT Body Mass Index 32.63 01/20/2023 6:09 PM EDT documented in this encounter Progress Notes * Eileen Cuellar PA-C - 01/20/2023 6:28 PM EDT Images from the original note were not included. History of Present Illness Yaneth Rios is a 72 year old female that presents for Acute (Foot injury/) Pateint is a 72 year old female who presents after a fall which occurred a week ago. Caught right foot and ankle on concrete. . Scraped up foot. Tried icing, resting, elevating and wrapping. Still having pain with movement and weight bearing. Also will swell. Has had surgery this foot. Plate and screws present. Physical Exam Vitals: 01/20/23 1809 Temp: 36.8 C (98.2 F) Pulse: 78 Resp: 16 SpO2: 97% BP: 130/70 BMI: 32.62 BP Readings from Last 3 Encounters: 01/20/23 130/70 10/12/22 146/76 07/08/22 140/76 Wt Readings from Last 3 Encounters: 01/20/23 86.2 kg (190 lb 1.9 oz) 10/12/22 87.5 kg (193 lb) 07/08/22 86.2 kg (190 lb) General: alert, healthy, no distress, well nourished, well developed, comfortable, and cooperative Head: Normocephalic, No masses, lesions, tenderness or abnormalities Eye Exam: PERRLA, extraocular movements intact, conjunctiva are pink and non- injected, sclera clear Lungs: chest symmetric with normal AP diameter, no chest deformities noted, normal respiratory rateand rhythm, diaphragmatic excursion normal Extremities: less than 2 second capillary refill, no joint deformities, effusion, or inflammation, no edema, no clubbing, no cyanosis, abrasion noted on dorsal surface of right foot. Decreased range of motion with extension. Mild tenderness on dorsal surface of foot. I have reviewed the following results: None Assessment and Plan Injury of right foot, initial encounter (Primary) - XR FOOT 3 OR MORE VIEWS; Future; Expected date: 01/21/2023 Type 2 diabetes mellitus with hemoglobin A1c goal of less than 7.0% ([facility]) Wrap-Up Time: I spent a total of 20-29 minutes (exact time 23 mins) on the date of service in preparation, delivery, and documentation of the care provided to Yaneth Rios excluding any time spent in the performance of separately billed services. documented in this encounter Nursing Notes * CECILIO Salas - 01/20/2023 6:09 PM EDT Yaneth Rios 72 year old female is here for right foot pain. She states that a week ago her right foot got caught in her pant leg and she fell forward. It stayed caught and dragged with her on the top. documented in this encounter Plan of Treatment Upcoming Encounters Date Type Specialty Care Team Description 01/21/2023 Imaging Radiology 04/27/2023 Office Visit Family Medicine Sharee Leblanc, DO [address] [place] [address] 08/03/2023 Office Visit Dermatology Kym Stone PA-C [address] [place] [id number] 01/09/2024 Imaging Radiology Scheduled Orders Name Type Priority Associated Diagnoses Orde r Schedule XR FOOT 3 OR MORE VIEWS Medical Imaging Routine Injury of right foot, initial encounter Expected: 01/21/2023, Expires: 02/21/2024 Scheduled Procedures Name Priority Associated Diagnoses Date/Ti [...] 01/04/2024 01/03/2023, 06/2021, 01/01/2022, Additional history exists Lipid Panel [...] as of this encounter Visit Diagnoses Diagnosis Injury of right foot, initial encounter- Primary Type 2 diabetes mellitus with hemoglobin A1c goal of less than 7.0% (HCC) documented in this encounter Advance Directives Documents on File Type Date Recorded Patient Primer Inserting Machine Adjuster Expl eli Advance Directives and Prabhjot Canseco 03/20/2012 ADVANCE DIRECTIVE Power of Wool Spotter 03/20/2012 POWER OF A TTORNEY Latest Code Status on File Code Status Date Activated Date Inactivated Comments Full Code 06/30/2022 11:40 AM 06/30/2022 6:29 PM This o rder reflects the patients wishes and were consensually agreed upon. Question Answer Comments Discussion of Advance Directives occurred with: Patient Does the patient have a Living Will? No Does the patient have Health Care Power of Wool Spotter? No Care Teams Cut Off Machine Operator Relationship Specialty Start Date End Date Sharee Leblanc, [address] [place] [address] PCP - General Family Medicine 06/18/16 documented as of this encounter
--- OUTSIDE RECORDS SUMMARY | 2023-07-08 23:36 | External Medical Summary | Continuity of Care Document ---
Author Name Unknown Organization [facility] [address] [facility] [place] [id number] Care Team Providers Care Temperature Regulator Name Role Phone Sharee Leblanc Primary Care Physician [phone] [id number] Date(s): 01/11/23 - 01/11/23 [place] [address] [address] [facility] Diagnostic Radiology [address] [facility] [place] [address] Discharge Disposition: Home or Self Care Attending Physician: ANGELA Izquierdo Amanda Referring Physician: ANGELA Izquierdo Amanda Allergies, Adverse Reactions, Alerts Substance Reaction Severity Status codeine Vomiting Active clindamycin unknown Active erythromycin Diarrhea Severe Stomach Cramps Hives Active baclofen Active cephalosporins unknown Active penicillins Hives Active Robaxin Active Bactrim Diarrhea Nausea Active Celebrex Suicidal Active petrolatum topical 100% ointment anaphalaxsis Active Dust mite Hives Active Latex Rash Active Allergy Not found in Search 1 Rash Rash Active 1[employer] [place] and Cat Gut Sutures Medications 5 HTP Start: 04/10/19 15:03:00 EST, 5 HTP, 100 = mg, PO, Daily Start Date: 04/10/19 Status: Ordered Alpha-Linolenic Start: 04/10/19 15:06:00 EST, Alpha-Linolenic, 300 = mg, PO, Daily Start Date: 04/10/19 Status: Ordered Astaxanthin Start: 04/10/19 15:06:00 EST, Astaxanthin, 4 = mg, PO, Daily Start Date: 04/10/19 Status: Ordered Ativan 0.5 mg oral tablet Start: 08/11/23 16:47:00 EDT, See Instructions, Disp# 2 tab, 1 tab PO 1/2 hour prior to MRI. May redose 5 minutes prior to MRI if needed to relieve anxiety., PRN: as needed for anxiety, Pharmacy: [facility] #[id number] Start Date: 01/07/23 Status: Ordered Benadryl Start: [...] 1 TABLET BY MOUTH EVERY DAY, Pharmacy: [facility]/pharmacy #[id number] Start Date: 11/06/20 Status: Ordered metFORMIN 500 mg oral tablet 1 tab, PO, bid Start Date: 09/25/20 Status: Ordered methylsufonylmethane Start: 04/10/19 15:04:00 EST, methylsufonylmethane, 1 tab, PO, Daily Start Date: 04/10/19 Status: Ordered Multiple Vitamins oral tablet 1 tab, PO, Daily, Refills: 0, Start: 06/10/09 11:50:58 Start Date: 06/10/09 Status: Ordered P-Tfvcdj-V-Cyteine Start: 04/10/19 14:59:00 EST, M-Avxadj-Z-Cyteine, 1 tab, PO, Daily Start Date: 04/10/19 [...] 100 g, Refills: 3, PRN: Pain, Pharmacy: [facility]/pharmacy #[id number] Start Date: 01/13/18 Stop Date: 05/13/18 Status: [...] 4 Confirmed Active Vertigo 5 Confirmed Active 80511. 63125. 3right. 4right lower lung 2006. 96238. Procedures Procedure Date Related Diagnosis Body Site [...] 1right eye 2left eye 3right 4lymph node Results Radiology Reports * Exam Date Time Procedure Performing Provider Status 01/11/23 5:36 PM MRI Hip w/o Contrast Left Karime Link R; Final Notes: (MRI Hip w/o Contrast Left) Reason For Exam: L hip weakness, hx hip replacement; weakness in abduction; please eval abductors MRI Hip w/o Contrast Left EXAMINATION: MRI OF THE LEFT HIP WITHOUT CONTRAST CLINICAL HISTORY: Z96.643: Presence of artificial hip joint, bilateral; L hip weakness, hx hip replacement; weakness in abduction; please eval abductors COMPARISON: Prior radiographs of the hips most recent 11/18/2022. TECHNIQUE: Multiplanar multisequence MRI was obtained of the left hip without contrast. 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 Hip structures Postsurgical changes of bilateral total hip arthroplasties. No findings to suggest hardware complication. Rosa Isela-articular structures Soft tissue/bursa: Normal. Hip Abductor tendons: Tendinopathy of the left gluteus medius insertion Muscles: Fatty atrophy of the bilateral gluteus minimus muscle bodies. Remaining muscle bodies demonstrate normal bulk without fatty atrophy. Pelvis Bone marrow: Normal. Sacroiliac joints: Normal. Pubic symphysis: Normal. Contralateral hip: Total hip arthroplasty as above otherwise unremarkable. Viscera: Colonic diverticulosis, some of which demonstrate peripheral stranding. IMPRESSION: Bilateral fatty atrophy of the gluteus minimus muscle bodies. Tendinopathy of the left gluteus medius insertion Diverticulitis [place] Act 112: This study does not meet the requirements of [place] Act 112. Dr. Sravan Segovia is the dictating resident. Finalized reports status indicates that the attending has reviewed the images and report, and agrees with the interpretation. Preliminary report status should be regarded as NOT interpreted by the attending radiologist. Workstation ID: [id number] Final Dictated by:MD Segovia Chase Dictated DT/TM:01/12/2023 10:31 Resident:MD Segovia Chase Signed by:MD Poole Eric A Signed (Electronic Signature):01/12/2023 10:30 Social History Social History Type Response Smoking Status Never smoked cigaret jacquelyn Sex Female MR Hip - left WO contrast * MD Poole Eric A: VERIFY, VERIFY MD Poole Eric A: VERIFY MD Segovia Chase: SIGN Contributor_system, [id number]: PERFORM Event Display: Report Authored Date: [id number] EXAMINATION: MRI OF THE LEFT HIP WITHOUT CONTRAST CLINICAL HISTORY: Z96.643: Presence of artificial hip joint, bilateral; L hip weakness, hx hip replacement; weakness in abduction; please eval abductors COMPARISON: Prior radiographs of the hips most recent 11/18/2022. TECHNIQUE: Multiplanar multisequence MRI was obtained of the left hip without contrast. 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 Hip structures Postsurgical changes of bilateral total hip arthroplasties. No findings to suggest hardware complication. Rosa Isela-articular structures Soft tissue/bursa: Normal. Hip Abductor tendons: Tendinopathy of the left gluteus medius insertion Muscles: Fatty atrophy of the bilateral gluteus minimus muscle bodies. Remaining muscle bodies demonstrate normal bulk without fatty atrophy. Pelvis Bone marrow: Normal. Sacroiliac joints: Normal. Pubic symphysis: Normal. Contralateral hip: Total hip arthroplasty as above otherwise unremarkable. Viscera: Colonic diverticulosis, some of which demonstrate peripheral stranding. IMPRESSION: Bilateral fatty atrophy of the gluteus minimus muscle bodies. Tendinopathy of the left gluteus medius insertion Diverticulitis [place] Act 112: This study does not meet the requirements of [place] Act 112. Dr. Sravan Segovia is the dictating resident. Finalized reports status indicates that the attending has reviewed the images and report, and agrees with the interpretation. Preliminary report status should be regarded as NOT interpreted by the attending radiologist. Workstation ID: [id number] Final Dictated by:MD Segovia Chase Dictated DT/TM:01/12/2023 10:31 Resident:MD Segovia Chase Signed by:MD Poole Eric A Signed (Electronic Signature):01/12/2023 10:30 Patient Care team information Care Team Personnel Name: ANGELA Barrera Tammy M Position: Physician Forestry Consultant - Orthopaedic Surg Member Role: Lifetime Relationship Address: Address: [address] [place] [address] Name: DO Leblanc Laura M Position: Referring DIRECT Member Role: Primary Care Provider Address: Address: [facility] [address] [place] [address] [place] Care Team Related Persons Name: JOSE MARIA SOUSA Address: home [address], [place] [id number] Name: SHARONDA LYNN Address: home [address] [facility] [place] [id number]
--- OUTSIDE RECORDS SUMMARY | 2023-07-08 23:36 | External Medical Summary | Summary of Care ---
Author Name Unknown Organization [facility] Address [address] [place] [address] Phone [phone] Care Team Providers Care Make Up Operator Helper Name Role Phone Sharee Leblanc DO Primary Care Provider [phone] Encounter Details Date Type Department Care Team Description 01/21/2023 Imaging Radiology [facility] [address] [place] [facility] [address] Injury of right foot, initial encounter [...] Latex 11/04/2016 rash Methocarbamol Hives High [facility]2014 [facility] Fever 11/28/2018 Arthroben Tropicamide [...] Dx E11.9 1 Kit 0 10/18/2017 Active [place]-3 Fatty Acids (FISH OIL) 1000 MG Capsule Take 1 Capsule by mouth in the morning. 0 Active Bioflavonoid Products (VITAMIN C PLUS) 1000 MG TABS Take by mouth. 0 Active Multiple Vitamins-Minerals (PRESERVISION AREDS 2) CHEW Take by mouth. 0 Active NATURAL SUPPLEMENTIndicati ons:metabolic synergy, B-wngoip-J-Cystein e, lignans, evail, joint formula, GI detox, L-Glutamine, Digestzymes, HTN comples, HTP 5 Take by mouth daily. Indications: metabolic synergy, R-durdoh-R-Cysteine , lignans, evail, joint formula, GI detox, [...] Sharee Leblanc, [address] [place] [address] 08/03/2023 Office Visit Dermatology Kym Stone PA-C [address] [place] [phone] 01/09/2024 Imaging Radiology Pending Results Name Type Priority Associated Diagnoses Date /Time XR FOOT 3 OR MORE VIEWS Medical Imaging Routine Injury of right foot, initial encounter 01/21/2023 10:10 AM EDT Scheduled Procedures Name Priority Associated Diagnoses Date/Ti [...] and Over 04/06/2023 04/06/2022 GFR 06/01/2023 06/01/2022, 042 01/2022, 03/11/2021, Additional history exists HbA1c 07/06/2023 01/03/2023, 07/2022, 04/06/2022, Additional history exists Albumin/Creatinine Ratio 01/04/2024 023, 09/25/2021, 06/24/2020, Additional history exists Mammogram 01/04/2024 01/03/2023, 12/0 06/2021, 01/01/2022, Additional history exists Lipid Panel [...] Documents on File Type Date Recorded Patient Extension Agent Expl anation Advance Directives and Prabhjot Canseco 03/20/2012 ADVANCE DIRECTIVE Power of Evaporative Cooler Installer 03/20/2012 POWER OF A TTORNEY Latest Code Status on File Code Status Date Activated Date Inactivated Comments Full Code 06/30/2022 11:40 AM 06/30/2022 6:29 PM This o rder reflects the patients wishes and were consensually agreed upon. Question Answer Comments Discussion of Advance Directives occurred with: Patient Does the patient have a Living Will? No Does the patient have Health Care Power of Evaporative Cooler Installer? No Care Teams Make Up Operator Helper Relationship Specialty Start Date End Date Sharee Leblanc, DO [address] [place] [address] PCP - General Family Medicine 06/18/16 documented as of this encounter
--- OUTSIDE RECORDS SUMMARY | 2023-07-08 23:36 | External Medical Summary | Summary of Care ---
Author Name Unknown Organization [facility] Address [address] [place] [address] Phone [phone] Care Team Providers Care Assembly Lead Person Name Role Phone Sharee Leblanc DO Primary Care Provider [phone] Encounter Details Date Type Department Care Team Description 01/21/[address] [facility] [address] [facility] [place] [address] Sharee Leblanc DO [address] [facility] [place] [address] Allergies Active Allergy Reactions Severity Noted Date Comments Baclofen Other (Please comment) Medium 08/19/2014 Memory loss, dizziness,hearing loss, and headache Bactrim Psych complications 10/16/2011 Pt reports that it makes her severely depressed Celecoxib Medium 07/29/2011 Severe depression per pt Cephalosporins 07/23/2003 hives Clindamycin Unknown 07/23/2003 Codeine 07/23/2003 Erythromycin Hives Medium 02/15/2013 Food (See Comments) 11/24/2018 arthroben Latex 11/04/2016 rash Methocarbamol Hives High [facility]/19/2014 [facility] Fever 11/28/2018 Arthroben Tropicamide [...] 0 05/07/2013 Active Blood Glucose Monitoring Suppl (Adynxx ULTRA SYSTEM) w/Device KITIndications:Typ e 2 diabetes mellitus with hemoglobin A1c goal of less than 7.0% (HCC) Use as directed 4 times a day as needed for Hyperglycemia (high sugar). Use up to four times a day as directed Dx E11.9 1 Kit 0 10/18/2017 Active [place]-3 Fatty Acids (FISH OIL) 1000 MG Capsule Take 1 Capsule by mouth in the morning. 0 Active Bioflavonoid Products (VITAMIN C PLUS) 1000 MG TABS Take by mouth. 0 Active Multiple Vitamins-Minerals (PRESERVISION AREDS 2) CHEW Take by mouth. 0 Active NATURAL SUPPLEMENTIndicati ons:metabolic synergy, A-geddmf-M-Cystein e, lignans, evail, joint formula, GI detox, L-Glutamine, Digestzymes, HTN comples, HTP 5 Take by mouth daily. Indications: metabolic synergy, V-ausvhy-C-Cysteine , lignans, evail, joint formula, GI detox, [...] encounter Miscellaneous Notes * Telephone Encounter - Pilar Trivedi LPN - 01/21/2023 10:12 AM EDT Patient saw Eileen Cuellar yesterday due to a fall and she had an xray of her foot completed. The biochemistry technologist called to let us know that it was abnormal. The patient said that if there was anything wrong with her foot she wanted to see Dr. Leblanc instead of Eileen Cuellar. documented in this encounter Plan of Treatment Upcoming Encounters Date Type Specialty Care Team Description 04/27/2023 Office Visit Family Medicine Sharee Leblanc DO [address] [place] [address] 08/03/2023 Office Visit Dermatology Kym Stone PA-C [...] Documents on File Type Date Recorded Patient Soft Drink Powder Mixer Expl anation Advance Directives and Livin g Will 03/20/2012 ADVANCE DIRECTIVE Power of Skid Strapper 03/20/2012 POWER OF A TTORNEY Latest Code Status on File Code Status Date Activated Date Inactivated Comments Full Code 06/30/2022 11:40 AM 06/30/2022 6:29 PM This o rder reflects the patients wishes and were consensually agreed upon. Question Answer Comments Discussion of Advance Directives occurred with: Patient Does the patient have a Living Will? No Does the patient have Health Care Power of Skid Strapper? No Care Teams Assembly Lead Person Relationship Specialty Start Date End Date Sharee Leblanc, [address] [place] [address] PCP - General Family Medicine 06/18/16 documented as of this encounter
[2023-07-08] MEDS ORDERED: GLUCOSE 10 TAB/TUBE PO PRN (23:40)
[2023-07-08] MEDS ORDERED: GLUCOSE 40% GEL 15 GM TUBE PO PRN (23:40)
[2023-07-08] MEDS ORDERED: DEXTROSE 50% 50 ML SYRINGE IV PRN (23:40)
[2023-07-08] MEDS ORDERED: GLUCAGON FOR INJ 1 MG VIAL SQ PRN (23:40)
[2023-07-08] MEDS ORDERED: CARBOHYDRATES FOR HYPOGLYCEMIA PO PRN (23:40)
[2023-07-09 00:21] LABS: Lipase 11 U/L (11-82)
[2023-07-09 00:29] LABS: Troponin I High Sensitivity 4.8 pg/ml (0-14)
[2023-07-09] MEDS: LANTUS PER UNIT CHARGE SQ STA ×2 (00:44→01:02)
[2023-07-09] MEDS: ACETAMINOPHEN 325 MG TAB PO STA (01:04)
[2023-07-09] MEDS: Patient's HEIGHT &/or WEIGHT Needed STA (01:05)
[2023-07-09] MEDS: SODIUM CHLORIDE 0.9% 1,000 ML IV STA (01:05)
--- NOTE | 2023-07-09 01:23 | CT Scan Report ---
Exam(s): CT ABDOMEN + PELVIS Without Contrast EXAM: CT Abdomen and Pelvis Without Intravenous Contrast CLINICAL HISTORY: Reason for exam: abd pain. TECHNIQUE: Axial computed tomography images of the abdomen and pelvis without intravenous contrast. Automated exposure control was utilized for the study. A dose lowering technique was utilized adhering to the principles of ALARA. COMPARISON: CT pelvis on 09/20/2020 FINDINGS: Lung bases: Unremarkable. No mass. No consolidation. ABDOMEN: Liver: Unremarkable. Gallbladder and bile ducts: Cholelithiasis. No ductal dilation. Pancreas: Atrophy of the pancreas. No ductal dilation. Spleen: Small calcified granulomas in the spleen. Small splenule. Adrenals: Unremarkable. No mass. Kidneys and ureters: Excreting contrast in the renal collecting systems. No hydronephrosis. Stomach and bowel: Evaluation of the stomach is limited by underdistention. Diverticulosis without definite evidence of diverticulitis. No small bowel obstruction. Duodenal diverticulum. PELVIS: Appendix: Normal appendix. Bladder: Excreted contrast within the underdistended bladder. Evaluation is limited by underdistention and hip arthroplasty artifact. Reproductive: Unremarkable as visualized. ABDOMEN and PELVIS: Intraperitoneal space: Unremarkable. No free air. No significant fluid collection. Bones/joints: Bilateral hip arthroplasties cause streak artifact that limits evaluation of portions of the pelvis. Mild right convex curvature of the spine. Degenerative changes of the spine. No acute fracture. No dislocation. Soft tissues: Small fat-containing bilateral inguinal hernias. Small fat-containing umbilical hernia. Vasculature: Phleboliths in the pelvis. No abdominal aortic aneurysm. Lymph nodes: Unremarkable. No enlarged lymph nodes. IMPRESSION: Cholelithiasis. Excreted contrast within the underdistended bladder. Evaluation is limited by underdistention and hip arthroplasty artifact. No acute abnormality in the abdomen or pelvis. Electronically signed by: Shin Matute M.D. 07/09/23 01:23 AM
[2023-07-09 01:27] LABS: Partial Thromboplastin Ratio 0.9; Partial Thromboplastin Time 26 Seconds (21-31)
--- NOTE | 2023-07-09 01:38 | CT Scan Report ---
Exam(s): CT HEAD Without Contrast EXAM: CT Head Without Intravenous Contrast CLINICAL HISTORY: Reason for exam: johnson. TECHNIQUE: Axial computed tomography images of the head/brain without intravenous contrast. Automated exposure control was utilized for the study. A dose lowering technique was utilized adhering to the principles of ALARA. COMPARISON: Comparison made to prior head CT from September 20, 2020. FINDINGS: Brain: Unremarkable. No hemorrhage. No significant white matter disease. No edema. Ventricles: Unremarkable. No ventriculomegaly. Bones/joints: Hyperostosis frontalis interna. No acute fracture. Soft tissues: Bilateral lens replacements. Sinuses: Unremarkable as visualized. No acute sinusitis. Mastoid air cells: Unremarkable as visualized. No mastoid effusion. IMPRESSION: No evidence for acute intracranial pathology. Electronically signed by: Ainsley Davis MD 07/09/23 01:37 AM
--- NOTE | 2023-07-09 02:01 | History & Physical Report ---
Date of Service July 09, 2023 Assessment & Plan (1) Chest tightness: Plan: Likely secondary to hypertensive crisis Likely chronic BP elevation given cardiomegaly on imaging and concentric LVH on outpatient stress echo from years ago Anxiety contributory bronchial asthma/idiopathic angioedema/urticaria, ongoing steroid course DM2 on oral medications, marked hyperglycemia with recent steroid taper Rx, suboptimal control as of recent hemoglobin A1c of 9.06 April 2023 GERD on PPI OBS PCU Initiate losartan for BP control Baseline TTE for chest pain Anxiolytic as needed Basal insulin, ISS BG goal 1 10-1 40, carb count coverage, update hemoglobin A1c Shorten prednisone taper over the next 3 days given marked hyperglycemia DVT prophylaxis per Lovenox subcu Full code Text document was generated using [employer] voice recognition software. It may contain grammatical or spelling errors. Kindly contact undersigned for clarification of any documentation item in question. History of Present Illness Chief Complaint: Angioedema flareup, chest tightness Primary Care Provider: Sharee Leblanc DO History obtained from patient and records. Medical history significant for bronchial asthma, idiopathic angioedema/urticaria, situational hypertension, DM2 on oral medications, situational hypertension as per records, gastroparesis, GERD. Last confinement August 2020 for traumatic RLE weakness. 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 Intermittent episodes of throat swelling sensation and shortness of breath occurring about every 2 months. No previous facial/tongue swelling reactions. Usually precipitated by environmental agents. Usually responsive to medications comprised of antihistaminic, MDI puff and prednisone dose. Two weeks ago, patient noted pruritic rash on both legs shortly after starting new Jardiance medication for diabetes. Patient stopped Jardiance. Shortly after, patient had angioedema attack described as tightness in her throat with shortness of breath. Not improved with home rescue kit. 2 ER visits at [facility] ER with transient improvement of symptoms. Patient seen at PCPs office 3 days ago. Symptoms attributed to possible asthma flareup along with angioedema. No documentation of wheezing on provider exam as per note. Prednisone course prescribed. Outpatient referral with mirian Rogers allergologist contemplated. Patient told to stop Jardiance. Glipizide recommended as substitute for DM control. Symptoms initially improved but yesterday, patient had voice change with recurrence of throat swelling sensation. Intermittent chest tightness with headache, abdominal pain symptoms. Highest SBP of 200s documented at the ER. Albuterol and neb treatment administered at the ER. Chest pain and headache improved with Tylenol administration at the ER. Patient currently comfortable and feeling much better. 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 [employer] Allergies Allergy/AdvReac Type Severity Reaction Status Date / Time phenylephrine Allergy Severe RED, Verified 07/09/23 00:11 WATERY EYES empagliflozin Allergy Intermediate Rash Verified 07/09/23 02:08 [From Jardiance] house dust mite Allergy Intermediate HIVES,SOB Verified 07/09/23 00:11 THROAT SWELLS baclofen Allergy Mild Hives Verified 07/09/23 00:11 Cephalosporins Allergy Mild UNKNOWN Verified 07/09/23 00:11 clindamycin Allergy Mild UNKNOWN Verified 07/09/23 00:11 contact metal agent Allergy Mild (white Verified 07/09/23 00:11 gold) OCCASIONAL HIVES/IRRITATION erythromycin base Allergy Mild HIVES Verified 07/09/23 00:11 latex Allergy Mild RASH,REDNESS, Verified 07/09/23 00:11 HIVES methocarbamol Allergy Mild blurry Verified 07/09/23 00:11 vision, headache, memory loss Penicillins Allergy Mild HIVES Verified 07/09/23 00:11 sulfamethoxazole Allergy Mild depression, Verified 07/09/23 00:11 nausea, diarrhea trimethoprim Allergy Mild depression, Verified 07/09/23 00:11 nausea, diarrhea tropicamide Allergy Mild RED, Verified 07/09/23 00:11 WATERY EYES suture Allergy (cat gut) Verified 07/09/23 00:11 severe rash Sutures Allergy (ethicon) Verified 07/09/23 00:11 celecoxib AdvReac Severe SUICIDAL Verified 07/09/23 00:11 codeine AdvReac Mild NAUSEA AND Verified 07/09/23 00:11 VOMITING Home Medications Medication Instructions Recorded Confirmed Type albuterol sulfate 90 mcg/actuation 2 puff inhalation QID PRN Allergic 04/25/18 07/08/23 History aerosol inhaler Reaction ascorbic acid (vitamin C) 500 mg 1,000 mg PO DAILY 04/25/18 07/08/23 History capsule diphenhydramine HCl 25 mg capsule 50 mg PO HS PRN Allergic Reaction 04/25/18 07/08/23 History (Benadryl) epinephrine 0.3 mg/0.3 mL 0.3 mg IM Q3H PRN Allergic Reaction 04/25/18 07/08/23 History injection, auto-injector (EpiPen) fexofenadine 180 mg tablet 180 mg PO DAILY PRN Allergic 04/25/18 07/08/23 History (Ana Allergy) Reaction multivitamin with minerals 1 tab PO QAM 04/25/18 07/08/23 History prednisone 20 mg tablet 20 mg PO DIRECTED PRN RESCUE KIT 04/25/18 07/08/23 History astaxanthin 4 mg capsule 4 mg PO QDL 11/22/18 07/08/23 History fish oil-dha-epa 1,200 mg-144 1 cap PO QAM 11/22/18 07/08/23 History mg-216 mg capsule metformin 500 mg tablet 500 mg PO BID 09/19/20 07/08/23 History omeprazole 40 mg capsule,delayed 40 mg PO DAILYBB PRN Acid Reflux 09/19/20 07/08/23 History release clobetasol 0.05 % topical ointment 1 applic topical DAILY 2 weeks #60 05/27/22 07/08/23 Rx grams Curcumin Tab 500 mg PO DAILY 07/08/23 07/08/23 History H2(Molecular Hydrogen) 1 tab PO DAILY 07/08/23 07/09/23 History Krill Oil Cap 1,200 mg PO DAILY 07/08/23 07/09/23 History empagliflozin 25 mg tablet 25 mg PO QAM 07/08/23 07/08/23 History (Jardiance) lactobacillus combination no.4 3 0 mmu cells PO DAILY 07/08/23 07/08/23 History billion cell capsule (Probiotic) magnesium 250 mg tablet 0 mg PO DAILY 07/08/23 07/09/23 History melatonin 1.5 mg tablet 1.5 mg PO DIRECTED PRN Sleep 07/08/23 07/09/23 History mometasone 50 mcg/actuation nasal 2 spray intranasal BID 07/08/23 07/09/23 History spray prednisone 10 mg tablet 10 mg PO .TAPER DIRECTED 07/08/23 07/09/23 History quercetin 500 mg capsule 250 mg PO DAILY 07/08/23 07/09/23 History vit C 250 mg-vit E 90 mg-zinc 40 1 tab PO BID 07/08/23 07/09/23 History mg-copper 1 wa-myeqqu-bicxac capsule (PreserVision AREDS-2) vitamin B complex 1 tab PO DAILY 07/08/23 07/09/23 History vitamin D3 1,250 mcg (50,000 1 cap PO DAILY 07/08/23 07/08/23 History unit)-vitamin K2 200 mcg capsule famotidine 40 mg tablet 40 mg PO .DAILY FOR 7 DAYS 07/09/23 07/09/23 History glipizide 5 mg tablet, extended 5 mg PO QAM 07/09/23 07/09/23 History release 24 hr Past Med/Surg History Medical History Asthma Cancer Chronic back pain Contusion of elbow, right Contusion of shoulder, right Degenerative disc disease Diabetes mellitus, type 2 Environmental and seasonal allergies Fall GERD (gastroesophageal reflux disease) Glaucoma Hearing deficit Hypertension Idiopathic angioedema Lab test negative for COVID-19 virus Macular degeneration Migraine Osteoarthritis Pain in right hip Right leg weakness Scoliosis Temporomandibular joint disorder Surgical History Family history of reaction to anesthesia H/O foot surgery H/O: hysterectomy Hip joint replacement status History of anesthesia reaction History of arthroscopy History of bronchoscopy History of cataract surgery History of colonoscopy History of esophagogastroduodenoscopy (EGD) History of total hip arthroplasty Hx of detached retina repair Family History Brother Family history of diabetes mellitus Mother Family history of diabetes mellitus Sister Breast cancer Denies family history of Ovarian cancer Prostate cancer Myocardial infarction Colorectal cancer Social History Smoking Status: Never smoker Second Hand Exposure: Yes ( A CHILD); Do You Dip or Chew Tobacco: No; Hx Alcohol Use: No Hx Substance Use: No Preferred Language: Kittitian Communication Ability: Effective Manager Front Required: No Beliefs That Will Affect Care: None Current Living Situation: Alone Current Living Situation Comment: LIVES WITH FATHER "DISABLED" Feels Safe at Home: Yes Assistive Devices: None Review of Systems Review of Systems: As per HPI, all other systems reviewed and negative Physical Exam Physical Exam: GENERAL: Slightly uncomfortable, obese, anxious, no respiratory distress, no stridor SKIN: Normal color, warm HEENT: [place] palpebral conjunctivae, no ptosis, dry buccal mucosa NECK : Supple, short neck, no tenderness CHEST : CTA, no tenderness HEART : RRR, no obvious murmurs ABDOMEN: Some distention, nontender EXTREMITIES : No LE swelling or tenderness, no other conspicuous deformities noted NEUROLOGIC : Coherent, no facial asymmetry, no gross focality Results & Data Results & Data Vital Signs (Past 12 Hours) Vital Signs Temp Pulse Resp BP Pulse Ox O2 Del Method 07/09/23 01:40 70 21 98 07/09/23 01:33 68 17 96 07/09/23 01:33 143/73 H 07/09/23 01:31 87 16 95 07/09/23 01:30 68 20 91 07/09/23 01:20 70 17 93 07/09/23 01:10 75 22 95 07/09/23 01:00 69 12 97 07/09/23 01:00 192/89 H 07/09/23 00:50 75 16 94 07/09/23 00:40 81 14 97 07/09/23 00:30 70 14 97 07/09/23 00:30 188/86 H 07/09/23 00:29 81 16 98 07/09/23 00:00 159/79 H 07/09/23 00:00 90 21 97 07/08/23 23:50 83 16 97 07/08/23 23:40 94 H 17 98 07/08/23 23:30 182/87 H 07/08/23 23:30 79 20 99 07/08/23 23:20 90 20 97 07/08/23 23:10 89 17 95 07/08/23 23:01 185/121 H 07/08/23 23:01 80 19 98 07/08/23 23:00 101 H 16 90 07/08/23 22:50 91 H 19 98 07/08/23 22:40 93 H 15 97 07/08/23 22:31 206/99 H 07/08/23 22:31 93 H 17 97 07/08/23 22:30 91 H 17 94 07/08/23 22:20 95 H 18 94 07/08/23 22:10 87 19 97 07/08/23 22:01 80 13 100 07/08/23 22:01 192/102 H 07/08/23 22:00 69 9 L 07/08/23 21:50 68 21 98 07/08/23 21:40 71 17 97 07/08/23 21:30 66 18 07/08/23 21:30 187/76 H 07/08/23 21:20 65 21 07/08/23 21:17 80 15 07/08/23 20:50 80 13 98 07/08/23 20:40 67 22 95 07/08/23 20:30 69 14 96 07/08/23 20:30 165/81 H 07/08/23 20:20 70 14 94 07/08/23 20:10 75 22 94 07/08/23 20:01 71 18 94 07/08/23 20:01 166/74 H 07/08/23 20:00 72 19 94 07/08/23 19:50 74 17 95 07/08/23 19:47 77 18 95 07/08/23 19:47 77 07/08/23 19:16 98 Room Air 07/08/23 16:40 37 C 95 H 18 187/110 H 97 Room Air Laboratory Results Laboratory Results WBC 8.44 K/ul (4.8-10.8) 07/08/23 18:12 RBC 4.94 M/uL (4.20-5.40) 07/08/23 18:12 Hgb 14.6 g/dl (12.0-16.0) 07/08/23 18:12 Hct 43.4 % (37.0-47.0) 07/08/23 18:12 MCV 87.9 fL (80.0-100.0) 07/08/23 18:12 MCH 29.6 pg (25.0-34.0) 07/08/23 18:12 MCHC 33.6 g/dL (32.0-36.0) 07/08/23 18:12 RDW Std Deviation 42.5 fL (36.4-46.3) 07/08/23 18:12 RDW Coeff of [place] 13.2 % (11.5-14.5) 07/08/23 18:12 Plt Count 217 K/uL (130-400) 07/08/23 18:12 MPV 10.8 fL (9.4-12.4) 07/08/23 18:12 Immature Gran % (Auto) 0.4 % 07/08/23 18:12 Neut % (Auto) 75.8 % 07/08/23 18:12 Lymph % (Auto) 17.7 % 07/08/23 18:12 [place] % (Auto) 6.0 % 07/08/23 18:12 Eos % (Auto) 0.0 % 07/08/23 18:12 Baso % (Auto) 0.1 % 07/08/23 18:12 Neut # (Auto) 6.40 K/uL (1.40-6.50) 07/08/23 18:12 Lymph # (Auto) 1.49 K/uL (1.20-3.40) 07/08/23 18:12 [place] # (Auto) 0.51 K/uL (0.11-0.59) 07/08/23 18:12 Eos # (Auto) 0.00 K/uL (0.00-0.50) 07/08/23 18:12 Baso # (Auto) 0.01 K/uL (0.00-0.20) 07/08/23 18:12 Immature Gran # (Auto) 0.03 K/uL (0.01-0.20) 07/08/23 18:12 APTT 26 Seconds (21-31) 07/09/23 00:28 PTT Ratio 0.9 07/09/23 00:28 Sodium 130 mmol/L (136-145) L 07/08/23 18:12 Potassium 4.5 mmol/L (3.5-5.1) 07/08/23 18:12 Chloride 97 mmol/L (98-107) L 07/08/23 18:12 Carbon Dioxide 23 mmol/L (21-32) 07/08/23 18:12 Anion Gap 10 (3-11) 07/08/23 18:12 BUN 20 mg/dl (6-23) 07/08/23 18:12 Creatinine 0.84 mg/dl (0.6-1.2) 07/08/23 18:12 Est Cr Clr Drug Dosing Not Reportable 07/08/23 18:12 Est GFR ( Amer) 79.9 ml/min 07/08/23 18:12 Est GFR (Non-Af Amer) 69.0 ml/min 07/08/23 18:12 BUN/Creatinine Ratio 23.8 (10-20) H 07/08/23 18:12 Glucose 407 mg/dl (70-99(Fasting)) H* 07/08/23 18:12 POC Glucose 258 mg/dl (70-99) H 07/09/23 00:40 Calcium 9.8 mg/dl (8.6-10.3) 07/08/23 18:12 Total Bilirubin 0.3 mg/dl (0.2-1.0) 07/08/23 18:12 AST 16 U/L (13-39) 07/08/23 18:12 ALT 16 U/L (7-52) 07/08/23 18:12 Alkaline Phosphatase 86 U/L (34-104) 07/08/23 18:12 Troponin I High Sens 4.8 pg/ml (0-14) 07/08/23 18:12 Total Protein 7.7 gm/dl (6.0-8.3) 07/08/23 18:12 Albumin 4.4 gm/dl (3.4-5.0) 07/08/23 18:12 Globulin 3.3 gm/dl (2.5-4.0) 07/08/23 18:12 Albumin/Globulin Ratio 1.3 (0.9-2) 07/08/23 18:12 Lipase 11 U/L (11-82) 07/08/23 18:12 Impressions Chest X-Ray 07/08/23 16:45 SINGLE VIEW CHEST CLINICAL HISTORY: Idiopathic angioedema. Dyspnea FINDINGS: A PA chest radiograph is compared to chest x-ray and chest CT dated 06/22/2020. The cardiomediastinal silhouette is top normal for projection. Chronic interstitial thickening is similar to previous. There is mild bibasilar scarring/atelectasis. A right middle lobe pulmonary nodule is again noted. This was better characterized on the prior CT scan. No airspace consolidation or pleural effusion is identified. No pneumothorax is seen. The skeletal structures are osteopenic. The bony thorax is grossly intact. Calcified gallstones are seen in the right upper quadrant. IMPRESSION: No active disease in the chest. ACT 112: Negative or not required by law. Electronically signed by: Jewel Denney M.D. 07/08/2023 5:[address] 07/08/23 20:55 CT SCAN OF THE NECK WITH IV CONTRAST CLINICAL HISTORY: Change in voice. Dyspnea. COMPARISON STUDY: Cervical spine radiographs dated 09/06/2022. TECHNIQUE: Following the IV administration of 88 cc of Optiray 320, CT scan of the soft tissues of the neck was performed from the skull base to the upper chest. Images are reviewed in the axial, sagittal, and coronal planes. IV contrast was administered without complication. A dose lowering technique was utilized adhering to the principles of ALARA. FINDINGS: Pharynx: The pharyngeal soft tissues are normal as imaged. No fluid collection is seen. The pharyngeal airway is widely patent. There is no evidence of mass lesion. The vocal cords are symmetric. The parapharyngeal fat is well maintained. The prevertebral/retropharyngeal soft tissues are within normal limits. The epiglottis is normal. Lymphadenopathy: No cervical lymphadenopathy is seen Thyroid: Normal in size and attenuation. Salivary glands: The parotid and submandibular glands are within normal limits. Brain parenchyma: The visualized brain parenchyma at the skull base is normal in appearance. Vascular structures: The carotid arteries and jugular veins are patent bilaterally. Skeletal structures: The skeletal structures are osteopenic. Imaged portions of the calvarium at the skull base are within normal limits. The cervical spine appears maintained noting multilevel spondylosis. Orbits: The bony orbits are intact. Orbital contents are normal in appearance noting bilateral ocular lens implants. Sinuses and mastoids: The paranasal sinuses are clear. The mastoid air cells are well pneumatized. Lung apices: Visualized apical lung parenchyma is clear. IMPRESSION: No acute abnormality is identified. ACT 112: Negative or not required by law. Electronically signed by: Jewel Denney M.D. 07/08/2023 9:54 PM Abdomen/Pelvis CT 07/08/23 23:38 Exam(s): CT ABDOMEN + PELVIS Without Contrast EXAM: CT Abdomen and Pelvis Without Intravenous Contrast CLINICAL HISTORY: Reason for exam: abd pain. TECHNIQUE: Axial computed tomography images of the abdomen and pelvis without intravenous contrast. Automated exposure control was utilized for the study. A dose lowering technique was utilized adhering to the principles of ALARA. COMPARISON: CT pelvis on 09/20/2020 FINDINGS: Lung bases: Unremarkable. No mass. No consolidation. ABDOMEN: Liver: Unremarkable. Gallbladder and bile ducts: Cholelithiasis. No ductal dilation. Pancreas: Atrophy of the pancreas. No ductal dilation. Spleen: Small calcified granulomas in the spleen. Small splenule. Adrenals: Unremarkable. No mass. Kidneys and ureters: Excreting contrast in the renal collecting systems. No hydronephrosis. Stomach and bowel: Evaluation of the stomach is limited by underdistention. Diverticulosis without definite evidence of diverticulitis. No small bowel obstruction. Duodenal diverticulum. PELVIS: Appendix: Normal appendix. Bladder: Excreted contrast within the underdistended bladder. Evaluation is limited by underdistention and hip arthroplasty artifact. Reproductive: Unremarkable as visualized. ABDOMEN and PELVIS: Intraperitoneal space: Unremarkable. No free air. No significant fluid collection. Bones/joints: Bilateral hip arthroplasties cause streak artifact that limits evaluation of portions of the pelvis. Mild right convex curvature of the spine. Degenerative changes of the spine. No acute fracture. No dislocation. Soft tissues: Small fat-containing bilateral inguinal hernias. Small fat-containing umbilical hernia. Vasculature: Phleboliths in the pelvis. No abdominal aortic aneurysm. Lymph nodes: Unremarkable. No enlarged lymph nodes. IMPRESSION: Cholelithiasis. Excreted contrast within the underdistended bladder. Evaluation is limited by underdistention and hip arthroplasty artifact. No acute abnormality in the abdomen or pelvis. Electronically signed by: Shin Matute M.D. 07/09/23 01:[address] 07/08/23 23:38 Exam(s): CT HEAD Without Contrast EXAM: CT Head Without Intravenous Contrast CLINICAL HISTORY: Reason for exam: johnson. TECHNIQUE: Axial computed tomography images of the head/brain without intravenous contrast. Automated exposure control was utilized for the study. A dose lowering technique was utilized adhering to the principles of ALARA. COMPARISON: Comparison made to prior head CT from September 20, 2020. FINDINGS: Brain: Unremarkable. No hemorrhage. No significant white matter disease. No edema. Ventricles: Unremarkable. No ventriculomegaly. Bones/joints: Hyperostosis frontalis interna. No acute fracture. Soft tissues: Bilateral lens replacements. Sinuses: Unremarkable as visualized. No acute sinusitis. Mastoid air cells: Unremarkable as visualized. No mastoid effusion. IMPRESSION: No evidence for acute intracranial pathology. Electronically signed by: Ainsley Davis MD 07/09/23 01:37 AM Diagnostic Findings EKG as per my interpretation : Rate 85, NSR, normal axis, inferior infarct, septal infarct
[2023-07-09] MEDS ORDERED: PROMETHAZINE HCL 12.5 MG in SODIUM CHLORIDE 0.9% 50 ML IV PRN (02:06)
[2023-07-09] MEDS ORDERED: oxyCODONE HCL IR 5 MG TAB (IMMEDIATE RELEASE) PO PRN (02:06)
[2023-07-09] MEDS: LOSARTAN POTASSIUM 25 MG TAB PO STA (02:06)
[2023-07-09] MEDS: INSULIN ASPART PER UNIT CHARGE SC STA (02:07)
[2023-07-09] MEDS ORDERED: NITROGLYCERIN SL 0.4 MG/TAB TAB SL PRN (04:10)
[2023-07-09 04:26] LABS: Basophils # (auto) 0.04 K/uL (0.00-0.20); Basophils % (auto) 0.4 %; Eosinophils # (auto) 0.11 K/uL (0.00-0.50); Eosinophils % (auto) 1.1 %; Hematocrit (blood only) 39.3 % (37.0-47.0); Hemoglobin 13.2 g/dl (12.0-16.0); Immature Granulocytes # (auto) 0.03 K/uL (0.01-0.20); Immature Granulocytes % (auto) 0.3 %; Lymphocytes # (auto) 4.79 K/uL (1.20-3.40); Lymphocytes % (auto) 45.7 %; Mean Corpuscular Hemoglobin 29.1 pg (25.0-34.0); Mean Corpuscular Hgb Conc 33.6 g/dL (32.0-36.0); Mean Corpuscular Volume 86.8 fL (80.0-100.0); Monocytes # (auto) 0.84 K/uL (0.11-0.59); Neutrophils # (auto) 4.66 K/uL (1.40-6.50); Neutrophils % (auto) 44.5 %; Platelet Count 199 K/uL (130-400); RDW Coefficient of Variation 13.1 % (11.5-14.5); RDW Standard Deviation 41.3 fL (36.4-46.3); Red Blood Count 4.53 M/uL (4.20-5.40); White Blood Count 10.47 K/ul (4.8-10.8)
[2023-07-09 04:35] LABS: Magnesium 1.9 mg/dl (1.7-2.4)
[2023-07-09 04:37] LABS: BUN Creatinine Ratio 25.4 (10-20); Calcium 9.3 mg/dl (8.6-10.3); Creatinine Clr Calc Pharmacy 85.1 ml/min; Est GFR (African American) 103.1 ml/min
[2023-07-09 04:40] LABS: Troponin I High Sensitivity 6.1 pg/ml (0-14)
[2023-07-09 04:43] LABS: Partial Thromboplastin Ratio 0.9; Partial Thromboplastin Time 26 Seconds (21-31)
[2023-07-09] MEDS ORDERED: MELATONIN 3 MG TAB PO PRN (05:15)
[2023-07-09] MEDS: MAGNESIUM SULFATE / D5W 1 GM/100 ML BAG IV ONE (05:43)
[2023-07-09] MEDS: POTASSIUM CHLORIDE CRTAB 20 MEQ TABCR PO STA (05:44)
--- NOTE | 2023-07-09 07:13 | Electrocardiogram Report ---
Test Reason : Blood Pressure : / mmHG Vent. Rate : 085 BPM Atrial Rate : 085 BPM P-R Int : 148 ms QRS Dur : 074 ms QT Int : 372 ms P-R-T Axes : 029 020 031 degrees QTc Int : 442 ms Normal sinus rhythm When compared with ECG of 20-SEP-2020 00:26, No significant change was found Confirmed by Peewee Pope ([id number]) on 07/09/2023 7:12:34 AM Referred By: REFERRED SELF Confirmed By:Toni Pope
[2023-07-09 07:26] LABS: Estimated Average Glucose 214 mg/dl; Hemoglobin A1C 9.1 % (4.5-5.6)
[2023-07-09] MEDS ORDERED: predniSONE 10 MG TABLET PO ONE (08:00)
[2023-07-09] MEDS: CEROVITE ADV FORMULA TAB PO SCH (08:04)
[2023-07-09] MEDS: VITAMIN B COMPLEX TAB PO SCH (08:04)
[2023-07-09] MEDS: ADVANCED PROBIOTIC 1250 MG CAPSULE PO SCH (08:05)
[2023-07-09] MEDS: predniSONE 10 MG TABLET PO SCH (08:05)
[2023-07-09] MEDS: POTASSIUM CHLORIDE CRTAB 20 MEQ TABCR PO ONE (08:06)
[2023-07-09] MEDS: ENOXAPARIN INJ 40 MG/0.4 ML SYR SQ SCH (08:07)
[2023-07-09] MEDS: FLUTICASONE PROPIONATE NA SPR 16 GM BTL SCH (08:09)
[2023-07-09] MEDS ORDERED: ENOXAPARIN INJ 40 MG/0.4 ML SYR SQ SCH (09:00)
[2023-07-09] MEDS: INSULIN ASPART PER UNIT CHARGE SC SCH (09:34)
--- NOTE | 2023-07-09 15:56 | Communication Note ---
Date of Service: July 09, 2023 Patient was seen and examined at bedside. 73-year-old lady with PMH of bronchial asthma, idiopathic angioedema/urticaria, situational hypertension, T2DM on oral meds, gastroparesis, GERD came in with worsening allergic reaction progressing to chest tightness and sensation of swelling of throat after being initiated on Jardiance recently as an outpatient. Also patient notes that after she was started on famotidine for this allergic reaction, she had diarrhea and which resolved with stopping of famotidine. Patient's Jardiance was stopped and glipizide was recommended as substitute for diabetes control. Patient reports having sensation of swelling of her throat and voice changes and chest tightness at presentation. Of note, patient has int ermittent episodes of throat swelling sensation and shortness of breath occurring about every 2 to 3 months and usually self takes care of these with medication comprising of antihistamine, MDI puff, prednisone doses. This time her symptoms did not improve and hence he presented to the ED. She is being managed for the following: Flareup of idiopathic angioedema Allergic reaction to Jardiance Patient presented with complaint of sensation of throat swelling, chest tightness and was noted to have voice changes. Patient received epinephrine, breathing treatments in the ED with improvement. At bedside exam, patient reports improvement in her sensation of throat swelling, and reports her voice getting back to normal. Will continue steroid, patient has noted allergic reaction to famotidine as well. Continue fexofenadine as needed for allergy reaction. Patient is supposed to follow-up with ichthyology teacher, has not followed up in many years. Patient encouraged to follow-up with ichthyology teacher. Monitor over telemetry. Hypertensive urgency: Likely secondary to acute issues. Does not appear to be on blood pressure medications at home. Blood pressure still elevated. Will start her on amlod. Echo reviewed, EF 55 to 60%, normal LV wall thickness. Other chronic medical conditions: T2DM, HTN, HLD, GERD -continue with/resume home meds as and when able. DVT prophylaxis per Lovenox subcu Full code Text document was generated using [employer] voice recognition software. It may contain grammatical or spelling errors. Kindly contact undersigned for clarification of any documentation item in question.
[2023-07-09] MEDS: amLODIPine BESYLATE 5 MG TAB PO ONE (16:14)
[2023-07-09] MEDS ORDERED: LOSARTAN POTASSIUM 25 MG TAB PO SCH (21:00)
[2023-07-09] MEDS: LANTUS PER UNIT CHARGE SQ SCH (21:18)
[2023-07-10 07:13] LABS: Hemoglobin 13.7 g/dl (12.0-16.0); Mean Corpuscular Hemoglobin 29.1 pg (25.0-34.0); Mean Corpuscular Hgb Conc 32.6 g/dL (32.0-36.0); Mean Corpuscular Volume 89.2 fL (80.0-100.0); Mean Platelet Volume 10.4 fL (9.4-12.4); Platelet Count 194 K/uL (130-400); RDW Coefficient of Variation 13.3 % (11.5-14.5); RDW Standard Deviation 43.8 fL (36.4-46.3); Red Blood Count 4.71 M/uL (4.20-5.40); White Blood Count 8.14 K/ul (4.8-10.8)
--- NOTE | 2023-07-10 07:17 | Electrocardiogram Report ---
Test Reason : Blood Pressure : / mmHG Vent. Rate : 059 BPM Atrial Rate : 059 BPM P-R Int : 150 ms QRS Dur : 086 ms QT Int : 444 ms P-R-T Axes : 008 037 046 degrees QTc Int : 439 ms Sinus bradycardia Low voltage QRS Borderline ECG When compared with ECG of 08-JUL-2023 16:55, No significant change was found Confirmed by Peewee Pope ([id number]) on 07/10/2023 7:17:11 AM Referred By: REFERRED SELF Confirmed By:Toni Pope
[2023-07-10 07:42] LABS: BUN Creatinine Ratio 19.7 (10-20); Calcium 9.6 mg/dl (8.6-10.3); Est GFR (African American) 90.2 ml/min; Est GFR (Non-African American) 77.8 ml/min; Potassium 3.9 mmol/L (3.5-5.1)
[2023-07-10] MEDS ORDERED: predniSONE 20 MG TAB PO ONE (08:00)
[2023-07-10] MEDS: amLODIPine BESYLATE 5 MG TAB PO SCH (08:29)
[2023-07-10] MEDS: FEXOFENADINE HCL 180 MG TAB PO PRN (09:16)
[2023-07-10] MEDS: LORazepam 0.5 MG TAB PO PRN (09:35)
[2023-07-10] MEDS ORDERED: EPINEPHrine INJ 1 MG/ML AMP IM PRN (09:53)
--- NOTE | 2023-07-10 09:53 | Communication Note ---
Date of Service: July 10, 2023 Rn paged me for pt's sensation of throat swelling and difficulty to breath and chest tightness, similar symptoms as presentation. At bedside exam, pt com plained of tingling lips. Her throat exams appears fairly wnl similar to what was when she was feeling her baseline and normal yesterday. no wheezing, saturation of 97% on RA. EKG w/ no st or t elevation. no radiation of chest discomfort. given ativan for concerns of anxiety rather than treating it in the line of allergic reaction. will follow response to ativan. pt agreeable to psych liason consult. No relief of symptoms after half an hour of ativan, but no worsening as well. Pt was given solu medrol and benadryl iv with resolution of symptoms. Will keep her on bruna solu medrol and prn benadryl.
[2023-07-10] MEDS: methylPREDNISolone 40 MG in SYRINGE 0 ML IV PRN (10:29)
[2023-07-10] MEDS: diphenhydrAMINE 50 MG/ML VIAL IV PRN ×2 (10:29→18:10)
[2023-07-10] MEDS: OPTIRAY 320 500ml IV ONE (11:14)
--- NOTE | 2023-07-10 11:28 | CT Scan Report ---
CT OF THE NECK WITH IV CONTRAST CLINICAL HISTORY: feeling of throat swelling COMPARISON STUDY: Neck CT July 08, 2023. TECHNIQUE: Following IV administration of 97 mL of Optiray, helical axial images of the neck were ob tained. Sagittal and coronal reconstructions were viewed. Automated exposure control was utilized f or the study. A dose lowering technique was utilized adhering to the principles of ALARA. FINDINGS: Visualized portions of the intracranial contents are unremarkable. Mastoid air cells and s inuses are clear. There is no orbital abnormality. Major vasculature of the neck is patent. Parotid a nd submandibular glands are normal. There is no fluid collection within the neck. The epiglottis is n ormal. There is no prevertebral edema. No mucosal lesion is identified although these may be occult b y CT. There is no cervical lymphadenopathy. Prominent right paratracheal lymph nodes are unchanged si nce chest CT of June 22, 2020. These are benign. IMPRESSION: 1. No acute process within the neck. No fluid collection to suggest abscess. 2. No inflammation identified. No cervical lymphadenopathy. ACT 112: Negative or not required by law. Electronically signed by: Timoteo Mcclure M.D. 07/10/2023 11:26 AM
--- NOTE | 2023-07-10 16:14 | Hospitalist Progress Note ---
Date of Service July 10, 2023 Assessment & Plan (1) Chest tightness: Plan 73-year-old lady with PMH of bronchial asthma, idiopathic angioedema/urticaria, situational hypertension, T2DM on oral meds, gastroparesis, GERD came in with worsening allergic reaction progressing to chest tightness and sensation of swelling of throat after being initiated on Jardiance recently as an outpatient. Also patient notes that after she was started on famotidine for this allergic reaction, she had diarrhea and which resolved with stopping of famotidine. Patient's Jardiance was stopped and glipizide was recommended as substitute for diabetes control. Patient reports having sensation of swelling of her throat and voice changes and chest tightness at presentation. Of note, patient has intermittent episodes of throat swelling sensation and shortness of breath occurring about every 2 to 3 months and usually self takes care of these with medication comprising of antihistamine, MDI puff, prednisone doses. This time her symptoms did not improve and hence he presented to the ED. She is being managed for the following: Flareup of idiopathic angioedema Allergic reaction to Jardiance Patient presented with complaint of sensation of throat swelling, chest tightness and was noted to have voice changes. Patient received epinephrine, breathing treatments in the ED with improvement. At bedside exam 07/09, patient reports improvement in her sensation of throat swelling, and reports her voice getting back to normal. Pt had recurrence of feeling of throat swelling a/w voice change and chest tightness in AM of 07/10; given ativan; ordered prn benadryl and solumedrol after which pt's sypmtoms improved. Will continue steroid, patient has noted allergic reaction to famotidine as well. Continue fexofenadine as needed for allergy reaction. Patient is supposed to follow-up with collating machine operator, has not followed up in many years. Patient encouraged to follow-up with collating machine operator. Monitor over telemetry. Will possibly speak w/ collating machine operator fan AM, no coverage available today. Will put her on prn benadryl and bruna iv steroid for now. Hypertensive urgency: Likely secondary to acute issues, ? anxiety. Does not appear to be on blood pressure medications at home. Started her on amlod. Echo reviewed, EF 55 to 60%, normal LV wall thickness. Other chronic medical conditions: T2DM, HTN, HLD, GERD -continue with/resume home meds as and when able. DVT prophylaxis per Lovenox subcu Full code Text document was generated using [employer] voice recognition software. It may contain grammatical or spelling errors. Kindly contact undersigned for clarification of any documentation item in question. Admission and Anticipated Discharge Date Admission Date: July 09, 2023 Subjective Patient was seen and examined at bedside. Patient was lying in bed, reported feeling throat swelling sensation along with shortness of breath and chest tightness, no radiation of chest discomfort. Patient had no new acute events overnight. Patient reports the symptoms similar to her presentation symptoms. Was given Ativan and then ordered as needed doses of IV Benadryl and Solu-Medrol. Psych liaison also evaluated her for concern of anxiety. Discussed with psych liaison, no concern of anxiety disorder at this point. Will possibly speak with collating machine operator tomorrow. As no coverage available during weekend. In some time patient's symptoms improved. See today's communication note. Physical Exam Physical Exam: GENERAL: Alert and oriented x3. NAD, on RA. HEENT: No pallor, no icterus. Pupils equal, round and reactive to light. Oral mucosa moist. NECK: No JVD, no neck masses. HEART: S1 and S2 heard. Regular rate and rhythm. No murmur, no gallop. RESPIRATORY SYSTEM: Normal AP diameter. No accessory muscle use. No wheezing, no crackles. ABDOMEN: Soft, bowel sounds present, nontender, no distention. CENTRAL NERVOUS SYSTEM: No facial droop. Speech is clear. Obeys simple commands. Moves extremities. EXTREMITIES: No edema, no erythema seen. Results & Data Results & Data Vital Signs (Past 12 Hours) Vital Signs Temp Pulse Resp BP BP Pulse Ox O2 Del Method 07/10/23 15:36 36.8 C 84 16 174/90 H 97 Room Air 07/10/23 10:35 71 18 173/95 H 95 Room Air 07/10/23 10:14 71 16 176/103 H 94 Room Air 07/10/23 09:21 77 20 160/91 H Room Air 07/10/23 07:15 36.9 C 63 18 167/82 H 97 Room Air
[2023-07-10] MEDS ORDERED: ALBUT/IPRATROP 3MG/0.5MG NEB 3 ML VIAL NEB PRN (16:22)
--- NOTE | 2023-07-10 16:50 | Electrocardiogram Report ---
Test Reason : Blood Pressure : / mmHG Vent. Rate : 074 BPM Atrial Rate : 074 BPM P-R Int : 136 ms QRS Dur : 074 ms QT Int : 396 ms P-R-T Axes : 047 021 050 degrees QTc Int : 439 ms Poor data quality, interpretation may be adversely affected Normal sinus rhythm Normal ECG When compared with ECG of 10-JUL-2023 05:25, No significant change was found Confirmed by Peewee Pope ([id number] on 07/10/2023 4:50:11 PM Referred By: REFERRED SELF Confirmed By:Toni Pope
[2023-07-10] MEDS: methylPREDNISolone 125 MG/2 ML VIAL ONE (17:15)
[2023-07-10] MEDS: diphenhydrAMINE 50 MG/ML VIAL ONE (17:15)
[2023-07-10] MEDS: LABETALOL HCL IV 5 MG/ML 20ML IV PRN (18:09)
[2023-07-10] MEDS: methylPREDNISolone 40 MG in SYRINGE 0 ML IV SCH (18:10)
[2023-07-11 06:41] LABS: Hematocrit (blood only) 43.5 % (37.0-47.0); Hemoglobin 14.4 g/dl (12.0-16.0); Mean Corpuscular Hemoglobin 28.9 pg (25.0-34.0); Mean Corpuscular Hgb Conc 33.1 g/dL (32.0-36.0); Mean Corpuscular Volume 87.2 fL (80.0-100.0); Mean Platelet Volume 10.6 fL (9.4-12.4); Platelet Count 232 K/uL (130-400); RDW Coefficient of Variation 13.2 % (11.5-14.5); RDW Standard Deviation 42.1 fL (36.4-46.3); Red Blood Count 4.99 M/uL (4.20-5.40); White Blood Count 9.92 K/ul (4.8-10.8)
[2023-07-11 07:05] LABS: Potassium 4.5 mmol/L (3.5-5.1)
[2023-07-11 07:06] LABS: BUN Creatinine Ratio 24.7 (10-20); Calcium 9.9 mg/dl (8.6-10.3); Creatinine Clr Calc Pharmacy 67.3 ml/min; Est GFR (African American) 88.8 ml/min; Est GFR (Non-African American) 76.6 ml/min; Phosphorus 4.5 mg/dl (2.5-4.9)
[2023-07-11] MEDS ORDERED: predniSONE 10 MG TABLET PO ONE (08:00)
[2023-07-11] MEDS: CETIRIZINE HCL 10 MG TABLET PO SCH (10:00)
--- NOTE | 2023-07-11 10:26 | Nephrology Consultation ---
Date of Consultation July 11, 2023 Assessment & Plan (1) Labile hypertension: (2) Chest tightness: (3) Anaphylaxis: She has h/o Angioedema/Urticaria--this makes using MARY/ARB not possible/not preferable. has intermittent low Na so prefer not to use HCTZ or other thiazides. patient like her has severe problem with allergy and is very hard to find regimen/med that she can handle without side effects. So far Amlodipine seems to be tolerated so will continue same. Change her dose to 5 mg bid. As per patient and daughter Her BP gets high when she gets these " episodes". So for now tolerate BP < 160/100. reassess her BP once Outpt and her Angioedema subsides and is on less Steroid Plan Plan above as well as discharge planning discussed with primary team History of Present Illness Reason for Consultation: HTN urgency/Labile BP Attending Physician: Jd More MD History of Present Illness 73/F with no BP meds before Admission. She has h/o bronchial asthma, idiopathic angioedema/urticaria, situational hypertension, DM2 on oral medications, situational hypertension, gastroparesis, GERD. 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 Intermittent episodes of throat swelling sensation and shortness of breath occurring about every 2 months. Multiple Visits to ED. She came in with Chest pain and Symptoms of angioedema. BP has been high. On Amlodipine currently. No BP meds before. Last 12 hrs BP seems better--- Sys 115 to 178. Most recent 155/76. She has a long list of allergy as expected given her angioedema History. No side effects reported so far with Amlodipine ROS----12 Systems reviewed and negative otherwise. Allergies Allergy/AdvReac Type Severity Reaction Status Date / Time phenylephrine Allergy Severe RED, Verified 07/09/23 00:11 WATERY EYES empagliflozin Allergy Intermediate Rash Verified 07/09/23 02:08 [From Jardiance] house dust mite Allergy Intermediate HIVES,SOB Verified 07/09/23 00:11 THROAT SWELLS baclofen Allergy Mild Hives Verified 07/09/23 00:11 Cephalosporins Allergy Mild UNKNOWN Verified 07/09/23 00:11 clindamycin Allergy Mild UNKNOWN Verified 07/09/23 00:11 contact metal agent Allergy Mild (white Verified 07/09/23 00:11 gold) OCCASIONAL HIVES/IRRITATION erythromycin base Allergy Mild HIVES Verified 07/09/23 00:11 latex Allergy Mild RASH,REDNESS, Verified 07/09/23 00:11 HIVES methocarbamol Allergy Mild blurry Verified 07/09/23 00:11 vision, headache, memory loss Penicillins Allergy Mild HIVES Verified 07/09/23 00:11 sulfamethoxazole Allergy Mild depression, Verified 07/09/23 00:11 nausea, diarrhea trimethoprim Allergy Mild depression, Verified 07/09/23 00:11 nausea, diarrhea tropicamide Allergy Mild RED, Verified 07/09/23 00:11 WATERY EYES suture Allergy (cat gut) Verified 07/09/23 00:11 severe rash Sutures Allergy (ethicon) Verified 07/09/23 00:11 celecoxib AdvReac Severe SUICIDAL Verified 07/09/23 00:11 codeine AdvReac Mild NAUSEA AND Verified 07/09/23 00:11 VOMITING famotidine AdvReac Diarrhea Verified 07/10/23 17:25 Home Medications Medication Instructions Recorded Confirmed Type albuterol sulfate 90 mcg/actuation 2 puff inhalation QID PRN Allergic 04/25/18 07/08/23 History aerosol inhaler Reaction ascorbic acid (vitamin C) 500 mg 1,000 mg PO DAILY 04/25/18 07/08/23 History capsule diphenhydramine HCl 25 mg capsule 50 mg PO HS PRN Allergic Reaction 04/25/18 07/08/23 History (Benadryl) epinephrine 0.3 mg/0.3 mL 0.3 mg IM Q3H PRN Allergic Reaction 04/25/18 07/08/23 History injection, auto-injector (EpiPen) fexofenadine 180 mg tablet 180 mg PO DAILY PRN Allergic 04/25/18 07/08/23 History (Ana Allergy) Reaction multivitamin with minerals 1 tab PO QAM 04/25/18 07/08/23 History prednisone 20 mg tablet 20 mg PO DIRECTED PRN RESCUE KIT 04/25/18 07/08/23 History astaxanthin 4 mg capsule 4 mg PO QDL 11/22/18 07/08/23 History fish oil-dha-epa 1,200 mg-144 1 cap PO QAM 11/22/18 07/08/23 History mg-216 mg capsule metformin 500 mg tablet 500 mg PO BID 09/19/20 07/08/23 History omeprazole 40 mg capsule,delayed 40 mg PO DAILYBB PRN Acid Reflux 09/19/20 07/08/23 History release clobetasol 0.05 % topical ointment 1 applic topical DAILY 2 weeks #60 05/27/22 07/08/23 Rx grams Curcumin Tab 500 mg PO DAILY 07/08/23 07/08/23 History H2(Molecular Hydrogen) 1 tab PO DAILY 07/08/23 07/09/23 History Krill Oil Cap 1,200 mg PO DAILY 07/08/23 07/09/23 History empagliflozin 25 mg tablet 25 mg PO QAM 07/08/23 07/08/23 History (Jardiance) lactobacillus combination no.4 3 0 mmu cells PO DAILY 07/08/23 07/08/23 History billion cell capsule (Probiotic) magnesium 250 mg tablet 0 mg PO DAILY 07/08/23 07/09/23 History melatonin 1.5 mg tablet 1.5 mg PO DIRECTED PRN Sleep 07/08/23 07/09/23 History mometasone 50 mcg/actuation nasal 2 spray intranasal BID 07/08/23 07/09/23 History spray prednisone 10 mg tablet 10 mg PO .TAPER DIRECTED 07/08/23 07/09/23 History quercetin 500 mg capsule 250 mg PO DAILY 07/08/23 07/09/23 History vit C 250 mg-vit E 90 mg-zinc 40 1 tab PO BID 07/08/23 07/09/23 History mg-copper 1 zw-vvmthn-wjfkke capsule (PreserVision AREDS-2) vitamin B complex 1 tab PO DAILY 07/08/23 07/09/23 History vitamin D3 1,250 mcg (50,000 1 cap PO DAILY 07/08/23 07/08/23 History unit)-vitamin K2 200 mcg capsule famotidine 40 mg tablet 40 mg PO .DAILY FOR 7 DAYS 07/09/23 07/09/23 History glipizide 5 mg tablet, extended 5 mg PO QAM 07/09/23 07/09/23 History release 24 hr Patient History Medical History Wrist pain, right Lab test negative for COVID-19 virus Contusion of shoulder, right Contusion of elbow, right Right leg weakness Pain in right hip Fall Idiopathic angioedema Environmental and seasonal allergies Scoliosis Degenerative disc disease Chronic back pain Osteoarthritis GERD (gastroesophageal reflux disease) Diabetes mellitus, type 2 CONTROLLED BY DIET Cancer PRE CANCEROUS SKIN REMOVED Temporomandibular joint disorder Hearing deficit 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 EYE History of cataract surgery RT/LEFT History of bronchoscopy BIOPSY BENIGN TUMOR IN LUNG Family History Brother Family history of diabetes mellitus Mother Family history of diabetes mellitus Sister Breast cancer Denies family history of Ovarian cancer Prostate cancer Myocardial infarction Colorectal cancer Social History Smoking Status: Never smoker Second Hand Exposure: Yes ( A CHILD); Do You Dip or Chew Tobacco: No; Hx Alcohol Use: No Hx Substance Use: No Preferred Language: Estonian Communication Ability: Effective Apartment Leasing Specialist Required: No Beliefs That Will Affect Care: None Current Living Situation: Alone Current Living Situation Comment: LIVES WITH FATHER "DISABLED" Feels Safe at Home: Yes Assistive Devices: None Physical Exam Physical Exam: Awake and alert. Oriented Normal speech. No distress now. Respiratory: b/l Clear Cardiovascular: S1 and S2 RRR. Gastrointestinal (Abdomen): Soft non tender Skin: No rash Results & Data Vital Signs (Past 12 Hours) Vital Signs Temp Pulse Pulse Resp BP BP Pulse Ox 07/11/23 09:53 155/76 H 07/11/23 09:11 161/93 H 07/11/23 07:34 36.6 C 68 18 178/80 H 99 07/11/23 03:00 36.7 C 60 19 115/81 94 07/10/23 23:08 66 07/10/23 23:00 36.4 C L 69 19 129/77 92 O2 Del Method 07/11/23 09:53 07/11/23 09:11 07/11/23 07:34 Room Air 07/11/23 03:00 Room Air 07/10/23 23:08 07/10/23 23:00 Room Air Laboratory Results na low at times. renal function normal. Diagnostic Findings CXR, CT Abdomen and ECHO reviewed
[2023-07-11] MEDS ORDERED: PHARMACY GLYCEMIC MGMT CONSULT PRN (16:32)
--- NOTE | 2023-07-11 17:53 | Allergy & Immunology Consult ---
Date of Consultation July 11, 2023 Assessment & Plan (1) Chronic idiopathic urticaria: (2) Angioedema: (3) Mild intermittent asthma: (4) Vocal cord dysfunction: Plan The patient has a history of idiopathic swelling episodes as well as intermittent breathing difficulties which has previously been diagnosed and managed as chronic spontaneous urticaria/angioedema. However, the patient has not been managed with a maintenance/prophylactic course of medications in this regard. For this reason, the patient was advised to continue on a regimen of high-dose long-acting antihistamines to prevent potential recurrences of histamine mediated swelling (although a baseline tryptase level will be obtained to assess for a possible underlying mast cell mediated phenomenon). However, to investigate for bradykinin mediated causes of angioedema, the patient will also undergo additional lab analysis including C4 level, C1 esterase inhibitor level, C1 esterase inhibitor function, and C1q level. It is unclear what the patient's breathing difficulties are actually insurance healthcare representative of, since the combination of antihistamine medications, albuterol, prednisone, epinephrine, etc. does not always seem to reliably improve the patient's symptoms. To better investigate a potential asthma diagnosis, the patient will be arranged to undergo spirometry in an outpatient setting. It is also quite possible that the patient could be experiencing a component of vocal cord dysfunction contributing to her breathing difficulties as well. -Obtain baseline tryptase level (which can be subsequently compared to an "event related tryptase level" obtained within 2 to 3 hours of any future episodes concerning for an allergic reaction) -Obtain lab work to investigate for bradykinin mediated causes of angioedema: C4 level, C1 esterase inhibitor level, C1 esterase inhibitor function, and C1q level -Continue to empirically manage chronic spontaneous urticaria with 20mg cetirizine BID -Will further assess the patient's breathing difficulties on an outpatient basis (with spirometry regarding possible asthma diagnosis and reviewing vocal cord exercises for possible vocal cord dysfunction) -Request 1 month outpatient follow up History of Present Illness Reason for Consultation: breathing difficulties and possible flare of chronic spontaneous urticaria Attending Physician: Jd More MD History of Present Illness The patient is a 73-year-old woman who was previously followed by an [employer] Necktie Operator for management of a suspected diagnosis of chronic spontaneous urticaria/angioedema. 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 She ultimately moved from this location to the [facility] around 35 years ago and notes that her swelling episodes have somewhat improved following this relocation. Nevertheless, she was evaluated by an outside [employer] Necktie Operator (though ultimately lost to follow-up around 8 years ago) who reportedly advised that her symptoms were consistent with chronic idiopathic angioedema. The patient's swelling/hive episodes seem to be possibly triggered by environmental triggers (which also appear to particularly exacerbate the patient's breathing difficulties along with exposures to cold). The patient is not on any maintenance regimen to prevent recurrence of angioedema/breathing issues, but instead has a "flare plan" in which she takes a combination of 2 tablets of Benadryl as well as 2 puffs of albuterol. If this regimen is unsuccessful, the patient will then take some prednisone. If the systemic steroids fail to adequately control the patient's symptoms she will then use an epinephrine autoinjector (although it is unclear whether epinephrine ever leads to any degree of improvement). If she does not feel better with epinephrine (almost to the point of passing out), she will typically present to the emergency room where she gets a variety of IV medications that seem to improve her situation. The patient will typically require use of her first-line "flare plan" medications (2 tablets of Benadryl and 2 puffs of albuterol) every few months or so. Most recently, the patient notes that she had been started on Jardiance for management of her diabetes a few weeks ago and went on to develop a red blotchy rash of her lower extremities but that shortly thereafter she went on to develop a "flare of her angioedema". When she used her "flare plan" she did not notice any improvement whatsoever, which ultimately prompted presentation to the hospital. She denies a family history of other individuals developing recurring swelling seemingly at random. Allergies Allergy/AdvReac Type Severity Reaction Status Date / Time phenylephrine Allergy Severe RED, Verified 07/09/23 00:11 WATERY EYES empagliflozin Allergy Intermediate Rash Verified 07/09/23 02:08 [From Jardiance] house dust mite Allergy Intermediate HIVES,SOB Verified 07/09/23 00:11 THROAT SWELLS baclofen Allergy Mild Hives Verified 07/09/23 00:11 Cephalosporins Allergy Mild UNKNOWN Verified 07/09/23 00:11 clindamycin Allergy Mild UNKNOWN Verified 07/09/23 00:11 contact metal agent Allergy Mild (white Verified 07/09/23 00:11 gold) OCCASIONAL HIVES/IRRITATION erythromycin base Allergy Mild HIVES Verified 07/09/23 00:11 latex Allergy Mild RASH,REDNESS, Verified 07/09/23 00:11 HIVES methocarbamol Allergy Mild blurry Verified 07/09/23 00:11 vision, headache, memory loss Penicillins Allergy Mild HIVES Verified 07/09/23 00:11 sulfamethoxazole Allergy Mild depression, Verified 07/09/23 00:11 nausea, diarrhea trimethoprim Allergy Mild depression, Verified 07/09/23 00:11 nausea, diarrhea tropicamide Allergy Mild RED, Verified 07/09/23 00:11 WATERY EYES suture Allergy (cat gut) Verified 07/09/23 00:11 severe rash Sutures Allergy (ethicon) Verified 07/09/23 00:11 celecoxib AdvReac Severe SUICIDAL Verified 07/09/23 00:11 codeine AdvReac Mild NAUSEA AND Verified 07/09/23 00:11 VOMITING famotidine AdvReac Diarrhea Verified 07/10/23 17:25 Home Medications Medication Instructions Recorded Confirmed Type albuterol sulfate 90 mcg/actuation 2 puff inhalation QID PRN Allergic 04/25/18 07/08/23 History aerosol inhaler Reaction ascorbic acid (vitamin C) 500 mg 1,000 mg PO DAILY 04/25/18 07/08/23 History capsule diphenhydramine HCl 25 mg capsule 50 mg PO HS PRN Allergic Reaction 04/25/18 07/08/23 History (Benadryl) epinephrine 0.3 mg/0.3 mL 0.3 mg IM Q3H PRN Allergic Reaction 04/25/18 07/08/23 History injection, auto-injector (EpiPen) fexofenadine 180 mg tablet 180 mg PO DAILY PRN Allergic 04/25/18 07/08/23 History (Ana Allergy) Reaction multivitamin with minerals 1 tab PO QAM 04/25/18 07/08/23 History prednisone 20 mg tablet 20 mg PO DIRECTED PRN RESCUE KIT 04/25/18 07/08/23 History astaxanthin 4 mg capsule 4 mg PO QDL 11/22/18 07/08/23 History fish oil-dha-epa 1,200 mg-144 1 cap PO QAM 11/22/18 07/08/23 History mg-216 mg capsule metformin 500 mg tablet 500 mg PO BID 09/19/20 07/08/23 History omeprazole 40 mg capsule,delayed 40 mg PO DAILYBB PRN Acid Reflux 09/19/2007/08 History release clobetasol 0.05 % topical ointment 1 applic topical DAILY 2 weeks #60 05/27/22 07/08/23 Rx grams Curcumin Tab 500 mg PO DAILY 07/08/23 07/08/23 History H2(Molecular Hydrogen) 1 tab PO DAILY 07/08/23 07/09/23 History Krill Oil Cap 1,200 mg PO DAILY 07/08/23 07/09/23 History empagliflozin 25 mg tablet 25 mg PO QAM 07/08/23 07/08/23 History (Jardiance) lactobacillus combination no.4 3 0 mmu cells PO DAILY 07/08/23 07/08/23 History billion cell capsule (Probiotic) magnesium 250 mg tablet 0 mg PO DAILY 07/08/23 07/09/23 History melatonin 1.5 mg tablet 1.5 mg PO DIRECTED PRN Sleep 07/08/23 07/09/23 History mometasone 50 mcg/actuation nasal 2 spray intranasal BID 07/08/23 07/09/23 History spray prednisone 10 mg tablet 10 mg PO .TAPER DIRECTED 07/08/23 07/09/23 History quercetin 500 mg capsule 250 mg PO DAILY 07/08/23 07/09/23 History vit C 250 mg-vit E 90 mg-zinc 40 1 tab PO BID 07/08/23 07/09/23 History mg-copper 1 [id number] capsule (PreserVision AREDS-2) vitamin B complex 1 tab PO DAILY 07/08/23 07/09/23 History vitamin D3 1,250 mcg (50,000 1 cap PO DAILY 07/08/23 07/08/23 History unit)-vitamin K2 200 mcg capsule famotidine 40 mg tablet 40 mg PO .DAILY FOR 7 DAYS 07/09/23 07/09/23 History glipizide 5 mg tablet, extended 5 mg PO QAM 07/09/23 07/09/23 History release 24 hr Patient History Medical History (Updated 07/11/23 @ 18:09 by Jay Jay Herrmann MD) Angioedema Mild intermittent asthma Vocal cord dysfunction Chronic idiopathic urticaria Wrist pain, right Lab test negative for COVID-19 virus Contusion of shoulder, right Contusion of elbow, right Right leg weakness Pain in right hip Fall Idiopathic angioedema Environmental and seasonal allergies Scoliosis Degenerative disc disease Chronic back pain Osteoarthritis GERD (gastroesophageal reflux disease) Diabetes mellitus, type 2 CONTROLLED BY DIET Cancer PRE CANCEROUS SKIN REMOVED Temporomandibular joint disorder Hearing deficit 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 EYE History of cataract surgery RT/LEFT History of bronchoscopy BIOPSY BENIGN TUMOR IN LUNG Family History Brother Family history of diabetes mellitus Mother Family history of diabetes mellitus Sister Breast cancer Denies family history of Ovarian cancer Prostate cancer Myocardial infarction Colorectal cancer Social History Smoking Status: Never smoker Second Hand Exposure: Yes ( A CHILD); Do You Dip or Chew Tobacco: No; Hx Alcohol Use: No Hx Substance Use: No Preferred Language: Turkmen Communication Ability: Effective Senior Catering Sales Manager Required: No Beliefs That Will Affect Care: None Current Living Situation: Alone Current Living Situation Comment: LIVES WITH FATHER "DISABLED" Feels Safe at Home: Yes Assistive Devices: None Review of Systems Review of Systems: I reviewed the history of the following medical systems: constitutional, eyes, ears/nose/mouth/throat, respiratory, cardiovascular, gastrointestinal, genitourinary, musculoskeletal, integumentary, neurologic, psychiatric, endocrinologic, hematologic/lymphatic, and allergic/immunologic. Positive and/or significant negative findings are as above, otherwise, ROS was normal. Physical Exam Physical Exam: General: NAD, well-appearing woman resting comfortably in hospital bed, pleasant and cooperative, engaged in interview and exam HEENT: NC/AT, MMM, no tonsillar swelling/erythema, no conjunctival injection, no nasal discharge Neck: supple, FROM, no LAD Cardiac: normal S1 and S2, RRR, no M/R/G, brisk cap refill < 2 seconds Lungs: CTAB, no W/R/R, normal work of breathing Abdomen: normal BS, soft, NT/ND, no hepatosplenomegaly, no masses Extremities: 3+ pulses, no gross deformities, no cyanosis/edema Neuro: no focal deficits, appropriate muscle strength and tone Skin: no rashes/lesions, clean/dry/intact Results & Data Vital Signs (Past 12 Hours) Vital Signs Temp Pulse Pulse Resp BP BP Pulse Ox 07/11/23 16:19 37.0 C 66 18 141/77 H 98 07/11/23 11:45 36.8 C 65 18 151/83 H 98 07/11/23 09:53 155/76 H 07/11/23 09:11 161/93 H 07/11/23 07:34 36.6 C 68 18 178/80 H 99 O2 Del Method 07/11/23 16:19 Room Air 07/11/23 11:45 Room Air 07/11/23 09:53 07/11/23 09:11 07/11/23 07:34 Room [place] [address] IN/OBS CONSULT LVL 4,60M Patient Type New History Detailed Exam Detailed Medical Decision Making Moderate Complexity Diagnoses Chronic idiopathic urticaria L50.1 Angioedema T78.3XXA Mild intermittent asthma J45.20 Vocal cord dysfunction J38.3
--- NOTE | 2023-07-11 18:14 | Hospitalist Progress Note ---
Date of Service July 11, 2023 Assessment & Plan (1) Chest tightness: Plan 73-year-old lady with PMH of bronchial asthma, idiopathic angioedema/urticaria, situational hypertension, T2DM on oral meds, gastroparesis, GERD came in with worsening allergic reaction progressing to chest tightness and sensation of swelling of throat after being initiated on Jardiance recently as an outpatient. Also patient notes that after she was started on famotidine for this allergic reaction, she had diarrhea and which resolved with stopping of famotidine. Patient's Jardiance was stopped and glipizide was recommended as substitute for diabetes control. Patient reports having sensation of swelling of her throat and voice changes and chest tightness at presentation. Of note, patient has intermittent episodes of throat swelling sensation and shortness of breath occurring about every 2 to 3 months and usually self takes care of these with medication comprising of antihistamine, MDI puff, prednisone doses. This time her symptoms did not improve and hence he presented to the ED. She is being managed for the following: Flareup of idiopathic angioedema Allergic reaction to Jardiance Patient presented with complaint of sensation of throat swelling, chest tightness and was noted to have voice changes. Patient received epinephrine, breathing treatments in the ED with improvement. At bedside exam 07/09, patient reports improvement in her sensation of throat swelling, and reports her voice getting back to normal. Pt had recurrence of feeling of throat swelling a/w voice change and chest tightness x2 on 07/10; symptom resolution with use of Benadryl and Solu-Medrol. Discussed with immunology 07/11, will taper down the steroid and is started on cetirizine 20 mg twice daily. Patient with no further events today. Will taper down steroid. Patient to follow-up with kitchen utility associate in a month time upon discharge. Continue with as needed Benadryl, continue with telemetry. Hypertensive urgency: Likely secondary to acute issues, ? anxiety. Does not appear to be on blood pressure medications at home. Started her on amlod. Echo reviewed, EF 55 to 60%, normal LV wall thickness. Labile blood pressure, discussed with nephrology 07/11, can use amlodipine twice a day as it would not be prudent to start her on multiple medication at the same time as she is very prone to allergic reaction. Adding amlodipine 2.5 mg in the night, will titrate up to 5 mg in the night if needed. Other chronic medical conditions: T2DM, HTN, HLD, GERD -continue with/resume home meds as and when able. DVT prophylaxis per Lovenox subcu Full code Text document was generated using [employer] voice recognition software. It may contain grammatical or spelling errors. Kindly contact undersigned for clarification of any documentation item in question. Admission and Anticipated Discharge Date Admission Date: July 10, 2023 Subjective Patient was seen and examined at bedside. Patient was lying in bed, reported feeling throat swelling sensation along with shortness of breath and chest tightness, no radiation of chest discomfort x 2 yesterday. No further events today. Patient denies any fever/chills/cough/abdominal pain. Patient reports eating okay and moving bowels okay. Patient's daughter at bedside, plan of care extensively discussed, answered all questions to the best of my ability. Physical Exam Physical Exam: GENERAL: Alert and oriented x3. NAD, on RA. HEENT: No pallor, no icterus. Pupils equal, round and reactive to light. Oral mucosa moist. NECK: No JVD, no neck masses. HEART: S1 and S2 heard. Regular rate and rhythm. No murmur, no gallop. RESPIRATORY SYSTEM: Normal AP diameter. No accessory muscle use. No wheezing, no crackles. ABDOMEN: Soft, bowel sounds present, nontender, no distention. CENTRAL NERVOUS SYSTEM: No facial droop. Speech is clear. Obeys simple commands. Moves extremities. EXTREMITIES: No edema, no erythema seen. Results & Data Results & Data Vital Signs (Past 12 Hours) Vital Signs Temp Pulse Pulse Resp BP BP Pulse Ox 07/11/23 16:19 37.0 C 66 18 141/77 H 98 07/11/23 11:45 36.8 C 65 18 151/83 H 98 07/11/23 09:53 155/76 H 07/11/23 09:11 161/93 H 07/11/23 07:34 36.6 C 68 18 178/80 H 99 O2 Del Method 07/11/23 16:19 Room Air 07/11/23 11:45 Room Air 07/11/23 09:53 07/11/23 09:11 07/11/23 07:34 Room Air
[2023-07-11] MEDS: amLODIPine BESYLATE 5 MG TAB PO SCH (21:43)
[2023-07-11] MEDS: LANTUS PER UNIT CHARGE SQ SCH (21:45)
[2023-07-11] MEDS: amLODIPine BESYLATE 5 MG TAB PO ONE (22:15)
[2023-07-11] MEDS: INSULIN ASPART PER UNIT CHARGE SC SCH (23:31)
[2023-07-12] MEDS: PANTOprazole 40 MG TAB PO PRN (08:04)
[2023-07-12] MEDS: methylPREDNISolone 40 MG in SYRINGE 0 ML IV SCH (08:04)
--- NOTE | 2023-07-12 10:42 | Nephrology Progress Note ---
Date of Service July 12, 2023 Assessment & Plan Admission and Anticipated Discharge Date Admission Date: July 10, 2023 Subjective Assessment & Plan (1) Labile hypertension: (2) Chest tightness: (3) Anaphylaxis: She has h/o Angioedema/Urticaria--this makes using MARY/ARB not possible/not preferable. has intermittent low Na so prefer not to use HCTZ or other thiazides. patient like her has severe problem with allergy and is very hard to find regimen/med that she can handle without side effects. So far Amlodipine seems to be tolerated so will continue same. Change her dose to 5 mg bid. As per patient and daughter Her BP gets high when she gets these " episodes". So for now tolerate BP < 160/100. reassess her BP once Outpt and her Angioedema subsides and is on less Steroid S--NO new issues. BP last 24 hrs is acceptable. Did see Pharmacist In Charge Owner Physical Exam Physical Exam: Awake and alert. Oriented Normal speech. No distress now. Respiratory: b/l Clear Cardiovascular: S1 and S2 RRR. Gastrointestinal (Abdomen): Soft non tender Skin: No rash Results & Data Vital Signs (Past 12 Hours) Vital Signs Temp Pulse Pulse Resp BP Pulse Ox O2 Del Method 07/12/23 07:08 36.4 C L 62 18 161/83 H 90 Room Air 07/12/23 03:00 36.4 C L 55 L 16 127/74 96 Room Air 07/12/23 00:00 72 07/11/23 23:45 36.6 C 59 L 16 115/72 93 Room Air
--- NOTE | 2023-07-12 13:15 | Discharge Summary ---
Date of Service July 12, 2023 Admission HPI Per Admitting Provider History obtained from patient and records. Medical history significant for bronchial asthma, idiopathic angioedema/urticaria, situational hypertension, DM2 on oral medications, situational hypertension as per records, gastroparesis, GERD. Last confinement August 2020 for traumatic RLE weakness. 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 Intermittent episodes of throat swelling sensation and shortness of breath occurring about every 2 months. No previous facial/tongue swelling reactions. Usually precipitated by environmental agents. Usually responsive to medications comprised of antihistaminic, MDI puff and prednisone dose. Two weeks ago, patient noted pruritic rash on both legs shortly after starting new Jardiance medication for diabetes. Patient stopped Jardiance. Shortly after, patient had angioedema attack described as tightness in her throat with shortness of breath. Not improved with home rescue kit. 2 ER visits at [facility] with transient improvement of symptoms. Patient seen at PCPs office 3 days ago. Symptoms attributed to possible asthma flareup along with angioedema. No documentation of wheezing on provider exam as per note. Prednisone course prescribed. Outpatient referral with mirian Rogers allergologist contemplated. Patient told to stop Jardiance. Glipizide recommended as substitute for DM control. Symptoms initially improved but yesterday, patient had voice change with recurrence of throat swelling sensation. Intermittent chest tightness with headache, abdominal pain symptoms. Highest SBP of 200s documented at the ER. Albuterol and neb treatment administered at the ER. Chest pain and headache improved with Tylenol administration at the ER. Patient currently comfortable and feeling much better. 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 Admission Exam Per Admitting Provider GENERAL: Slightly uncomfortable, obese, anxious, no respiratory distress, no stridor SKIN: Normal color, warm HEENT: [place] palpebral conjunctivae, no ptosis, dry buccal mucosa NECK : Supple, short neck, no tenderness CHEST : CTA, no tenderness HEART : RRR, no obvious murmurs ABDOMEN: Some distention, nontender EXTREMITIES : No LE swelling or tenderness, no other conspicuous deformities noted NEUROLOGIC : Coherent, no facial asymmetry, no gross focality Principal Diagnosis Flareup of idiopathic angioedema Likely allergic reaction to Jardiance Hypertensive urgency Discharge Exam GENERAL: Alert and oriented x3. NAD, on RA. HEENT: No pallor, no icterus. Pupils equal, round and reactive to light. Oral mucosa moist. NECK: No JVD, no neck masses. HEART: S1 and S2 heard. Regular rate and rhythm. No murmur, no gallop. RESPIRATORY SYSTEM: Normal AP diameter. No accessory muscle use. No wheezing, no crackles. ABDOMEN: Soft, bowel sounds present, nontender, no distention. CENTRAL NERVOUS SYSTEM: No facial droop. Speech is clear. Obeys simple commands. Moves extremities. EXTREMITIES: No edema, no erythema seen. Discharge Data Allergies Allergy/AdvReac Type Severity Reaction Status Date / Time phenylephrine Allergy Severe RED, Verified 07/09/23 00:11 WATERY EYES empagliflozin Allergy Intermediate Rash Verified 07/09/23 02:08 [From Jardiance] house dust mite Allergy Intermediate HIVES,SOB Verified 07/09/23 00:11 THROAT SWELLS baclofen Allergy Mild Hives Verified 07/09/23 00:11 Cephalosporins Allergy Mild UNKNOWN Verified 07/09/23 00:11 clindamycin Allergy Mild UNKNOWN Verified 07/09/23 00:11 contact metal agent Allergy Mild (white Verified 07/09/23 00:11 gold) OCCASIONAL HIVES/IRRITATION erythromycin base Allergy Mild HIVES Verified 07/09/23 00:11 latex Allergy Mild RASH,REDNESS, Verified 07/09/23 00:11 HIVES methocarbamol Allergy Mild blurry Verified 07/09/23 00:11 vision, headache, memory loss Penicillins Allergy Mild HIVES Verified 07/09/23 00:11 sulfamethoxazole Allergy Mild depression, Verified 07/09/23 00:11 nausea, diarrhea trimethoprim Allergy Mild depression, Verified 07/09/23 00:11 nausea, diarrhea tropicamide Allergy Mild RED, Verified 07/09/23 00:11 WATERY EYES suture Allergy (cat gut) Verified 07/09/23 00:11 severe rash Sutures Allergy (ethicon) Verified 07/09/23 00:11 celecoxib AdvReac Severe SUICIDAL Verified 07/09/23 00:11 codeine AdvReac Mild NAUSEA AND Verified 07/09/23 00:11 VOMITING famotidine AdvReac Diarrhea Verified 07/10/23 17:25 Consultations 07/11/23 08:17 Consult Nephrology Routine 07/11/23 08:36 Consult Allergy / Immunology Routine Ordered Studies 07/08/23 20:55 CT soft tissue neck w con Stat 07/08/23 23:38 CT Abd and Pelvis [CT abd pelvis wo con] Stat CT head/brain wo con Stat 07/10/23 10:29 CT neck soft tissues [CT soft tissue neck w con] Urgent Diabetes Follow up Diabetes Follow-up Needed for HgbA1c >9% Hospital Course (1) Chest tightness: Plan 73-year-old lady with PMH of bronchial asthma, idiopathic angioedema/urticaria, situational hypertension, T2DM on oral meds, gastroparesis, GERD came in with worsening allergic reaction progressing to chest tightness and sensation of swelling of throat after being initiated on Jardiance recently as an outpatient. Also patient notes that after she was started on famotidine for this allergic reaction, she had diarrhea and which resolved with stopping of famotidine. Patient's Jardiance was stopped and glipizide was recommended as substitute for diabetes control. Patient reports having sensation of swelling of her throat and voice changes and chest tightness at presentation. Of note, patient has intermittent episodes of throat swelling sensation and shortness of breath occurring about every 2 to 3 months and usually self takes care of these with medication comprising of antihistamine, MDI puff, prednisone doses. This time her symptoms did not improve and hence he presented to the ED. She was managed for the following: Flareup of idiopathic angioedema Allergic reaction to Jardiance Patient presented with complaint of sensation of throat swelling, chest tightness and was noted to have voice changes. Patient received epinephrine, breathing treatments in the ED with improvement. At bedside exam 07/09, patient reports improvement in her sensation of throat swelling, and reports her voice getting back to normal. Pt had recurrence of feeling of throat swelling a/w voice change and chest tightness x2 on 07/10; symptom resolution with use of Benadryl and Solu-Medrol. No further such symptoms as of today. Discussed with immunology 07/11, will taper down the steroid and is started on cetirizine 20 mg twice daily. Pt to f/u training and development specialist on DC. Pt is made aware of the plan. Hypertensive urgency: Likely secondary to acute issues, ? anxiety. Does not appear to be on blood pressure medications at home. Started her on amlod. Echo reviewed, EF 55 to 60%, normal LV wall thickness. Labile blood pressure, discussed with nephrology 07/12, will use amlodipine 5 mg twice a day [it would not be prudent to start her on multiple medication at the same time as she is very prone to allergic reaction]. Patient to measure blood pressure at home, maintain a log and follow-up with PCP for ongoing management. Other chronic medical conditions: T2DM, HTN, HLD, GERD -continue with/resume home meds as and when able. Patient to stop Jardiance and start glipizide as prescribed by her outpatient provider prior to arrival. Patient to establish and follow-up with diabetic clinic. Patient has been explained and she voiced understanding. DVT prophylaxis per Lovenox subcu Full code Text document was generated using [employer] voice recognition software. It may contain grammatical or spelling errors. Kindly contact undersigned for clarification of any documentation item in question. Patient is being discharged to home with following instruction at the point of discharge: Follow-up with your primary care physician within a week time and likely you will need labs CBC/CMP/magnesium/phosphorus. From your allergy standpoint, training and development specialist evaluated you while in the hospital. You will be discharged on cetirizine 20 mg twice a day. Follow-up with training and development specialist in 2 to 4 weeks time upon discharge. Your steroid will be tapered down over the course of next several days. From your hypertension standpoint, you will be discharged on amlodipine 5 mg twice a day. Maintain a blood pressure measurement twice a day and maintain a log to take it to your primary care physician for ongoing evaluation/management of your blood pressure medications. From your GERD standpoint, weight loss helps. Take small volume of meals at a time to prevent bloating sensation/nausea/heartburn. Continue taking your prior to arrival omeprazole at home. Take omeprazole twice a day for the duration of your steroid taper then can change back to once a day dosing as prior. From your diabetes standpoint, you have been started on Jardiance as an outpatient and then followed this allergic reaction leading upto admission. Hence as per your outpatient provider, discontinue Jardiance, continue your glipizide as prescribed recently as an outpatient. Establish and maintain a follow-up with diabetic clinic to help with long-term management of your diabetes. Take your medications as prescribed. Please make sure that you are able to get your medications today by calling your pharmacy before you leave the hospital so that your treatment continuity is not broken. Home Health Attestation I certify that this patient is under my care and that I, or a physicians assistant director of financial aid working with me, had a face to-face encounter that meets the home health [id number] encounter requirements with this patient. The encounter with the patient was in whole, or in part, for the following medical condition, which is the primary reason for home health care (list medical condition): I certify that, based on my findings, the following services are medically necessary home health services: My clinical findings support the need for the above services because: Further, I certify that my clinical findings support that this patient is homebound (i.e. absences from home require considerable and taxing effort and are for medical reasons or islam services or infrequently or of short duration when for other reasons) because: Certification for Home Health Services: Based on the above findings, I certify that this patient is confined to the home and needs intermittent retirement care, physical therapy and/or speech therapy or continues to need occupational therapy. The patient is under my care, and I have initiated the establishment of the plan of care. This patient will be followed by a physician who will periodically review the plan of care. Total Time Total Time Spent Total Time Spent (In Minutes): 45 Discharge Plan Discharge Items Patient Disposition: Home - Self-Care Reason For Visit: CP Discharge Diagnosis: Flareup of idiopathic angioedema Likely allergic reaction to Jardiance Hypertensive urgency Activity: Resume your previous activity Non-emergency contact: Primary Care Provider Call non-emergency contact if: you have any medication questions, your symptoms worsen and your temperature is above 101.5 Follow-up/Referrals: Jay Jay Herrmann MD [Physician] - 08/09/23 1:00 pm Sharee Leblanc DO [Primary Care Provider] - (Date & Time 07/15/2023 12:20 PM Provider Adelita Peace CRNP Department [facility] ) Diet: Carb Consistent or DM2 and Heart Healthy Addtl Attending Provider Instructions: Follow-up with your primary care physician within a week time and likely you will need labs CBC/CMP/magnesium/phosphorus. From your allergy standpoint, training and development specialist evaluated you while in the hospital. You will be discharged on cetirizine 20 mg twice a day. Follow-up with training and development specialist in 2 to 4 weeks time upon discharge. Your steroid will be tapered down over the course of next several days. From your hypertension standpoint, you will be discharged on amlodipine 5 mg twice a day. Maintain a blood pressure measurement twice a day and maintain a log to take it to your primary care physician for ongoing evaluation/management of your blood pressure medications. From your GERD standpoint, weight loss helps. Take small volume of meals at a time to prevent bloating sensation/nausea/heartburn. Continue taking your prior to arrival omeprazole at home. Take omeprazole twice a day for the duration of your steroid taper then can change back to once a day dosing as prior. From your diabetes standpoint, you have been started on Jardiance as an outpatient and then followed this allergic reaction leading upto admission. Hen ce as per your outpatient provider, discontinue Jardiance, continue your glipizide as prescribed recently as an outpatient. Establish and maintain a follow-up with diabetic clinic to help with long-term management of your diabetes. Take your medications as prescribed. Please make sure that you are able to get your medications today by calling your pharmacy before you leave the hospital so that your treatment continuity is not broken. Pending Studies at Discharge: Yes Stand-Alone Forms: My [facility], Smoking Cessation Medications and DC Order Prescriptions: New cetirizine 10 mg Tablet 20 mg PO BID Qty: 120 0RF amlodipine [Norvasc] 5 mg Tablet 5 mg PO BID Qty: 60 0RF prednisone 10 mg tablet 10 mg PO DIRECTED 7 Days Qty: 13 0RF Rx Instructions: 30 mg daily for 2 days, 20 mg daily for 2 days, 10 mg daily for 2 days, then 5 mg daily for 1 day and stop. Continued clobetasol 0.05 % ointment 1 applic topical DAILY 14 Days Qty: 60 4RF Rx Instructions: apply externally 1-2 times a week at bedtime diphenhydramine HCl [Benadryl] 25 mg Capsule 50 mg PO HS PRN (Reason: Allergic Reaction) epinephrine [EpiPen] 0.3 mg/0.3 mL Auto-Injector 0.3 mg IM Q3H PRN (Reason: Allergic Reaction) multivitamin with minerals Tablet 1 tab PO QAM albuterol sulfate 90 mcg/actuation Hfa Aerosol Inhaler 2 puff INHALATION QID PRN (Reason: Allergic Reaction) ascorbic acid (vitamin C) 500 mg Capsule 1,000 mg PO DAILY Rx Instructions: Take 1 tablet in the morning and at noon fish oil-dha-epa 1,200-144-216 mg Capsule 1 cap PO QAM astaxanthin 4 mg Capsule 4 mg PO QDL metformin 500 mg tablet 500 mg PO BID omeprazole 40 mg capsule,delayed release(DR/EC) 40 mg PO DAILYBB PRN (Reason: Acid Reflux) melatonin 1.5 mg Tablet 1.5 mg PO DIRECTED PRN (Reason: Sleep) mometasone [Nasonex] 50 mcg/actuation [place],Non-Aerosol 2 spray INTRANASAL BID Rx Instructions: administer into each nostril vitamin B complex Tablet 1 tab PO DAILY magnesium 250 mg Tablet 0 mg PO DAILY Probiotic 3 billion cell Capsule 0 mmu cells PO DAILY Rx Instructions: administer with a meal PreserVision AREDS-2 250-90-40-1 mg Capsule 1 tab PO BID vitamin D3-vitamin K2 1,250-200 mcg Capsule 1 cap PO DAILY Rx Instructions: unknown strength quercetin 500 mg Capsule 250 mg PO DAILY Curcumin Tab 500 mg PO DAILY H2(Molecular Hydrogen) 1 tab PO DAILY Krill Oil Cap 1,200 mg PO DAILY glipizide 5 mg tablet extended release 24hr 5 mg PO QAM Rx Instructions: did not start yet Discontinued prednisone 20 mg Tablet 20 mg PO DIRECTED PRN (Reason: RESCUE KIT) fexofenadine [Ana Allergy] 180 mg Tablet 180 mg PO DAILY PRN (Reason: Allergic Reaction) prednisone 10 mg tablet 10 mg PO .TAPER DIRECTED Jardiance 25 mg tablet 25 mg PO QAM Rx Instructions: STOPPED TAKING ABOUT 1 WEEK AGO famotidine 40 mg tablet 40 mg PO .DAILY FOR 7 DAYS Rx Instructions: Patient stopped, thought it was causing diarrhea Discharge Orders: Discharge Order (Routine); Ordered 07/12/23 Ordered By: Jd Mclean/Other Patient Handouts: High Blood Sugar (Hyperglycemia), Managing Type 2 Diabetes Admission Data Admit Date/Time: 07/10/23 16:08 Attending Provider: Jd More Admit Provider: Jd More Primary Care Provider: Sharee Leblanc Other Providers: Honorio Ball; Pia Jauregui
[2023-07-12] MEDS ORDERED: amLODIPine BESYLATE 5 MG TAB PO SCH (21:00)
[2023-07-12] MEDS ORDERED: LANTUS PER UNIT CHARGE SQ SCH (21:00)
[2023-07-15 15:57] LABS: C1 Esterase Inhib Functional >100 % (>=68); C1 Esterase Inhibitor 39 mg/dL (21-39); Complement C1q 5.6 mg/dL (5.0-8.6)
== END 2023-07-12 14:26 | disposition home or self-care (01) | DRG 916 ==
LOC: EDINP 16:28 → ED 16:28 → 2E 07-09 04:11